=== PATIENT | male | born 1955 | race Caucasian/White ===

== ENCOUNTER 2017-10-04 15:28 | Emergency (ER) | payer MEDICARE, OTHER, SELFPAY ==
[2017-10-04 15:29] VITALS: BP 116/66; PULSE 67; RESP 14; TEMP 36.1; O2SAT 97; BMI 37.3
--- NOTE | 2017-10-04 15:42 | CT_ITS ---
STUDY: CT BRAIN WITHOUT CONTRAST REASON FOR EXAM: Male, 62 years old. Trauma. RADIATION DOSAGE (If Supplied By Facility): CTDIvol = ( 44.99 ) mGy, DLP = ( 880.47 ) mGycm TECHNIQUE: Transaxial CT imaging of the brain was performed without administration of intravenous contrast material. Individualized dose optimization techniques were used for this CT. COMPARISON: None. FINDINGS: There is a 2.8 cm focal scalp hematoma over the left forehead. Normal calvarium. No fractures are seen. Normal size ventricles and extra-axial spaces for the patient's age. Normal white matter tracts of the cerebral hemispheres. Normal basal ganglia and thalami. Normal brainstem. Normal cerebellum. There is no intracranial hemorrhage. There are no findings of an acute ischemic infarction. There is mucoperiosteal inflammatory disease of the paranasal sinuses consistent with mild chronic sinusitis. CT/Brain/Head without Contrast IMPRESSION: Normal unenhanced CT scan of the brain. Electronically Signed: Eran Stanton MD at 16:54 EDT , Service support ,
--- NOTE | 2017-10-04 15:43 | CT_ITS ---
STUDY: CT FACIAL BONES WITHOUT CONTRAST REASON FOR EXAM: Male, 62 years old. Trauma. RADIATION DOSAGE (If Supplied By Facility): CTDIvol = ( 29.38 ) mGy, DLP = ( 679.68 ) mGycm TECHNIQUE: The patient was scanned in a multi detector CT scanner. Sagittal and coronal images were reconstructed. Individualized dose optimization techniques were used for this CT. COMPARISON: None. FINDINGS: Focal 2.8 cm scalp hematoma over the left forehead. No definite fractures are seen. Normal orbital butler and orbital contents. Normal nasal bones and anterior nasal spine. Normal facial bones. There is no demonstrated fracture. Mild diffuse chronic sinusitis. CT/Sinus/Facial Bone IMPRESSION: No definite fractures are seen. Electronically Signed: Eran Stanton MD at 16:52 EDT , Service support ,
--- NOTE | 2017-10-04 15:59 | ED.VISSUMM ---
- ER Visit Summary Date of Service: 10/04/17 Chief Complaint: [Head injury] History of Present Illness: The patient is a 62 M [who presents the emergency department with a head injury. It occurred Gaurav. He was lifting the garage door and that is last thing he remembers. He woke up covered in blood. He does not know how long he lost consciousness. He went inside and put ice on it. He has been having swelling around his eyes and a hematoma just above the left eye. He complains of a headache. In general overall weakness. No focal deficits. Saw his pain management doctor today who suggested he come to the emergency department. He is on Arixtra for history of DVT in 2005. Has a history of hypertension hyperlipidemia and chronic back pain.] Physical Examination: [] WN WD NAD Large fluctuant hematoma just above the left brow, he has raccoon eyes bilaterally, no hsu signs He has bleeding on the left TM not behind that I can visualize PERRL EOMI MMM NECK supple and nontender, no masses RRR no murmur rub or gallop, no peripheral edema, symmetric radial pulses CTAB no respiratory distress ABDOMEN is soft and nontender, normal bowel sounds, no distension, no rebound or guarding SKIN abrasion bilateral knees Alert and Oriented x3, CN II-XII in tact, no motor or sensory deficits, gait normal No lymphadenopathy Test Results: [] Emergency Department Course and Treatment: [CT of the head and neck show no acute fractures or intracranial hemorrhage. Patient will hold Arixtra for 2 days. He was given precautions for which to return. He will do gentle compression and ice to the hematoma on his head and watch out for signs of infection.] Treatment Plan: [] Disposition: [Discharge] Impression: [scalp Hematoma on anticoagulation] This note was generated with [employer] dictation software. It may contain incorrect words, spelling, and punctuation that were not noted in review of the chart prior to signing ED Disposition - Plan for ED Patient: Chief Complaint: Head Injury Referrals: [facility] Doctor,Out of [Primary Care Provider] -
--- NOTE | 2017-10-04 16:02 | ED.DCSUM_ITS ---
- ER Visit Summary Date of Service: 10/04/17 Chief Complaint: [Head injury] History of Present Illness: The patient is a 62 M [who presents the emergency department with a head injury. It occurred Gaurav. He was lifting the garage door and that is last thing he remembers. He woke up covered in blood. He does not know how long he lost consciousness. He went inside and put ice on it. He has been having swelling around his eyes and a hematoma just above the left eye. He complains of a headache. In general overall weakness. No focal deficits. Saw his pain management doctor today who suggested he come to the emergency department. He is on Arixtra for history of DVT in 2005. Has a history of hypertension hyperlipidemia and chronic back pain.] Physical Examination: [] WN WD NAD Large fluctuant hematoma just above the left brow, he has raccoon eyes bilaterally, no hsu signs He has bleeding on the left TM not behind that I can visualize PERRL EOMI MMM NECK supple and nontender, no masses RRR no murmur rub or gallop, no peripheral edema, symmetric radial pulses CTAB no respiratory distress ABDOMEN is soft and nontender, normal bowel sounds, no distension, no rebound or guarding SKIN abrasion bilateral knees Alert and Oriented x3, CN II-XII in tact, no motor or sensory deficits, gait normal No lymphadenopathy Test Results: [] Emergency Department Course and Treatment: [CT of the head and neck show no acute fractures or intracranial hemorrhage. Patient will hold Arixtra for 2 days. He was given precautions for which to return. He will do gentle compression and ice to the hematoma on his head and watch out for signs of infection.] Treatment Plan: [] Disposition: [Discharge] Impression: [scalp Hematoma on anticoagulation] This note was generated with [employer] dictation software. It may contain incorrect words, spelling, and punctuation that were not noted in review of the chart prior to signing ED Disposition - Plan for ED Patient: Chief Complaint: Head Injury Referrals: [facility] Doctor,Out of [Primary Care Provider] -
--- NOTE | 2017-10-04 17:32 | ED.DEP ---
ED Disposition - Plan for ED Patient: Chief Complaint: Head Injury Instructions: ED Head Injury Closed, ED Contusion Scalp [facility]errals: [facility] [Other] - 2 Days Additional Instructions: stop arixtra for 2 days follow up with primary doctor in 2 days to discuss resuming anticoagulation
[2017-10-04 17:40] VITALS: BP 120/67; PULSE 75; RESP 18; O2SAT 96
== END 2017-10-04 17:40 | disposition home or self-care (01) ==
LOC: ED 16:00
PROVIDERS: Emergency Provider Emergency Medicine
DX: S00.03XA Contusion of scalp, initial encounter (principal); X50.0XXA Overexertion from strenuous movement or load, initial encounter; Y93.89 Activity, other specified; Y92.59 Other trade areas as the place of occurrence of the external cause; Y99.9 Unspecified external cause status; I10 Essential (primary) hypertension; E78.5 Hyperlipidemia, unspecified; G89.29 Other chronic pain; M54.9 Dorsalgia, unspecified; Z86.718 Personal history of other venous thrombosis and embolism; Z79.01 Long term (current) use of anticoagulants
CPT/HCPCS: 70450; 70486; 99282

== ENCOUNTER → 2017-10-12 11:03 | Outpatient (CLI) | payer OTHER, SELFPAY ==
[2017-10-12 12:28] LABS: Amphetamine Urine VISTA NEGATIVE (<1000 ng/mL); Barbiturate Urine VISTA NEGATIVE (< 200 ng/mL); Benzodiazepine Urine VISTA NEGATIVE (< 200 ng/mL); Cocaine Urine VISTA NEGATIVE (< 300 ng/mL); Ecstacy Urine VISTA NEGATIVE (< 500 ng/mL); Methadone Urine VISTA NEGATIVE (< 300 ng/mL); PCP Urine VISTA NEGATIVE (< 25 ng/mL); THC Urine VISTA POSITIVE (< 50 ng/mL); Vista UDS pH Range 7
== END ==
LOC: LAB 11:06
PROVIDERS: Visit Provider Anesthesiology Pain Medicine
DX: F11.20 Opioid dependence, uncomplicated (principal)
CPT/HCPCS: 80307

== ENCOUNTER 2018-06-20 15:21 | Emergency (ER) | payer OTHER, MEDICARE, SELFPAY ==
[2018-06-20 15:23] VITALS: BP 130/77; PULSE 91; RESP 18; TEMP 35.6; O2SAT 99; BMI 37.5
--- NOTE | 2018-06-20 15:39 | ED.VISSUMM ---
- ER Visit Summary Date of Service: 06/20/18 Chief Complaint: Back pain flareup History of Present Illness: The patient is a 62 M with a history of chronic back pain from a work injury in 2004. Pain was previously managed by his spine surgeon in [place] but he retired. He was subsequently referred to pain management here in [place] and his medications were adjusted. His pain has been somewhat worse now for the past month or 2, gradually getting worse. He tried injections 2 weeks ago but they did not help. He denies any sudden increase in pain after the injections or any change in the character, severity, location of the pain. No fever or chills. No midline pain, rather bilateral lumbar pain. No lower extremity weakness, numbness, or bowel/bladder dysfunction. No groin paresthesias. He is moderate. It radiates down both buttocks. It is worse with bending forward and better with certain positions. Physical Examination: Within normal limits. Not in distress. No fever. No midline back tenderness, erythema, or fluctuance. No evidence of infection from his injection. He does have bilateral paraspinal lumbar tenderness. There is normal strength and sensation in both lower extremities. Reflexes are normal and symmetric. Babinski's negative. No clonus. Test Results: none Performed Emergency Department Course and Treatment: No evidence of paraspinal or epidural abscess secondary to his injection. He assures me that this is similar in character to his chronic pain. It did not get suddenly worse after his injection which was approximately 2 weeks ago. He has no evidence of cauda equina syndrome. I do not feel he needs emergent imaging. His pain was addressed and he felt much better. He is able to ambulate. Treatment Plan: He is comfortable going home and will follow up with his pain management doctor. I did review his prescription history and he was honest with me about his prescriptions. He was given a prescription for pain medication and he was also given a prescription for Medrol Dosepak, and Zanaflex. Disposition: Home stable Impression: Initial encounter with acute on chronic back pain This note was generated with [employer] dictation software. It may contain incorrect words, spelling, and punctuation that were not noted in review of the chart prior to signing ED Disposition - Plan for ED Patient: Instructions: ED Low Back Pain Injury Prescriptions: Oxycodone HCl/Acetaminophen [Percocet 5/325] 1 tablet PO Q6H PRN PRN 3 Days #12 tablet PRN Reason: Pain MethylPREDNISolone DosePak [Medrol DosePak] 4 mg PO UD #1 box Naproxen [Naprosyn] 500 mg PO BID PRN #20 tablet Tizanidine HCl [Zanaflex] 4 mg PO TID PRN #20 tablet PRN Reason: Pain Referrals: [facility] Doctor,Out of [Primary Care Provider] -
--- NOTE | 2018-06-20 15:44 | ED.DCSUM_ITS ---
- ER Visit Summary Date of Service: 06/20/18 Chief Complaint: Back pain flareup History of Present Illness: The patient is a 62 M with a history of chronic back pain from a work injury in 2004. Pain was previously managed by his spine surgeon in [place] but he retired. He was subsequently referred to pain management here in [place] and his medications were adjusted. His pain has been somewhat worse now for the past month or 2, gradually getting worse. He tried injections 2 weeks ago but they did not help. He denies any sudden increase in pain after the injections or any change in the character, severity, location of the pain. No fever or chills. No midline pain, rather bilateral lumbar pain. No lower extremity weakness, numbness, or bowel/bladder dysfunction. No groin paresthesias. He is moderate. It radiates down both buttocks. It is worse with bending forward and better with certain positions. Physical Examination: Within normal limits. Not in distress. No fever. No midline back tenderness, erythema, or fluctuance. No evidence of infection from his injection. He does have bilateral paraspinal lumbar tenderness. There is normal strength and sensation in both lower extremities. Reflexes are normal and symmetric. Babinski's negative. No clonus. Test Results: none Performed Emergency Department Course and Treatment: No evidence of paraspinal or epidural abscess secondary to his injection. He assures me that this is similar in character to his chronic pain. It did not get suddenly worse after his injection which was approximately 2 weeks ago. He has no evidence of cauda equi na syndrome. I do not feel he needs emergent imaging. His pain was addressed and he felt much better. He is able to ambulate. Treatment Plan: He is comfortable going home and will follow up with his pain management doctor. I did review his prescription history and he was honest with me about his prescriptions. He was given a prescription for pain medication and he was also given a prescription for Medrol Dosepak, and Zanaflex. Disposition: Home stable Impression: Initial encounter with acute on chronic back pain This note was generated with [employer] dictation software. It may contain incorrect words, spelling, and punctuation that were not noted in review of the chart prior to signing ED Disposition - Plan for ED Patient: Instructions: ED Low Back Pain Injury Prescriptions: Oxycodone HCl/Acetaminophen [Percocet 5/325] 1 tablet PO Q6H PRN PRN 3 Days #12 tablet PRN Reason: Pain MethylPREDNISolone DosePak [Medrol DosePak] 4 mg PO UD #1 box Naproxen [Naprosyn] 500 mg PO BID PRN #20 tablet Tizanidine HCl [Zanaflex] 4 mg PO TID PRN #20 tablet PRN Reason: Pain Referrals: [facility] Doctor,Out of [Primary Care Provider] -
[2018-06-20] MEDS: HYDROmorphone 1 MG/ML Syringe 2 MG IM (16:25)
[2018-06-20 17:31] VITALS: BP 128/77; PULSE 81
== END 2018-06-20 16:45 | disposition home or self-care (01) ==
PROVIDERS: Emergency Provider Emergency Medicine
DX: M54.9 Dorsalgia, unspecified (principal); G89.29 Other chronic pain
CPT/HCPCS: 96372; 99282

== ENCOUNTER 2018-07-25 13:44 | Emergency (ER) | payer OTHER, MEDICARE, SELFPAY ==
[2018-07-25 13:45] VITALS: BP 95/65; PULSE 101; RESP 18; TEMP 36.8; O2SAT 98; BMI 34.2
[2018-07-25] MEDS: Orphenadrine 60 MG/2 ML Ampul IM (14:27)
[2018-07-25] MEDS: morphine 8 MG/ML Syringe IM (14:27)
--- NOTE | 2018-07-25 14:58 | ED.VISSUMM ---
- ER Visit Summary Date of Service: 07/25/18 Chief Complaint: Back pain History of Present Illness: The patient is a 62 M presents to the emergency department back pain. Patient has a history of chronic back pain. He states he was injured at work in 2004. He is been dealing with this since then. He has been in pain management. He has had epidural injections. He states that he recently stopped going to pain management and started down here at [place]. He did see Dr. Guallpa and had an epidural injection. He states that it did not seem like it helped. He continues to have back pain. He describes it as a burning sensation from his low back down the posterior legs. He has no problems with bowel or bladder. He denies any fevers or chills. He is still able to ambulate. He cannot find a position of comfort. Physical Examination: Afebrile, vitals unremarkable. Well-appearing male no acute distress. Head is normocephalic, atraumatic. Pupil's equal round reactive, extraocular muscles intact. Neck supple. Heart regular rate and rhythm. Lungs clear, chest nontender. Abdomen soft, nontender, nondistended. No pulsatile mass. Patient has paraspinal tenderness in the lumbar area, but no bony tenderness. Straight leg raise is negative bilaterally. 2+ symmetric lower extremity pulses. 2+ reflexes. No clonus. No weakness of dorsiflexion, plantar flexion, or extensor hallucis longus bilaterally. Test Results: [] Emergency Department Course and Treatment: [The patient's pain does seem entirely chronic. He has no evidence of discitis, epidural abscess, or cauda equina. He has a normal steady gait. The patient is on fondaparinux for history of DVT, but has not had any trauma. I do not suspect this is an epidural hematoma. He was given IM injections with improvement of his pain. I will treat him with antispasmodics and anti-inflammatories. He is not in any pain management and I will give him a short course of analgesics. He is comfortable with this plan of care and will be discharged home.] Treatment Plan: [] Disposition: Discharge Impression: Acute on chronic back pain This note was generated with [employer] dictation software. It may contain incorrect words, spelling, and punctuation that were not noted in review of the chart prior to signing ED Disposition - Plan for ED Patient: Instructions: ED Sciatica Prescriptions: Hydrocodone Bitart/Apap 5-325 [[place] 5MG-325MG] 1 tab PO Q6H PRN PRN 3 Days #10 tab PRN Reason: Pain MethylPREDNISolone DosePak [Medrol DosePak] 4 mg PO UD #1 box Cyclobenzaprine [Flexeril] 10 mg PO TID PRN #20 tab PRN Reason: Muscle Spasm [facility] [Primary Care Provider] -
[2018-07-25 15:18] VITALS: BP 114/73; PULSE 96; RESP 18; O2SAT 97
== END 2018-07-25 15:20 | disposition home or self-care (01) ==
LOC: ED 14:52
PROVIDERS: Emergency Provider Emergency Medicine
DX: M54.16 Radiculopathy, lumbar region (principal); G89.29 Other chronic pain; I10 Essential (primary) hypertension; Z86.718 Personal history of other venous thrombosis and embolism; Z79.01 Long term (current) use of anticoagulants; Z79.899 Other long term (current) drug therapy; Z72.0 Tobacco use
CPT/HCPCS: 96372; 99283

== ENCOUNTER 2019-12-17 12:13 | Emergency (ER) | payer OTHER, MEDICARE, SELFPAY ==
[2019-12-17 12:14] VITALS: BP 162/112; PULSE 90; RESP 20; TEMP 36.6; O2SAT 98; BMI 30.4
--- NOTE | 2019-12-17 12:46 | ED.VIS.GEN ---
History of Present Illness Chief Complaint: Fall Informant: Patient Narrative: 64-year-old male presents with concern for left posterior rib pain. States he was going up the stairs last night and fell backwards striking his ribs on a cast iron pot. States that he did not strike his head. No loss of consciousness. Was drinking alcohol. Denies any neck pain. States that he has sharp pain worse with movement. Worse with deep inspiration. Denies any profound shortness of breath. Does admit to some nausea. Patient is not on anticoagulation. Past Medical History - Allergies and Home Meds Allergies/Adverse Reactions: Allergies No Known Allergies Allergy (Verified 12/17/19 12:16) Primary Care Physician: [facility] [Primary Care Provider] - Prior records reviewed: Yes Past Medical History: - - HTN Lives: With Family Smoking Status: Former smoker Alcohol: Heavy Drugs: None Review of Systems General: Denies: Chills, Fever, Sweats Eyes: Denies: Visual changes - bilaterally, Diplopia ENT: Denies: Rhinorrhea, Sore throat Cardiovascular: Denies: Chest pain, Palpitations Respiratory: Denies: Dyspnea, Cough, Dyspnea on exertion Gastrointestinal: Reports: Nausea. Denies: Abdominal pain, Vomiting, Diarrhea, Melena, Hematochezia Genitourinary: Denies: Dysuria, Hematuria, Frequency Musculoskeletal: Reports: - - left rib pain. Denies: Back pain, Extremity Pain Skin: Denies: Rash, Wounds Neurological: Denies: Headache, Weakness, Numbness Physical Exam Vital Signs/Narrative: Vital Signs Temp Pulse Resp BP Pulse Ox 12/17/19 12:14 97.8 F 90 20 H 162/112 H 98 Inital Vital Signs reviewed: Yes General: Well nourished, Well developed, No Acute Distress Head: Normocephalic, Atraumatic Eyes: Perrl, EOMI ENT: Moist mucous membranes, No rhinorrhea Neck: Supple, Nontender Cardiovascular: Regular rate, Regular rhythm, No murmurs Respiratory: No distress, CTA bilaterally, - - TTP over the left posterior ribs with overlying ecchymosis and hematoma. Abdomen: Soft, Nontender, Nondistended, Normal bowel sounds Back: Nontender, Normal Inspection Extremities: Nontender, No edema Skin: Normal color, No rash Neurological: Alert, Oriented x3, Cranial nerves II-XII grossly intact, Normal Strength, Normal Sensation Psychological: Normal affect, Normal Mood Diagnostic/Tx/Re-eval Clinical Impression(s) from Imaging Studies Ribs w/Chest X-Ray 12/17/19 13:18 IMPRESSION: RIBS: Suspect acute fracture the posterior left 10th rib. CHEST: Normal x-ray examination of the chest. Electronically Signed: Jacques Beltrán MD at 13:51 EDT Tel , Service support , - Medical Decision Making Patient in mild to moderate distress secondary to likely rib fracture. Chest x-ray confirms a posterior 10th rib fracture. No evidence of pneumothorax. Patient was given subcu morphine which did reduce his pain significantly. Patient was given incentive spirometry as well as Percocet for home. Advised to return for any new or worsening symptoms. Patient agreeable and discharged home in stable condition. Impression: 1. Posterior 10th rib fracture 2. Mechanical fall 3. Alcohol abuse ED Disposition - Plan for ED Patient: Disposition: Home or Assisted Living Instructions: Rib Fracture (Broken Rib) Prescriptions: Oxycodone HCl/Acetaminophen [Percocet 5/325] 1 tab PO Q6H PRN PRN 2 Days #6 tab PRN Reason: Pain Score 6-10/10 Prescription Printed [facility] [Primary Care Provider] -
[2019-12-17] MEDS: Morphine 4 MG/ML Syringe SC (12:59)
[2019-12-17] MEDS: Ondansetron ODT 4 MG Tablet PO (13:00)
--- NOTE | 2019-12-17 13:18 | RAD_ITS ---
STUDY: X-RAY - UNILATERAL RIBS ( LEFT ) WITH CHEST REASON FOR EXAM: Male, 64 years old. PATIENT FELL LAST NIGHT AND HIT HIS LEFT LOWER BACK ON A CAST IRON FLOWER POT. PAIN LEFT LOWER RIBS POSTERIORLY. TECHNIQUE - RIBS: 5 view(s) of the ribs. TECHNIQUE - CHEST: Single PA view of the chest. COMPARISON: 05/02/2017 FINDINGS - RIBS: Acute fracture of the posterior left 10th rib. FINDINGS - CHEST: The lungs are clear and expanded. There is no demonstrated pleural abnormality. Normal size heart. Normal mediastinum and radha. Normal visualized pulmonary arteries. Normal visualized aortic arch and descending thoracic aorta. Normal visualized thoracic spine. Normal visualized ribs, clavicles, and shoulders. There is no demonstrated abnormality of the visualized soft tissue structures of the upper abdomen. RAD/Ribs Uni Min 3V w/PA Chest IMPRESSION: RIBS: Suspect acute fracture the posterior left 10th rib. CHEST: Normal x-ray examination of the chest. Electronically Signed: Jacques Beltrán MD at 13:51 EDT Tel , Service support ,
[2019-12-17 14:51] VITALS: BP 148/90; PULSE 72; RESP 18; O2SAT 96
== END 2019-12-17 14:52 | disposition home or self-care (01) ==
PROVIDERS: Emergency Provider Emergency Medicine
DX: S22.32XA Fracture of one rib, left side, initial encounter for closed fracture (principal); W22.8XXA Striking against or struck by other objects, initial encounter; Y92.9 Unspecified place or not applicable; Y99.9 Unspecified external cause status; F10.10 Alcohol abuse, uncomplicated; I10 Essential (primary) hypertension; Z87.891 Personal history of nicotine dependence
CPT/HCPCS: 71101; 96372; 99251; 99282; G0463

== ENCOUNTER 2020-10-24 14:12 | Emergency (ER) | payer OTHER, MEDICARE, SELFPAY ==
[2020-10-24 14:13] VITALS: BP 144/113; PULSE 107; RESP 16; TEMP 36.3; O2SAT 98; BMI 33.3
--- NOTE | 2020-10-24 14:30 | RAD_ITS ---
STUDY: X-RAY - LEFT RADIUS AND ULNA REASON FOR EXAM: Male, 65 years old. Injury TECHNIQUE: 2 view(s) of the forearm. COMPARISON: None. FINDINGS: Focal soft tissue swelling measuring 7.2 cm x 4.5 sinus along the proximal aspect of the ulna laterally. This may represent hematoma. Subchondral cysts are seen in the distal radius. Old avulsion fracture of the ulnar styloid. RAD/Forearm 2 Views IMPRESSION: Focal soft tissue swelling measuring 7.2 cm x 4.5 cm along the lateral aspect of the proximal ulnar shaft as described. This may represent a localized hematoma. Electronically Signed: Lacho Bailey MD at 14:49 EDT , Service support ,
--- NOTE | 2020-10-24 14:30 | EX.ED.UPPERE ---
HPI History of Present Illness Chief Complaint: Upper Extremity Injury Detail of Chief Complaint: Injury to left forearm Informant: patient Onset/Context/Timing Current Severity: Severe Narrative Narrative: Patient presents to the emergency department after a fall this morning where his deck steps broke and he fell about 4 5 feet landing on the steps with his knees and left forearm. Patient states throughout the day has had more swelling in the forearm is become more painful. Injury occurred approximately 5:30 AM. Patient is on a blood thinner called fondaparinux. Patient denies striking his head. He denies head or neck pain. Patient unsure of his last tetanus. Patient no complaint of discoloration to his hand and difficulty opening his hand. Tetanus Immunization: Unknown [facility] Home Medications amlodipine 10 mg PO DAILY 05/02/17 [History Last Taken Unknown] baclofen 20 mg PO TID 05/02/17 [History Last Taken Unknown] cyanocobalamin (vitamin B-12) 1,000 mcg PO DAILY@0800 05/02/17 [History Last Taken Unknown] fondaparinux [Arixtra] 10 mg SQ DAILY 05/02/17 [History Last Taken Unknown] metoprolol tartrate 25 mg PO BID 05/02/17 [History Last Taken Unknown] simvastatin 60 mg PO QHS 05/02/17 [History Last Taken Unknown] tamsulosin 0.4 mg PO DAILY 05/02/17 [History Last Taken Unknown] cyclobenzaprine 10 mg PO TID PRN #20 tab 07/25/18 [Rx Last Taken Unknown] gabapentin 600 mg PO TIDCM 07/25/18 [History Last Taken Unknown] methylprednisolone 4 mg PO UD #1 box 07/25/18 [Rx Last Taken Unknown] Allergy/AdvReac Type Severity Reaction Status Date / Time No Known Allergies Allergy Verified 10/24/20 14:15 Social History Smoking Status: Former smoker ROS ROS ED Constitutional Constitutional ED: Reports systems reviewed and no addt'l complaints, except as documented; Denies body ache(s), change in weight or chills Eyes Eyes: Denies acute decrease in peripheral vision, change in vision, double vision or loss of vision ENT ENT ED: Reports none; Denies ear pain, lip swelling, loss taste/smell, neck pain, otalgia or sore throat Cardiovascular Cardiovascular: Reports none; Denies abdominal pain, chest pain with activity, leg edema, lightheadedness, palpitations, rapid heart rate or syncope Respiratory/Chest Respiratory/Chest: Reports none; Denies change in mental status, dry cough, dyspnea, hemoptysis, shortness of breath at rest or shortness of breath with exertion Gastrointestinal Gastrointestinal: Reports none; Denies abdominal pain, change in stool character, diarrhea, hematemesis, hematochezia, melena, rectal bleeding or vomiting Genitourinary Genitourinary ED: Reports none; Denies abdominal discomfort, anuria, dysuria, genital pain or polyuria Musculoskeletal Musculoskeletal: Reports none and other Details: Left forearm pain ; Denies arthralgias, back pain, difficulty walking, extremity pain, muscle weakness or myalgias Integumentary Reports none; Denies abscess or rash Neurologic Neurologic: Reports none; Denies abnormal gait, confusion, focal weakness, frequent falls, headache(s), loss of vision, numbness, paresthesias, radicular pain, vertigo or weakness Psychiatric Psychiatric: Reports systems reviewed and no addt'l complaints, except as documented and none; Denies behavioral changes, confusion, difficulty concentrating, hallucinations, suicidal ideation, tactile hallucinations or visual hallucinations Endocrine Endocrinology: Denies none, cold intolerance, excessive sweating, fatigue or heat intolerance Hematologic/Lymphatic Hematologic/Lymphatic: Reports none; Denies anemia, easy bleeding or easy bruising Allergic/Immunologic Allergic/Immunologic ED: Denies as per HPI, none, lip swelling, mouth swelling, throat swelling, tongue swelling or hives EXAM Physical Exam Const Vital Signs: 10/24/20 14:13 Temperature 97.4 F L Temperature Source Temporal Pulse Rate 107 H Respiratory Rate 16 Blood Pressure 144/113 H Blood Pressure Mean 123 Pulse Ox 98 Oxygen Delivery Method Room Air Positive well nourished and well developed General Appearance ED: well developed and NAD HEENT Reports TM's clear and moist mucous membranes normocephalic and atraumatic; Negative for trauma or tenderness Tympanic Membrane ED: Yes TM's clear Eyes PERRL and EOMs intact bilaterally General Eye ED: Negative for pale conjunctiva or scleral icterus Neck no lymphadenopathy, supple and no JVD General: Negative for tenderness Chest Wall inspection of chest normal and palpation of chest normal Chest: Negative for tenderness Resp normal respiratory effort and clear to auscultation bilaterally Effort and Inspection: Negative for respiratory distress or pain with movement Auscultation: Negative for rhonchi, wheezes or diminished lung sounds Cardio regular rate, regular rhythm, S1 normal heart sound, S2 normal heart sound and no murmurs Peripheral Pulses: pulses 2+ throughout GI normal to inspection, nondistended, normoactive bowel sounds, soft to palpation, non-tender, non-distended and no masses Back/Spine no CVA tenderness and no thoracic nor lumbar tenderness Extremity normal to inspection Extremity Narrative: Patient has diffuse soft tissue swelling over the dorsum of the proximal forearm with tight compartments. Patient has some darkish discoloration to the dorsum of the hand. He has pain with extension of the hand and fingers. Cap refill approximately 4 seconds. General Extremety ED: Negative for edema General Extremity: Negative for edema Neuro oriented x3, CN's II-XII intact bilaterally, no sensory deficits noted and gait normal Sensorium / Orientation: awake, alert, oriented to person, oriented to place and oriented to time Motor Exam: strength 5/5 throughout and strength abnormal Psych mental status grossly normal Skin no rashes or lesions noted and no wounds MDM MDM MDM Narrative Medical decision making narrative: Clinically I was concerned about compartment syndrome on arrival. I discussed case with orthopedic surgeon on-call Dr. Brar who asked that we transfer patient to tertiary care center. X-rays were negative for fracture but did show soft tissue swelling localized. I discussed case with ED physician at [facility] in [place] who accepted transfer of patient. Patient was given morphine and Zofran for pain. Discharge Plan Triage Chief Complaint: Upper Extremity Injury ED Provider: Corey Regalado Dx/Rx/DC Orders Clinical Impression: Compartment syndrome, Contusion of forearm, left Prescriptions: No Action baclofen 20 MG tablet 20 mg PO TID RF: 0 simvastatin 40 MG tablet 60 mg PO QHS RF: 0 cyanocobalamin (vitamin B-12) 500 MCG tablet 1,000 mcg PO DAILY@0800 RF: 0 tamsulosin 0.4 MG capsule 0.4 mg PO DAILY RF: 0 amlodipine 10 MG tablet 10 mg PO DAILY RF: 0 metoprolol tartrate 25 MG tablet 25 mg PO BID RF: 0 fondaparinux [Arixtra] 10 MG/0.8 ML Ml 10 mg SQ DAILY RF: 0 gabapentin 600 MG tablet 600 mg PO TIDCM RF: 0 methylprednisolone 4 MG tablets,dose pack 4 mg PO UD Qty: 1 RF: 0 cyclobenzaprine 10 MG tablet 10 mg PO TID PRN (Reason: Muscle Spasm) Qty: 20 RF: 0 [facility] [facility] - Disposition Disposition: Transfer to Another Type [facility]
[2020-10-24 14:47] LABS: Absolute Lymphocyte Count 1.21 X10^3/uL (0.83-4.51); Absolute Neutrophil Count 12.8 X10^3/uL (2.0-7.7); Basophil# 0.05 X10^3/uL; Basophil% 0.3 % (0-1); Eosinophil# 0.04 X10^3/uL; Eosinophils% 0.3 % (0-5); Hematocrit 47.5 % (40-54); Hemoglobin 16.2 g/dL (13.0-16.5); Lymphocyte # 1.21 X10^3/ul (0.83-4.51); Lymphocyte % 8.3 % (19-41); Mean Corp Hgb Conc 34.1 g/dL (32-36); Mean Corpuscular Hgb 33.5 pg (27.0-32.0); Mean Corpuscular Volume 98.3 fL (80-94); Mean Platelet Vol. 9.5 fl (6.2-12.0); Monocyte# 0.52 X10^3/uL; Monocyte% 3.6 % (0-10); NRBC Flagged by Analyzer 0 % (0-5); Neutrophil # 12.75 X10^3/uL (2.7-7.7); Neutrophil % 87.2 % (47-70); Platelet Count 266 K/mm3 (150-450); RBC Distribution Width CV 12.9 % (11.6-14.6); RBC Distribution Width SD 46.5 fl (35.1-43.9); Red Blood Count 4.83 M/mm3 (4.6-6.2); White Blood Count 14.6 K/mm3 (4.4-11.0)
[2020-10-24] MEDS: Morphine 4 MG/ML Syringe IV (14:47)
[2020-10-24] MEDS: Ondansetron 4 MG/2 ML Vial IV (14:47)
[2020-10-24] MEDS: Diphth,Pertuss(Acell),Tet Vac 0.5 ML Vial IM (14:49)
[2020-10-24 14:56] LABS: International Normalized Ratio 1.1; Partial Thromboplast Time 27.9 Seconds (24.1-36.2); Prothrombin Time (Protime)PT. 13.2 SECONDS (11.7-14.9)
--- NOTE | 2020-10-24 14:57 | NURSING ---
[facility] FACILITY.
[2020-10-24 15:00] LABS: Anion Gap 6 (5-15); BUN 20 mg/dL (7-18); BUN/Creat Ratio 14.3 RATIO (10-20); Calcium,Total 8.7 mg/dL (8.5-10.1); Chloride 105 mmol/L (98-107); EST Glomerular Filtration Rate 54 mL/min (>60); Est Glom Filt Rate - Afr Amer 65 mL/min (>60); Estimated Creatinine Clearance 57.74 ml/min; Glucose 132 mg/dL (74-106); Sodium Level 137 mmol/L (136-145)
== END 2020-10-24 16:07 | disposition other institution (70) ==
PROVIDERS: Emergency Provider Emergency Medicine
DX: T79.A12A Traumatic compartment syndrome of left upper extremity, initial encounter (principal); S50.12XA Contusion of left forearm, initial encounter; W19.XXXA Unspecified fall, initial encounter; Z87.891 Personal history of nicotine dependence
CPT/HCPCS: 73090; 80048; 85025; 85610; 85730; 87426; 90715; 96374; 96375; 99285; J7030; A4216; J2405

== ENCOUNTER 2022-03-04 16:56 | Emergency (ER) | payer MEDICARE, SELFPAY ==
[2022-03-04] VITALS (7 sets, daily range): BP systolic 130–154; BP diastolic 83–109; PULSE 87–139; RESP 13–37; TEMP 35.9; O2SAT 92–100; BMI 32.1
--- NOTE | 2022-03-04 17:28 | EDS_ITS ---
HPI History of Present Illness Chief Complaint: Chest Pain Informant: patient Narrative Narrative: Patient complains of some chest discomfort. When I talked to the patient he states he has been having chest discomfort for a few days to a week. He initially denies coughing but then states that he started coughing last weekend. He also had some diarrhea last weekend. It takes multiple questions to find out that the diarrhea seems to be less. But he did have 1 episode yesterday. He initially denied nausea but then he admitted he has been nauseated a couple times but he is never vomited. He is able to eat and drink but does not have much appetite. Denies myalgias. His family member states then that he is actually been having symptoms for almost 2 weeks. He then agrees with that. He denies any known sick contacts but then says his brother who is each been around has the same thing. Patient is not confused. He is alert and oriented x3. Is just difficulty getting a consistent story from him. I believe the summation is that he has been ill for between 1 and 2 weeks. At various times he has had cough, dyspnea, nausea, diarrhea. He is also had fevers and states he has had to wring out the sweat from his close a couple times. He is taking his Arixtra. He has a history of atrial fibrillation and PE. [facility] Medical History Afib High cholesterol HTN (hypertension) Pulmonary embolism Home Medications amlodipine 10 mg tablet 10 mg PO DAILY 05/02/17 [History Last Taken Unknown] baclofen 20 mg tablet 20 mg PO TID 05/02/17 [History Last Taken Unknown] cyanocobalamin (vitamin B-12) 500 mcg tablet 1,000 mcg PO DAILY@0800 05/02/17 [History Last Taken Unknown] fondaparinux 10 mg/0.8 mL subcutaneous solution syringe (Arixtra) 10 mg SQ DAILY 05/02/17 [History Last Taken Unknown] metoprolol tartrate 25 mg tablet 25 mg PO BID 05/02/17 [History Last Taken Unknown] simvastatin 40 mg tablet 60 mg PO QHS 05/02/17 [History Last Taken Unknown] tamsulosin 0.4 mg capsule 0.4 mg PO DAILY 05/02/17 [History Last Taken Unknown] cyclobenzaprine 10 mg tablet 10 mg PO TID PRN Muscle Spasm #20 tabs 07/25/18 [Rx Last Taken Unknown] gabapentin 600 mg tablet 600 mg PO TIDCM 07/25/18 [History Last Taken Unknown] methylprednisolone 4 mg tablets in a dose pack 4 mg PO UD ##1 07/25/18 [Rx Last Taken Unknown] Allergy/AdvReac Type Severity Reaction Status Date / Time No Known Allergies Allergy Verified 03/04/22 16:59 Social History Smoking Status: Former smoker ROS ROS ED Constitutional Constitutional ED: Reports chills, fever(s) and sweats Eyes Eyes: Denies change in vision or diplopia ENT ENT ED: Reports rhinorrhea; Denies sore throat Cardiovascular Cardiovascular: Reports chest pain; Denies racing heartbeat Respiratory/Chest Respiratory/Chest: Reports cough and dyspnea; Denies sputum Gastrointestinal Gastrointestinal: Reports nausea; Denies abdominal pain, diarrhea or vomiting Genitourinary Genitourinary ED: Denies dysuria Musculoskeletal Musculoskeletal: Denies arthralgias or myalgias Integumentary Denies rash Neurologic Neurologic: Denies headache(s) Endocrine Endocrinology: Denies polydipsia or polyuria Hematologic/Lymphatic Hematologic/Lymphatic: Reports easy bleeding and easy bruising Allergic/Immunologic Allergic/Immunologic ED: Denies urticaria EXAM Physical Exam Const Vital Signs: 03/04/22 16:57 03/04/22 17:11 03/04/22 17:43 Temperature 96.6 F L Temperature Source Temporal Pulse Rate 139 H 96 99 Respiratory Rate 30 H 13 30 H Blood Pressure 154/109 H Blood Pressure Mean 124 Pulse Ox 94 Oxygen Delivery Method Room Air 03/04/22 17:43 03/04/22 18:12 03/04/22 19:27 Temperature Temperature Source Pulse Rate 87 96 Respiratory Rate 37 H 18 Blood Pressure 130/83 H Blood Pressure Mean 98 Pulse Ox 100 100 99 Oxygen Delivery Method Room Air Room Air Room Air Positive well nourished and well developed General Appearance ED: well developed and NAD HEENT Reports moist mucous membranes Eyes General Eye ED: Negative for scleral icterus Neck no JVD Chest Wall inspection of chest normal Chest Narrative: Mild nonfocal soreness of his chest. Resp normal respiratory effort Resp Narrative: Breathing looks unlabored in bed. His breath sounds are diffusely decreased. I do not hear specifically rhonchi or wheezing but he is very quiet throughout. Cardio regular rate and no murmurs Rhythm: abnormal rhythm GI normal to inspection, nondistended, normoactive bowel sounds and non-tender Back/Spine no CVA tenderness Extremity General Extremety ED: Negative for edema or tenderness General Extremity: Negative for edema Neuro oriented x3 Psych mental status grossly normal Skin no rashes or lesions noted MDM MDM MDM Narrative Medical decision making narrative: X-ray showed what is more likely chronic changes. CBC actually showed elevated hemoglobin. However, his creatinine was also elevated. This might all be due to demargination. His troponin was completely normal. Patient was given IV fluids here. We gave him breathing treatment. We gave him some pain meds because his back is chronically painful. This is not new or different. Patient wanted to go home. His heart rate is down. His blood pressure is good. He is not hypoxic. We got him up and walked and he walked without any difficulty. He feels much better. I also found that he generally uses Scott to manage his back pain. I think the increase use of Scott might have something to do with some of his symptoms also. [facility] He used to be in pain management for the back. We discussed reasons to return. It sounds like both he and his brother had viral type syndrome recently. But his diarrhea is now gone. Its been over 36 hours since his last episode. He has been drinking water here without difficulty. Lab Data Attestation: I reviewed the patient's lab results. Labs: Laboratory Results - last 24 hr 03/04/22 03/04/22 17:35 17:35 WBC 5.2 RBC 5.64 Hgb 18.2 H* Hct 52.8 MCV 93.6 MCH 32.3 H MCHC 34.5 RDW Std Deviation 46.3 H RDW Coeff of Cara 13.4 Plt Count 153 MPV 10.8 Immature Gran % (Auto) 0.200 Neut % (Auto) 40.7 L Lymph % (Auto) 44.5 H Nuckolls % (Auto) 11.2 H Eos % (Auto) 1.9 Baso % (Auto) 1.5 H Absolute Neuts (auto) 2.1 Absolute Lymphs (auto) 2.30 Nucleated RBC % 0 Differential Comment SCANNED Diff Path Review May foll Reactive Lymphocytes 1+ Sodium 135 L Potassium 4.2 Chloride 102 Carbon Dioxide 25.0 Anion Gap 8 BUN 44 H Creatinine 2.06 H Estim Creat Clear Calc 41.01 Est GFR (MDRD) Af Amer 42 L Est GFR (MDRD) Non-Af 35 L BUN/Creatinine Ratio 21.4 H Glucose 100 Calcium 8.8 Troponin I High Sens 6 Radiography Diagnostic Testing: Clinical Impression(s) from Imaging Studies Chest X-Ray 03/04/22 17:40 IMPRESSION: ASHD. No acute infiltration Probable bilateral pleural thickening although cannot definitively exclude tiny effusions. Electronically Signed: Medhat Schaffer MD at 18:10 EST , Chest x-ray showed no acute infiltrative process. There is some mild pleural thickening and may be small effusion more on the left. EKG Initial EKG: Comments: EKG done for chest pain and history of atrial fibrillation read by me shows atrial fibrillation with overall rate control at 86. Rare PVC. No acute ST elevation or depression. QRS duration and QTc normal. Discharge Plan Triage Chief Complaint: Chest Pain ED Provider: Gorge Desai Dx/Rx/DC Orders Clinical Impression: Acute viral syndrome, Dehydration, Acute kidney injury, Chronic back pain Instructions: Dehydration Prescriptions: No Action baclofen 20 MG tablet 20 mg PO TID simvastatin 40 MG tablet 60 mg PO QHS cyanocobalamin (vitamin B-12) 500 MCG tablet 1,000 mcg PO DAILY@0800 tamsulosin 0.4 MG capsule 0.4 mg PO DAILY amlodipine 10 MG tablet 10 mg PO DAILY metoprolol tartrate 25 MG tablet 25 mg PO BID fondaparinux [Arixtra] 10 MG/0.8 ML Ml 10 mg SQ DAILY gabapentin 600 MG tablet 600 mg PO TIDCM methylprednisolone 4 MG tablets,dose pack 4 mg PO UD Qty: 1 0RF cyclobenzaprine 10 MG tablet 10 mg PO TID PRN (Reason: Muscle Spasm) Qty: 20 0RF [facility] Provider[facility] - As soon as possible Disposition Disposition: Home, Self Care
[2022-03-04] MEDS: Ipratropium/Albuterol Sulfate 3 ML AMPUL.NEB INHALATION (17:35)
--- NOTE | 2022-03-04 17:40 | RAD_ITS ---
STUDY: X-RAY CHEST REASON FOR EXAM: Male, 66 years old. cough TECHNIQUE: AP portable COMPARISON: 05/02/2017 FINDINGS: The lungs are clear and expanded . Tiny nodule in the right upper lobe likely granuloma.. Blunted costophrenic angles bilaterally likely representing pleural thickening.. Cannot definitively exclude tiny pleural effusions. Heart is enlarged.. Normal mediastinum and radha. Normal visualized pulmonary arteries. Normal visualized aortic arch and descending thoracic aorta. Dorsal spine demonstrates degenerative change.. Normal visualized ribs, clavicles, and shoulders. There is no demonstrated abnormality of the visualized soft tissue structures of the upper abdomen. RAD/Chest 1 View (Portable) IMPRESSION: ASHD. No acute infiltration Probable bilateral pleural thickening although cannot definitively exclude tiny effusions. Electronically Signed: Medhat Schaffer MD at 18:10 EST ,
[2022-03-04 17:43] LABS: Absolute Neutrophil Count 2.1 X10^3/uL (2.0-7.7); Basophil# 0.08 X10^3/uL; Basophil% 1.5 % (0-1); Eosinophils% 1.9 % (0-5); Hematocrit 52.8 % (40-54); Lymphocyte % 44.5 % (19-41); Mean Corp Hgb Conc 34.5 g/dL (32-36); Mean Corpuscular Hgb 32.3 pg (27.0-32.0); Mean Corpuscular Volume 93.6 fL (80-94); Mean Platelet Vol. 10.8 fl (6.2-12.0); Monocyte# 0.58 X10^3/uL; Monocyte% 11.2 % (0-10); NRBC Flagged by Analyzer 0 % (0-5); Neutrophil % 40.7 % (47-70); POSITIVE MORPHOLOGY YES; Platelet Count 153 K/mm3 (150-450); RBC Distribution Width CV 13.4 % (11.6-14.6); RBC Distribution Width SD 46.3 fl (35.1-43.9); Red Blood Count 5.64 M/mm3 (4.6-6.2); White Blood Count 5.2 K/mm3 (4.4-11.0)
[2022-03-04 17:51] LABS: Differential Indicated SCAN CRITERIA MET; Hemoglobin 18.2 g/dL (13.0-16.5)
[2022-03-04 18:12] LABS: Differential Comment SCANNED; Reactive Lymphocyte 1+
[2022-03-04 18:17] LABS: Anion Gap 8 (5-15); BUN 44 mg/dL (7-18); BUN/Creat Ratio 21.4 RATIO (10-20); Calcium,Total 8.8 mg/dL (8.5-10.1); Chloride 102 mmol/L (98-107); Creatinine, Serum 2.06 mg/dL (0.70-1.30); EST Glomerular Filtration Rate 35 mL/min (>60); Est Glom Filt Rate - Afr Amer 42 mL/min (>60); Estimated Creatinine Clearance 41.01 ml/min; Glucose 100 mg/dL (74-106); Potassium 4.2 mmol/L (3.5-5.1); Sodium Level 135 mmol/L (136-145); Troponin-I HS 6 pg/mL (3.0-78.0)
[2022-03-04] MEDS: oxyCODONE 5 MG Tablet PO (18:37)
[2022-03-04] MEDS: Morphine 4 MG/ML Syringe IV (20:01)
[2022-03-05 14:16] LABS: Pathologist Review Reviewed
== END 2022-03-04 21:59 | disposition home or self-care (01) ==
PROVIDERS: Emergency Provider Emergency Medicine; Visit Provider Emergency Medicine
DX: E86.0 Dehydration (principal); N17.9 Acute kidney failure, unspecified; I48.91 Unspecified atrial fibrillation; B34.9 Viral infection, unspecified; M54.9 Dorsalgia, unspecified; I10 Essential (primary) hypertension; G89.29 Other chronic pain; Z87.891 Personal history of nicotine dependence; E78.00 Pure hypercholesterolemia, unspecified; R19.7 Diarrhea, unspecified; Z86.711 Personal history of pulmonary embolism
CPT/HCPCS: 71045; 80048; 84484; 85025; 87428; 93005; 94640; 96361; 96374; 99285; J7040; A4216

== ENCOUNTER 2024-11-11 12:19 | Inpatient (IN) | payer MEDICARE, SELFPAY ==
[2024-11-11] VITALS (30 sets, daily range): BP systolic 105–173; BP diastolic 60–111; PULSE 87–130; RESP 17–243; TEMP 36–37.2; O2SAT 94–100; BMI 31.1; BMI 33.2
--- NOTE | 2024-11-11 12:31 | ED.VIS.DYS ---
HPI History of Present Illness Chief Complaint: Shortness of Breath [facility] Medical History Afib High cholesterol HTN (hypertension) Pulmonary embolism Home Medications ?Medication ?Instructions ?Recorded ?Last Taken ?Type amlodipine 10 mg tablet 10 mg PO DAILY 05/02/17 11/11/24 History cyanocobalamin (vitamin B-12) 500 1,000 mcg PO DAILY@0800 05/02/17 11/11/24 History mcg tablet fondaparinux 10 mg/0.8 mL 10 mg SQ DAILY 05/02/17 11/11/24 History subcutaneous solution syringe (Arixtra) metoprolol tartrate 25 mg tablet 25 mg PO BID 05/02/17 11/11/24 History gabapentin 600 mg tablet 600 mg PO TIDCM 07/25/18 Unknown History albuterol sulfate 90 mcg/actuation 1 inh inhalation Q6H 11/11/24 Unknown History aerosol inhaler (Ventolin HFA) cholecalciferol (vitamin D3) 25 25 mcg PO DAILY 11/11/24 11/11/24 History mcg (1,000 unit) capsule ezetimibe 10 mg tablet 10 mg PO DAILY 11/11/24 11/11/24 History hydrochlorothiazide 12.5 mg capsule 12.5 mg PO DAILY 11/11/24 11/11/24 History lisinopril 40 mg tablet 40 mg PO DAILY 11/11/24 11/11/24 History tizanidine 4 mg capsule 4 mg PO BID PRN muscle spasticity 11/11/24 Unknown History Allergy/AdvReac Type Severity Reaction Status Date / Time No Known Allergies Allergy Verified 11/11/24 12:22 Social History Smoking Status: Former smoker EXAM Physical Exam Const Vital Signs: 11/11/24 12:20 11/11/24 12:34 11/11/24 13:03 Temperature 98.2 F Temperature Source Oral Pulse Rate 88 Respiratory Rate 36 H Respiratory Effort Short of Breath Blood Pressure 105/60 Blood Pressure Mean 75 Pulse Ox 100 Oxygen Delivery Method Room Air Room Air Room Air 11/11/24 13:12 11/11/24 14:00 11/11/24 14:19 Temperature 98.2 F 98.3 F Temperature Source Oral Oral Pulse Rate 114 H 111 H Respiratory Rate 24 H 31 H Respiratory Effort Blood Pressure 139/97 H 133/81 H 133/81 H Blood Pressure Mean 111 98 98 Pulse Ox 98 99 Oxygen Delivery Method Room Air Room Air 11/11/24 15:00 11/11/24 15:03 11/11/24 15:15 Temperature 98.3 F Temperature Source Oral Pulse Rate 110 H Respiratory Rate 31 H Respiratory Effort Blood Pressure 124/84 H 159/95 H Blood Pressure Mean 97 115 Pulse Ox 100 99 Oxygen Delivery Method Room Air 11/11/24 15:15 11/11/24 15:16 11/11/24 15:32 Temperature Temperature Source Pulse Rate 130 H Respiratory Rate 30 H Respiratory Effort Blood Pressure 159/95 H Blood Pressure Mean 115 Pulse Ox 99 98 Oxygen Delivery Method 11/11/24 15:44 11/11/24 15:45 11/11/24 16:00 Temperature 98.3 F 98.9 F Temperature Source Oral Pulse Rate 110 H 87 Respiratory Rate 31 H 24 H Respiratory Effort Blood Pressure 124/84 H 155/97 H Blood Pressure Mean 97 116 Pulse Ox 100 98 99 Oxygen Delivery Method Room Air 11/11/24 16:00 11/11/24 16:04 11/11/24 16:05 Temperature Temperature Source Pulse Rate Respiratory Rate Respiratory Effort Blood Pressure 138/91 H 125/87 H Blood Pressure Mean 103 100 Pulse Ox 99 98 99 Oxygen Delivery Method 11/11/24 16:06 11/11/24 16:07 11/11/24 17:00 Temperature 98.9 F Temperature Source Oral Pulse Rate 107 H Respiratory Rate 25 H Respiratory Effort Blood Pressure 117/92 H 133/96 H 150/102 H Blood Pressure Mean 98 107 118 Pulse Ox 98 99 98 Oxygen Delivery Method Room Air 11/11/24 17:22 11/11/24 18:00 Temperature 98.7 F 98.7 F Temperature Source Oral Oral Pulse Rate 104 H Respiratory Rate 24 H Respiratory Effort Blood Pressure 150/100 H Blood Pressure Mean 116 Pulse Ox 98 Oxygen Delivery Method Room Air MDM MDM MDM Narrative Medical decision making narrative: HISTORY OF PRESENT ILLNESS: Chief complaint: Shortness of breath 69-year-old male history of hypertension, A-fib, hyperlipidemia. Presents with shortness of breath. Patient is not a current historian. Notes he has been short of breath for a while without him being but it has not. Notes he has dyspnea on exertion. Denies any chest pain. Denies any cough fever chills. Denies any hemoptysis. Notes compliance with fondaparinux. Denies urinary complaints. REVIEW OF SYSTEMS: Pertinent positives: Shortness of breath Pertinent negatives: Syncope, leg swelling PHYSICAL EXAM: Nursing triage notes reviewed, Vital signs reviewed Constitutional: please see [facility] HENT: MMM Eyes: Pupils equal round and reactive to light, Extraocular muscles intact Neck: No stridor, no JVD, full neck ROM Lungs: Clear to auscultation, No wheezing or rales. No increased work of breathing, no conversational dyspnea, no accessory muscle use, no nasal flaring. No respiratory distress noted Heart: Regular rate and rhythm, No murmurs, No rubs and No gallops, 2+ distal pulses (radial, femoral, posterior tibial) in all extremities Abdomen: Soft, there is no tenderness, rigidity, rebound or guarding, no obvious peritoneal signs, no palpable pulsatile abdominal masses, no auscultated abdominal bruit : No CVAT Extremities: No edema Neuro: No new focal neurological deficits, cranial nerves II through XII intact, 5/5 strength in all present extremities. Intact sensation to light touch in all present extremities, 2+ reflexes bilateral patella tendons. Skin: No rash or lesions noted MEDICAL DECISION MAKING: Chief Complaint: please see HPI External records reviewed: Reviewed prior EKG. Reviewed prior cardiovascular testing. Factors affecting care: none Social determinants of health: none History obtained from others: none Consults: Hospitalist (Dr. Bergman) [facility] [place] Narrative: Patient was initially tachypneic, afebrile, nontoxic-appearing. Exam without focal cardiopulmonary abnormalities. No stigmata of VTE, CHF on exam I considered the following differential diagnosis: ACS, arrhythmia, anemia, electrolyte disturbance, pneumothorax, pneumonia, CHF exacerbation I obtained a broad lab and imaging workup to further determine if the patient was suffering from a life-threatening etiology. ALL IMAGES (IF OBTAINED) HAVE BEEN PERSONALLY REVIEWED AND INTERPRETED BY MYSELF. EKG with rate controlled A-fib rate of 99, normal axis, normal intervals, noted ST depressions and T wave inversions anterior laterally in leads V2, V3, V4 CBC with leukocytosis suggestive of system information, no anemia or thrombocytopenia noted High-sensitivity troponin is negative, no evidence of myocardial ischemia BNP elevated consistent with volume overload CT lumbar spine shows evidence of chronic compression fractures. Urine tox urine positive cannabinoids BMP with mild hyponatremia, noted metabolic acidosis, endorgan perfusion consistent with elevated anion gap and low bicarb unclear mechanism will obtain VBG and lactate to further assess. Discussed with Dr. Bergman who recommended obtaining a VBG and lactate to further assess metabolic acidosis. She agreed with admission. VBG with no sign of metabolic acidosis, noted low CO2 consistent with hyperventilation Lactate elevated to 4.2 consistent with endorgan hypoperfusion concerning for occult infection Upon reassessment patient denied abdominal pain. Denies any rashes. Denies any trouble urinating. Noted shortness of breath only with exertion. Denies cough fever or chills. Patient did endorse history of alcohol use There is no clear infectious source however given elevated lactate, white blood cell count and multiple SIRS criteria did draw blood and urine cultures at this time. Also gave broad-spectrum antibiotics given concerning SIRS criteria. Discussed with hospitalist. At this point I do not a CT scan abdomen pelvis, acetone gave thiamine CT scan abdomen pelvis resulted as no acute process. Acetone slightly elevated. Given multiple vital sign abnormalities, lab abnormalities and difficulty with ambulation patient be admitted for further observation and evaluation. The patient and/or family, caregivers express understanding. The patient and/or family, caregivers agrees with the plan. Shared decision making: I will have a discussion with the patient and or visitors regarding risk/benefits of further testing or admission. They will be made aware of of the risk/benefits inherent in this decision they will be given the opportunity to voice understanding. Total critical care time today provided was at least 0 minutes. This excludes separately billable procedures. Critical care time (if documented) is secondary to the patient having high probability of clinically significant/life threatening deterioration in the patient's condition which required my urgent intervention. Impression: 1. Dyspnea 2. History of PE 3. CHF exacerbation 4. Metabolic acidosis 5. Elevated lactate Dispo: Admit to This note was generated with [employer] dictation software. It may contain incorrect words, spelling, and punctuation that were not noted in review of the chart prior to signing. Lab Data Labs: Laboratory Results - last 24 hr 11/11/24 11/11/24 11/11/24 12:50 12:50 13:05 WBC Cancelled 11.2 H Corrected WBC Cancelled RBC Cancelled 4.88 Hgb Cancelled 17.8 H Hct Cancelled 49.9 MCV Cancelled 102.3 H MCH Cancelled 36.5 H MCHC Cancelled 35.7 RDW Std Deviation Cancelled 53.6 H RDW Coeff of Cara Cancelled 14.2 Plt Count Cancelled 335 MPV Cancelled 8.4 Immature Gran % (Auto) Cancelled 0.400 Neut % (Auto) Cancelled 78.7 H Lymph % (Auto) Cancelled 13.0 L [place] % (Auto) Cancelled 7.1 Eos % (Auto) Cancelled 0.2 Baso % (Auto) Cancelled 0.6 Absolute Neuts (auto) Cancelled 8.8 H Absolute Lymphs (auto) Cancelled 1.46 Total Counted Cancelled Neutrophils % (Manual) Cancelled Band Neutrophils % Cancelled Lymphocytes % (Manual) Cancelled Monocytes % (Manual) Cancelled Eosinophils % (Manual) Cancelled Basophils % (Manual) Cancelled Metamyelocytes % Cancelled Myelocytes % Cancelled Promyelocytes % Cancelled Blast Cells % Cancelled Plasma Cell % (Manual) Cancelled Other Cells % Cancelled Nucleated RBC % Cancelled 0 Nucleated RBCs/100 WBC Cancelled Differential Comment Cancelled Diff Path Review Cancelled Hypersegmented Neuts Cancelled Atypical Lymphocytes Cancelled Reactive Lymphocytes Cancelled Smudge Cells Cancelled Toxic Granulation Cancelled Toxic Vacuolation Cancelled Dohle Bodies Cancelled Bradley Rods Cancelled Platelet Estimate Cancelled Plt Morphology Comment Cancelled RBC Morphology Cancelled Cancelled Polychromasia Cancelled Hypochromasia Cancelled Basophilic Stippling Cancelled Anisocytosis Cancelled Microcytosis Cancelled Macrocytosis Cancelled Spherocytes Cancelled Sickle Cells Cancelled Target Cells Cancelled Tear Drop Cells Cancelled Ovalocytes Cancelled Stomatocytes Cancelled [place] Bodies Cancelled Wade Cells Cancelled Bite Cells Cancelled Crenated Cell Cancelled Acanthocytes (Spur) Cancelled Rouleaux Cancelled Schistocytes Cancelled Sodium 131 L Potassium 4.3 Chloride 95 L Carbon Dioxide 16.8 L Anion Gap 19 H BUN 13 Creatinine 1.40 H Estim Creat Clear Calc 65.68 Est GFR (MDRD) Non-Af 54 L BUN/Creatinine Ratio 9.6 L Glucose 128 H Lactic Acid Calcium 10.0 Total Bilirubin Direct Bilirubin AST ALT Alkaline Phosphatase Troponin T High Sens 7 Troponin T Hi Sens 2 Hr Troponin T Hi Sens 4Hr NT pro BNP II 1846 H Total Protein Albumin Globulin b-Hydroxybutyric mmol/L TSH Urine Color Urine Clarity Urine pH Ur Specific [place] Urine Protein Urine Glucose (UA) Urine Ketones Urine Occult Blood Urine Nitrite Urine Bilirubin Urine Urobilinogen Ur Leukocyte Esterase Urine RBC Urine WBC Ur Squamous Epith Cells Ur Transition Epith Cell Ur Renal Epithelial Cell Urine Bacteria Coarse Granular Casts Urine Mucus Urine Opiates Screen U Buprenorphine Qual Ur Oxycodone Screen Urine Methadone Screen Urine Fentanyl Screen Ur Barbiturates Screen Ur Phencyclidine Scrn Ur Amphetamines Screen U Benzodiazepines Scrn Urine Cocaine Screen U Cannabinoids Screen Ethyl Alcohol 11/11/24 11/11/24 11/11/24 13:15 14:35 15:45 WBC Corrected WBC RBC Hgb Hct MCV MCH MCHC RDW Std Deviation RDW Coeff of Cara Plt Count MPV Immature Gran % (Auto) Neut % (Auto) Lymph % (Auto) [place] % (Auto) Eos % (Auto) Baso % (Auto) Absolute Neuts (auto) Absolute Lymphs (auto) Total Counted Neutrophils % (Manual) Band Neutrophils % Lymphocytes % (Manual) Monocytes % (Manual) Eosinophils % (Manual) Basophils % (Manual) Metamyelocytes % Myelocytes % Promyelocytes % Blast Cells % Plasma Cell % (Manual) Other Cells % Nucleated RBC % Nucleated RBCs/100 WBC Differential Comment Diff Path Review Hypersegmented Neuts Atypical Lymphocytes Reactive Lymphocytes Smudge Cells Toxic Granulation Toxic Vacuolation Dohle Bodies Bradley Rods Platelet Estimate Plt Morphology Comment RBC Morphology Polychromasia Hypochromasia Basophilic Stippling Anisocytosis Microcytosis Macrocytosis Spherocytes Sickle Cells Target Cells Tear Drop Cells Ovalocytes Stomatocytes [place] Bodies Yoko Cells Bite Cells Crenated Cell Acanthocytes (Spur) Rouleaux Schistocytes Sodium Potassium Chloride Carbon Dioxide Anion Gap BUN Creatinine Estim Creat Clear Calc Est GFR (MDRD) Non-Af BUN/Creatinine Ratio Glucose Lactic Acid 4.2 H* Calcium Total Bilirubin Direct Bilirubin AST ALT Alkaline Phosphatase Troponin T High Sens Troponin T Hi Sens 2 Hr 8 Troponin T Hi Sens 4Hr NT pro BNP II Total Protein Albumin Globulin b-Hydroxybutyric mmol/L TSH Urine Color Rosi Urine Clarity Cloudy Urine pH 7.0 Ur Specific [place] 1.010 Urine Protein 100 H Urine Glucose (UA) Normal Urine Ketones 5 H Urine Occult Blood 25 H Urine Nitrite Negative Urine Bilirubin 1 H Urine Urobilinogen 1 H Ur Leukocyte Esterase 500 H Urine RBC 0-5 SEEN Urine WBC 50-100 SEEN Ur Squamous Epith Cells 0-5 SEEN Ur Transition Epith Cell 0-5 SEEN Ur Renal Epithelial Cell 0-5 SEEN Urine Bacteria 4+ Coarse Granular Casts 0-5 SEEN Urine Mucus 1+ Urine Opiates Screen NEGATIVE U Buprenorphine Qual NEGATIVE Ur Oxycodone Screen NEGATIVE Urine Methadone Screen NEGATIVE Urine Fentanyl Screen NEGATIVE Ur Barbiturates Screen NEGATIVE Ur Phencyclidine Scrn NEGATIVE Ur Amphetamines Screen NEGATIVE U Benzodiazepines Scrn NEGATIVE Urine Cocaine Screen NEGATIVE U Cannabinoids Screen PRESUMPTIVE POSITIVE Ethyl Alcohol 11/11/24 17:10 WBC Corrected WBC RBC Hgb Hct MCV MCH MCHC RDW Std Deviation RDW Coeff of Cara Plt Count MPV Immature Gran % (Auto) Neut % (Auto) Lymph % (Auto) [place] % (Auto) Eos % (Auto) Baso % (Auto) Absolute Neuts (auto) Absolute Lymphs (auto) Total Counted Neutrophils % (Manual) Band Neutrophils % Lymphocytes % (Manual) Monocytes % (Manual) Eosinophils % (Manual) Basophils % (Manual) Metamyelocytes % Myelocytes % Promyelocytes % Blast Cells % Plasma Cell % (Manual) Other Cells % Nucleated RBC % Nucleated RBCs/100 WBC Differential Comment Diff Path Review Hypersegmented Neuts Atypical Lymphocytes Reactive Lymphocytes Smudge Cells Toxic Granulation Toxic Vacuolation Dohle Bodies Bradley Rods Platelet Estimate Plt Morphology Comment RBC Morphology Polychromasia Hypochromasia Basophilic Stippling Anisocytosis Microcytosis Macrocytosis Spherocytes Sickle Cells Target Cells Tear Drop Cells Ovalocytes Stomatocytes [place] Bodies Wade Cells Bite Cells Crenated Cell Acanthocytes (Spur) Rouleaux Schistocytes Sodium Potassium Chloride Carbon Dioxide Anion Gap BUN Creatinine Estim Creat Clear Calc Est GFR (MDRD) Non-Af BUN/Creatinine Ratio Glucose Lactic Acid Calcium Total Bilirubin 1.71 H Direct Bilirubin 0.71 H AST 26 ALT 8 Alkaline Phosphatase 88 Troponin T High Sens Troponin T Hi Sens 2 Hr Troponin T Hi Sens 4Hr 11 NT pro BNP II Total Protein 8.3 Albumin 3.9 Globulin 4.4 H b-Hydroxybutyric mmol/L 0.7 H TSH 3.020 Urine Color Urine Clarity Urine pH Ur Specific [place] Urine Protein Urine Glucose (UA) Urine Ketones Urine Occult Blood Urine Nitrite Urine Bilirubin Urine Urobilinogen Ur Leukocyte Esterase Urine RBC Urine WBC Ur Squamous Epith Cells Ur Transition Epith Cell Ur Renal Epithelial Cell Urine Bacteria Coarse Granular Casts Urine Mucus Urine Opiates Screen U Buprenorphine Qual Ur Oxycodone Screen Urine Methadone Screen Urine Fentanyl Screen Ur Barbiturates Screen Ur Phencyclidine Scrn Ur Amphetamines Screen U Benzodiazepines Scrn Urine Cocaine Screen U Cannabinoids Screen Ethyl Alcohol < 10.1 ABG Data ABG results: ABG 11/11/24 15:58 Specimen Type LAUREN Sample Site Not entered VBG pH 7.64 H* VBG pO2 33 VBG HCO3 28 H VBG Total CO2 29 VBG O2 Sat (Calc) 78 H VBG Base Excess 7 H POC Mix VBG pCO2 Pt Tmp 26.3 L O2 Delivery Device Not entered Crit Call To/Read Back Yes Blood Gas Notified Whom wilma Blood Gas Notified Time 15:59:32 Radiography Diagnostic Testing: Clinical Impression(s) from Imaging Studies Chest CTA 11/11/24 12:42 IMPRESSION: No acute abnormality Reading Location: [facility] Lumbar Spine CT 11/11/24 12:42 IMPRESSION: Chronic compression deformities. Spinal stenosis has discussed above. At L5-S1, incidentally seen is elaboration of nitrogen degenerative gas from the L5-S1 interspace into the epidural region. This does not necessarily indicate nerve root impingement or even protrusion. Reading Location: [facility] Abdomen/Pelvis CT 11/11/24 17:28 IMPRESSION: No acute abnormality Reading Location: [facility] Discharge Plan Disposition Disposition: Acute Care Hospital [facility] Discharge Date/Time: 11/11/24 19:34
--- NOTE | 2024-11-11 12:42 | CT_ITS ---
PROCEDURE: SPINE LUMBAR WITHOUT CONTRAST 11/11/2024 REASON FOR EXAM: BACK PAIN TECHNIQUE: SPINE LUMBAR WITHOUT CONTRAST Coronal and Sagittal reconstruction series were provided. One or more dose reduction techniques were used (e.g., Automated exposure control, adjustment of the mA and/or kV according to patient size, use of iterative reconstruction technique RADIATION DOSE SUMMARY: CTDlvol: 71 mGy DLP: 2076 mGycm FINDINGS: There are mild chronic compression deformities of the T12 vertebral body. Chronic appearing moderate compression deformity with anterior wedging at L1. Chronic appearing L2 compression deformity with endplate irregularity. Diffuse lumbar degenerative disc space narrowing is present. On axial images, pedicles, lamina and transverse processes are maintained. Normal abdominal aorta is seen. Mild canal narrowing at L1-L2 is present. Similar findings at L2-3 with moderate canal narrowing circumferentially at L3-4 and moderate to severe canal narrowing at L4-5. CT/Spine Lumbar without Contrast IMPRESSION: Chronic compression deformities. Spinal stenosis has discussed above. At L5-S 1, incidentally seen is elaboration of nitrogen degenerative gas from the L5-S1 interspace into the epidural region. This does not necessarily indicate nerve root impingement or even protrusion. Reading Location: [facility]
--- NOTE | 2024-11-11 12:42 | CT_ITS ---
PROCEDURE: CTA CHEST W/WO CONTRAST 11/11/2024 REASON FOR EXAM: SOB TECHNIQUE: CTA CHEST W/WO CONTRAST Multiplanar Sagittal and Coronal images were obtained. Three-dimensional reconstructions CONTRAST: Amount and type of contrast not specified One or more dose reduction techniques were used (e.g., Automated exposure control, adjustment of the mA and/or kV according to patient size, use of iterative reconstruction technique). RADIATION DOSE SUMMARY: CTDlvol: 70 mGy DLP: 2076 mGycm FINDINGS: Upper abdomen unremarkable. The pulmonary arterial contrast bolus is adequate. No intra-arterial filling defects are seen to diagnose pulmonary embolism. There is mild coronary artery calcification. There is no mediastinal mass. Parenchymal lung inspection demonstrates no pulmonary edema. No deidre consolidation. Calcified granuloma noted in the right upper lobe. CT/CTA Chest W/WO Contrast IMPRESSION: No acute abnormality Reading [facility]
--- OUTSIDE RECORDS SUMMARY | 2024-11-11 12:58 | XMS RPT_ITS | CCD ---
Author Organization [facility] Care Team Providers Care Research Subject Name Role Phone [facility] Unavailable KACIESALLY E Unavailable Unavailable KACIESALLY E Unavailable Unavailable KACIESALLY E Unavailable Unavailable YEYO VALLADARES Unavailable Unavailable VALLADARESYEYO Jerez Unavailable Unavailable VALLADARESYEYO Jerez Unavailable [facility]available [facility] Unavailable Unavailable PHYSICIAN, NOT RECORDED Unavailable Unavaila ble BOUSERHAL, ODETTE Unavailable Unavailable CHUY ANDERSON Unavailable Unavailable OMAR WALLER Unavailable [facility]available [facility] Unavailable CHUY ANDERSON Unavailable Unavailable ARILNE LOPEZ Unavailable Unavailable [facility] [place] Primary Care Unavailable Gorge Desai Attending Unavailable Medications Current Medications Medication Drug Class(es) Dates Sig (Normalized) Sig (Original) amLODIPine 10 mg oral tablet (1 source) Dihydropyridine Calcium Channel Colby Start: 05-02-19 18 take 10 mg by mouth once daily Amlodipine Active 10 MG PO DAILY May 02, 2017 12:00am baclofen 20 mg oral tablet (1 source) gamma-Aminobutyric Acid-ergic Agonist Start: 05-02-19 18 take 20 mg by mouth three times daily Baclofen Active 20 MG PO THREE TIMES A DAY May 02, 2017 12:00am cyclobenzaprine hydrochloride 10 mg oral tablet (1 source) Muscle Relaxant Start: 07-26-19 19 take 10 mg by mouth three times daily Cyclobenzaprine Active 10 MG PO THREE TIMES A DAY July 24, 2018 11:00pm 0.8 ml fondaparinux sodium 12.5 mg/ml prefilled syringe (1 source) Factor Xa Inhibitor Start: 05-02-19 18 Fondaparinux (Arixtra) 10 MG/0.8 ML Ml Active 10 MG SQ DAILY May 02, 2017 12:00am gabapentin 600 mg oral tablet (1 source) Anti-epileptic Agent Start: 07-26-19 19 take 600 mg by mouth three times daily at mealtime Gabapentin Active 600 MG PO 3 TIMES DAILY WITH MEALS July 24, 2018 11:00pm methylPREDNISolone 4 mg oral tablet (1 source) Corticosteroid Start: 07-26-19 19 Methylprednisolone Active 4 MG PO DIRECTED July 24, 2018 11:00pm metoprolol tartrate 25 mg oral tablet (1 source) beta-Adrenergic Colby Start: 05-02-19 18 take 25 mg by mouth twice daily Metoprolol Tartrate Active 25 MG PO TWICE A DAY May 02, 2017 12:00am simvastatin 40 mg oral tablet (1 source) HMG-CoA Reductase Inhibitor Start: 05-02-19 18 take 60 mg by mouth at bedtime Simvastatin Active 60 MG PO AT BEDTIME May 02, 2017 12:00am tamsulosin hydrochloride 0.4 mg oral capsule (1 source) alpha-Adrenergic Colby Start: 05-02-19 18 take 0.4 mg by mouth once daily Tamsulosin Active 0.4 MG PO DAILY May 02, 2017 12:00am vitamin b12 0.5 mg oral tablet (1 source) Vitamin B12 Start: 05-02-19 18 take 1000 ug by mouth once daily Cyanocobalamin (Vitamin B-12) Active 1000 MCG PO DAILY@0800 May 02, 2017 12:00am Completed/Discontinued Medications Medication Drug Class(es) Dates Sig (Normalized) Sig (Original) acetaminophen 325 mg / HYDROcodone bitartrate 5 mg oral tablet (1 source) Opioid Agonist Start: 07-25-2018 End: 07-28-2018 take 1 tablet by mouth every six hours as needed Hydrocodone-Acetami nophen Discontinued 1 TABLET PO EVERY 6 HOURS NEEDED 10 3 July 24, 2018 11:00pm July 27, 2018 11:08pm acetaminophen 325 mg / oxyCODONE hydrochloride 5 mg oral tablet (2 sources) Opioid Agonist Start: 12-17-2019 End: 12-19-2019 take 1 tablet by mouth every six hours as needed Oxycodone-Acetamino phen Discontinued 1 TABLET PO EVERY 6 HOURS NEEDED 6 December 17, 2019 December 18, 2019 11:02pm Start: 06-20-2018 End: 06-23-2018 take 1 tablet by mouth every six hours as needed Oxycodone-Acetaminophen Discontinued 1 TABLET PO EVERY 6 HOURS NEEDED 12 June 20, 2018 12:00am June 23, 2018 12:08am Problems Problem Classification Problem Date Documented Da te Episodic/Chronic Acute and unspecified renal failure (1 source) Injury of kidney; Translations: [Acute kidney failure, unspecified] Episodic Fluid and electrolyte disorders (1 source) Dehydration; Translations: [Dehydration] Episodic Nonspecific chest pain (1 source) Other chest pain; Translations: [Other chest pain] Onset: 03-17-2022 Episodic Other injuries and conditions due to external causes (1 source) Compartment syndrome; Translations: [Compartment syndrome, unspecified, initial encounter] Episodic Spondylosis; intervertebral disc disorders; other back problems (1 source) Chronic back pain ; Translations: [Dorsalgia, unspecified] Episodic Superficial injury; contusion (1 source) Contusion of forearm; Translations: [Contusion of left forearm, initial encounter] Episodic Viral infection (1 source) Acute viral disease; Translations: [Viral infection, unspecified] Episodic Results Test Name Value Interpretation Reference Range Facility CBC W/Diff, Automatedon 02-17 PATH REV Reviewed Normal [facility] Comment on above: Result Comment: Poly cythemia Clinical correlation necessary. Timothy Larry M.D. 03/05/22 AMENDED REPORT 03/05/22 1416 PATH REV previously reported as: August Performed By: #### L 100.0100, L500.2500, L501.4020 #### [facility] [address] [place], [place], [id number] Absolute lymphocyte counton 03-04-2022 Lymphocytes Auto (Unsp spec) [#/Vol] 2.30 10*3/uL 0.83-4.51 [facility] Work Phone: Basic Metabolic Profile (BMP )on 03-04-2022 BUN/CRE 21.4 RATIO High 10-20 [facility] Comment on above: Order Comment: 'TROP ' Serial specimen #1, #2 or #3: 1 Performed By: #### L 100.0100, L500.2500, L501.4020 #### [facility] [address] [place], [place], [address] CA,Total 8.8 mg/dL Normal 8.5-10.1 [facility] Comment on above: Order Comment: 'TROP ' Serial specimen #1, #2 or #3: 1 Performed By: #### L 100.0100, L500.2500, L501.4020 #### [facility] [address] [place], [address] Chloride [Moles/Vol] 102 mmol/L Normal 98-107 [facility] Comment on above: Order Comment: 'TROP ' Serial specimen #1, #2 or #3: 1 Performed By: #### L 100.0100, L500.2500, L501.4020 #### [facility] [address] [place], [address] CO2 [Moles/Vol] 25.0 mmol/L Normal 21.0-32.0 [facility] Comment on above: Order Comment: 'TROP ' Serial specimen #1, #2 or #3: 1 Performed By: #### L 100.0100, L500.2500, L501.4020 #### [facility] [address] [place], [address] Creatinine [Mass/Vol] 2.06 mg/dL High 0.70-1.30 [facility] Comment on above: Order Comment: 'TROP ' Serial specimen #1, #2 or #3: 1 Result Comment: The validity of the calculated GFR GFRAA in patients over 70 years has not been determined. Clinical correlation is essential. Performed By: #### L 100.0100, L500.2500, L501.4020 #### [facility] [address] [place], [address] ECRCL 41.01 ml/min Normal [facility] Comment on above: Order Comment: 'TROP ' Serial specimen #1, #2 or #3: 1 Performed By: #### L 100.0100, L500.2500, L501.4020 #### [facility] [address] [place], [address] EST GFR - AA 42 mL/min Low >60 [facility] Comment on above: Order Comment: 'TROP ' Serial specimen #1, #2 or #3: 1 Result Comment: Afri can Spanish GFR Calc Performed By: #### L 100.0100, L500.2500, L501.4020 #### [facility] [address] [place], [address] GAP 8 Normal 5-15 [facility] Comment on above: Order Comment: 'TROP ' Serial specimen #1, #2 or #3: 1 Performed By: #### L 100.0100, L500.2500, L501.4020 #### [facility] [address] [place], [address] GFR/1.73 sq M.predicted among non-blacks MDRD (S/P/Bld) [Vol rate/Area] 35 mL/min/{1.73_m2} Low >60 [facility] Comment on above: Order Comment: 'TROP ' Serial specimen #1, #2 or #3: 1 Result Comment: Non- GFR Calc Performed By: #### L 100.0100, L500.2500, L501.4020 #### [facility] [address] [place], [address] Glucose [Mass/Vol] 100 mg/dL Normal 74-106 [facility] Comment on above: Order Comment: 'TROP ' Serial specimen #1, #2 or #3: 1 Result Comment: Fast ing Glucose result from 100 to 125 mg/dL suggests IMPAIRED HOMEOSTASIS per A.D.A. criteria. Performed By: #### L 100.0100, L500.2500, L501.4020 #### [facility] [address] [place], [address] Potassium [Moles/Vol] 4.2 mmol/L Normal 3.5-5.1 [facility] Comment on above: Order Comment: 'TROP ' Serial specimen #1, #2 or #3: 1 Result Comment: Mode rate Hemolysis, Result may be falsely increased. Performed By: #### L 100.0100, L500.2500, L501.4020 #### [facility] [address] [place], [address] Sodium [Moles/Vol] 135 mmol/L Low 136-145 [facility] Comment on above: Order Comment: 'TROP ' Serial specimen #1, #2 or #3: 1 Performed By: #### L 100.0100, L500.2500, L501.4020 #### [facility] [address] [place], [address] Urea nitrogen [Mass/Vol] 44 mg/dL High 7-18 [facility] Comment on above: Order Comment: 'TROP ' Serial specimen #1, #2 or #3: 1 Performed By: #### L 100.0100, L500.2500, L501.4020 #### [facility] [address] [place], [address] Basophil percentageon 2021 Basophils/100 WBC (Bld) 1.5 % 0-1 [facility] Work Phone: Chloride [Moles/Vol] 102 mmol/L 98-107 [facility] Work Phone: Eosinophils/100 WBC (Bld) 1.9 % 0-5 [facility] Work Phone: Glucose [Mass/Vol] 100 mg/dL 74-106 [facility] Work Phone: Comment on above: Fasting Glucose resu lt from 100 to 125 mg/dL suggests IMPAIRED HOMEOSTASIS per A.D.A. criteria. Neutrophils (Bld) [#/Vol] 2.1 10*3/uL 2.0-7.7 [facility] Work Phone: Neutrophils/100 WBC (Bld) 40.7 % 47-70 [facility] Work Phone: Potassium [Moles/Vol] 4.2 mmol/L 3.5-5.1 [facility] Work Phone: Comment on above: Moderate Hemolysis, Result may be falsely increased. Sodium [Moles/Vol] 135 mmol/L 136-145 [facility] Work Phone: WBC (Bld) [#/Vol] 5.2 10*3/uL 4.4-11.0 [facility] Work Phone: Blood erythrocytes count (nu mber/volume)on 03-04-2022 RBC (Bld) [#/Vol] 5.64 10*6/uL 4.6-6.2 [facility] Work Phone: Blood hemoglobin measurement (mass/volume)on 03-04-2022 Hemoglobin (Bld) [Mass/Vol] 18.2 g/dL 13.0-16.5 [facility] Work Phone: Comment on above: CRITICAL VALUE VERIF IED. CALLED TO ZAIRA ORTEZ03/04/22 1750 Cait Linares.RESULTS READ BACK BY SAME. Blood lymphocytes/100 leukoc yteson 03-04-2022 Lymphocytes/100 WBC (Bld) 44.5 % 19-41 [facility] Work Phone: Blood manual differential co mment interpretation (narrative result)on 03-04-2022 Manual differential comment Arnoldo (Bld) [Interp] SCANNED [facility] Work Phone: Blood monocytes/100 leukocyt eson 03-04-2022 Monocytes/100 WBC (Bld) 11.2 % 0-10 [facility] Work Phone: Blood platelet mean volumeon 03-04-2022 Platelet mean volume (Bld) [Entitic vol] 10.8 fL 6.2-12.0 [facility] Work Phone: [phone] Chest 1 View (Portable)on Chest 1 View (Portable) [facility] Imaging Services [address] [place] [address] Chest 1 View (Portable) MR#: [id number] Acct: [id number] Name: ARLINE KHAN Rep #: [id number] : 1955 M 66 From: Medhat Schaffer MD PCP: [facility] Status: PRE ER Study: Chest 1 View (Portable) Date of Exam: 03/04/22 Exam# [id number] Ordering Dr: Gorge Desai MD STUDY: X-RAY CHEST REASON FOR EXAM: Male, 66 years old. cough TECHNIQUE: AP portable COMPARISON: 05/02/2017 FINDINGS: The lungs are clear and expanded . Tiny nodule in the right upper lobe likely granuloma.. Blunted costophrenic angles bilaterally likely representing pleural thickening.. Cannot definitively exclude tiny pleural effusions. Heart is enlarged.. Normal mediastinum and radha. Normal visualized pulmonary arteries. Normal visualized aortic arch and descending thoracic aorta. Dorsal spine demonstrates degenerative change.. Normal visualized ribs, clavicles, and shoulders. There is no demonstrated abnormality of the visualized soft tissue structures of the upper abdomen. RAD/Chest 1 View (Portable) IMPRESSION: ASHD. No acute infiltration Probable bilateral pleural thickening although cannot definitively exclude tiny effusions. Electronically Signed: Medhat Schaffer MD at 18:10 EST Reading Location ID and State: [facility] / [place] , Service support , CC: Dr. Gorge Desai MD; [facility] International Manager: Signed Normal [facility] Determination of erythrocyte mean corpuscular volume (MCV)on 03-04-2022 MCV (RBC) [Entitic vol] 93.6 fL 80-94 [facility] Work Phone: Emergency Department Summary on 03-04-2022 Emergency Department Summary [facility] Medical Records Department [address] [place] [address] Emergency Department Summary 03/04/22 MR#: [id number] Acct: [id number] Name: ARLINE KHAN J Rep #: [id number] : 1955 66 From: Gorge Desai MD PCP: [place], [place] Status:REG ER Location: ED HPI History of Present Illness Chief Complaint: Chest Pain Informant: patient Narrative Narrative: Patient complains of some chest discomfort. When I talked to the patient he states he has been having chest discomfort for a few days to a week. He initially denies coughing but then states that he started coughing last weekend. He also had some diarrhea last weekend. It takes multiple questions to find out that the diarrhea seems to be less. But he did have 1 episode yesterday. He initially denied nausea but then he admitted he has been nauseated a couple times but he is never vomited. He is able to eat and drink but does not have much appetite. Denies myalgias. His family member states then that he is actually been having symptoms for almost 2 weeks. He then agrees with that. He denies any known sick contacts but then says his brother who is each been around has the same thing. Patient is not confused. He is alert and oriented x3. Is just difficulty getting a consistent story from him. I believe the summation is that he has been ill for between 1 and 2 weeks. At various times he has had cough, dyspnea, nausea, diarrhea. He is also had fevers and states he has had to wring out the sweat from his close a couple times. He is taking his Arixtra. He has a history of atrial fibrillation and PE. [facility] Medical History Afib High cholesterol HTN (hypertension) Pulmonary embolism Home Medications amlodipine 10 mg tablet 10 mg PO DAILY 05/02/17 [History Last Taken Unknown] baclofen 20 mg tablet 20 mg PO TID 05/02/17 [History Last Taken Unknown] cyanocobalamin (vitamin B-12) 500 mcg tablet 1,000 mcg PO DAILY@0800 05/02/17 [History Last Taken Unknown] fondaparinux 10 mg/0.8 mL subcutaneous solution syringe (Arixtra) 10 mg SQ DAILY 05/02/17 [History Last Taken Unknown] metoprolol tartrate 25 mg tablet 25 mg PO BID 05/02/17 [History Last Taken Unknown] simvastatin 40 mg tablet 60 mg PO QHS 05/02/17 [History Last Taken Unknown] tamsulosin 0.4 mg capsule 0.4 mg PO DAILY 05/02/17 [History Last Taken Unknown] cyclobenzaprine 10 mg tablet 10 mg PO TID PRN Muscle Spasm #20 tabs 07/25/18 [Rx Last Taken Unknown] gabapentin 600 mg tablet 600 mg PO TIDCM 07/25/18 [History Last Taken Unknown] methylprednisolone 4 mg tablets in a dose pack 4 mg PO UD ##1 07/25/18 [Rx Last Taken Unknown] Allergy/AdvReac Type Severity Reaction Status Date / Time No Known Allergies Allergy Verified 03/04/22 16:59 Social History Smoking Status: Former smoker ROS ROS ED Constitutional Constitutional ED: Reports chills, fever(s) and sweats Eyes Eyes: Denies change in vision or diplopia ENT ENT ED: Reports rhinorrhea; Denies sore throat Cardiovascular Cardiovascular: Reports chest pain; Denies racing heartbeat Respiratory/Chest Respiratory/Chest: Reports cough and dyspnea; Denies sputum Gastrointestinal Gastrointestinal: Reports nausea; Denies abdominal pain, diarrhea or vomiting Genitourinary Genitourinary ED: Denies dysuria Musculoskeletal Musculoskeletal: Denies arthralgias or myalgias Integumentary Denies rash Neurologic Neurologic: Denies headache(s) Endocrine Endocrinology: Denies polydipsia or polyuria Hematologic/Lymphatic Hematologic/Lymphatic: Reports easy bleeding and easy bruising Allergic/Immunologic Allergic/Immunologic ED: Denies urticaria EXAM Physical Exam Const Vital Signs: 03/04/22 16:57 03/04/22 17:11 03/04/22 17:43 Temperature 96.6 F L Temperature Source Temporal Pulse Rate 139 H 96 99 Respiratory Rate 30 H 13 30 H Blood Pressure 154/109 H Blood Pressure Mean 124 Pulse Ox 94 Oxygen Delivery Method Room Air 03/04/22 17:43 03/04/22 18:12 03/04/22 19:27 Temperature Temperature Source Pulse Rate 87 96 Respiratory Rate 37 H 18 Blood Pressure 130/83 H Blood Pressure Mean 98 Pulse Ox 100 100 99 Oxygen Delivery Method Room Air Room Air Room Air Positive well nourished and well developed General Appearance ED: well developed and NAD HEENT Reports moist mucous membranes Eyes General Eye ED: Negative for scleral icterus Neck no JVD Chest Wall inspection of chest normal Chest Narrative: Mild nonfocal soreness of his chest. Resp normal respiratory effort Resp Narrative: Breathing looks unlabored in bed. His breath sounds are diffusely decreased. I do not hear specifically rhonchi or wheezing bu (more content not included)... Normal [facility] Hematocrit Auto (Bld) [Volum e fraction]on 03-04-2022 Hematocrit (Bld) [Volume fraction] 52.8 % 40-54 [facility] Work Phone: [id number] 03-04-2022 TROPONIN-I HS 6 pg/mL Normal 3.0-78.0 [facility] Comment on above: Order Comment: 'TROP ' Serial specimen #1, #2 or #3: 1 Result Comment: Plea se Note: New Test Units and Gender Specific Reference Ranges. For more information see Policy Stat Procedure [place] High Sensitivity Troponin (TNIH) and attachments. Performed By: #### L 100.0100, L500.2500, L501.4020 #### [facility] [address] [facility] [place], [place], [id number] Laboratory - Chemistry and C hemistry - challengeon 03-04-2022 CO2 [Moles/Vol] 25.0 mmol/L 21.0-32.0 [facility] Work Phone: Urea nitrogen/Creatinine [Mass ratio] 21.4 mg/mg 10-20 [facility] Work Phone: Laboratory - Hematology and Cell countson 03-04-2022 Erythrocyte distribution width (RBC) [Entitic vol] 46.3 fL 35.1-43.9 [facility] Work Phone: Erythrocyte distribution width (RBC) [Ratio] 13.4 % 11.6-14.6 [facility] Work Phone: Immature granulocytes/100 WBC (Bld) 0.200 % 0.0-0.9 [facility] Work Phone: Comment on above: IG% - Immature Granu locytes (promyelocytes, myelocytes and metamyelocytes) > 1% indicates that a LEFT SHIFT is Present. MCH (RBC) [Entitic mass] 32.3 pg 27.0-32.0 [facility] Work Phone: Nucleated RBC/100 WBC (Bld) [Ratio] 0 % 0-5 [facility] Work Phone: [id number] 03-04-2022 M101.0111 *Negative results fr om patients with symptom onset beyond five days should be treated as presumptive and confirmed by a molecular assay if clinically necessary. Negative results should not be used as the sole basis for treatment or for patient management. FLUABV+SARS-CoV2 Ag Pnl Up resp IA.rapid Negative Influenza results should be confirmed with FLU PANEL MOLECULAR if indicated. FLUABV+SARS-CoV2 Ag Pnl Up resp IA.rapid * This test has not been FDA cleared or approved; the test has been authorized by FDA under an Emergency Use Authorization (EAU) for use by laboratories certified under CLIA that meet the requirements to perform moderate, high, or waived complexity tests. FLUABV+SARS-CoV2 Ag Pnl Up resp IA.rapid Normal Reference Range: Negative Ashtyn, DEBBIE method SARS-CoV-2 (COVID 19) Negative Influenza Ag, Direct Presumptive NEGATIVE for Influenza A/B Antigen (See Note) Normal [facility] Comment on above: Performed By: #### M 101.0111 #### [facility] [place], [address] MCHC Auto (RBC) [Mass/Vol]on 03-04-2022 MCHC (RBC) [Mass/Vol] 34.5 g/dL 32-36 [facility] Work Phone: No Panel Informationon 03-04 Estimated Creatinine Clearance Calc 41.01 ml/min [facility] Work Phone: Estimated GFR (MDRD) Amer 42 mL/min >60 [facility] Work Phone: Comment on above: GFR Calc Estimated GFR (MDRD) Non-Af Amer 35 mL/min >60 [facility] Work Phone: Comment on above: Non- GFR Calc Reactive Lymphocytes 1+ [facility] Work Phone: Troponin I High Sensitivity 6 pg/mL 3.0-78.0 [facility] Work Phone: Comment on above: Please Note: New Racheal t Units and Gender Specific Reference Ranges. For more information see Policy Stat Procedure [place] High Sensitivity Troponin (TNIH) and attachments. Platelets bldon 03-04-2022 Platelets (Bld) [#/Vol] 153 10*3/uL 150-450 [facility] Work Phone: Review by pathologiston 02-17 Pathologist review Arnoldo (Unsp spec) [Interp] May foll [facility] Work Phone: Serum or plasma calcium roby urement (mass/volume)on 03-04-2022 Calcium [Mass/Vol] 8.8 mg/dL 8.5-10.1 [facility] Work Phone: Serum or plasma creatinine m easurement (mass/volume)on 03-04-2022 Creatinine [Mass/Vol] 2.06 mg/dL 0.70-1.30 [facility] Work Phone: Comment on above: The validity of the calculated GFR & GFRAA in patients over 70 years has not been determined. Clinical correlation is essential. Serum or plasma urea nitroge n measurement (mass/volume)on 03-04-2022 Urea nitrogen [Mass/Vol] 44 mg/dL 7-18 [facility] Work Phone: Thin prep Papanicolaou smear with manual screeningon 03-04-2022 Thin prep Papanicolaou smear with manual screening 8 5-15 [facility] Work Phone: SURG TISSUEon 01-27-2021 SURG TISSUE GRAM STAIN RARE WBC'S FEW GRAM POSITIVE COCCI ORGANISM 1: ENTEROCOCCUS FAECALIS QUANTITATION MODERATE ENTEROCOCCUS FAECALIS: REACTION AMPICILLIN <2 S ERYTHROMYCIN 1 I GENTAMICIN SYNERGY SCREEN <500 S LINEZOLID <2 S PENICILLIN 2 S RIFAMPIN >2 R STREPTOMYCIN SYNERGY SCREEN <1000 S VANCOMYCIN 1 S DAPTOMYCIN 4 S ORGANISM 2: STAPHYLOCOCCUS AUREUS QUANTITATION FEW STAPHYLOCOCCUS AUREUS: REACTION AMPICILLIN <2 N/R AMP/SULBACTAM (UNASYN) <8/4 S AUGMENTIN (AMOX/K CLAVULANATE) <4/2 S AZITHROMYCIN <2 S CEFAZOLIN <8 S CEFOXITIN SCREEN <4 NEG CLINDAMYCIN <0.5 S ERYTHROMYCIN <0.25 S GENTAMICIN <4 S LINEZOLID <2 S OXACILLIN <0.25 S PIPERACILLIN/TAZOBACTAM <4 S RIFAMPIN <1 S TETRACYCLINE <4 S TRIMETH/SULFA <0.5/9.5 S MEROPENEM <4 S DAPTOMYCIN <1 S CEFTAROLINE <0.5 S ORGANISM 3: STAPHYLOCOCCUS EPIDERMIDIS QUANTITATION FEW STAPHYLOCOCCUS EPIDERMIDIS: REACTION AMPICILLIN 8 ROME AMP/SULBACTAM (UNASYN) <8/4 S AUGMENTIN (AMOX/K CLAVULANATE) <4/2 S AZITHROMYCIN >4 R CEFAZOLIN <8 S CLINDAMYCIN <0.5 S ERYTHROMYCIN >4 R GENTAMICIN <4 S INDUCIBLE CLINDAMYCIN TEST <4/0.5 NEG LINEZOLID <2 S OXACILLIN <0.25 S PENICILLIN >8 ROME PIPERACILLIN/TAZOBACTAM <4 S RIFAMPIN <1 S TETRACYCLINE <4 S TRIMETH/SULFA >2/38 R MEROPENEM <4 S DAPTOMYCIN <[address] [facility] Comment on above: Order Comment: Rio s: M : PT ON HEPARIN DRIP Performed By: #### L 300.04999 #### [facility] [address] [place] [address] ANAER CULTUREon 01-26-2021 ANAER CULTURE RESULT NO GROWTH OF ANAEROBES Normal [facility] Comment on above: Order Comment: Rio s: M : PT ON HEPARIN DRIP Performed By: #### L 300.38957 #### [facility] [address] [place] [address] BLOOD CULTUREon 01-22-2021 Bacteria identified Cx Nom (Bld) NO GROWTH AFTER 5 DAYS Normal [facility] Comment on above: Order Comment: Rio s: M Performed By: #### M 050.75253 #### [facility] [address] [place] [address] Performed By: #### M 050.85252 ####[facility] [id number] [place], [place] [id number]# [phone] BMPon 01-21-2021 Anion gap [Moles/Vol] 8 mmol/L Normal 5-16 [facility] Comment on above: Performed By: #### L 300.95522 #### [facility] [address] [place] [address] Calcium [Mass/Vol] 8.9 mg/dL Normal 8.5-10.5 [facility] Comment on above: Result Comment: NOTE NEW NORMAL RANGE DUE TO REAGENT CHANGE Performed By: #### L 300.70362 #### [facility] [address] [place] [address] Chloride [Moles/Vol] 103 mmol/L Normal 98-107 [facility] Comment on above: Performed By: #### L 300.76569 #### [facility] [address] [place] [address] CO2 [Moles/Vol] 26.0 mmol/L Normal 21-32 [facility] Comment on above: Performed By: #### L 300.98726 #### [facility] [place] [address] Creatinine [Mass/Vol] 1.20 mg/dL Normal 0.5-1.4 [facility] Comment on above: Result Comment: NOTE NEW NORMAL RANGE DUE TO REAGENT CHANGE Patients receiving either N-Acetylcysteine (NAC) or Metamizole prior to venipuncture, may have falsely depressed results. Performed By: #### L 300.41312 #### [facility] [place] [id number] Glucose [Mass/Vol] 77 mg/dL Normal 70-100 [facility] Comment on above: Result Comment: 70-1 00- Normal Fasting; 100-125 Impaired Fasting; greater than 126 on more than one result- Diabetes. ADA guidelines. Results may be falsely elevated after the administration of Sulfapyridine. Results may be falsely depressed after the administration of Sulfasalazine. Performed By: #### L 300.02342 #### [facility] [address] [place] [address] Potassium [Moles/Vol] 4.4 mmol/L Normal 3.5-5.1 [facility] Comment on above: Performed By: #### L 300.94102 #### [facility] [address] [place] [address] Sodium [Moles/Vol] 137 mmol/L Normal 136-145 [facility] Comment on above: Performed By: #### L 300.36546 #### [facility] [place] [address] Urea nitrogen [Mass/Vol] 17 mg/dL Normal 7-26 [facility] Comment on above: Performed By: #### L 300.39207 #### [facility] [address] [place] [address] Urea nitrogen/Creatinine [Mass ratio] 14 mg/mg Low 15-24 [facility] Comment on above: Performed By: #### L 300.79159 #### [facility] [address] [place] [address] EKGon 01-21-2021 Electrocardiogram Procedure Date and T ceci: 01/21/21 1200 Test Reason : RT Blood Pressure : / mmHG Vent. Rate : 063 BPM Atrial Rate : 340 BPM P-R Int : 000 ms QRS Dur : 086 ms QT Int : 394 ms P-R-T Axes : 000 035 037 degrees QTc Int : 403 ms Atrial fibrillation Abnormal ECG When compared with ECG of 30-OCT-2020 14:52, Vent. rate has decreased BY 51 BPM T wave amplitude has increased in Anterior leads Confirmed by ABISAI ENRIQUEZ A. ([id number]) on 01/21/2021 4:39:00 PM Referred By: Bee Isabel Confirmed By:Shey ENRIQUEZ M.D.FACC Nikky DDandT: 01/21/21 1200 TDandT: [facility] PATIENT NAME: ARLINE KHAN [facility] [address] MEDICAL REC #: [id number] [place] [address] ADMIT DATE: DISCHARGE DATE: ATTENDING PHY: Bee Isabel MD ELECTROCARDIOGRAM REPORT CLB cc: [facility] PATIENT NAME: ARLINE KHAN [facility] MEDICAL REC #: [id number] [place] [address] ADMIT DATE: DISCHARGE DATE: ATTENDING PHY: Bee Isabel MD ELECTROCARDIOGRAM REPORT Normal [facility] GFR ESTon 01-21-2021 IF AMER Greater than 60 Normal [facility] Comment on above: Performed By: #### L 300.55837 #### [facility] [address] [place] [address] IF non-AFR AMER Greater than 60 Normal [facility] Comment on above: Performed By: #### L 300.98589 #### [facility] [address] [place] [address] PTon 01-21-2021 INR Coag (PPP) [Relative time] 1.03 {INR} Normal 0.9-1.1 [facility] Comment on above: Result Comment: Taz mmended PT INR therapeutic range for terminal system operator and prophylactic therapy is 2.0 - 3.0. For heart valve and shunt patients the range is 2.5 - 3.5. Performed By: #### M 050.32097 #### [facility] [address] [place] [address] PTS 11.0 SECONDS Normal 9.5-12.0 [facility] Comment on above: Performed By: #### M 050.54635 #### [facility] [address] [place] [address] PTTon 01-21-2021 aPTT Coag (Bld) [Time] 30.8 s Normal 22.0-31.5 [facility] Comment on above: Result Comment: Ther apeutic Heparin Reference Range: High Dose: 46-75 seconds (DVT/PE) Low Dose: 39-60 seconds (Acute Coronary Syndrome) For low molecular weight heparin or danaparoid, monitoring is often NOT necessary, but the heparin assay, Xa inhibition assay (send-out) may be used in certain circumstances, as the PTT is generally insensitive to the effect of these agents. Direct thrombin inhibitors are becoming more widely utilized and these drugs are often monitored using the PTT. Performed By: #### M 050.63273 #### [facility] [place] [id number] Cierra 01-17-2021 EMERGENCY PHYSICIAN REPORT This is a preliminary report only, as the practitioner review and authentication has not occurred. Normal [facility] ER PHYSICIAN ASSESSMENT RECORDS : FlexChartData Event Time: 01/17/2021 13:15 [facility] Status: Signed [facility] Arline Khan [[id number]] Mid-Level Chart (V2b) 65 / M / 1955 Chart created at 01/17/2021 13:04 by Remington Hinton Chart closed at 01/17/2021 13:10 Entry in Emergency Department at 01/17/2021 11:36, departure at 01/17/2021 13:38 Patient Name: Arline Khan Record Number: [id number] Date: 01/17/2021 13:04 Entered Department at: 01/17/2021 11:36 Patient Seen at: 01/17/2021 12:02 [facility] Chief Complaint:C/O LEFT UPPER LEG PAIN AND SWELLING SECONDARY TO A FALL A COUPLE WEEKS AGO. STATES SWELLING HAS BECOME WORSE. History of Present Illness: Patient presents with a wound to his medial right thigh that occurred 2 weeks ago. He states he was in his garage at standing height when he tripped over a piece of equipment bruising his medial thigh. He states he slowly developed a hematoma to this region over the next several days. He states eventually a hematoma bruise was so big that it broke through his skin. He is on a blood thinner. He is on subcutaneous fondaparinux for factor V leiden coagulopathy. His last use was this morning. He denies any other injuries or trauma at this time. Last tetanus is up-to-date. Patient states he fell because he has chronic neuropathy and this is common for him. He has not been seen for this fall previously. He was told [facility] PATIENT NAME: ARLINE KHAN [address] [facility] [address] MEDICAL REC #: [id number] [place] [address] EMERGENCY DEPARTMENT REPORT EMERGENCY DEPARTMENT PHYSICIAN by his doctor 4 days ago that he needed to go to the emergency room for his right thigh wound. Review of Systems. All other systems reviewed and negative.. Past History, Medications, Allergies, Social History and Family History reviewed in nurses note. Medications: Reviewed RN Note. Allergies: Reviewed RN Note Social History: Reviewed RN Note. Family History: Reviewed RN Note Physical Examination: General: Alert and Well Developed; Nontoxic appearing no acute distress. HEENT: Normal ENT inspection. Eyes: Lids Normal; . Oropharynx / Throat: Normal Pharynx. Head is atraumatic. Pupils equal round react light. Extract muscles intact.. Neck: No Lymphadenopathy, No Meningismus and Supple; Supple nontender. Respiratory: No Resp Distress, Chest non-tender and Normal Breath Sounds Cardio-Vascular: No murmur, No rub and RRR Abdomen: No Organomegaly, Non-tender and Soft Back: No CVA tenderness, No Midline Tenderness and Non-tender Extremity: No Calf Tenderness, No edema and Normal Equal pulses; Large hematoma to the medial right thigh with mild surrounding erythema. Compartments are soft. Distal neuro vas status is intact other than chronic paresthesias secondary to neuropathy. Distal pulse 2+ symmetric. He is able to wiggle his toes without any difficulty. Neurological: Alert, Oriented X3 and No Gross Weakness Skin: No rash, No Petechiae, Warm and Dry Psychological: Mood/Affect Normal and Normal Memory/Judgment Medical Decision Making Vitals are noted within acceptable limits. Patient presents with a large right thigh hematoma which has protruded through his skin. This is subacute and occurred from a fall 2 weeks ago. I took pictures and showed them with Dr. Bee Peres who is on-call for [facility] PATIENT NAME: ARLINE KHAN [address] [facility] [address] MEDICAL REC #: [id number] [place] [address] EMERGENCY DEPARTMENT REPORT EMERGENCY DEPARTMENT PHYSICIAN trauma/Ortho. She recommended the patient come directly to her office for incision and drainage and oral antibiotic therapy. She did not feel he warranted admission and IV antibiotics at this time. He has no signs of compartment syndrome at this time. He does not appear systemically ill. He does not demonstrate any significant signs of other injuries at this time. I agree with this plan and patient be discharged with instructions to go directly to her office. Clinical Impression: 1. Subacute right thigh hematoma secondary to recent fall 2. Anticoagulation therapy Disposition: Discharged . Condition: Stable Direct patient care supervision and electronic documentation review by Rafa Ta on 01/17/2021 14:40. : FlexChartData Event Time: 01/17/2021 14:10 Status: Signed [facility] Arline Khan [[id number]] Attending Physician 65 / M / 1955 Chart (V2b) Chart created at 01/17/2021 13:36 by Rafa Ta Chart closed at 01/17/2021 13:37 Entry in Emergency Depa (more content not included)... Normal [facility] ANAER CULTUREon 11-04-2020 ANAER CULTURE NO GROWTH OF ANAEROB ES AFTER [address] [facility] Comment on above: Order Comment: Rio s: Arely Minimal Draw: Y : [facility] Performed By: #### L 300.42526 #### [facility] [address] [place] [address] BLOOD CULTUREon 11-03-2020 Bacteria identified Cx Nom (Bld) NO GROWTH AFTER [address] [facility] Comment on above: Order Comment: Rio borjas: Arely Performed By: #### M 050.70999 #### [facility] [address] [place] [address] Order Comment: Rio s: Arely Minimal Draw: Y : [facility] Performed By: #### L 300.52146 #### [facility] [address] [place] [address] 66237 SURG TISSUEon 11-02-2020 SURG TISSUE GRAM STAIN FEW WBC'S NO ORGANISMS SEEN ORGANISM 1: STAPHYLOCOCCUS AUREUS QUANTITATION 1COLONY STAPHYLOCOCCUS AUREUS: REACTION AMPICILLIN <2 N/R AMP/SULBACTAM (UNASYN) <8/4 S AUGMENTIN (AMOX/K CLAVULANATE) <4/2 S AZITHROMYCIN <2 S CEFAZOLIN <8 S CEFOXITIN SCREEN <4 NEG CLINDAMYCIN <0.5 S ERYTHROMYCIN <0.25 S GENTAMICIN <4 S LINEZOLID 4 S OXACILLIN <0.25 S PIPERACILLIN/TAZOBACTAM <4 S RIFAMPIN <1 S TETRACYCLINE <4 S TRIMETH/SULFA <0.5/9.5 S MEROPENEM <4 S DAPTOMYCIN <1 S CEFTAROLINE <0.[address] [facility] Comment on above: Order Comment: Rio Mcgee : #1 FLUID COLLECTION LEFT FOREARM AEROBIC CULTURE Performed By: #### M 100.57479 #### [facility] [address] [place] [address] BMPon 11-01-2020 Anion gap [Moles/Vol] 4 mmol/L Low 5-16 [facility] Comment on above: Order Comment: Rashawnu s: M : PT ON HEPARIN DRIP Performed By: #### L 300.03125 #### [facility] [address] [place] [address] Calcium [Mass/Vol] 8.7 mg/dL Normal 8.5-10.5 [facility] Comment on above: Order Comment: Rashawnu s: M : PT ON HEPARIN DRIP Result Comment: NOTE NEW NORMAL RANGE DUE TO REAGENT CHANGE Performed By: #### L 300.76360 #### [facility] [address] [place] [address] Chloride [Moles/Vol] 110 mmol/L High 98-107 [facility] Comment on above: Order Comment: Rashawnu s: M : PT ON HEPARIN DRIP Performed By: #### L 300.32090 #### [facility] [address] [place] [address] CO2 [Moles/Vol] 25.0 mmol/L Normal 21-32 [facility] Comment on above: Order Comment: Rio s: M : PT ON HEPARIN DRIP Performed By: #### L 300.45115 #### [facility] [address] [place] [address] Creatinine [Mass/Vol] 1.08 mg/dL Normal 0.5-1.4 [facility] Comment on above: Order Comment: Rashawnu s: M : PT ON HEPARIN DRIP Result Comment: NOTE NEW NORMAL RANGE DUE TO REAGENT CHANGE Patients receiving either N-Acetylcysteine (NAC) or Metamizole prior to venipuncture, may have falsely depressed results. Performed By: #### L 300.35374 #### [facility] [address] [place] [address] Glucose [Mass/Vol] 109 mg/dL High 70-100 [facility] Comment on above: Order Comment: Rio s: M : PT ON HEPARIN DRIP Result Comment: 70-1 00- Normal Fasting; 100-125 Impaired Fasting; greater than 126 on more than one result- Diabetes. ADA guidelines. Results may be falsely elevated after the administration of Sulfapyridine. Results may be falsely depressed after the administration of Sulfasalazine. Performed By: #### L 300.37474 #### [facility] [address] [place] [address] Potassium [Moles/Vol] 4.3 mmol/L Normal 3.5-5.1 [facility] Comment on above: Order Comment: Campu s: M : PT ON HEPARIN DRIP Result Comment: Slig ht Hemolysis, Result may be affected. Performed By: #### L 300.63791 #### [facility] [address] [place] [address] Sodium [Moles/Vol] 139 mmol/L Normal 136-145 [facility] Comment on above: Order Comment: Campu s: M : PT ON HEPARIN DRIP Performed By: #### L 300.47850 #### [facility] [address] [place] [address] Urea nitrogen [Mass/Vol] 17 mg/dL Normal 7-26 [facility] Comment on above: Order Comment: Campu s: M : PT ON HEPARIN DRIP Performed By: #### L 300.22130 #### [facility] [address] [place] [address] Urea nitrogen/Creatinine [Mass ratio] 16 mg/mg Normal 15-24 [facility] Comment on above: Order Comment: Campu s: M : PT ON HEPARIN DRIP Performed By: #### L 300.40562 #### [facility] [address] [place] [address] 26935 CBCon 11-01-2020 Erythrocyte distribution width (RBC) [Ratio] 13.5 % Normal 11-14.5 [facility] Comment on above: Order Comment: Rashawnu s: M : PT ON HEPARIN DRIP Performed By: #### L 300.75286 #### [facility] [address] [place] [address] Hematocrit (Bld) [Volume fraction] 31.9 % Low 41.0-53.0 [facility] Comment on above: Order Comment: Rio s: M : PT ON HEPARIN DRIP Performed By: #### L 300.71845 #### [facility] [address] [place] [address] Hemoglobin (Bld) [Mass/Vol] 10.4 g/dL Low 13.5-17.5 [facility] Comment on above: Order Comment: Rio s: M : PT ON HEPARIN DRIP Performed By: #### L 300.17241 #### [facility] [address] [place] [address] MCHC (RBC) [Mass/Vol] 32.6 g/dL Normal 32.0-36.0 [facility] Comment on above: Order Comment: Rio s: M : PT ON HEPARIN DRIP Performed By: #### L 300.35422 #### [facility] [address] [place] [address] MCV (RBC) [Entitic vol] 104.6 fL High 80.0-99.0 [facility] Comment on above: Order Comment: Rio s: M : PT ON HEPARIN DRIP Performed By: #### L 300.61426 #### [facility] [address] [place] [address] Nucleated RBC/100 WBC (Bld) [Ratio] 0.0 % Normal Less than 1 [facility] Comment on above: Order Comment: Rio s: M : PT ON HEPARIN DRIP Performed By: #### L 300.15109 #### [facility] [address] [place] [address] Platelet mean volume (Bld) [Entitic vol] 9.4 fL Normal 9.4-12.4 [facility] Comment on above: Order Comment: Rio s: M : PT ON HEPARIN DRIP Performed By: #### L 300.63849 #### [facility] [address] [place] [address] PLT 323 K/CU MM Normal 150-450 [facility] Comment on above: Order Comment: Rio s: M : PT ON HEPARIN DRIP Performed By: #### L 300.72358 #### [facility] [address] [place] [address] 28205 RBC 3.05 M/CU MM Low 4.50-6.00 [facility] Comment on above: Order Comment: Rio s: M : PT ON HEPARIN DRIP Performed By: #### L 300.30988 #### [facility] [address] [place] [address] 87988 WBC 12.3 K/CUMM High 4.5-11.0 [facility] Comment on above: Order Comment: Rio s: M : PT ON HEPARIN DRIP Performed By: #### L 300.52179 #### [facility] [address] [place], [place] [id number] DISCH.SUMon 11-01-2020 DISCH.[facility] Patient Name: ARLINE KHAN [address] [place] [address] [place] Date of : [address] [address] Unit Number: [id number] Discharge Summary Patient Status: ADM IN Attending Doctor: Trang Hansen MD Service Date: 11/01/20 1404 Discharge Summary Admit Date Admission Date Time: 10/29/201947 Anticipated Discharge Date 11/01/20 Final Dx/Problem List 1. Traumatic hematoma of forearm 2. Cellulitis 3. Factor V Leiden 4. DVT (deep venous thrombosis) 5. Atrial fibrillation 6. Hyperlipemia 7. 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 He was previously seen in the ER after he fell on October 24, deck steps collapsed and he landed in the left arm, at that time he was discharged home. He was previously treated for cellulitis. Continue to develop pain and came back to the emergency department. Has been admitted started on IV vancomycin and IV Zosyn with consultation orthopedics. He was taken to the operating room for evacuation of a hematoma in the left upper extremity on October [address] Andujar. Hemovac was placed intraoperatively and removed today. He was using Percocet for pain as needed. He was continued on IV vancomycin and Zosyn throughout hospitalization, cultures have remained negative. He was on heparin drip for hospitalization until this morning, he did get a dose of Arixtra. Arixtra is actually one of his home medications which is not previously on his outpatient medication list. This is not need medication. New medications at time of discharge Bactrim and Percocet as needed. Patient is in stable condition for discharge to home today. Instructed to follow-up with orthopedics in 2 weeks. Vital Signs Vital Signs (Last) Result Date Time Pulse Ox 94 10/31 2346 B/P 125/79 10/31 2346 O2 Delivery ROOM AIR 10/31 2346 Temp 97.7 10/31 2346 Pulse 81 10/31 2346 Resp 20 10/31 2346 Pertinent Physical Findings General: Resting in bed in no acute distress HEENT: Atraumatic, normocephalic, extraocular muscles intact, pupils equal round reactive to light, nares clear. Neck: Supple, no JVD Lungs: Clear to auscultation, no wheezing, rales, or rhonchi. Cardiac: Irregular rhythm, regular rate, no murmurs, rubs, gallops were appreciated. Abdomen: soft, nontender, nondistended, bowel sounds are positive. Extremities: Left upper extremity with compression device and Jesse wrap. Skin: No rashes or breakdown, no significant lesions. Neurologic: Cranial nerves from II-XII intact grossly. Alert and oriented 3 Consults Orthopedic (Pratima) Prescriptions Stop taking the following medications: metoprolol TARTRATE* (Lopressor 5MG Vial*) 5 MG/5 ML VIAL 5 MILLIGRAM INTRAVEN 2 TIMES DAILY Continue taking these medications: Pregabalin* (Lyrica Cap*) 150 MG CAPSULE 150 MILLIGRAM ORAL 2 TIMES DAILY DULoxetine HCL* (Cymbalta 60MG Cap*) 60 MG CAPSULE.DR 60 MILLIGRAM ORAL AT BEDTIME amLODIPine BESYLATE* (Norvasc Tab*) 10 MG TABLET 10 MILLIGRAM ORAL EVERY DAY Cyanocobalamin (Vitamin B12)* (Vitamin B12 1000 Mcg Tablet*) 1,000 MCG TAB 1,000 MICROGRAM ORAL EVERY DAY Start taking the following new medications: Fondaparinux Sodium (Arixtra) (Arixtra D.syr) 2.5 MG DISP.SYRIN 10 MILLIGRAM SUBCUTANEOUS* EVERY DAY Qty = 1 No Refills oxyCODONE HCL/ACETAMINOPHEN* (percoCET 5-325 TAB*) 1 EACH TABLET 1 UDTAB ORAL EVERY 4 HOURS NEEDED as needed for SEVERE PAIN Days = 7 Qty = 20 No Refills Sulfamethoxaz/Tmp* (Bactrim SS 400-80 MG Tab*) 1 EACH TABLET 1 UDTAB ORAL EVERY DAY Qty = 10 No Refills Referrals Ordered Referrals Orthopedics In One Week For Providers: Jeronimo Andujar DO [address] [place] [address] Condition: Improved, Stable Disposition Home Phys Discharge Time Incur(Min) 35 Disclaimer This dictation was created using voice recognition software. Phonetic and/or minor grammatical errors may exist. eSign Date and Time Zofia Zarco DO Verified/Reviewed by 11/01/[address] [facility] GFR ESTon 11-01-2020 IF AMER Greater than 60 [facility] Comment on above: Order Comment: Rio s: M : PT ON HEPARIN DRIP Performed By: #### L 300.74483 #### [facility] [address] [place] [address] IF non-AFR AMER Greater than 60 [facility] Comment on above: Order Comment: Rio s: M : PT ON HEPARIN DRIP Performed By: #### L 300.54490 #### [facility] [address] [place] [address]75 PROG.ORTHOon 11-01-2020 PROG.ORTHO [facility] Patient Name: ARLINE KHAN [address] Date of : [address] [address] Unit Number: [id number] Progress Note-Ortho Patient Status: ADM IN Attending Doctor: Trang Hansen MD Service Date: 11/01/20815 Progress Note - Ortho Subjective S: (2 ROS minimum) Patient seen and examined today. He is postop day 2 status post evacuation and irrigation and debridement of hematoma on left forearm. He states he still having some pain but it is improved prior to surgery. He also feels that his swelling has improved. He denies any paresthesias. No other concerns at this time. Objective Nursing Vitals Vital Signs (Last) Result Date Time Pulse Ox 94 10/31 2346 B/P 125/79 10/31 2346 O2 Delivery ROOM AIR 10/31 2346 Temp 97.7 10/31 2346 Pulse 81 10/31 2346 Resp 20 10/31 2346 General Appearance Alert and oriented, resting in bed. No acute distress noted. Physical Exam Examination of the left upper extremity reveals compression JESSE dressing to left forearm. Hemovac drain in place and functioning appropriately. Dressing was removed for examination. Patient has mild swelling of the dorsal aspect of his left forearm, much improved from prior to surgery. There are 2 areas where there was blister formation that have spontaneously ruptured and deroofed. No erythema or drainage noted. Patient has palpable radial and ulnar pulses. Sensation intact in the radial, ulnar, and median nerve distributions. He is able to make a full fist. Diagnostic Data Lab 24hr (CBC/BMP [facility]) 11/01/20 0524: [Embedded Image Not Available] APTT 59.2 H, RBC 3.05 L, MCV 104.6 H, MCHC 32.6, RDW 13.5, MPV 9.4, Nucleated RBCs 0.0 10/31/20 2141: APTT 60.4 H 10/31/20 1559: APTT 71.2 H Assessment/Plan Conclusion 1. Traumatic hematoma of forearm Patient is postop day 2 status post evacuation and irrigation and debridement of hematoma of his left forearm. Hemovac drain was removed today as patient has had reduced output the past 24 hours. The drain was removed without difficulty. New bolster dressing was applied to the left forearm. We will have patient maintain the dressing for the time being. Able to do gentle range of motion as tolerated. Continue pain medication as needed. We will continue to follow cultures taken during surgery, no growth at 48 hours postop. He is stable for discharge from an orthopedic standpoint and will follow up outpatient with Dr. Andujar upon discharge. Collaborating Physician Jeronimo Andujar DO Physician Attestation Statement of Attestation Patient doing well postop day 2 after evacuation of traumatic hematoma of the left forearm. Patient is back on his anticoagulation for an unprovoked DVT/PE. Dressing was changed today skin looks much better than preoperatively. Hemovac drain was pulled today with very little output. Patient was redressed with bolsters and compression dressing to his forearm. Will be likely discharged today from medicine standpoint follow-up with me in the office in 2 weeks for reevaluation and suture removal. All this questions were answered today. Pain medicine was provided for the patient will see him in 2 weeks I confirm that I have evaluated the patient, reviewed the history and physical, medications, diagnostic results, physical exam, assessment and plan of care of the patient. Disclaimer This dictation was created using voice recognition software. Phonetic and/or minor grammatical errors may exist. eSign Date and Time Jeronimo Andujar DO Verified/Reviewed by 11/01/20 0917 Zaira Sharp PAC Verified/Reviewed by 11/01/[address] [facility] Progress Note-Ortho [facility] PTTon 11-01-2020 aPTT Coag (Bld) [Time] 59.2 s High 22.0-31.5 [facility] Comment on above: Order Comment: Rio s: M Result Comment: Ther apeutic Heparin Reference Range: High Dose: 46-75 seconds (DVT/PE) Low Dose: 39-60 seconds (Acute Coronary Syndrome) For low molecular weight heparin or danaparoid, monitoring is often NOT necessary, but the heparin assay, Xa inhibition assay (send-out) may be used in certain circumstances, as the PTT is generally insensitive to the effect of these agents. Direct thrombin inhibitors are becoming more widely utilized and these drugs are often monitored using the PTT. Performed By: #### L 300.54305 ####[facility] [id number] [place], [place] [address]Al# [phone] aPTT Coag (Bld) [Time] 60.4 s High 22.0-31.5 [facility] Comment on above: Order Comment: Rashawnu s: M Minimal Draw: Y : [facility] Result Comment: Ther apeutic Heparin Reference Range: High Dose: 46-75 seconds (DVT/PE) Low Dose: 39-60 seconds (Acute Coronary Syndrome) For low molecular weight heparin or danaparoid, monitoring is often NOT necessary, but the heparin assay, Xa inhibition assay (send-out) may be used in certain circumstances, as the PTT is generally insensitive to the effect of these agents. Direct thrombin inhibitors are becoming more widely utilized and these drugs are often monitored using the PTT. Performed By: #### L 300.88571 #### [facility] [address] [place] [address] CBCon 10-31-2020 Erythrocyte distribution width (RBC) [Ratio] 12.8 % Normal 11-14.5 [facility] Comment on above: Order Comment: Rio s: M : PT ON HEPARIN DRIP Performed By: #### L 300.12111 #### [facility] [place] [address] Hematocrit (Bld) [Volume fraction] 38.2 % Low 41.0-53.0 [facility] Comment on above: Order Comment: Rio s: M : PT ON HEPARIN DRIP Performed By: #### L 300.18524 #### [facility] [place] [address] Hemoglobin (Bld) [Mass/Vol] 12.8 g/dL Low 13.5-17.5 [facility] Comment on above: Order Comment: Rio s: M : PT ON HEPARIN DRIP Performed By: #### L 300.93166 #### [facility] [place] [address] MCHC (RBC) [Mass/Vol] 33.5 g/dL Normal 32.0-36.0 [facility] Comment on above: Order Comment: Rio s: M : PT ON HEPARIN DRIP Performed By: #### L 300.69104 #### [facility] [address] [place], [place] [id number] MCV (RBC) [Entitic vol] 101.3 fL High 80.0-99.0 [facility] Comment on above: Order Comment: Rio s: M : PT ON HEPARIN DRIP Performed By: #### L 300.83733 #### [facility] [address] [place] [address] Nucleated RBC/100 WBC (Bld) [Ratio] 0.0 % Normal Less than 1 [facility] Comment on above: Order Comment: Rio s: M : PT ON HEPARIN DRIP Performed By: #### L 300.40276 #### [facility] [address] [place] [address] Platelet mean volume (Bld) [Entitic vol] 9.6 fL Normal 9.4-12.4 [facility] Comment on above: Order Comment: Rio s: M : PT ON HEPARIN DRIP Performed By: #### L 300.36075 #### [facility] [address] [place] [address] PLT 318 K/CU MM Normal 150-450 [facility] Comment on above: Order Comment: Rio s: M : PT ON HEPARIN DRIP Performed By: #### L 300.26135 #### [facility] [address] [place] [address] RBC 3.77 M/CU MM Low 4.50-6.00 [facility] Comment on above: Order Comment: Rio s: M : PT ON HEPARIN DRIP Performed By: #### L 300.50688 #### [facility] [address] [place], [place] [address] WBC 15.0 K/CUMM High 4.5-11.0 [facility] Comment on above: Order Comment: Rio s: M : PT ON HEPARIN DRIP Performed By: #### L 300.70019 #### [facility] [address] [place] [address] PROG [facility] 10-31-2020 PROG [facility] Patient Name: ARLINE KHAN [address] [facility] [address] Date of : [address] [place], [place] [address] Unit Number: [id number] Progress Note-Hospitalist Patient Status: ADM IN Attending Doctor: Trang Hansen MD Service Date: 10/31/20 1348 Subjective S: (2 ROS minimum) Patient feels well overall. Still some pain in his left arm Objective (ROS) Nursing Vitals Vital Signs (Last) Result Date Time Pulse Ox 100 10/31 0750 B/P 164/87 10/31 0750 O2 Delivery ROOM AIR 10/31 0750 Temp 97.7 10/31 0750 Pulse 82 10/31 0750 Resp 14 10/31 0750 Physical Exam Physical Examination Notes General: Resting in bed in no acute distress HEENT: Atraumatic, normocephalic, extraocular muscles intact, pupils equal round reactive to light, nares clear. Neck: Supple, no JVD Lungs: Clear to auscultation, no wheezing, rales, or rhonchi. Cardiac: Irregular rhythm, regular rate, no murmurs, rubs, gallops were appreciated. Abdomen: soft, nontender, nondistended, bowel sounds are positive. Extremities: Left upper extremity with Hemovac, Jesse wrap. Left hand mild edema Skin: No rashes or breakdown, no significant lesions. Neurologic: Cranial nerves from II-XII intact grossly. Alert and oriented 3 Diagnostic Data: Lab 24hr (CBC/BMP Fishbone) 10/31/20 0645: [Embedded Image Not Available] APTT 82.9 *H, RBC 3.77 L, MCV 101.3 H, MCHC 33.5, RDW 12.8, MPV 9.6, Nucleated RBCs 0.0, Vancomycin Trough 13.4 L 10/30/20 2224: APTT 62.1 H 10/30/20 1453: APTT 25.4 Assessment and Plan Conclusion 1. Traumatic hematoma of forearm 2. Cellulitis 3. Factor V Leiden 4. DVT (deep venous thrombosis) 5. Atrial fibrillation 6. Hyperlipemia 7. 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 He was previously seen in the ER after he fell on October 24, deck steps collapsed and he landed in the left arm, at that time he was discharged home. He was previously treated for cellulitis. Continue to develop pain and came back to the emergency department. Has been admitted started on IV vancomycin and IV Zosyn with consultation orthopedics. He was taken to the operating room for evacuation of a hematoma in the left upper extremity. I am seeing postoperatively at this time. Traumatic hematoma of the left forearm, seen in consultation by Ortho and taken to the operating room as noted above. Drain is in place, Percocet as needed for pain, continue current antibiotics, as plan is likely discharge tomorrow. Follow-up cultures; currently are negative. Cellulitis left forearm, currently the forearm is wrapped and I cannot evaluate for cellulitis at this time. We will continue IV Zosyn and vancomycin for now. Factor V Leiden mutation, chronic DVT left lower extremity. Continue heparin drip until morning; will give dose of arixtra in morning, 2 hours after heparin gtt stopped Atrial fibrillation, chronic, rate controlled. Continue on heparin as noted above; switch to Arixtra in morning. Adding metoprolol Hyperlipidemia Anemia, hemoglobin is stable. Hypertension, continuing Norvasc, resuming outpatient metoprolol as noted above DC Disposition Plan Anticipate discharge home, possibly with home health care Disclaimer This dictation was created using voice recognition software. Phonetic and/or minor grammatical errors may exist. eSign Date and Time Zofia Zarco DO Verified/Reviewed by 10/31/[address] [facility] Progress Note-Hospitalist [facility] PROG.ORTHOon 10-31-2020 PROG.[facility] Patient Name: ARLINE KHAN [address] [facility] Date of : [address] [place] [id number] Unit Number: [id number] Progress Note-Ortho Patient Status: ADM IN Attending Doctor: Trang Hansen MD Service Date: 10/31/20617 Progress Note - Ortho Subjective S: (2 ROS minimum) Patient seen and examined. He still has some pain but states it is much improved from prior to surgery. States his nurse recently emptied his Hemovac. He denies any paresthesias. Denies any chest pain or shortness of breath. No other concerns at this time. Objective Nursing Vitals Vital Signs (Last) Result Date Time Pulse Ox 96 10/31 0300 B/P 138/68 10/31 0300 Temp 97.6 10/31 0300 Pulse 79 10/31 0300 Resp 18 10/31 0300 O2 Delivery ROOM AIR 10/30 2315 General Appearance Alert and oriented, resting in bed. No acute distress noted. Physical Exam Left upper extremity exam reveals JESSE dressing in place to left forearm to his hand. Hemovac wound in place and functioning appropriately. Patient is able to appropriately flex and extend his elbow. Able to flex and extend all fingers and make a full fist. Mild diffuse swelling of patient's hand. Neurovascular status intact distally. Diagnostic Data Lab 24hr (CBC/BMP [facility]) 10/30/20 2224: APTT 62.1 H 10/30/20 1453: APTT 25.4 10/30/20 0809: [Embedded Image Not Available] Anion Gap 5, Est GFR ( Amer) Greater than 60, Est GFR (Non-Af Amer) Greater than 60 , BUN/Creatinine Ratio 19, Glucose 97, Total Calcium 8.4 L, APTT 51.5 H, RBC 3.13 L, MCV 104.5 H, MCHC 32.4, RDW 13.2, MPV 9.5, Immature Gran % (Auto) 0.2, Abs Immat Gran (auto) 0.00, Seg Neutrophils % 72.9, Lymphocytes % 14.0 L, Monocytes % 10.6 H, Eosinophils % 1.8, Basophils % 0.5, Neutrophils # 6.30, Lymphocytes # 1.20, Monocytes # 0.90, Eosinophils # 0.20, Basophils # 0.00, Nucleated RBCs 0.0 Assessment/Plan Conclusion 1. Traumatic hematoma of forearm Patient doing well status post evacuation and irrigation and debridement of hematoma of his left forearm. We will continue to maintain the Hemovac at this time and also maintain the dressing to his left upper extremity. He is able to do gentle range of motion as tolerated. Continue pain medication as needed. We will continue to follow patient while he is in the hospital. Follow-up outpatient with Dr. Haro upon discharge. Collaborating Physician Jeronimo Andujar DO Physician Attestation Statement of Attestation Patient is doing well postoperative day 1 status post evacuation of a hematoma with impending skin compromise left forearm. Dressing still in place, Hemovac drain has been emptied once since the operation. Distal neurovascular examination is benign. Hand swelling is significantly improved from preoperatively. We will continue to monitor this patient closely with follow-up in the office in 2 weeks. I confirm that I have evaluated the patient, reviewed the history and physical, medications, diagnostic results, physical exam, assessment and plan of care of the patient. Disclaimer This dictation was created using voice recognition software. Phonetic and/or minor grammatical errors may exist. eSign Date and Time Jeronimo Andujar DO Verified/Reviewed by 11/01/20 0917 Zaira Sharp PAC Verified/Reviewed by 10/31/[address] [facility] Progress Note-Ortho [facility] PTTon 10-31-2020 aPTT Coag (Bld) [Time] 71.2 s High 22.0-31.5 [facility] Comment on above: Order Comment: Rio borjas: Arely Result Comment: Ther apeutic Heparin Reference Range: High Dose: 46-75 seconds (DVT/PE) Low Dose: 39-60 seconds (Acute Coronary Syndrome) For low molecular weight heparin or danaparoid, monitoring is often NOT necessary, but the heparin assay, Xa inhibition assay (send-out) may be used in certain circumstances, as the PTT is generally insensitive to the effect of these agents. Direct thrombin inhibitors are becoming more widely utilized and these drugs are often monitored using the PTT. Performed By: #### M [id number] #### [facility] [address] [place] [address]# [phone] aPTT Coag (Bld) [Time] 82.9 s Critically high 22.0-31.5 [facility] Comment on above: Order Comment: Rio s: M : PT ON WEIGHT BASED HEPARIN Result Comment: CRIT ICAL VALUE(S) VERIFIED AND CALLED TO AND READ BACK BY ODILIA Holden AT 0749 10/31/20 BY KANE RAMIREZ Therapeutic Heparin Reference Range: High Dose: 46-75 seconds (DVT/PE) Low Dose: 39-60 seconds (Acute Coronary Syndrome) For low molecular weight heparin or danaparoid, monitoring is often NOT necessary, but the heparin assay, Xa inhibition assay (send-out) may be used in certain circumstances, as the PTT is generally insensitive to the effect of these agents. Direct thrombin inhibitors are becoming more widely utilized and these drugs are often monitored using the PTT. Performed By: #### L 300.27327 #### [facility] [address] [place] [address] aPTT Coag (Bld) [Time] 62.1 s High 22.0-31.5 [facility] Comment on above: Order Comment: Rio s: M : PT ON HEPARIN DRIP Result Comment: Ther apeutic Heparin Reference Range: High Dose: 46-75 seconds (DVT/PE) Low Dose: 39-60 seconds (Acute Coronary Syndrome) For low molecular weight heparin or danaparoid, monitoring is often NOT necessary, but the heparin assay, Xa inhibition assay (send-out) may be used in certain circumstances, as the PTT is generally insensitive to the effect of these agents. Direct thrombin inhibitors are becoming more widely utilized and these drugs are often monitored using the PTT. Performed By: #### L 300.83406 #### [facility] [address] [place] [address] VANC TROUGHon 10-31-2020 VANC TROUGH 13.4 MCG/ML Low 15.0-20.0 [facility] Comment on above: Order Comment: Rio s: M : PT ON HEPARIN DRIP Performed By: #### L 300.91586 #### [facility] [address] [place] [address] 229[address] BMPon 10-30-2020 Anion gap [Moles/Vol] 5 mmol/L Normal 5-16 [facility] Comment on above: Order Comment: Campu s: M Performed By: #### M 050.69144 #### [facility] [address] [place] [address] Calcium [Mass/Vol] 8.4 mg/dL Low 8.5-10.5 [facility] Comment on above: Order Comment: Campu s: M Result Comment: NOTE NEW NORMAL RANGE DUE TO REAGENT CHANGE Performed By: #### M 050.79648 #### [facility] [address] [place] [address] Chloride [Moles/Vol] 106 mmol/L Normal 98-107 [facility] Comment on above: Order Comment: Campu s: M Performed By: #### M 050.53965 #### [facility] [address] [place], [place] [address] CO2 [Moles/Vol] 27.0 mmol/L Normal 21-32 [facility] Comment on above: Order Comment: Campu s: M Performed By: #### M 050.46072 #### [facility] [place] [address] Creatinine [Mass/Vol] 0.96 mg/dL Normal 0.5-1.4 [facility] Comment on above: Order Comment: Campu s: M Result Comment: NOTE NEW NORMAL RANGE DUE TO REAGENT CHANGE Patients receiving either N-Acetylcysteine (NAC) or Metamizole prior to venipuncture, may have falsely depressed results. Performed By: #### M 050.36491 #### [facility] [place] [address] Glucose [Mass/Vol] 97 mg/dL Normal 70-100 [facility] Comment on above: Order Comment: Campu s: M Result Comment: 70-1 00- Normal Fasting; 100-125 Impaired Fasting; greater than 126 on more than one result- Diabetes. ADA guidelines. Results may be falsely elevated after the administration of Sulfapyridine. Results may be falsely depressed after the administration of Sulfasalazine. Performed By: #### M 050.20942 #### [facility] [address] [place] [address] Potassium [Moles/Vol] 4.5 mmol/L Normal 3.5-5.1 [facility] Comment on above: Order Comment: Campu s: M Result Comment: Slig ht Hemolysis, Result may be affected. Performed By: #### M 050.06575 #### [facility] [address] [place] [address] Sodium [Moles/Vol] 138 mmol/L Normal 136-145 [facility] Comment on above: Order Comment: Campu s: M Performed By: #### M 050.43267 #### [facility] [address] [place] [address] Urea nitrogen [Mass/Vol] 18 mg/dL Normal 7-26 [facility] Comment on above: Order Comment: Campu s: M Performed By: #### M 050.48449 #### [facility] [address] [place] [address] Urea nitrogen/Creatinine [Mass ratio] 19 mg/mg Normal 15-24 [facility] Comment on above: Order Comment: Campu s: M Performed By: #### M 050.29033 #### [facility] [address] [place], [place] [address] CBC W/DIFFon 10-30-2020 BASO ABS 0.00 K/CU MM Normal 0-0.2 [facility] Comment on above: Order Comment: Campu s: M : PT ON HEPARIN DRIP Performed By: #### L 300.16389 #### [facility] [address] [place] [address] Basophils/100 WBC (Bld) 0.5 % Normal 0-2 [facility] Comment on above: Order Comment: Rio s: M : PT ON HEPARIN DRIP Performed By: #### L 300.98749 #### [facility] [address] [place], [place] [address] EOS ABS 0.20 K/CU MM Normal 0-0.5 [facility] Comment on above: Order Comment: Rio s: M : PT ON HEPARIN DRIP Performed By: #### L 300.24933 #### [facility] [address] [place] [address] Eosinophils/100 WBC (Bld) 1.8 % Normal 0-5 [facility] Comment on above: Order Comment: Rio s: M : PT ON HEPARIN DRIP Performed By: #### L 300.83503 #### [facility] [address] [place] [address] Erythrocyte distribution width (RBC) [Ratio] 13.2 % Normal 11-14.5 [facility] Comment on above: Order Comment: Rio s: M : PT ON HEPARIN DRIP Performed By: #### L 300.29724 #### [facility] [address] [place] [address] Hematocrit (Bld) [Volume fraction] 32.7 % Low 41.0-53.0 [facility] Comment on above: Order Comment: Rio s: M : PT ON HEPARIN DRIP Performed By: #### L 300.72490 #### [facility] [address] [place], [place] [address] Hemoglobin (Bld) [Mass/Vol] 10.6 g/dL Low 13.5-17.5 [facility] Comment on above: Order Comment: Rio s: M : PT ON HEPARIN DRIP Performed By: #### L 300.84359 #### [facility] [address] [place] [address] IMMATR GRAN ABS 0.00 K/CU MM Normal Less than 2 [facility] Comment on above: Order Comment: Rio s: M : PT ON HEPARIN DRIP Performed By: #### L 300.10838 #### [facility] [place] [id number] IMMATURE GRAN % 0.2 % Normal Less than 2 [facility] Comment on above: Order Comment: Rio s: M : PT ON HEPARIN DRIP Performed By: #### L 300.28144 #### [facility] [address] [place] [address] LYMPH ABS 1.20 K/CU MM Normal 0.9-4.4 [facility] Comment on above: Order Comment: Rio s: M : PT ON HEPARIN DRIP Performed By: #### L 300.46620 #### [facility] [address] [place] [address] Lymphocytes/100 WBC (Bld) 14.0 % Low 20-40 [facility] Comment on above: Order Comment: Rio s: M : PT ON HEPARIN DRIP Performed By: #### L 300.01393 #### [facility] [address] [place] [address] MCHC (RBC) [Mass/Vol] 32.4 g/dL Normal 32.0-36.0 [facility] Comment on above: Order Comment: Rio s: M : PT ON HEPARIN DRIP Performed By: #### L 300.18769 #### [facility] [address] [place] [address] MCV (RBC) [Entitic vol] 104.5 fL High 80.0-99.0 [facility] Comment on above: Order Comment: Rio s: M : PT ON HEPARIN DRIP Performed By: #### L 300.46114 #### [facility] [address] [place] [address] MONO ABS 0.90 K/CU MM Normal 0.1-1.1 [facility] Comment on above: Order Comment: Rio s: M : PT ON HEPARIN DRIP Performed By: #### L 300.90113 #### [facility] [place] [address] Monocytes/100 WBC (Bld) 10.6 % High 2-10 [facility] Comment on above: Order Comment: Rio s: M : PT ON HEPARIN DRIP Performed By: #### L 300.57810 #### [facility] [address] [place] [address] NEUTROPHIL ABS 6.30 K/CU MM Normal 2.0-8.3 [facility] Comment on above: Order Comment: Rio s: M : PT ON HEPARIN DRIP Performed By: #### L 300.25419 #### [facility] [address] [place] [address] Neutrophils/100 WBC (Bld) 72.9 % Normal 45-75 [facility] Comment on above: Order Comment: Rio s: M : PT ON HEPARIN DRIP Performed By: #### L 300.32528 #### [facility] [address] [place], [place] [address] Nucleated RBC/100 WBC (Bld) [Ratio] 0.0 % Normal Less than 1 [facility] Comment on above: Order Comment: Rio s: M : PT ON HEPARIN DRIP Performed By: #### L 300.34132 #### [facility] [address] [place], [place] [id number] Platelet mean volume (Bld) [Entitic vol] 9.5 fL Normal 9.4-12.4 [facility] Comment on above: Order Comment: Rio s: M : PT ON HEPARIN DRIP Performed By: #### L 300.50415 #### [facility] [address] [place] [address] PLT 244 K/CU MM Normal 150-450 [facility] Comment on above: Order Comment: Rashawnu s: M : PT ON HEPARIN DRIP Performed By: #### L 300.94199 #### [facility] [address] [place] [address] RBC 3.13 M/CU MM Low 4.50-6.00 [facility] Comment on above: Order Comment: Rashawnu s: M : PT ON HEPARIN DRIP Performed By: #### L 300.04646 #### [facility] [address] [place] [address] WBC 8.7 K/CUMM Normal 4.5-11.0 [facility] Comment on above: Order Comment: Rashawnu s: M : PT ON HEPARIN DRIP Performed By: #### L 300.35910 #### [facility] [address] [place] [address] 82982 CKon 10-30-2020 CK [Catalytic activity/Vol] 69 U/L Normal 26-192 [facility] Comment on above: Order Comment: Campu s: M Result Comment: NOTE NEW NORMAL RANGE DUE TO REAGENT CHANGE Performed By: #### M 050.65100 #### [facility] [address] [place] [address] 15745 CONS.ORTHOon 10-30-2020 CONS.ORTHO [facility] Patient Name: ARLINE KHAN [address] [place] [address] Date of : [address] [address] Unit Number: [id number] CONSULTATION-ORTHO Patient Status: ADM IN Attending Doctor: Trang Hansen MD Service Date: 10/30/20 1000 CONSULTATION-ORTHO Referring Physician Trang Hansen MD Consulted Provider Jeronimo Andujar DO Source of Information Patient Reason for Consult Left forearm hematoma Living Situation Home - Independent History of Present Illness Patient is a 65-year-old male with a past history of unprovoked PE currently on anticoagulation. He suffered a fall down some steps at his home approximately 4 to 5 days ago and struck his left arm. He did have pain at that time but did not seek any medical attention for this. However, over the past several days the swelling in his left arm has increased in size and he has noticed some redness. He is also had an increase in pain in the left arm. Due to the pain he presented to an outside emergency room. They were concerned about the amount of swelling and he was transferred to [facility] for evaluation. Upon my evaluation today he is complaining of left arm pain exclusively. He is denying any recent fevers or chills. He does not know much about his medical history other than he had a prior back injury that led to prolonged immobilization and subsequent development of the PE as mentioned above. Past Medical History Unprovoked PE Past Surgical History Multiple prior orthopedic procedures performed on both the left and right arm in [place] after prior traumatic injury Family History Noncontributory Substances Reports use of: Tobacco. Structured Exercise No Social History Social drinker, does use chewing tobacco but denies any smoking Allergies Coded Allergies: NO KNOWN ALLERGENS (07/15/10) Review of Systems General: Denies fever, chills CV: Denies chest pain or shortness of breath Respiratory: Denies cough or wheeze Musculoskeletal: Admits to left arm pain, denies other joint pain or swelling Physical Exam Vital Signs Vital Signs (Last) Result Date Time Pulse Ox 97 10/29 2300 B/P 143/74 10/29 2300 Temp 97.9 10/29 2300 Pulse 82 10/29 2300 Resp 18 10/29 2300 Physical Exam Summary General: Patient is alert and oriented x4 and is in no acute respiratory distress Lungs: Chest rise equal and symmetric Cardiac: Pulses equal and intact in all extremities Abdomen: Soft, nondistended Focused musculoskeletal exam (left upper extremity): SILT C5-T1, strength intact to all myotomes, compartments soft and compressible. He does have a large amount of swelling over the dorsum of his left forearm with surrounding erythema and induration. There are 2 areas where there was blister formation that have spontaneously ruptured and deroofed. One of the blisters has some central eschar formation. Radial and ulnar pulses 2+ Skin: deroofed blisters as noted above Psychiatry: Normal affect. Conclusion 1. Traumatic hematoma of forearm Pt with trauamtic hematoma of the left forearm. His skin condiion is certainly threatened by the amount of swelling and he already has blisters that have formed. We recommed IandD of this hematoma to allow for resolution of the swelling and improve his skin condition. We will keep him NPO for now and plan for surgery later today with drain placement Statement of Attestaion This 65-year-old male with a trauma to his elbow approximately 5 days ago presents with a very large posterior hematoma over the ulna. Hematoma is large enough that it is compromising the vascularity of the skin secondary to pressure with a central eschar noted. On CT scan it is suprafascial and there is no sign of compartment syndrome. Patient has soft compressible compartments. He is tender to palpation over the hematoma. He has good range of motion of his fingers. He has palpable pulses. There is sensation intact with light touch. He is on Lovenox chronically secondary to an unprovoked pulmonary embolus and DVT. I believe this to be a large hematoma secondary to his fall. He does have elevated inflammatory markers but no sign of infection of his hematoma at this point. Patient was talked to the options for this including nonsurgical and surgical management. Given the size and skin compromise I believe the best option for the patient is evacuation of the hematoma in the operating room with placement of a drain to prevent reaccumulation and a bolster to prevent reaccumulation. We talked about the risks of surgery including continued pain dysfunction, reaccumulation of the hematoma, possible need for future surgeries, skin necrosis and breakdown, potential need for flap coverage if the skin dies, potential need for skin grafting, injury to nerves and vessels, infection, other unforeseen complications such as loss of life and loss (more content not included)... Normal [facility] GFR ESTon 10-30-2020 IF AMER Greater than 60 [facility] Comment on above: Order Comment: Rio s: M Performed By: #### M 050.22406 #### [facility] [address] [place] [address] 97840 IF non-AFR AMER Greater than 60 [facility] Comment on above: Order Comment: Rio s: M Performed By: #### M 050.72477 #### [facility] [address] [place] [address] OR.OPRPTon 10-30-2020 Operative Report Normal [facility] Cecily OR.OPRPT [facility] Patient Name: ARLINE KHAN [address] Date of : [address] [address] Unit Number: [id number] Operative Report Patient Status: ADM IN Attending Doctor: Trang Hansen MD Service Date: 10/30/20 1428 Operative Report Procedure Date: 10/30/20 Attending Physician: Jeronimo Andujar DO Procedure: Preoperative Diagnosis: Left forearm hematoma with impending skin compromise Postoperative Diagnosis: Same Procedure Type: Evacuation of hematoma left forearm with irrigation and debridement placement of a Hemovac drain. Anesthesia: General Estimated Blood Loss: 50 cc IV Fluids: Per networking engineer: Zaira Sharp PA-C, assisted with preoperative positioning, preoperative planning, determining availability of proper implants, prepping and draping of patient, exposure, surgical procedure, hemostasis, and assistance with wound closure. Her skills and knowledge of the steps during the operation and the desired outcome of each surgical step was crucial, allowing for efficient choreography of surgical procedure, and closure of the wound which hopefully led to reduced surgical time, less blood loss, and minimize risk of complications for the patient. Complications: None Findings/Specimens: Cultures to microbiology Indications: This is a 65-year-old male who had a fall approximately 6 days ago the patient is on therapeutic anticoagulation for previous unprovoked DVT and PE and history of factor V Leiden. Patient also has a history of prostate cancer. After the fall he developed a large hematoma on the dorsal lateral aspect of his left forearm. Patient was seen at [facility] and there was concern for compartment syndrome so he was sent to [facility] emergency department. There were no signs of compartment syndrome in the emergency department including soft compartments, palpable pulses, sensation intact light touch, no pain with passive stretch and a very obvious very large hematoma which was extrafascial. Patient does not smoke cigarettes and is not diabetic. We talked to him after examining the patient that we felt irrigation and debridement and evacuation of the hematoma was the most appropriate treatment option given the fact that the hematoma was so large it was pressuring the skin and there was a central area of necrosis and eschar forming secondary to the pressure. This is an absolute indication for decompression of the hematoma given the impending skin compromise. Patient also had elevated inflammatory markers for which we would take cultures of the hematoma. He understood this and wanted to proceed. CT scan showed a 18 cm x 5 cm x 6 cm hematoma in the soft tissues suprafascial. We discussed risk benefits complications alternatives to surgery including risk of nonhealing wound, infection, reaccumulation of the hematoma, injury to nerves and vessels, stiffness of the elbow and wrist, continued pain and dysfunction despite an operation, other unforeseen complications such as loss of life and loss of limb. Patient also understood that it might take multiple debridements depending on what we find to make this better. He understood this and want to proceed with the operation. Procedure in detail: This patient was seen in the preoperative holding area and identified verbally and by his name kwan. Patient's left upper extremity was marked as correct he was taken to the operative suite placed in the supine position on the operating table. General anesthesia was administered. This point is prepped and draped in normal sterile fashion all bony prominences well-padded no tourniquet was used for the operation. Timeout was performed left side was correct and his scheduled antibiotics were being infused before the skin incision. At this point a 4 cm incision was carried out over the subcutaneous border of the ulna on the outer margin of the hematoma taking care not to disrupt the central skin where there was impending skin compromise. We then were able to bluntly break up all the loculations and excise a significant amount of hematoma from this very large cavity. There were no signs of infection but cultures were sent as a precaution to microbiology. Once all the hematoma was evacuated we then irrigated the wound thoroughly with 2 L of saline. A 10 Urdu drain to Hemovac suction was placed in line with the skin incision and then the wound was closed using nylon sutures. We then placed bolsters on the skin and a compressive dressing was applied to prevent reaccumulation. Patient was then taken to the PACU in stable condition having suffered no complications from the operation. Disclaimer This dictation was created using voice recognition software. Phonetic and/or minor grammatical errors may exist. eSign Date and Time Jeronimo Andujar DO Verified/Reviewed by 10/30/20 1435 Normal [facility] [place] PHA.NOTEon 10-30-2020 PHA.NOTE [facility] Patient Name: ARLINE KHAN [address] Date of : [address] [place], [place] [address] Unit Number: [id number] Pharmacy Note Patient Status: ADM IN Attending Doctor: Trang Hansen MD Service Date: 10/30/20 09 Pharmacy Note - VANCO INIT Initial Note Subjective: Pharmacy to dose vancomycin Assessment: * Patient is a 65 year old Male who was admitted for cellulitis/arm hematoma. Patient has been initiated on vancomycin and zosyn. * Height (cm): 177.80 * BMI (kg/m2): 35.60 * Actual weight (kg): 112.58 * Dosing weight (adjusted body weight) (kg): 89 LABS 10/30/20 0809: Creatinine 0.96 10/29/20 1815: Creatinine 1.05 Plan: 1. Will dose vancomycin 1.25gm ( 14 mg/kg based on adjusted body weight) every 12 hours given patient's renal function, age, and weight. 2. Will target goal trough 10-20 for cellulitis. 3. Will order trough before fourth dose of this regimen and adjust as necessary. Disclaimer This dictation was created using voice recognition software. Phonetic and/or minor grammatical errors may exist. eSign Date and Time Elsie SantamariaD Verified/Reviewed by 10/30/[address] [facility] Pharmacy Note [facility] PROG [facility] 10-30-2020 PROG [facility] Patient [facility]: [facility] Date of : [address] [address] Unit Number: [id number] Progress Note-Hospitalist Patient Status: ADM IN Attending Doctor: Trang Hansen MD Service Date: 10/30/20 175 Subjective S: (2 ROS minimum) Patient feeling okay, he states he feels better overall. His arm is some pain from surgery but this is his only complaint at this time. Discussed with RN. Objective (ROS) Nursing Vitals Vital Signs (Last) Result Date Time Pulse Ox 93 10/30 1635 B/P 143/107 10/30 1635 Temp 98.2 10/30 1635 Pulse 103 07/14 1635 Resp 16 10/30 1635 Physical Exam Physical Examination Notes General: Resting in bed in no acute distress HEENT: Atraumatic, normocephalic, extraocular muscles intact, pupils equal round reactive to light, nares clear. Neck: Supple, no JVD Lungs: Clear to auscultation, no wheezing, rales, or rhonchi. Cardiac: Irregular rhythm, regular rate, no murmurs, rubs, gallops were appreciated. Abdomen: soft, nontender, nondistended, bowel sounds are positive. Extremities: Left upper extremity wrapped with drain in place. Skin: No rashes or breakdown, no significant lesions. Neurologic: Cranial nerves from II-XII intact grossly. Alert and oriented 3 Diagnostic Data: Lab 24hr (CBC/BMP [facility]) 10/30/20 1453: APTT 25.4 10/30/20 0809: [Embedded Image Not Available] Anion Gap 5, Est GFR ( Amer) Greater than 60, Est GFR (Non-Af Amer) Greater than 60 , BUN/Creatinine Ratio 19, Glucose 97, Total Calcium 8.4 L, APTT 51.5 H, RBC 3.13 L, MCV 104.5 H, MCHC 32.4, RDW 13.2, MPV 9.5, Immature Gran % (Auto) 0.2, Abs Immat Gran (auto) 0.00, Seg Neutrophils % 72.9, Lymphocytes % 14.0 L, Monocytes % 10.6 H, Eosinophils % 1.8, Basophils % 0.5, Neutrophils # 6.30, Lymphocytes # 1.20, Monocytes # 0.90, Eosinophils # 0.20, Basophils # 0.00, Nucleated RBCs 0.0 10/29/201818: INR 1.01, PT Normal Mean Secs 10.8, APTT 24.5 10/29/201814: Creatine Kinase 69 10/29/201814: [Embedded Image Not Available] Lactate 1.55, Anion Gap 4 L, Est GFR ( Amer) Greater than 60, Est GFR (Non-Af Amer) Greater than 60, BUN/Creatinine Ratio 22, Glucose 91, Total Calcium 9.2, C-Reactive Protein 6.22, RBC 3.45 L, MCV 103.2 H, MCHC 33.1, RDW 13.4, MPV 9.5, Immature Gran % (Auto ) 0.5, Abs Immat Gran (auto) 0.00, Seg Neutrophils % 72.4, Lymphocytes % 16.9 L, Monocytes % 8.0, Eosinophils % 1.7, Basophils % 0.5, Neutrophils # 6.30, Lymphocytes # 1.50, Monocytes # 0.70, Eosinophils # 0.20, Basophils # 0.00, Nucleated RBCs 0.0, ESR [place] 53 H, SARS-CoV-2 (PCR) NEGATIVE Assessment and Plan Conclusion 1. Traumatic hematoma of forearm 2. Cellulitis 3. Factor V Leiden 4. DVT (deep venous thrombosis) 5. Atrial fibrillation 6. Hyperlipemia 7. 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 He was previously seen in the ER after he fell on October 24, deck steps collapsed and he landed in the left arm, at that time he was discharged home. He was previously treated for cellulitis. Continue to develop pain and came back to the emergency department. Has been admitted started on IV vancomycin and IV Zosyn with consultation orthopedics. Today he was taken to the operating room for evacuation of a hematoma in the left upper extremity. I am seeing postoperatively at this time. Traumatic hematoma of the left forearm, seen in consultation by Ortho and taken to the operating room today as noted above. Drain is in place, Percocet as needed for pain, continue current antibiotics. Follow-up cultures. Cellulitis left forearm, currently the forearm is wrapped and I cannot evaluate for cellulitis at this time. We will continue IV Zosyn and vancomycin for now. Factor V Leiden mutation, chronic DVT left lower extremity. He is continued on a heparin drip at this time. Atrial fibrillation, chronic, rate controlled. Continue on heparin as noted above. Seems that he is on IV beta-colby. Currently rate is controlled for control meds. Hyperlipidemia Anemia, hemoglobin is stable. Hypertension, continuing Norvasc with hold parameter. DC Disposition Plan Anticipate discharge to home when medically stable. Disclaimer This dictation was created using voice recognition software. Phonetic and/or minor grammatical errors may exist. eSign Date and Time Haroldo,Zofia M DO Verified/Reviewed by 10/30/[address] [facility] Progress Note-Hospitalist Normal [facility] PTTon 10-30-2020 aPTT Coag (Bld) [Time] 25.4 s Normal 22.0-31.5 [facility] Comment on above: Order Comment: Rio s: M : PT ON HEPARIN DRIP Result Comment: Ther apeutic Heparin Reference Range: High Dose: 46-75 seconds (DVT/PE) Low Dose: 39-60 seconds (Acute Coronary Syndrome) For low molecular weight heparin or danaparoid, monitoring is often NOT necessary, but the heparin assay, Xa inhibition assay (send-out) may be used in certain circumstances, as the PTT is generally insensitive to the effect of these agents. Direct thrombin inhibitors are becoming more widely utilized and these drugs are often monitored using the PTT. Performed By: #### L 300.79003 #### [facility] [address] [place] [address] aPTT Coag (Bld) [Time] 51.5 s High 22.0-31.5 [facility] Comment on above: Order Comment: Rio s: M : PT ON HEPARIN DRIP Result Comment: Ther apeutic Heparin Reference Range: High Dose: 46-75 seconds (DVT/PE) Low Dose: 39-60 seconds (Acute Coronary Syndrome) For low molecular weight heparin or danaparoid, monitoring is often NOT necessary, but the heparin assay, Xa inhibition assay (send-out) may be used in certain circumstances, as the PTT is generally insensitive to the effect of these agents. Direct thrombin inhibitors are becoming more widely utilized and these drugs are often monitored using the PTT. Performed By: #### L 300.50185 #### [facility] [address] [place] [address] BMPon 10-29-2020 Anion gap [Moles/Vol] 4 mmol/L Low 5-16 [facility] Comment on above: Order Comment: Rio borjas: Arely Performed By: #### L 550.06831, L500.25930, L500.96137 ####[facility] [id number] [place], [place] [address]Wj# [phone] Calcium [Mass/Vol] 9.2 mg/dL Normal 8.5-10.5 [facility] Comment on above: Order Comment: Campu s: M Result Comment: NOTE NEW NORMAL RANGE DUE TO REAGENT CHANGE Performed By: #### L 550.97920, L500.14886, L500.22813 ####[facility] [id number] [place], [place] [address]Br# [phone] Chloride [Moles/Vol] 105 mmol/L Normal 98-107 [facility] Comment on above: Order Comment: Campu s: M Performed By: #### L 550.71461, L500.21347, L500.73667 ####[facility] [id number] [place], [place] [address]Sb# [phone] CO2 [Moles/Vol] 30.0 mmol/L Normal 21-32 [facility] Comment on above: Order Comment: Campu s: M Performed By: #### L 550.68153, L500.84147, L500.25753 ####[facility] [id number] [place] [address]Sf# [phone] Creatinine [Mass/Vol] 1.05 mg/dL Normal 0.5-1.4 [facility] Comment on above: Order Comment: Campu s: M Result Comment: NOTE NEW NORMAL RANGE DUE TO REAGENT CHANGE Patients receiving either N-Acetylcysteine (NAC) or Metamizole prior to venipuncture, may have falsely depressed results. Performed By: #### L 550.14597, L500.97150, L500.75124 ####[facility] [id number] [place] [address]Je# [phone] Glucose [Mass/Vol] 91 mg/dL Normal 70-100 [facility] Comment on above: Order Comment: Campu s: M Result Comment: 70-1 00- Normal Fasting; 100-125 Impaired Fasting; greater than 126 on more than one result- Diabetes. ADA guidelines. Results may be falsely elevated after the administration of Sulfapyridine. Results may be falsely depressed after the administration of Sulfasalazine. Performed By: #### L 550.95867, L500.31514, L500.05236 ####[facility] [id number] [place], [place] [address]Wv# [phone] Potassium [Moles/Vol] 4.1 mmol/L Normal 3.5-5.1 [facility] Comment on above: Order Comment: Campu s: M Performed By: #### L 550.54832, L500.02744, L500.73082 ####[facility] [id number] [place], [place] [address]Ln# [phone] Sodium [Moles/Vol] 139 mmol/L Normal 136-145 [facility] Comment on above: Order Comment: Campu s: M Performed By: #### L 550.09602, L500.27441, L500.07184 ####[facility] [id number] [place], [place] [address]Sj# [phone] Urea nitrogen [Mass/Vol] 23 mg/dL Normal 7-26 [facility] Comment on above: Order Comment: Campu s: M Performed By: #### L 550.35653, L500.64768, L500.86175 ####[facility] [id number] [place], [place] [address]Ts# [phone] Urea nitrogen/Creatinine [Mass ratio] 22 mg/mg Normal 15-24 [facility] Comment on above: Order Comment: Campu s: M Performed By: #### L 550.21603, L500.25603, L500.38195 ####[facility] [id number] [place], [place] [address]Ly# [phone] CBC W/DIFFon 10-29-2020 BASO ABS 0.00 K/CU MM Normal 0-0.2 [facility] Comment on above: Order Comment: Campu s: M Performed By: #### M 050.48083 #### [facility] [address] [place] [address] Basophils/100 WBC (Bld) 0.5 % Normal 0-2 [facility] Comment on above: Order Comment: Campu s: M Performed By: #### M 050.58702 #### [facility] [address] [place] [address] EOS ABS 0.20 K/CU MM Normal 0-0.5 [facility] Comment on above: Order Comment: Campu s: M Performed By: #### M 050.54202 #### [facility] [address] [place] [address] Eosinophils/100 WBC (Bld) 1.7 % Normal 0-5 [facility] Comment on above: Order Comment: Campu s: M Performed By: #### M 050.77748 #### [facility] [address] [place] [address] Erythrocyte distribution width (RBC) [Ratio] 13.4 % Normal 11-14.5 [facility] Comment on above: Order Comment: Campu s: M Performed By: #### M 050.92463 #### [facility] [address] [place] [address] Hematocrit (Bld) [Volume fraction] 35.6 % Low 41.0-53.0 [facility] Comment on above: Order Comment: Campu s: M Performed By: #### M 050.04246 #### [facility] [address] [place] [address] Hemoglobin (Bld) [Mass/Vol] 11.8 g/dL Low 13.5-17.5 [facility] Comment on above: Order Comment: Campu s: M Performed By: #### M 050.38865 #### [facility] [address] [place] [address] IMMATR GRAN ABS 0.00 K/CU MM Normal Less than 2 [facility] Comment on above: Order Comment: Campu s: M Performed By: #### M 050.99290 #### [facility] [address] [place] [address] IMMATURE GRAN % 0.5 % Normal Less than 2 [facility] Comment on above: Order Comment: Campu s: M Performed By: #### M 050.71025 #### [facility] [address] [place] [address] LYMPH ABS 1.50 K/CU MM Normal 0.9-4.4 [facility] Comment on above: Order Comment: Campu s: M Performed By: #### M 050.09058 #### [facility] [address] [place] [address] Lymphocytes/100 WBC (Bld) 16.9 % Low 20-40 [facility] Comment on above: Order Comment: Campu s: M Performed By: #### M 050.74628 #### [facility] [address] [place] [address] MCHC (RBC) [Mass/Vol] 33.1 g/dL Normal 32.0-36.0 [facility] [facility] Comment on above: Order Comment: Campu s: M Performed By: #### M [id number] #### [facility] [address] [place] [address] MCV (RBC) [Entitic vol] 103.2 fL High 80.0-99.0 [facility] Comment on above: Order Comment: Campu s: M Performed By: #### M [id number] #### [facility] [address] [place] [address] MONO ABS 0.70 K/CU MM Normal 0.1-1.1 [facility] Comment on above: Order Comment: Campu s: M Performed By: #### M 050.66613 #### [facility] [address] [place] [address] Monocytes/100 WBC (Bld) 8.0 % Normal 2-10 [facility] Comment on above: Order Comment: Campu s: M Performed By: #### M 050.17763 #### [facility] [address] [place] [address] NEUTROPHIL ABS 6.30 K/CU MM Normal 2.0-8.3 [facility] Comment on above: Order Comment: Campu s: M Performed By: #### M 050.76247 #### [facility] [address] [place] [address] Neutrophils/100 WBC (Bld) 72.4 % Normal 45-75 [facility] Comment on above: Order Comment: Campu s: M Performed By: #### M 050.97412 #### [facility] [address] [place] [address] Nucleated RBC/100 WBC (Bld) [Ratio] 0.0 % Normal Less than 1 [facility] Comment on above: Order Comment: Campu s: M Performed By: #### M 050.50734 #### [facility] [address] [place], [place] [id number] Platelet mean volume (Bld) [Entitic vol] 9.5 fL Normal 9.4-12.4 [facility] Comment on above: Order Comment: Campu s: M Performed By: #### M 050.62630 #### [facility] [address] [place], [place] [id number] PLT 275 K/CU MM Normal 150-450 [facility] Comment on above: Order Comment: Campu s: M Performed By: #### M 050.55139 #### [facility] [address] [place], [place] [id number] RBC 3.45 M/CU MM Low 4.50-6.00 [facility] Comment on above: Order Comment: Campu s: M Performed By: #### M 050.46177 #### [facility] [address] [place] [address] WBC 8.6 K/CUMM Normal 4.5-11.0 [facility] Comment on above: Order Comment: Campu s: M Performed By: #### M 050.76256 #### [facility] [address] [place] [address] CRPon 10-29-2020 CRP 6.22 MG/DL Normal LESS THAN 1 [facility] Comment on above: Order Comment: Campu s: M Performed By: #### L 550.51721, L500.27287, L500.16979 ####[facility] [id number] [place], [place] [address]Ks# [phone] CT UPPER EXTREMITY W/CON LTo n 10-29-2020 CT UPPER EXTREMITY W/CON LT EXAMINATION: CT SCAN OF THE LEFT UPPER EXTREMITY WITH IV CONTRAST CLINICAL HISTORY: Left forearm swelling after fall 4 days ago TECHNIQUE: Post contrast imaging of the left upper extremity was performed using standard technique, Contrast: IV: 50 mL of Isovue-370 CT Dose-Length Product: 490.70 mGy*cm CT Dose Reduction Employed: Automated exposure control and iterative reconstruction COMPARISON: Forearm radiographs 10/29/2020 FINDINGS: Bones and joints: Bones are intact in anatomic alignment. No acute fracture or malalignment. No suspicious osseous lesion. Osteoarthrosis about the included hand, wrist and elbow. Soft tissues: Heterogeneous superficial soft tissue collection overlying the posterior compartment of the forearm measuring 18 cm in craniocaudal along axis by 5.5 cm AP and 7.9 cm transverse. Surrounding subcutaneous fat stranding. The intramuscular and deep intermuscular fat planes Junior Linux Administrator (topogram) images: No additional findings. IMPRESSION: 1. Superficial soft tissue hematoma overlying and compressing the posterior compartment of the forearm measuring approximately 18 x 5.5 x 7.9 cm. No discernible intramuscular or intracompartmental hematoma. 2. No underlying acute fracture or malalignment. This report was electronically signed by Ancelmo Michael MD 10/29/2020 11:04 PM Reported By: ANCELMO MICHAEL MD Signed By: ANCELMO MICHAEL MD Normal [facility] Cecily EKChivo 10-29-2020 Electrocardiogram Procedure Date and T ceci: 10/30/20 1452 Test Reason : RT Blood Pressure : / mmHG Vent. Rate : 114 BPM Atrial Rate : 125 BPM P-R Int : 000 ms QRS Dur : 084 ms QT Int : 330 ms P-R-T Axes : 000 017 044 degrees QTc Int : 455 ms Atrial fibrillation Abnormal ECG When compared with ECG of 13-JUL-2010 09:27, No significant change was found Confirmed by ABISAI ENRIQUEZ A. ([id number]) on 11/06/2020 8:22:05 AM Referred By: Joss Bello Confirmed By:Shey ENRIQUEZ M.D.FACC Nikky DDandT: 10/30/20 1452 TDandT: [facility] [address] MEDICAL REC #: [id number] [place] [address] ADMIT DATE: 10/29/20 DISCHARGE DATE: 11/01/20 ATTENDING PHY: Zofia Zarco DO ELECTROCARDIOGRAM REPORT CLB cc: [facility] PATIENT NAME: ARLINE KHAN [facility] [address] MEDICAL REC #: [id number] [place] [address] ADMIT DATE: 10/29/20 DISCHARGE DATE: 11/01/20 ATTENDING PHY: Zofia Zarco DO ELECTROCARDIOGRAM REPORT [facility] EMERGENCY PHYSICIAN REPORT This is a preliminary report only, as the practitioner review and authentication has not occurred. Normal [facility] ER PHYSICIAN ASSESSMENT RECORDS : FlexChartData Event Time: 10/29/2020 19:40 Status: Signed [facility] Arline Khan [[id number]] Mid-Level Chart (V2b) 65 / M / 1955 Chart created at 10/29/2020 19:25 by Oumou Espitia Chart closed at 10/29/2020 19:44 Entry in Emergency Department at 10/29/2020 16:28, departure at 10/29/2020 21:55 Patient Name: Arline Khan Record Number: [id number] Date: 10/29/2020 19:25 Entered Department at: 10/29/2020 16:28 Patient Seen at: 10/29/2020 17:42 Historian: Patient PCP: douglas Chief Complaint:arm pain: c/o left arm pain. pt reports he fell on landing on it. Nursing triage/initial assessment reviewed and confirmed and Initial Vital Signs reviewed. Temperature: 98.6 F (37 C). Pulse: 89. Respiratory Rate: 18. Blood-pressure: 132/91. Oxygen Saturation: 98%. History of Present Illness: 65-Year-old male presents to emergency department for worsening left arm pain. Patient had a fall 5 days ago, he fell onto his left forearm. He is on Lovenox. He states he was initially seen in the emergency department, had an x-ray at that time which was negative. He was sent here for concerns of compartment syndrome on 10/24. Orthopedics was consulted at that time and [facility] PATIENT NAME: ARLINE KHAN [address] [facility] [address] MEDICAL REC #: [id number] [place] [address] EMERGENCY DEPARTMENT REPORT EMERGENCY DEPARTMENT PHYSICIAN felt he could be discharged home. Patients been having worsening left arm pain and feels as if it swollen somewhat more. He was again seen at [place] and sent here given for further evaluation. Patient states he has noticed some increased swelling to left forearm as well as pain. Does have chronic numbness and tingling to bilateral hands, denies any changes in this . No other pertinent HPI Review of Systems. All other systems reviewed and negative.. Past History, Medications, Allergies, Social History and Family History reviewed in nurses note. Medications: Reviewed RN Note. Allergies: Reviewed RN Note Social History: Reviewed RN Note. Family History: Reviewed RN Note Physical Examination: General: Alert and Well Developed Neck: No Meningismus and Supple Respiratory: No Resp Distress and Normal Breath Sounds Cardio-Vascular: No murmur, No rub and RRR Abdomen: Non-tender and Soft Extremity: Edema from just above left elbow and distally. There is diffuse ecchymosis throughout left arm. There are several open wounds to posterior aspect of left proximal forearm. No blood-like appearance. Compartments are soft. Radial pulse strong and equal bilaterally. Capillary refill 3 seconds. No increased pain with passive range of motion of fingers of left hand or left wrist. No significant increased pain with palpation of compartments. No abscess Neurological: Alert, Oriented X3 and No Gross Weakness Skin: Warm and Dry Psychological: Mood/Affect Normal and Normal Memory/Judgment CBC W/DIFF, information as of 10/29/2020, 5:58 pm 103.2* / 11.8* / 8.6 andgt;------andlt; 275 / 35.6* / N:72.4 BASO ABS: 0.00 K/Cu Mm; BASOPHIL %: 0.5 %; EOS ABS: 0.20 [facility] PATIENT NAME: ARLINE KHAN [address] [facility] [address] MEDICAL REC #: [id number] [place] [address] EMERGENCY DEPARTMENT REPORT EMERGENCY DEPARTMENT PHYSICIAN K/Cu Mm; EOSINOPHIL %: 1.7 %; IMMATR GRAN ABS: 0.00 K/Cu Mm; IMMATURE GRAN %: 0.5 %; LYMPH %: 16.9 %; LYMPH ABS: 1.50 K/Cu Mm; MCHC: 33.1 Gm/Dl; MONO ABS: 0.70 K/Cu Mm; MONOCYTE %: 8.0 %; MPV: 9.5; NEUTROPHIL ABS: 6.30 K/Cu Mm; NRBC: 0.0 %; RBC: 3.45 M/Cu Mm; RDW: 13.4 BMP, information as of 10/29/2020, 6:15 pm 139 --------+--------+--------an katie; 91 Anion Gap = 4 4.1 alert_gap=3 BUN/CREA: 22; CALCIUM TOTAL: 9.2 Mg/Dl LACTATE BLOOD, information as of 10/29/2020, 6:15 pm LACTATE BLOOD: 1.55 Mmol/L WSR/MOD, information as of 10/29/2020, 5:58 pm WSR/MOD: 53 Mm/Hr CRP, information as of 10/29/2020, 6:15 pm CRP: 6.22 Mg/Dl PT, information as of 10/29/2020, 6:19 pm INR: 1.01 PTS: 10.8 Seconds PTT, information as of 10/29/2020, 6:19 pm PTT: 24.5 Imaging Study Obtained: FOREARM (LT) Imaging Study Obtained: FOREARM 2 VWS LT, Status:Signed Report Available EXAMINATION: FOREARM 2 VWS LT CLINICAL HISTORY: left arm pain COMPARISON: None. RESULT: No acute fracture. Remote fracture deformity of the distal [facility] PATIENT NAME: ARLINE KHAN [address] [facility] [address] MEDICAL REC #: [id number] [place] [address] EMERGENCY DEPARTMENT REPORT EMERGENCY DEPARTMENT PHYSICIAN radius (more content not included)... Normal [facility] FOREARM 2 VWS LTon FOREARM 2 VWS LT EXAMINATION: FOREARM 2 VWS LT CLINICAL HISTORY: left arm pain COMPARISON: None. RESULT: No acute fracture. Remote fracture deformity of the distal radius and ulna. Degenerative changes within the wrist. No elbow joint effusion. IMPRESSION: No acute traumatic findings. This report was electronically signed by Rashmi Ford MD 10/29/2020 6:42 PM Reported By: RASHMI FORD MD Signed By: RASHMI FORD MD [facility] GFR ESTon 10-29-2020 IF AMER Greater than 60 [facility] Comment on above: Order Comment: Campu s: M Performed By: #### L 550.89499, L500.19349, L500.70922 ####[facility] [id number] [place], [place] [address]Bf# [phone] IF non-AFR AMER Greater than 60 [facility] Comment on above: Order Comment: Campu s: M Performed By: #### L 550.48043, L500.12839, L500.27771 ####[facility] [id number] [place], [place] [address]Hn# [phone] HP.IMS.ADM 10-29-2020 Admission-H&P [facility] HP.IMS.[facility] Patient Name: ARLINE KHAN [address] [facility] Date of : [address] [address] Unit Number: [id number] Admission-HandP Patient Status: REG ER Attending Doctor: Kash Garcia,Emergency Physicians Service Date: 10/29/202127 See Addendum History of Present Illness Source of Information Patient, medical chart Chief Complaint/Present Illness: left arm pain Living Situation Home - Independent History of Present Illness The patient is a 65-year-old male, follows with primary care services from [facility], with a past medical history significant for chronic back pain, neuropathy, hyperlipidemia, prostate cancer, factor V Leiden deficiency, and chronic DVT to the left leg on Lovenox therapy that presents to the ED tonight with a chief complaint of left arm pain. Patient report he fell on October 24, 2020 after his deck stairs collapsed causing him to land his left arm. He did have immediate pain to his left arm and did present to [place] ED on that day for further evaluation. Patient was transferred to the [facility] ED on that day and orthopedics was consulted due to concerns for compartment syndrome. Orthopedics stated patient had hematoma to left arm secondary to fall on anticoagulation therapy and no evidence of a compartment syndrome was noted on that day per orthopedics note. Patient reports he has had increased swelling and pain therefore he came back to the ER. He does report some tingling to his fingers however this is bilaterally. He denies any fever, chills, shortness of breath, chest pain, abdominal pain, or dysuria. In the ER, lab work unremarkable except for hemoglobin 11.8. Covid 19 was negative. X-ray of the left forearm demonstrated no acute traumatic findings. The ER physician did speak with orthopedics on-call that felt patient's symptoms more likely secondary to cellulitis. He was medicated with Dilaudid, Zofran, and started on IV vancomycin and Zosyn. The patient will be admitted to the medical surgical unit for further evaluation and treatment. A consult will be placed to orthopedics. Patient will be kept n.p.o. with IV fluid hydration. We will continue IV vancomycin with pharmacist consulted for dosing and IV Zosyn. Will get CT of the left upper extremity and creatinine kinase to further evaluate for questionable compartment syndrome. Morphine for pain control. Repeat CBC and BMP tomorrow a.m. Past Medical/Surgical Hx Past Medical History chronic back pain, neuropathy, hyperlipidemia, prostate cancer, factor V Leiden deficiency , and chronic DVT to the left leg on Lovenox therapy Past Surgical History Seed implant for prostate cancer Family/Social History Family History FATHER, , Age 54; Cause: Emphysema lung. MOTHER, , Age 82; Cause: of unknown cause. FH: COPD (chronic obstructive pulmonary disease) Substances Reports use of: Alcohol. Denies use of: Tobacco, Recreational Drugs. Social Hx Patient lives with his family at home. He does report occasional whiskey use. Denies any tobacco or illicit drug use Advance Directives Advance Directives Full Code Allergies/Home Medications Allergies Coded Allergies: NO KNOWN ALLERGENS (07/15/10) Review of Systems Constitutional Denies: Fever, Chills. EENT Denies: Sore Throat. Cardiovascular Denies: Palpitations. Pulmonary Denies: Dyspnea, Cough. Gastrointestinal Denies: Abdominal Pain, Nausea. Genitourinary Denies: Dysuria, Hematuria. Musculoskeletal Reports: Back Pain, Upper Extremity Pain. Skin Reports: Extremity Pain. Denies: Rash. Lymphatic Denies: Leg Swelling, Rash. Neuro Denies: Headache, Dizziness. Psychiatric Denies: Depression, Anxiety. Physical Exam Vital Signs Vital signs: B/P 132/91, Pulse 89, Resp 18, Sat 98% on room air, temp 98.6 orally. Laboratory Tests Test Result Date Time Blood Gas Lactate (0.40 - 2.00 MMOL/L) 1.55 10/29 1814 Chemistry Sodium (136 - 145 MMOL/L) 139 10/29 1814 Potassium (3.5 - 5.1 MMOL/L) 4.1 10/29 1814 Chloride (98 - 107 MMOL/L) 105 10/29 1814 Carbon Dioxide (21 - 32 MMOL/L) 30.0 10/29 1814 Anion Gap (5 - 16 MMOL/L) 4 L 10/29 1814 BUN (7 - 26 MG/DL) 23 10/29 181 Creatinine (0.5 - 1.4 MG/DL) 1.05 10/29 1814 Est GFR ( Amer) Greater than 60 10/29 1814 Est GFR (Non-Af Amer) Greater than 60 10/29 1814 BUN/Creatinine Ratio (15 - 24) 22 10/29 181 Glucose (70 - 100 MG/DL) 91 10/29 1814 Total Calcium (8.5 - 10.5 MG/DL) 9.2 10/29 1814 C-Reactive Protein (LESS THAN 1 MG/DL) 6.22 10/29 1814 Coagulation INR (0.9 - 1.1) 1.01 10/29 1818 PT Normal Mean Secs (9.5 - 12.0 SECONDS) 10.8 10/29 1818 APTT (22.0 - 31.5 SECONDS) 24.5 10/29 1818 Hematology WBC (4.5 - 11.0 K/CUMM) 8.6 10/29 1814 RBC (4.50 - 6.00 M/CU MM) 3.45 L 10/29 1814 Hgb (13.5 - 17.5 G (more content not included)... Normal [facility] LACTATE BLOODon 10-29-2020 LACTATE BLOOD 1.55 MMOL/L Normal 0.40-2.00 [facility] Comment on above: Order Comment: Rio borjas: M Performed By: #### L 550.13113 #### [facility] [address] [place] [address] PTon 10-29-2020 INR Coag (PPP) [Relative time] 1.01 {INR} Normal 0.9-1.1 [facility] Comment on above: Order Comment: Rio s: M Result Comment: Taz mmended PT INR therapeutic range for [facility] and prophylactic therapy is 2.0 - 3.0. For heart valve and shunt patients the range is 2.5 - 3.5. Performed By: #### M 050.62563 #### [facility] [address] [place] [address] 15262 PTS 10.8 SECONDS Normal 9.5-12.0 [facility] Comment on above: Order Comment: Rio s: M Performed By: #### M 050.59103 #### [facility] [address] [place] [address] PTTon 10-29-2020 aPTT Coag (Bld) [Time] 24.5 s Normal 22.0-31.5 [facility] Comment on above: Order Comment: Rio borjas: Arely Result Comment: Ther apeutic Heparin Reference Range: High Dose: 46-75 seconds (DVT/PE) Low Dose: 39-60 seconds (Acute Coronary Syndrome) For low molecular weight heparin or danaparoid, monitoring is often NOT necessary, but the heparin assay, Xa inhibition assay (send-out) may be used in certain circumstances, as the PTT is generally insensitive to the effect of these agents. Direct thrombin inhibitors are becoming more widely utilized and these drugs are often monitored using the PTT. Performed By: #### M 050.52154 #### [facility] [place] [address] [id number] 10-29-2020 SARS-CoV-2 (COVID-19) RNA ALFONSO+probe Ql (Unsp spec) Negative Invalid Interpretation Code Negative [facility] Comment on above: Order Comment: Rio s: M Result Comment: RESU LTS CALLED TO AND READ BACK BY AMINAH CHEN AT 202010/29/20 BY RAMOS RECINOS Negative results do not preclude SARS-CoV-2 infection and should not be used as the sole basis for treatment or other patient management decisions. Negative results must be combined with clinical observation, patient history, and epidemiological information. This test was performed by PCR. Performed By: #### L 770.50294 ####[facility] [id number] [place], [place] [address]Qu# [phone] WSR/MODon 10-29-2020 WSR/MOD 53 MM/HR High 0-20 [facility] Comment on above: Order Comment: Rio s: M Performed By: #### M 050.16821 #### [facility] [address] [place] [address] [facility] 10-24-[address] [facility] Cierra 10-24-2020 EMERGENCY PHYSICIAN REPORT This is a preliminary report only, as the practitioner review and authentication has not occurred. Normal [facility] ER PHYSICIAN ASSESSMENT RECORDS : FlexChartData Event Time: 10/24/2020 18:10 [facility] Status: Signed [facility] Arline Khan [[id number]] Mid-Level Chart (V2b) 65 / M / 1955 Chart created at 10/24/2020 18:02 by Remington Hinton Chart closed at 10/24/2020 18:25 Entry in Emergency Department at 10/24/2020 17:02, departure at 10/24/2020 18:58 Patient Name: Arline Khan Record Number: [id number] Date: 10/24/2020 18:02 Entered Department at: 10/24/2020 17:02 Patient Seen at: 10/24/2020 17:51 PCP: douglas Chief Complaint:PATIENT REPORTS FALL TODAY AT 0530 AND REPORTS TAKING BLOOD THINNERS GENERIC VERSION OF HEPARIN. PATIENT REPORTS INCREASED SWELLING AND MOTTLED SKIN. DENIES LOC, OR HEAD INJURIES. History of Present Illness: Patient sent from [place] emergency room for evaluation of a left forearm injury that occurred at 530 this morning. Patient suffered a mechanical fall from standing height onto his left forearm. Plain films at [place] demonstrated no fractures. Patient is on an injectable blood thinner for blood clots. He was sent to our facility because of concern for compartment syndrome. It was reported that he had discoloration to his hand. It was reported he had ulnar and radial pulse. He had decreased capillary refill. Orthopedics was consulted at [place] and preferred that the emergency room send the patient out. Patient states his tetanus was updated. Patient denies [facility] PATIENT NAME: RALINE KHAN [address] [facility] [address] MEDICAL REC #: [id number] [place] [address] EMERGENCY DEPARTMENT REPORT EMERGENCY DEPARTMENT PHYSICIAN any other injury other than the left forearm. Review of Systems. All other systems reviewed and negative.. Past History, Medications, Allergies, Social History and Family History reviewed in nurses note. Medications: Reviewed RN Note. Allergies: Reviewed RN Note Social History: Reviewed RN Note. Family History: Reviewed RN Note Physical Examination: General: Alert and Well Developed; Nontoxic appearing no acute distress. HEENT: Normal ENT inspection. Eyes: Lids Normal; . Oropharynx / Throat: Normal Pharynx. Neck: No Lymphadenopathy, No Meningismus and Supple Respiratory: No Resp Distress and Normal Breath Sounds Cardio-Vascular: No murmur, No rub and RRR Abdomen: Non-tender and Soft Back: No CVA tenderness, No Midline Tenderness and Non-tender Extremity: Inspection of the left upper extremity demonstrates soft tissue swelling/hematoma to the posterior lateral portion of the mid to proximal left forearm. There is a scabbed wound noted to the area. His tenderness to this region. Radial pulse is strong and palpable and equal. I was able to obtain an ulnar arterial pulse with Doppler. Capillary refill is 2.5 seconds. There is some mottling to the volar aspect of the hand. Patients sensation is intact diffusely to sharp touch. He has minimal pain with passive extension of his fingers. Neurological: No Gross Weakness Skin: No rash, No Petechiae, Warm and Dry Psychological: Mood/Affect Normal and Normal Memory/Judgment Medical Decision Making Patient was sent to us by [place] ER for concern of compartment syndrome. I discussed the case and my examination findings with Dr. Anaya who evaluated the patient at bedside who did not recommend any emergent work-up. He did not feel this was compartment [facility] PATIENT NAME: ARLINE KHAN [address] [facility] MEDICAL REC #: [id number] [place] [address] EMERGENCY DEPARTMENT REPORT EMERGENCY DEPARTMENT PHYSICIAN syndrome. He recommended ice elevation. Patient will be given a prescription for Percocet. He is instructed if he develops any increasing pain, numbness, swelling, or discoloration to return emergency department immediately. He will follow up with orthopedics. Patient rates this plan will be discharged home. Clinical Impression: 1. Acute left forearm contusion/hematoma status post mechanical fall Disposition: Discharged . Condition: Good Patient transported to ED by EMS with medical direction by SCEP physician (not applicable for EMT squads) .. Direct patient care supervision and electronic documentation review by Dayana Desai on 12/11/2020 18:03. : FlexChartData Event Time: 10/24/2020 19:20 Status: Signed [facility] Arline Khan [[id number]] Attending Physician 65 / M / 1955 Addendum (V2b) Chart created at 10/24/2020 18:40 by Dayana Desai Chart closed at 10/24/2020 18:45 Entry in Emergency Department at 10/24/2020 17:02, departur (more content not included)... [facility] EMERGENCY DEPARTMENTon 08-30 [place] [address] HEALTH INFORMATION MANAGEMENT EMERGENCY DEPARTMENT : Signed Patient: ARLINE KHAN Acct:[id number] MRUN: M [id number] : 1955 Sex: M Loc: ED ADM Date: Room/Bed: DISC Date: 08/26/18 Back Pain/Injury HPI - General Chief Complaint: Pain Stated Complaint: LOWER BACK PAIN Symptom onset: 2004 HPI: LOWER BACK PAIN GOING DOWN INTO BOTH LEGS. PT STATED THIS HAPPENED AT WORK IN 2004. HE STATED HE IS IN CONSTANT PAIN. Time Seen by Provider: 08/26/18 15:59 Nurses Notes Reviewed and Agreed With?: Yes Source: Patient Mode of Transport: Wheelchair - History of Present Illness Initial Comments: 62-year-old male presents today with bilateral low back pain. States ongoing since 2001. He states he had an injury on Worker's Comp. He states pain is radiating to his buttocks. States that his previous physician retired and now he is awaiting a new pain management. States his doctor didn't place a referral he is awaiting his appointment. He denies any new symptoms. States of saddle anesthesia. Denies abdominal pain. He states no urinary concerns. Denies any loss of bowel bladder function. States no numbness or tingling of the toes. He denies recent injury. No other concerns at this time. MD Complaint: back pain, back injury -: year(s) Back Pain Location: lumbar spine, paraspinous muscles Back Pain Radiation: buttocks Severity: moderate Quality: aching Consistency: constant Improves With: none Worsens With: none Context: fall Associated Symptoms: denies other symptoms Treatments Prior to Arrival: None - Related Data Home Medications Medication Instructions Recorded Confirmed Cyclobenzaprine HCl [Flexeril 10 10 mg PO Q8H PRN #20 tablet 08/26/18 mg Tablet] Hydrocodone Bit/Acetaminophen 1 tab PO Q6H PRN 3 Days #12 tablet 08/26/18 [[place] 5/325 mg Tablet] MDD 4 Naproxen [Naprosyn] 500 mg PO BID PRN #20 tablet 08/26/18 Prednisone 1 - 3 tab PO DAILY #18 tablet 08/26/18 Allergies Allergy/AdvReac Type Severity Reaction Status Date / Time No Known Allergies Allergy Unverified 08/26/18 16:43 Home medications and allergies reviewed: Yes Review of System - Constitutional Constitutional: Present: Well developed, Well nourished, Non-toxic - Nose,Throat,Mouth Nose (ROS): Absent: pain Throat: Absent: pain, swelling, discharge Mouth: Absent: pain, swelling - Respiratory Respiratory: Absent: cough, short of breath, wheezing - CV Cardiology: Absent: chest pain, edema - GI Gastrointestinal/Abdominal: Absent: abdominal pain, diarrhea, nausea, vomiting - Genitourinary Symptoms: Absent: dysuria - Neuro Neurological: Absent: headache, weakness - Muskuloskeletal Musculoskeletal: Present: back pain. Absent: joint pain, joint swelling - Integumentary Skin: Absent: lesions, rash - Allergic/Immunologic Immunological/Allergic: Present: no symptoms reported - Hematologic Hematologic/Lymphatic: Absent: easy bleeding, easy bruising, swollen glands - Endocrine Endocrine: Present: no symptoms reported - Psychiatric Psychiatric: Present: Normal Affect, Normal Mood. Absent: Depressed - All Others/Exceptions All Other Systems: Reviewed and Negative Except Where Noted in Documentation ED PMH/Social HX/Family HX - Respiratory Hx Respiratory Disorders: No - Cardiovascular Hx Cardiac Disorders: Yes PMH--Cardiovascular: HTN - Neurological Hx Neurological Disorder: No - Endocrine Hx Endocrine Disorders: No - Gastrointestinal Hx Gastrointestinal Disorders: No - Genitourinary Hx Genitourinary Disorders: No - Musculoskeletal PMH--Musculoskeletal: Chronic Back Pain - HEENT Hx Ear, Nose Throat Disorders: No - Cancer Hx Cancer: Yes PMH--Cancer: Prostate - Social History Marital Status: Lives with: Alone Able to Read: Yes Able to Write: Yes Smoking Status: Former Smoker Smoked in Last year: No Hx Chewing Tobacco Use: Yes Alcohol Use: Never Any recreational drug use reported?: No Feels Threatened In Home Environment: No Feels Threatened In a Relationship: No Hx Physical Abuse: No - [place]/Gender ID What is your current Gender Identity? Choose all that Apply: Male Define your Sexual Orientation?: Straight/Heterosexual - Suicide/Homicide Screen Past 2 weeks, Have you felt down, depressed or hopeless?: No Past 2 Wks, Have you had thoughts killing yourself or others: No In your lifetime, have you attempt kill yourself or others?: No In your lifetime, When did this Happen?: Not Applicable General Exam - General Limitations: Complains of: no limitations Constitutional: Present: Well developed, Well nourished, well hydrated, Non-toxic - Head Head exam: Present: atraumatic, normocephalic, normal inspection - Eye Eye exam: Present: normal apperance, normal accomodation, EOMI Pupils: Present: PERRL - ENT ENT exam: Present: normal orophraynx, mucous membranes moist, TMs clear w/ good light reflex, normal external ear exam, No Nasal Discharge, Posterior Pharynx Non-erethemetous - Expanded ENT Exam Ear exam: Present: normal external inspection Mouth exam: Present: normal external inspection Teeth exam: Present: normal inspection Throat exam: normal inspection - Neck Neck exam: Present: full ROM, Supple. Absent: tenderness, meningismus, thyromegaly, Posterior Lymphadenopathy, Anterior Lymphadenopathy, midline deformity, anterior neck swelling, carotid bruit, tracheal deviation - Respiratory Respiratory exam: Present: lungs clear and equal bilaterally. Absent: respiratory distress, wheezes, rales, rhonchi, accessory muscle use - Cardiovascular Cardiovascular Exam: Present: regular rate, normal rhythm, normal heart sounds. Absent: murmur, rubs, gallop, clicks - GI/Abdominal GI/Abdominal exam: Present: soft, non tender, normal bowel sounds, equal femoral pulses. Absent: distended, guarding, rebound, rigid, diminished bowel sounds, hyperactive bowel sounds, hypoactive bowel sounds, organomegaly, mass, bruit, pulsatile mass, hernia, tenderness, gravid state - Rectal Rectal exam: Present: deferred - Extremities Exam Extremities exam: Present: normal inspection, neurovascularly intact, full ROM, normal muscle strength, normal reflexes, normal/equal pulses. Absent: calf tenderness, joint swelling, pedal edema, tenderness - Back Exam Back exam: Present: normal inspection, full ROM, tenderness (Tender palpation bilateral low back radiating to left buttocks, no palpable deformity, no palpable spasm), muscle spasm, paraspinal tenderness. Absent: CVA tenderness (R), CVA tenderness (L), vertebral tenderness, rash noted, cervical tenderness, thoracic tenderness, lumbar tenderness - Expanded Back Exam Back exam: Absent: saddle anesthesia, loss of bowel or bladder Back exam: Positive Straight Leg Raise: Left, Right - Neurological Exam Neurological exam: Present: alert, oriented X3, CN II-XII intact, normal gait, reflexes normal - Expanded Neurological Exam Patient oriented to: Present: person, place, time Speech: Present: fluid speech Cranial nerves: EOM's Intact: Normal, Gag Reflex: Normal, Tongue Deviation: Normal, Nystagmus: Normal, Facial Sensation: Normal, Facial Palsy with Forehead Movement: Normal, Facial Palsy without Forehead Movement: Normal Cerebellar function: Heel to Perez: Normal Upper motor neuron: Pronator Drift: Normal Sensory exam: Upper Extremity Light Touch: Normal, Upper Extremity Pin Prick: Normal, Upper Extremity Temperature: Normal, UE 2 Point Discrimination: Normal, Lower Extremity Light Touch: Normal, Lower Extremity Pin Prick: Normal, Lower Extremity Temperature: Normal, LE 2 Point Discrimination: Normal Neuro motor exam: RUE: 4, LUE: 4, RLE: 4, LLE: 4 DTR: bicep (R): 2+, bicep (L): 2+, knee (R): 2+, knee (L): 2+ Best Eye Response ([place]): (4) open spontaneously Best Motor Response (Jessica): (6) obeys commands Best Verbal Response (Jessica): (5) oriented - Psychiatric Psychiatric exam: Present: normal affect, normal mood - Skin Skin Color: Present: Normal, [place] Skin exam: Present: warm, dry - Expanded Skin Exam Type of lesion: Absent: rash - Vital Signs Vital Signs 08/26/18 08/26/18 16:08 17:01 Temperature 97.8 F Pulse Rate [ 102 H Pulse Ox] Respiratory 16 Rate Blood Pressure 124/8 L 124/87 [Right Arm] O2 Sat by Pulse 95 Oximetry(%) Back Pain MDM - Lab Data Orders: Cyclobenzaprine HCl [Flexeril 10 mg Tablet] 10 mg PO Q8H PRN #20 tablet 08/26/18 [Rx] Hydrocodone Bit/Acetaminophen [[place] 5/325 mg Tablet] 1 tab PO Q6H PRN 3 Days #12 tablet MDD 4 08/26/18 [Rx] Naproxen [Naprosyn] 500 mg PO BID PRN #20 tablet 08/26/18 [Rx] Prednisone 1 - 3 tab PO DAILY #18 tablet 08/26/18 [Rx] Medications Discontinued Medications Hydromorphone HCl (Dilaudid 1 Mg/Ml Injection) 1 mg IM STAT STA Stop: 08/26/18 16:20 Last Admin: 08/26/18 16:31 Dose: 1 mg Documented by: [email or web address] Labs 08/26/18 16:19 CT LUMBAR WO [CT] Stat Hydromorphone HCl/Pf [Dilaudid 1 mg/ml Injection] 1 mg IM STAT STA - Radiology Data Radiology results: report reviewed, image reviewed Radiology Report: Radiology report reviewed,see report for findings, Xrays interpreted by me,see notes on report (Previous compression fracture) Radiology Impressions Lumbar Spine CT 08/26/18 16:19 IMPRESSION: Multilevel degenerative disc findings as discussed above. Compressive morphology at T12 and L1 vertebral bodies. Please see above. MR imaging if continued symptomatology or clinical suspicion. - Differential Diagnosis Low Back Pain MDM: Considered: Ankylosing Spondylitis, Pancreatic Disease, Pelvic disease, Rheumatoid arthritis, Urinary Tract Infection, Pyelonephritis, Musculoligamentous, Fracture, Epidural abscess/hematoma, Aortic dissection, Aortic aneurysm, Benign/Malignant Tumors, Discitis, Endometriosis, Fibromyalgia, Kidney disease, Osteomyelitis, Osteoporosis - Medical Decision Making Patient without neurological symptoms. Does have radiation to left buttocks. CT shows previous compression fractures was degenerative disease. Instructed patient with follow-up with pain management. He states understanding and agrees to treatment plan. ED Discharge Summary - Discharge Data Clinical Impression: Low back pain, chronic compression fracture T12, chroic compression fracture L1, Lumbar degenerative disc disease Condition: Good Disposition: 01 HOME, SELF-CARE Admit is Medically Necessary, Anticipated Stay >2 Midnights:: No Referrals: ZUHAIRMATHEW Garcia APRN CNP [Primary Care Provider] - ARLINE HOLM MD [MEDICAL DOCTOR] - Additional Instructions: FOLLOW UP WITH YOUR PCP OR THE BACK UP PHYSICIAN LISTED ON HOME GOING INSTRUCTIONS IF NOT FEELING BETTER IN 3 DAYS RETURN TO THE ED IF SYMPTOMS WORSEN OR ANY OTHER CONCERNS At least one of your blood pressure readings in the Emergency Department visit today were above 120/80. You need to follow up with your Primary Care Physician/Family Doctor within the next week about your blood pressure. OARRS Report Reviewed: No Home Medications: Ambulatory Orders Medication Instructions Recorded Cyclobenzaprine HCl [Flexeril 10 10 mg PO Q8H PRN #20 tablet 08/26/18 mg Tablet] Hydrocodone Bit/Acetaminophen 1 tab PO Q6H PRN 3 Days #12 tablet 08/26/18 [[place] 5/325 mg Tablet] MDD 4 Naproxen [Naprosyn] 500 mg PO BID PRN #20 tablet 08/26/18 Prednisone 1 - 3 tab PO DAILY #18 tablet 08/26/18 Home medications and allergies reviewed: Yes Time Seen by Provider: 08/26/18 15:59 Patient seen by Midlevel: Independently - Consultation I saw and examined the patient: Yes Nurses Notes Reviewed and Agreed With?: Yes - Dictation Amendments/Documentation: Cinemagram Document Only Electronically Generated By: TAMMY MANRIQUEZ PA-C Generated Date/Time: 08/26/18 1739 Electronically Signed By: TAMMY MANRIQUEZ PA-C Signed Date/Time 08/26/18 1753 Co Signed Electronically By: Co Signed Date/Time: 08/30/18 1549 08/30/18 1549 CC: MATHEW MOFFETT APRN, CNP Normal [facility] CT LUMBAR WOon 08-26-2018 CT LUMBAR WO EXAMINATION: CT OF THE LUMBAR SPINE WITHOUT CONTRAST 08/26/2018 TECHNIQUE: CT of the lumbar spine was performed without the administration of intravenous contrast. Multiplanar reformatted images are provided for review. Dose modulation, iterative reconstruction, and/or weight based adjustment of the mA/kV was utilized to reduce the radiation dose to as low as reasonably achievable. COMPARISON: None HISTORY: ORDERING SYSTEM PROVIDED HISTORY: low back pain FINDINGS: Unenhanced axial, coronal and sagittal planes reviewed with bone soft tissue windows. Coronal and sagittal alignment are satisfactory. There is moderate anterior wedge configuration of the superior endplate of L1 and concavity of the anterior half of the superior endplate of T12 with some axial compression. The chronicity of these is indeterminate. There are no prior films for comparison. These may likely be chronic however this is not absolute. MR imaging may be helpful to evaluate for occult marrow edema. There is degenerative disc vacuum phenomenon at T11-12 and L1-2 and also from L2-3 through L5-S1. Moderate to severe degenerative disc narrowing at L3-4 and moderate narrowing at L4-5. Degenerative Schmorl's node formation superior endplates of L2 and L4. Anterolateral osteophytes at all lumbar levels and at T11-12. Hypertrophic facet arthropathy leftward at L4-5 encroaches slightly along the thecal sac leftward. Mild hypertrophic facet arthropathy L3-4 and rightward at L1-2. Complete bony rings at each level. SI joints are symmetrical. No obvious acute discogenic process however the study is not optimized for this evaluation. No kidney or ureteral stones as seen. Scattered atherosclerotic calcifications in the abdominal aorta. These extend into the common iliac arteries. No acute paravertebral soft tissue findings. IMPRESSION: Multilevel degenerative disc findings as discussed above. Compressive morphology at T12 and L1 vertebral bodies. Please see above. MR imaging if continued symptomatology or clinical suspicion. [facility] EMERGENCY DEPARTMENT SUMMARY on 04-28-2017 EMERGENCY DEPARTMENT SUMMARY [facility] EMERGENCY DEPARTMENT SUMMARY NAME NUMBER SEX AGE ADMIT DISC TYPE MED.RECORD# BETINA Chirinos [id number] M 61 04/21/17 04/21/17 [place] [id number] ROOM:ER-A DATE OF :1955 PHYSICIAN NO.:[id number] PHYSICIAN NAME:FREDI Valladares M.D. PHYSICIAN: CHIEF COMPLAINT: Back pain. HISTORY OF PRESENT ILLNESS: The patient states that he has a history of chronic back pain. He has been seeing a pain management physician for this for quite some time. He is getting prescriptions for Percocet, Lyrica, and Baclofen regularly for this. He states that his last appointment in apparently March he forgot the paper and so they refused to give him more pain medication. He has been out of his pain medication for about 2 weeks now. He does have appointment to be seen on April 30, and basically states that he cannot take it anymore because of his ongoing pain. He has no new injuries. No other complaints. The patient mainly states that he just needs more oxycodone/Percocet. He did say that it was his fault that he forgot to take the paper to pain management, but he is here for more pain medicine. He is not having any bowel or bladder symptoms other than the fact that when he urinates it goes everywhere because a catheter was placed here several months ago. PAST MEDICAL HISTORY: Significant for hypertension, DVT, atrial fibrillation, chronic back pain. MEDICATIONS: Per med rec list. PAST SURGICAL HISTORY: He has had previous orthopedic surgeries. SOCIAL HISTORY: He lives by himself. He is not employed. PHYSICAL EXAMINATION: This is a 61-year-old male alert, appropriate, does not appear toxic. His skin is pink, warm, and dry. Vital signs: Blood pressure 132/97, pulse 89, respirations 16, temperature is 97.3. He complains of some pain on palpation along his back, diffusely to his low back. Abdomen is soft and nontender. He is able to ambulate. He is moves both extremities. Deep tendon reflexes are equal and symmetric to ankles and knees. EMERGENCY DEPARTMENT COURSE AND TREATMENT/PLAN/DISPOSITION: I did pull an OARRS report on him which shows multiple pain medications given by his pain management physician, last dispensed on March 09. Basically, this would be consistent with him being out of pain medicines for the last couple of weeks. I explained that I was not able or willing to give him any additional pain medication because of this being a chronic pain problem, and with that he got up and left and eloped. DIAGNOSIS: Chronic back pain and elopement. D: Yeyo Valladares MD TD: 12:56 JOB #: [id number] Electronically signed by: FREDI Valladares M.D. 04/28/17 07:00 Transcribed by: am 04/22/2017 10:48 DD: DT: JOB #: ELECTRONICALLY SIGNED BY: FREDI Valladares M.D. 04/28/17 07:00 Transcribed by: AM 04/22/17 10:48 Normal [facility] Critical Care Progress Notes on 03-15-2017 Critical Care Progress Notes Normal [facility] ([place]) CBLon 02-21-2017 CBL . MICRO - MicrobiologyPROCEDURE: Blood Culture (bacterial) [*1]SOURCE: Blood BODY SITE:COLLECTED DATE/TIME: 02/16/2017 00:54 EDT RECEIVED DATE/TIME: 02/16/2017 04:01 EDTSTART DATE/TIME: 02/16/2017 04:01 EDT FREE TEXT SOURCE:FINAL REPORTSFinal Report []Verified Date/Time/Personnel: 02/21/2017 03:59 ESTBlood Culture: No Growth at 5 days.PRELIMINARY REPORTSPreliminary Report []Verified Date/Time/Personnel: 02/16/2017 04:59 EDTCulture has been received in lab and is no growth to date. Routine cultures are held for 5 days.Performing Locations*1: This test was performed at: [address], [address] [place] [address] ([place]) Comment on above: Performed By: #### C BC, ADIFF, ANEU, GFR, CMP, TROPI ####[place] [id number] CBL . MICRO - MicrobiologyPROCEDURE: Blood Culture (bacterial) [*1]SOURCE: Blood BODY SITE:COLLECTED DATE/TIME: 02/16/2017 00:43 EDT RECEIVED DATE/TIME: 02/16/2017 04:01 EDTSTART DATE/TIME: 02/16/2017 04:01 EDT FREE TEXT SOURCE:FINAL REPORTSFinal Report []Verified Date/Time/Personnel: 02/21/2017 03:59 ESTBlood Culture: No Growth at 5 days.PRELIMINARY REPORTSPreliminary Report []Verified Date/Time/Personnel: 02/16/2017 04:59 EDTCulture has been received in lab and is no growth to date. Routine cultures are held for 5 days.Performing Locations*1: This test was performed at: [address], [address] [place] [address] ([place] Comment on above: Performed By: #### C BC, ADIFF, ANEU, GFR, CMP, TROPI ####[place] [address] Discharge Summaryon 02-22-[address] [facility] ([place]) Discharge Summary Normal [facility] ([place]) GLUCOSE BEDSIDEon 02-19-2017 GLU BEDSIDE 100 mg/dl Normal 60 - 100 [facility] Comment on above: Performed By: #### [id number] ####[facility],[address] [place] [id number] Glucose mass conc Normal [facility] Comment on above: Result Comment: POIN T OF CARE GLUCOSE TEST Performed By: #### [id number] ####[facility],[address] [place] [id number] .Auto Diffon 02-18-2017 Basophils Auto #/vol (Bld) 0.00 10 3/mcL Normal 0.00-0.27 [facility] ([place]) Comment on above: Performed By: #### C BC, ADIFF, ANEU, GFR, CMP, TROPI ####[address] [address] Basophils/100 WBC Auto (Bld) 0.4 % Normal 0.0-2.5 [facility] ([place]) Comment on above: Performed By: #### C BC, ADIFF, ANEU, GFR, CMP, TROPI ####[address] [address] Eosinophils 0.20 10 3/mcL Normal 0.00-0.65 [facility] ([place]) Comment on above: Performed By: #### C BC, ADIFF, ANEU, GFR, CMP, TROPI ####[address] [address] Eosinophils/100 leukocytes 1.7 % Normal 0.0-6.0 [facility] ([place]) Comment on above: Performed By: #### C BC, ADIFF, ANEU, GFR, CMP, TROPI ####[address] [address] Lymphocytes 1.20 10 3/mcL Normal 0.90-4.32 [facility] ([place]) Comment on above: Performed By: #### C BC, ADIFF, ANEU, GFR, CMP, TROPI ####[place] [id number] [place] [address] Lymphocytes/100 leukocytes 13.4 % Low 20.0-40.0 [facility] ([place]) Comment on above: Performed By: #### C BC, ADIFF, ANEU, GFR, CMP, TROPI ####[address] [address] Monocytes 0.80 10 3/mcL Normal 0.09-1.40 [facility] ([place]) Comment on above: Performed By: #### C BC, ADIFF, ANEU, GFR, CMP, TROPI ####[address] [address] Monocytes/100 leukocytes 8.4 % Normal 2.0-13.0 [facility] ([place]) Comment on above: Performed By: #### C BC, ADIFF, ANEU, GFR, CMP, TROPI ####[address] [address] Neutrophils/100 WBC Auto (Bld) 76.1 % High 50.0-75.0 [facility] ([place]) Comment on above: Performed By: #### C BC, ADIFF, ANEU, GFR, CMP, TROPI ####[address] [address] .GFRon 02-18-2017 eGFR (non-black) 24 ml/min/1.73sqm Normal A [facility] ([place]) Comment on above: Result Comment: GFR Population mean for , Non- Americans Ages 20-29 = 116 mL/min/1.73 sq.m. Ages 30-39 = 107 mL/min/1.73 sq.m. Ages 40-49 = 99 mL/min/1.73 sq.m. Ages 50-59 = 93 mL/min/1.73 sq.m. Ages 60-69 = 85 mL/min/1.73 sq.m. Ages 70+ = 75 mL/min/1.73 sq.m.Chronic Kidney Disease: Less than 60 mL/min/1.73 square metersEnd Stage Renal Disease: Less than 15 mL/min/1.73 square meters Performed By: #### C BC, ADIFF, ANEU, GFR, CMP, TROPI ####[place] [address] eGFR (non-black) 30 ml/min/1.73sqm Normal A [facility] ([place]) Comment on above: Result Comment: GFR Population mean for , Non- Americans Ages 20-29 = 116 mL/min/1.73 sq.m. Ages 30-39 = 107 mL/min/1.73 sq.m. Ages 40-49 = 99 mL/min/1.73 sq.m. Ages 50-59 = 93 mL/min/1.73 sq.m. Ages 60-69 = 85 mL/min/1.73 sq.m. Ages 70+ = 75 mL/min/1.73 sq.m.Chronic Kidney Disease: Less than 60 mL/min/1.73 square metersEnd Stage Renal Disease: Less than 15 mL/min/1.73 square meters Performed By: #### C BC, ADIFF, ANEU, GFR, CMP, TROPI ####[place] [address] .NEUABSon 02-18-2017 Neutrophils 7.00 10 3/mcL Normal 2.25-8.10 [facility] ([place]) Comment on above: Performed By: #### C BC, ADIFF, ANEU, GFR, CMP, TROPI ####[place] [address] APTTon 02-18-2017 aP[address] IV Normal [facility] ([place]) Comment on above: Performed By: #### C BC, ADIFF, ANEU, GFR, CMP, TROPI ####[place] [address] aPTT 69.0 s High 25.0-35.0 [facility] ([place]) Comment on above: Result Comment: For Heparin anticoagulation therapy, the recommendedtherapeutic range is: 54-77 seconds (APTT Correlationwith Anti-Xa therapeutic range of 0.3-0.7 units/ml).PLEASE REFERENCE THE PHARMACY PROTOCOL FOR DOSING. Performed By: #### C BC, ADIFF, ANEU, GFR, CMP, TROPI ####[place] [address] BMPon 02-18-2017 BUN/Creatinine Ratio 25.5 ratio High 10.0-22.0 [facility] ([place]) Comment on above: Performed By: #### C BC, ADIFF, ANEU, GFR, CMP, TROPI ####[place] [address] Calcium 8.4 mg/dL Normal 8.4-10.1 [facility] ([place]) Comment on above: Performed By: #### C BC, ADIFF, ANEU, GFR, CMP, TROPI ####[place] [address] Chloride 109 mmol/L Normal 98-110 [facility] ([place]) Comment on above: Performed By: #### C BC, ADIFF, ANEU, GFR, CMP, TROPI ####[place] [address] CO2 26 mmol/L Normal 22-32 [facility] ([place]) Comment on above: Performed By: #### C BC, ADIFF, ANEU, GFR, CMP, TROPI ####[place] [address] Creatinine 2.67 mg/dL High 0.60-1.40 [facility] ([place]) Comment on above: Performed By: #### C BC, ADIFF, ANEU, GFR, CMP, TROPI ####[place] [address] Electrolyte Balance 8.0 mEq/L Normal 4.0-15.0 [facility] ([place]) Comment on above: Performed By: #### C BC, ADIFF, ANEU, GFR, CMP, TROPI ####[place] [address] Glucose mass conc 102 mg/dL Normal 82-115 [facility] ([place]) Comment on above: Performed By: #### C BC, ADIFF, ANEU, GFR, CMP, TROPI ####[place] [address] Potassium molar conc 4.0 mmol/L Normal 3.5-5.0 [facility] ([place]) Comment on above: Performed By: #### C BC, ADIFF, ANEU, GFR, CMP, TROPI ####[place] [address] Sodium 143 mmol/L Normal 136-145 [facility] ([place]) Comment on above: Performed By: #### C BC, ADIFF, ANEU, GFR, CMP, TROPI ####[place] [address] Urea nitrogen 68.0 mg/dL High 8.0-22.0 [facility] ([place]) Comment on above: Performed By: #### C BC, ADIFF, ANEU, GFR, CMP, TROPI ####[place] [address] CAIONo 02-18-2017 Calcium Ionized 1.20 mmol/L Normal 1.12-1.32 [facility] ([place]) Comment on above: Performed By: #### C BC, ADIFF, ANEU, GFR, CMP, TROPI ####[place] [address] CBCon 02-18-2017 Erythrocyte distribution width Auto Ratio (RBC) 14.9 % Normal 11.5-15.5 [facility] ([place]) Comment on above: Performed By: #### C BC, ADIFF, ANEU, GFR, CMP, TROPI ####[place] [address] Erythrocytes (RBC) 4.37 10 6/mcL Low 4.50-6.00 Replaced by [facility] ([place]) Comment on above: Performed By: #### C BC, ADIFF, ANEU, GFR, CMP, TROPI ####[place] [address] Hematocrit (HCT) 42.2 % Normal 40.0-52.0 [facility] ([place]) Comment on above: Performed By: #### C BC, ADIFF, ANEU, GFR, CMP, TROPI ####[place] [address] Hemoglobin mass conc (Bld) 14.0 G/dL Normal 13.0-17.5 [facility] ([place]) Comment on above: Performed By: #### C BC, ADIFF, ANEU, GFR, CMP, TROPI ####[place] [address] MCH 32.0 pg Normal 27.0-33.0 [facility] ([place] Comment on above: Performed By: #### C BC, ADIFF, ANEU, GFR, CMP, TROPI ####[place] [address] MCHC mass conc (RBC) 33.2 G/dL Normal 32.0-36.0 [facility] ([place]) Comment on above: Performed By: #### C BC, ADIFF, ANEU, GFR, CMP, TROPI ####[place] [address] MCV 96.5 fL Normal 81.0-100.0 [facility] ([place]) Comment on above: Performed By: #### C BC, ADIFF, ANEU, GFR, CMP, TROPI ####[place] [address] Platelet mean volume (PMV) 8.7 fL Normal 6.4-10.5 [facility] ([place]) Comment on above: Performed By: #### C BC, ADIFF, ANEU, GFR, CMP, TROPI ####[place] [address] Platelets 243 10 3/mcL Normal 150-450 [facility] ([place]) Comment on above: Performed By: #### C BC, ADIFF, ANEU, GFR, CMP, TROPI ####[place] [address] WBC (Leukocytes) 9.20 10 3/mcL Normal 4.50-10.80 [facility] ([place]) Comment on above: Performed By: #### C BC, ADIFF, ANEU, GFR, CMP, TROPI ####[place] [address] CURon 02-18-2017 CUR . MICRO - MicrobiologyPROCEDURE: Urine Culture [*1] Urine, Huerta Catheter BODY SITE:COLLECTED DATE/TIME: 02/16/2017 03:45 EDT RECEIVED DATE/TIME: 02/16/2017 07:08 EDTSTART DATE/TIME: 02/16/2017 07:08 EDT FREE TEXT SOURCE:FINAL REPORTSFinal Report []Verified Date/Time/Personnel: 02/18/2017 08:10 EDT>100,000 organisms per mL Escherichia coliPRELIMINARY REPORTSPreliminary Report []Verified Date/Time/Personnel: 02/17/2017 09:56 EDT>100,000 organisms per mL Gram Negative RodsFinal identification and DANIELLE to follow.SUSCEPTIBILITY RESULTS Escherichia coliAntibiotic DANIELLE Dilutn DANIELLE InterpAmpicillin <=8 SusceptibleCefazolin <=8 SusceptibleCiprofloxacin <=1 SusceptibleGentamicin <=4 SusceptibleLevofloxacin <=2 SusceptibleNitrofurantoin <=32 SusceptibleTrimethoprim/ <=2/38 SusceptibleSulfaPerforming Locations*1: This test was performed at: [address], [address] [place] [address] Normal [facility]) Comment on above: Performed By: #### C BC, ADIFF, ANEU, GFR, CMP, TROPI ####[place] [address] Depart Summaryon 02-18-2017 Depart Summary Normal [facility]) Inpatient Patient Summaryon 02-18-2017 Inpatient Patient Summary Normal [facility]) MGon 02-18-2017 Magnesium 2.8 mg/dL High 1.6-2.4 [facility]) Comment on above: Performed By: #### C BC, ADIFF, ANEU, GFR, CMP, TROPI ####[place] [address] Nephrology Progress Noteon 1 04-20-2016 Nephrology Progress Note Normal [facility]) PHOSon 02-18-2017 Phosphate 4.4 mg/dL Normal 2.5-4.5 [facility]) Comment on above: Performed By: #### C BC, ADIFF, ANEU, GFR, CMP, TROPI ####[place] [address] Progress Noteon 02-18-[address] [facility] ([place]) .Auto Diffon 02-17-2017 Basophils Auto #/vol (Bld) 0.00 10 3/mcL Normal 0.00-0.27 [facility] ([place]) Comment on above: Performed By: #### C BC, ADIFF, ANEU, GFR, CMP, TROPI ####[address] [address] Basophils/100 WBC Auto (Bld) 0.2 % Normal 0.0-2.5 [facility] ([place]) Comment on above: Performed By: #### C BC, ADIFF, ANEU, GFR, CMP, TROPI ####[address] [address] Eosinophils 0.00 10 3/mcL Normal 0.00-0.65 [facility] ([place]) Comment on above: Performed By: #### C BC, ADIFF, ANEU, GFR, CMP, TROPI ####[address] [address] Eosinophils/100 leukocytes 0.3 % Normal 0.0-6.0 [facility] ([place]) Comment on above: Performed By: #### C BC, ADIFF, ANEU, GFR, CMP, TROPI ####[address] [address] Lymphocytes 0.30 10 3/mcL Low 0.90-4.32 [facility] ([place]) Comment on above: Performed By: #### C BC, ADIFF, ANEU, GFR, CMP, TROPI ####[address] [address] Lymphocytes/100 leukocytes 2.9 % Low 20.0-40.0 [facility] ([place]) Comment on above: Performed By: #### C BC, ADIFF, ANEU, GFR, CMP, TROPI ####[address] [address] Monocytes 0.60 10 3/mcL Normal 0.09-1.40 [facility] ([place]) Comment on above: Performed By: #### C BC, ADIFF, ANEU, GFR, CMP, TROPI ####[address] [address] Monocytes/100 leukocytes 4.9 % Normal 2.0-13.0 [facility] ([place]) Comment on above: Performed By: #### C BC, ADIFF, ANEU, GFR, CMP, TROPI ####[address] [address] Neutrophils/100 WBC Auto (Bld) 91.7 % High 50.0-75.0 [facility] ([place]) Comment on above: Performed By: #### C BC, ADIFF, ANEU, GFR, CMP, TROPI ####[address] [address] .GFRon 02-17-2017 eGFR (non-black) 16 ml/min/1.73sqm Normal A [facility] ([place]) Comment on above: Result Comment: GFR Population mean for , Non- Americans Ages 20-29 = 116 mL/min/1.73 sq.m. Ages 30-39 = 107 mL/min/1.73 sq.m. Ages 40-49 = 99 mL/min/1.73 sq.m. Ages 50-59 = 93 mL/min/1.73 sq.m. Ages 60-69 = 85 mL/min/1.73 sq.m. Ages 70+ = 75 mL/min/1.73 sq.m.Chronic Kidney Disease: Less than 60 mL/min/1.73 square metersEnd Stage Renal Disease: Less than 15 mL/min/1.73 square meters Performed By: #### C BC, ADIFF, ANEU, GFR, CMP, TROPI ####[address] [address] eGFR (non-black) 19 ml/min/1.73sqm Normal A [facility] ([place]) Comment on above: Result Comment: GFR Population mean for , Non- Americans Ages 20-29 = 116 mL/min/1.73 sq.m. Ages 30-39 = 107 mL/min/1.73 sq.m. Ages 40-49 = 99 mL/min/1.73 sq.m. Ages 50-59 = 93 mL/min/1.73 sq.m. Ages 60-69 = 85 mL/min/1.73 sq.m. Ages 70+ = 75 mL/min/1.73 sq.m.Chronic Kidney Disease: Less than 60 mL/min/1.73 square metersEnd Stage Renal Disease: Less than 15 mL/min/1.73 square meters Performed By: #### C BC, ADIFF, ANEU, GFR, CMP, TROPI ####[place] [address] .NEUABSon 02-17-2017 Neutrophils 10.40 10 3/mcL High 2.25-8.10 [facility] ([place]) Comment on above: Performed By: #### C BC, ADIFF, ANEU, GFR, CMP, TROPI ####[place] [address] APTTon 02-17-2017 aPTT 63.1 s High 25.0-35.0 [facility] ([place]) Comment on above: Result Comment: For Heparin anticoagulation therapy, the recommendedtherapeutic range is: 54-77 seconds (APTT Correlationwith Anti-Xa therapeutic range of 0.3-0.7 units/ml).PLEASE REFERENCE THE PHARMACY PROTOCOL FOR DOSING. Performed By: #### C BC, ADIFF, ANEU, GFR, CMP, TROPI ####[place] [address] aPTT Heparin IV Normal [facility] ([place]) Comment on above: Performed By: #### C BC, ADIFF, ANEU, GFR, CMP, TROPI ####[place] [address] aPTT Heparin IV Normal [facility] ([place]) Comment on above: Performed By: #### C BC, ADIFF, ANEU, GFR, CMP, TROPI ####[place] [address] aPTT 61.7 s High 25.0-35.0 [facility] ([place]) Comment on above: Result Comment: For Heparin anticoagulation therapy, the recommendedtherapeutic range is: 54-77 seconds (APTT Correlationwith Anti-Xa therapeutic range of 0.3-0.7 units/ml).PLEASE REFERENCE THE PHARMACY PROTOCOL FOR DOSING. Performed By: #### C BC, ADIFF, ANEU, GFR, CMP, TROPI ####[place] [address] aPTT Heparin IV Normal [facility] ([place]) Comment on above: Performed By: #### C BC, ADIFF, ANEU, GFR, CMP, TROPI ####[place] [address] aPTT 64.2 s High 25.0-35.0 [facility] ([place]) Comment on above: Result Comment: For Heparin anticoagulation therapy, the recommendedtherapeutic range is: 54-77 seconds (APTT Correlationwith Anti-Xa therapeutic range of 0.3-0.7 units/ml).PLEASE REFERENCE THE PHARMACY PROTOCOL FOR DOSING. Performed By: #### C BC, ADIFF, ANEU, GFR, CMP, TROPI ####[place] [address] BMPon 02-17-2017 CO2 22 mmol/L Normal 22-32 [facility] ([place]) Comment on above: Performed By: #### C BC, ADIFF, ANEU, GFR, CMP, TROPI ####[place] [address] Electrolyte Balance 13.0 mEq/L Normal 4.0-15.0 [facility] ([place]) Comment on above: Performed By: #### C BC, ADIFF, ANEU, GFR, CMP, TROPI ####[place] [address] BUN/Creatinine Ratio 25.6 ratio High 10.0-22.0 [facility] ([place]) Comment on above: Performed By: #### C BC, ADIFF, ANEU, GFR, CMP, TROPI ####[place] [address] Creatinine 3.91 mg/dL High 0.60-1.40 [facility] ([place]) Comment on above: Performed By: #### C BC, ADIFF, ANEU, GFR, CMP, TROPI ####[place] [address] Calcium 7.7 mg/dL Low 8.4-10.1 [facility] ([place]) Comment on above: Performed By: #### C BC, ADIFF, ANEU, GFR, CMP, TROPI ####[place] [address] Chloride 103 mmol/L Normal 98-110 [facility] ([place]) Comment on above: Performed By: #### C BC, ADIFF, ANEU, GFR, CMP, TROPI ####[place] [address] Glucose mass conc 156 mg/dL High 82-115 [facility] ([place]) Comment on above: Performed By: #### C BC, ADIFF, ANEU, GFR, CMP, TROPI ####[place] [address] Potassium molar conc 3.7 mmol/L Normal 3.5-5.0 [facility] ([place]) Comment on above: Performed By: #### C BC, ADIFF, ANEU, GFR, CMP, TROPI ####[place] [address] Sodium 138 mmol/L Normal 136-145 [facility] ([place]) Comment on above: Performed By: #### C BC, ADIFF, ANEU, GFR, CMP, TROPI ####[place] [address] Urea nitrogen 100.0 mg/dL High 8.0-22.0 [facility] ([place]) Comment on above: Performed By: #### C BC, ADIFF, ANEU, GFR, CMP, TROPI ####[place] [address] CBCon 02-17-2017 Erythrocyte distribution width Auto Ratio (RBC) 14.9 % Normal 11.5-15.5 [facility] ([place]) Comment on above: Performed By: #### C BC, ADIFF, ANEU, GFR, CMP, TROPI ####[place] [address] Erythrocytes (RBC) 4.37 10 6/mcL Low 4.50-6.00 Replaced by [facility] ([place]) Comment on above: Performed By: #### C BC, ADIFF, ANEU, GFR, CMP, TROPI ####[place] [address] Hematocrit (HCT) 42.3 % Normal 40.0-52.0 [facility] ([place] Comment on above: Performed By: #### C BC, ADIFF, ANEU, GFR, CMP, TROPI ####[place] [address] Hemoglobin mass conc (Bld) 13.8 G/dL Normal 13.0-17.5 [facility] ([place]) Comment on above: Performed By: #### C BC, ADIFF, ANEU, GFR, CMP, TROPI ####[place] [address] MCH 31.7 pg Normal 27.0-33.0 [facility] ([place]) Comment on above: Performed By: #### C BC, ADIFF, ANEU, GFR, CMP, TROPI ####[place] [address] MCHC mass conc (RBC) 32.7 G/dL Normal 32.0-36.0 [facility] ([place]) Comment on above: Performed By: #### C BC, ADIFF, ANEU, GFR, CMP, TROPI ####[place] [address] MCV 96.8 fL Normal 81.0-100.0 [facility] ([place]) Comment on above: Performed By: #### C BC, ADIFF, ANEU, GFR, CMP, TROPI ####[place] [address] Platelet mean volume (PMV) 8.7 fL Normal 6.4-10.5 [facility] ([place]) Comment on above: Performed By: #### C BC, ADIFF, ANEU, GFR, CMP, TROPI ####[place] [address] Platelets 212 10 3/mcL Normal 150-450 [facility] ([place]) Comment on above: Performed By: #### C BC, ADIFF, ANEU, GFR, CMP, TROPI ####[id number] [place], [place] [address] WBC (Leukocytes) 11.30 10 3/mcL High 4.50-10.80 [facility] ([place]) Comment on above: Performed By: #### C BC, ADIFF, ANEU, GFR, CMP, TROPI ####[address] [address] Nephrology Progress Noteon 1 04-19-2016 Nephrology Progress Note Normal [facility] ([place]) Progress Noteon 02-17-2017 Progress Note Normal [facility]) .Auto Diffon 02-16-2017 Basophils Auto #/vol (Bld) 0.00 10 3/mcL Normal 0.00-0.27 [facility] ([place]) Comment on above: Performed By: #### C BC, ADIFF, ANEU, AMM, BMP, TSH, CK, GFR, DRUGS, B12 ####[address] [address] Basophils/100 WBC Auto (Bld) 0.3 % Normal 0.0-2.5 [facility] ([place]) Comment on above: Performed By: #### C BC, ADIFF, ANEU, AMM, BMP, TSH, CK, GFR, DRUGS, B12 ####[address] [address] Eosinophils 0.00 10 3/mcL Normal 0.00-0.65 [facility] ([place]) Comment on above: Performed By: #### C BC, ADIFF, ANEU, AMM, BMP, TSH, CK, GFR, DRUGS, B12 ####[address] [address] Eosinophils/100 leukocytes 0.1 % Normal 0.0-6.0 [facility] ([place]) Comment on above: Performed By: #### C BC, ADIFF, ANEU, AMM, BMP, TSH, CK, GFR, DRUGS, B12 ####[address] [address] Lymphocytes 0.70 10 3/mcL Low 0.90-4.32 [facility] ([place]) Comment on above: Performed By: #### C BC, ADIFF, ANEU, AMM, BMP, TSH, CK, GFR, DRUGS, B12 ####[address] [address] Lymphocytes/100 leukocytes 4.6 % Low 20.0-40.0 [facility] ([place]) Comment on above: Performed By: #### C BC, ADIFF, ANEU, AMM, BMP, TSH, CK, GFR, DRUGS, B12 ####[address] [address] Monocytes 0.60 10 3/mcL Normal 0.09-1.40 [facility] ([place]) Comment on above: Performed By: #### C BC, ADIFF, ANEU, AMM, BMP, TSH, CK, GFR, DRUGS, B12 ####[address] [address] Monocytes/100 leukocytes 4.1 % Normal 2.0-13.0 [facility] ([place]) Comment on above: Performed By: #### C BC, ADIFF, ANEU, AMM, BMP, TSH, CK, GFR, DRUGS, B12 ####[address] [address] Neutrophils/100 WBC Auto (Bld) 90.9 % High 50.0-75.0 [facility] ([place]) Comment on above: Performed By: #### C BC, ADIFF, ANEU, AMM, BMP, TSH, CK, GFR, DRUGS, B12 ####[address] [address] Basophils Auto #/vol (Bld) 0.00 10 3/mcL Normal 0.00-0.27 [facility] ([place]) Comment on above: Performed By: #### C BC, ADIFF, ANEU, GFR, CMP, TROPI ####[address] [address] Basophils/100 WBC Auto (Bld) 0.2 % Normal 0.0-2.5 [facility] ([place]) Comment on above: Performed By: #### C BC, ADIFF, ANEU, GFR, CMP, TROPI ####[address] [address] Eosinophils 0.00 10 3/mcL Normal 0.00-0.65 [facility] ([place]) Comment on above: Performed By: #### C BC, ADIFF, ANEU, GFR, CMP, TROPI ####[address] [address] Eosinophils/100 leukocytes 0.0 % Normal 0.0-6.0 [facility] ([place]) Comment on above: Performed By: #### C BC, ADIFF, ANEU, GFR, CMP, TROPI ####[address] [address] Lymphocytes 0.50 10 3/mcL Low 0.90-4.32 [facility] ([place]) Comment on above: Performed By: #### C BC, ADIFF, ANEU, GFR, CMP, TROPI ####[address] [address] Lymphocytes/100 leukocytes 3.2 % Low 20.0-40.0 [facility] ([place]) Comment on above: Performed By: #### C BC, ADIFF, ANEU, GFR, CMP, TROPI ####[address] [address] Monocytes 0.50 10 3/mcL Normal 0.09-1.40 [facility] ([place]) Comment on above: Performed By: #### C BC, ADIFF, ANEU, GFR, CMP, TROPI ####[address] [address] Monocytes/100 leukocytes 2.9 % Normal 2.0-13.0 [facility] ([place]) Comment on above: Performed By: #### C BC, ADIFF, ANEU, GFR, CMP, TROPI ####[address] [address] Neutrophils/100 WBC Auto (Bld) 93.7 % High 50.0-75.0 [facility] ([place]) Comment on above: Performed By: #### C BC, ADIFF, ANEU, GFR, CMP, TROPI ####[address] [address] .GFRon 02-16-2017 eGFR (non-black) 13 ml/min/1.73sqm Normal A [facility] ([place]) Comment on above: Result Comment: GFR Population mean for , Non- Americans Ages 20-29 = 116 mL/min/1.73 sq.m. Ages 30-39 = 107 mL/min/1.73 sq.m. Ages 40-49 = 99 mL/min/1.73 sq.m. Ages 50-59 = 93 mL/min/1.73 sq.m. Ages 60-69 = 85 mL/min/1.73 sq.m. Ages 70+ = 75 mL/min/1.73 sq.m.Chronic Kidney Disease: Less than 60 mL/min/1.73 square metersEnd Stage Renal Disease: Less than 15 mL/min/1.73 square meters Performed By: #### C BC, ADIFF, ANEU, GFR, CMP, TROPI ####[address] [address] eGFR (non-black) 15 ml/min/1.73sqm Normal A [facility] ([place]) Comment on above: Result Comment: GFR Population mean for , Non- Americans Ages 20-29 = 116 mL/min/1.73 sq.m. Ages 30-39 = 107 mL/min/1.73 sq.m. Ages 40-49 = 99 mL/min/1.73 sq.m. Ages 50-59 = 93 mL/min/1.73 sq.m. Ages 60-69 = 85 mL/min/1.73 sq.m. Ages 70+ = 75 mL/min/1.73 sq.m.Chronic Kidney Disease: Less than 60 mL/min/1.73 square metersEnd Stage Renal Disease: Less than 15 mL/min/1.73 square meters Performed By: #### C BC, ADIFF, ANEU, GFR, CMP, TROPI ####[address] [address] eGFR (non-black) 9 ml/min/1.73sqm Normal [facility] ([place]) Comment on above: Result Comment: GFR Population mean for , Non- Americans Ages 20-29 = 116 mL/min/1.73 sq.m. Ages 30-39 = 107 mL/min/1.73 sq.m. Ages 40-49 = 99 mL/min/1.73 sq.m. Ages 50-59 = 93 mL/min/1.73 sq.m. Ages 60-69 = 85 mL/min/1.73 sq.m. Ages 70+ = 75 mL/min/1.73 sq.m.Chronic Kidney Disease: Less than 60 mL/min/1.73 square metersEnd Stage Renal Disease: Less than 15 mL/min/1.73 square meters Performed By: #### C BC, ADIFF, ANEU, GFR, CMP, TROPI ####[address] [address] eGFR (non-black) 11 ml/min/1.73sqm Normal [facility] ([place]) Comment on above: Result Comment: GFR Population mean for , Non- Americans Ages 20-29 = 116 mL/min/1.73 sq.m. Ages 30-39 = 107 mL/min/1.73 sq.m. Ages 40-49 = 99 mL/min/1.73 sq.m. Ages 50-59 = 93 mL/min/1.73 sq.m. Ages 60-69 = 85 mL/min/1.73 sq.m. Ages 70+ = 75 mL/min/1.73 sq.m.Chronic Kidney Disease: Less than 60 mL/min/1.73 square metersEnd Stage Renal Disease: Less than 15 mL/min/1.73 square meters Performed By: #### C BC, ADIFF, ANEU, GFR, CMP, TROPI ####[address] [address] eGFR (non-black) 9 ml/min/1.73sqm Normal [facility] ([place]) Comment on above: Result Comment: GFR Population mean for , Non- Americans Ages 20-29 = 116 mL/min/1.73 sq.m. Ages 30-39 = 107 mL/min/1.73 sq.m. Ages 40-49 = 99 mL/min/1.73 sq.m. Ages 50-59 = 93 mL/min/1.73 sq.m. Ages 60-69 = 85 mL/min/1.73 sq.m. Ages 70+ = 75 mL/min/1.73 sq.m.Chronic Kidney Disease: Less than 60 mL/min/1.73 square metersEnd Stage Renal Disease: Less than 15 mL/min/1.73 square meters Performed By: #### C BC, ADIFF, ANEU, GFR, CMP, TROPI ####[place] [address] eGFR (non-black) 11 ml/min/1.73sqm Normal A [facility] ([place]) Comment on above: Result Comment: GFR Population mean for , Non- Americans Ages 20-29 = 116 mL/min/1.73 sq.m. Ages 30-39 = 107 mL/min/1.73 sq.m. Ages 40-49 = 99 mL/min/1.73 sq.m. Ages 50-59 = 93 mL/min/1.73 sq.m. Ages 60-69 = 85 mL/min/1.73 sq.m. Ages 70+ = 75 mL/min/1.73 sq.m.Chronic Kidney Disease: Less than 60 mL/min/1.73 square metersEnd Stage Renal Disease: Less than 15 mL/min/1.73 square meters Performed By: #### C BC, ADIFF, ANEU, GFR, CMP, TROPI ####[place] [address] .NEUABSon 02-16-2017 Neutrophils 13.60 10 3/mcL High 2.25-8.10 [facility] ([place]) Comment on above: Performed By: #### C BC, ADIFF, ANEU, AMM, BMP, TSH, CK, GFR, DRUGS, B12 ####[place] [address] Neutrophils 15.60 10 3/mcL High 2.25-8.10 [facility] ([place]) Comment on above: Performed By: #### C BC, ADIFF, ANEU, GFR, CMP, TROPI ####[place] [address] ALCOHOL-BLOOD MEDICALon 01-19 Ethanol mg/dL Normal 0 - 50 [facility] Comment on above: Performed By: #### 2 [id number] ####[facility],[address] [place] [id number] Ericka 02-16-2017 Ammonia ug/dL Low 25-35 [facility] ([place]) Comment on above: Performed By: #### C BC, ADIFF, ANEU, AMM, BMP, TSH, CK, GFR, DRUGS, B12 ####[place] [address] APTTon 02-16-2017 aPTT Hep[address] IV Normal [facility] ([place]) Comment on above: Performed By: #### C BC, ADIFF, ANEU, GFR, CMP, TROPI ####[place] [address] aPTT 97.5 s High 25.0-35.0 [facility] ([place]) Comment on above: Result Comment: For Heparin anticoagulation therapy, the recommendedtherapeutic range is: 54-77 seconds (APTT Correlationwith Anti-Xa therapeutic range of 0.3-0.7 units/ml).PLEASE REFERENCE THE PHARMACY PROTOCOL FOR DOSING. Performed By: #### C BC, ADIFF, ANEU, GFR, CMP, TROPI ####[place] [address] aPTT Heparin IV Normal [facility] ([place]) Comment on above: Performed By: #### C BC, ADIFF, ANEU, GFR, CMP, TROPI ####[place] [address] aPTT 42.9 s High 25.0-35.0 [facility] ([place] Comment on above: Result Comment: For Heparin anticoagulation therapy, the recommendedtherapeutic range is: 54-77 seconds (APTT Correlationwith Anti-Xa therapeutic range of 0.3-0.7 units/ml).PLEASE REFERENCE THE PHARMACY PROTOCOL FOR DOSING. Performed By: #### C BC, ADIFF, ANEU, GFR, CMP, TROPI ####[place] [address] aPTT 28.8 s Normal 25.0-35.0 [facility] ([place] Comment on above: Result Comment: For Heparin anticoagulation therapy, the recommendedtherapeutic range is: 54-77 seconds (APTT Correlationwith Anti-Xa therapeutic range of 0.3-0.7 units/ml).PLEASE REFERENCE THE PHARMACY PROTOCOL FOR DOSING. Performed By: #### A PTT ####[place] [address] [facility] ([place] Comment on above: Performed By: #### A PTT ####[place] [address] Admission Note-Physicianon 1 Admission Note-Physician Normal [facility] ([place]) B12on 02-16-2017 Cobalamins (Vitamin B12) 730 pg/mL Normal 211-911 [facility] ([place]) Comment on above: Performed By: #### C BC, ADIFF, ANEU, GFR, CMP, TROPI ####[place] [address] BGon 02-16-2017 Barometric Pressure 729 mmHg Normal [facility] ([place]) Comment on above: Performed By: #### B G ####[place] [address] Base excess -9.0 mmol/L Normal [facility] ([place]) Comment on above: Performed By: #### B G ####[place] [address] Bicarbonate (HCO3) 16.6 mmol/L Low 21.0-29.0 [facility] ([place] Comment on above: Performed By: #### B G ####[place] [address] CO2 17.7 mmol/L Low 22.0-30.0 [facility] ([place] Comment on above: Performed By: #### B G ####[place] [address] CO2 35.3 mmHg Normal 32.0-46.0 [facility] ([place] Comment on above: Performed By: #### B G ####[place] [address] O2 saturation 97.2 % High 92.0-96.0 [facility] ([place] Comment on above: Performed By: #### B G ####[id number] [place], [place] [address] Oxygen in arterial blood 105.6 mm[Hg] Normal 74.0-108.0 [facility] ([place] Comment on above: Performed By: #### B G ####[place] [address] pH of blood 7.290 [pH] Low 7.380-7.460 [facility] ([place]) Comment on above: Performed By: #### B G ####[place] [address] BMPon 02-16-2017 BUN/Creatinine Ratio 22.3 ratio High 10.0-22.0 [facility] ([place] Comment on above: Performed By: #### C BC, ADIFF, ANEU, GFR, CMP, TROPI ####[place] [address] Urea nitrogen 105.0 mg/dL Critically abnormal 8.0-22.0 [facility] ([place] Comment on above: Performed By: #### C BC, ADIFF, ANEU, GFR, CMP, TROPI ####[place] [address] Calcium 7.3 mg/dL Low 8.4-10.1 [facility] ([place] Comment on above: Performed By: #### C BC, ADIFF, ANEU, GFR, CMP, TROPI ####[place] [address] CO2 14 mmol/L Low 22-32 [facility] ([place] Comment on above: Performed By: #### C BC, ADIFF, ANEU, GFR, CMP, TROPI ####[place] [address] Creatinine 4.70 mg/dL High 0.60-1.40 [facility] ([place]) Comment on above: Performed By: #### C BC, ADIFF, ANEU, GFR, CMP, TROPI ####[place] [address] Electrolyte Balance 14.0 mEq/L Normal 4.0-15.0 [facility] ([place]) Comment on above: Performed By: #### C BC, ADIFF, ANEU, GFR, CMP, TROPI ####[place] [id number] Glucose mass conc 83 mg/dL Normal 82-115 [facility] ([place]) Comment on above: Performed By: #### C BC, ADIFF, ANEU, GFR, CMP, TROPI ####[place] [id number] Potassium molar conc 4.4 mmol/L Normal 3.5-5.0 [facility] ([place]) Comment on above: Result Comment: Spec imen slightly hemolyzed. Result may be falsely elevated. Performed By: #### C BC, ADIFF, ANEU, GFR, CMP, TROPI ####[place] [id number] Chloride 103 mmol/L Normal 98-110 [facility] ([place]) Comment on above: Performed By: #### C BC, ADIFF, ANEU, GFR, CMP, TROPI ####[place] [address] Sodium 131 mmol/L Low 136-145 [facility] ([place]) Comment on above: Performed By: #### C BC, ADIFF, ANEU, GFR, CMP, TROPI ####[place] [address] BUN/Creatinine Ratio 17.4 ratio Normal 10.0-22.0 [facility] ([place]) Comment on above: Performed By: #### C BC, ADIFF, ANEU, GFR, CMP, TROPI ####[place] [address] Creatinine 6.20 mg/dL High 0.60-1.40 [facility] ([place]) Comment on above: Performed By: #### C BC, ADIFF, ANEU, GFR, CMP, TROPI ####[place] [address] Urea nitrogen 108.0 mg/dL Critically abnormal 8.0-22.0 [facility] ([place]) Comment on above: Performed By: #### C BC, ADIFF, ANEU, GFR, CMP, TROPI ####[place] [address] Calcium 7.4 mg/dL Low 8.4-10.1 [facility] ([place]) Comment on above: Performed By: #### C BC, ADIFF, ANEU, GFR, CMP, TROPI ####[place] [address] Chloride 99 mmol/L Normal 98-110 [facility] ([place]) Comment on above: Performed By: #### C BC, ADIFF, ANEU, GFR, CMP, TROPI ####[place] [address] CO2 20 mmol/L Low 22-32 [facility] ([place]) Comment on above: Performed By: #### C BC, ADIFF, ANEU, GFR, CMP, TROPI ####[place] [address] Electrolyte Balance 16.0 mEq/L High 4.0-15.0 [facility] ([place]) Comment on above: Performed By: #### C BC, ADIFF, ANEU, GFR, CMP, TROPI ####[place] [id number] Glucose mass conc 88 mg/dL Normal 82-115 [facility] ([place]) Comment on above: Performed By: #### C BC, ADIFF, ANEU, GFR, CMP, TROPI ####[place] [address] Potassium molar conc 4.0 mmol/L Normal 3.5-5.0 [facility] ([place]) Comment on above: Performed By: #### C BC, ADIFF, ANEU, GFR, CMP, TROPI ####[place] [address] Sodium 135 mmol/L Low 136-145 [facility] ([place]) Comment on above: Performed By: #### C BC, ADIFF, ANEU, GFR, CMP, TROPI ####[place] [address] CBCon 02-16-2017 Erythrocyte distribution width Auto Ratio (RBC) 14.4 % Normal 11.5-15.5 [facility] ([place]) Comment on above: Performed By: #### C BC, ADIFF, ANEU, AMM, BMP, TSH, CK, GFR, DRUGS, B12 ####[place] [address] Erythrocytes (RBC) 4.47 10 6/mcL Low 4.50-6.00 Replaced by [facility] ([place]) Comment on above: Performed By: #### C BC, ADIFF, ANEU, AMM, BMP, TSH, CK, GFR, DRUGS, B12 ####[place] [address] Hematocrit (HCT) 42.9 % Normal 40.0-52.0 [facility] ([place]) Comment on above: Performed By: #### C BC, ADIFF, ANEU, AMM, BMP, TSH, CK, GFR, DRUGS, B12 ####[place] [address] Hemoglobin mass conc (Bld) 14.2 G/dL Normal 13.0-17.5 [facility] ([place] Comment on above: Performed By: #### C BC, ADIFF, ANEU, AMM, BMP, TSH, CK, GFR, DRUGS, B12 ####[place] [address] MCH 31.8 pg Normal 27.0-33.0 [facility] ([place] Comment on above: Performed By: #### C BC, ADIFF, ANEU, AMM, BMP, TSH, CK, GFR, DRUGS, B12 ####[place] [address] MCHC mass conc (RBC) 33.1 G/dL Normal 32.0-36.0 [facility] ([place] Comment on above: Performed By: #### C BC, ADIFF, ANEU, AMM, BMP, TSH, CK, GFR, DRUGS, B12 ####[place] [address] MCV 96.1 fL Normal 81.0-100.0 [facility] ([place] Comment on above: Performed By: #### C BC, ADIFF, ANEU, AMM, BMP, TSH, CK, GFR, DRUGS, B12 ####[place] [address] Platelet mean volume (PMV) 8.7 fL Normal 6.4-10.5 [facility] ([place] Comment on above: Performed By: #### C BC, ADIFF, ANEU, AMM, BMP, TSH, CK, GFR, DRUGS, B12 ####[place] [address] Platelets 191 10 3/mcL Normal 150-450 [facility] ([place] Comment on above: Performed By: #### C BC, ADIFF, ANEU, AMM, BMP, TSH, CK, GFR, DRUGS, B12 ####[place] [address] WBC (Leukocytes) 15.00 10 3/mcL High 4.50-10.80 [facility] ([place]) Comment on above: Performed By: #### C BC, ADIFF, ANEU, AMM, BMP, TSH, CK, GFR, DRUGS, B12 ####[place] [address] Erythrocyte distribution width Auto Ratio (RBC) 14.1 % Normal 11.5-15.5 [facility] ([place] Comment on above: Performed By: #### C BC, ADIFF, ANEU, GFR, CMP, TROPI ####[place] [address] Erythrocytes (RBC) 4.50 10 6/mcL Normal 4.50-6.00 Replaced by [facility] [place] Comment on above: Performed By: #### C BC, ADIFF, ANEU, GFR, CMP, TROPI ####[place] [address] Hematocrit (HCT) 43.2 % Normal 40.0-52.0 [facility] ([place] Comment on above: Performed By: #### C BC, ADIFF, ANEU, GFR, CMP, TROPI ####[place] [address] Hemoglobin mass conc (Bld) 14.5 G/dL Normal 13.0-17.5 [facility] ([place] Comment on above: Performed By: #### C BC, ADIFF, ANEU, GFR, CMP, TROPI ####[place] [address] MCH 32.1 pg Normal 27.0-33.0 [facility] ([place] Comment on above: Performed By: #### C BC, ADIFF, ANEU, GFR, CMP, TROPI ####[place] [address] MCHC mass conc (RBC) 33.5 G/dL Normal 32.0-36.0 [facility] ([place] Comment on above: Performed By: #### C BC, ADIFF, ANEU, GFR, CMP, TROPI ####[place] [address] MCV 95.9 fL Normal 81.0-100.0 [facility] ([place] Comment on above: Performed By: #### C BC, ADIFF, ANEU, GFR, CMP, TROPI ####[place] [address] Platelet mean volume (PMV) 8.7 fL Normal 6.4-10.5 [facility] ([place] Comment on above: Performed By: #### C BC, ADIFF, ANEU, GFR, CMP, TROPI ####[place] [address] Platelets 200 10 3/mcL Normal 150-450 [facility] ([place] Comment on above: Performed By: #### C BC, ADIFF, ANEU, GFR, CMP, TROPI ####[place] [address] WBC (Leukocytes) 16.60 10 3/mcL High 4.50-10.80 [facility] ([place]) Comment on above: Performed By: #### C BC, ADIFF, ANEU, GFR, CMP, TROPI ####[place] [address] CKon 02-16-2017 Creatine kinase (CK) 392 U/L High 7-185 [facility] ([place] Comment on above: Performed By: #### C BC, ADIFF, ANEU, GFR, CMP, TROPI ####[place] [address] CMPon 02-16-2017 BUN/Creatinine Ratio 16.8 ratio Normal 10.0-22.0 [facility] ([place] Comment on above: Performed By: #### C BC, ADIFF, ANEU, GFR, CMP, TROPI ####[address] [address] Urea nitrogen 105.0 mg/dL Critically abnormal 8.0-22.0 [facility] ([place] Comment on above: Performed By: #### C BC, ADIFF, ANEU, GFR, CMP, TROPI ####[address] [address] Albumin/Globulin Ratio 0.6 {ratio} Low 0.9-1.6 [facility] ([place] Comment on above: Performed By: #### C BC, ADIFF, ANEU, GFR, CMP, TROPI ####[address] [address] Alk Phos 64 U/L Normal 38-126 [facility] ([place] Comment on above: Performed By: #### C BC, ADIFF, ANEU, GFR, CMP, TROPI ####[address] [address] Bili Total 0.6 mg/dL Normal 0.2-1.2 [facility] ([place] Comment on above: Performed By: #### C BC, ADIFF, ANEU, GFR, CMP, TROPI ####[address] [address] Globulin 4.3 G/dL High 1.5-3.8 [facility] ([place] Comment on above: Performed By: #### C BC, ADIFF, ANEU, GFR, CMP, TROPI ####[address] [address] Protein 6.7 G/dL Normal 6.0-8.5 [facility] ([place] Comment on above: Performed By: #### C BC, ADIFF, ANEU, GFR, CMP, TROPI ####[address] [address] Alanine aminotransferase (ALT) 24 U/L Normal 12-55 [facility] ([place] Comment on above: Performed By: #### C BC, ADIFF, ANEU, GFR, CMP, TROPI ####[place] [address] Albumin 2.4 G/dL Low 3.2-4.8 [facility] ([place] Comment on above: Performed By: #### C BC, ADIFF, ANEU, GFR, CMP, TROPI ####[place] [address] Aspartate aminotransferase (AST) 38 U/L High 8-34 [facility] ([place] Comment on above: Performed By: #### C BC, ADIFF, ANEU, GFR, CMP, TROPI ####[place] [address] Calcium 7.8 mg/dL Low 8.4-10.1 [facility] ([place] Comment on above: Performed By: #### C BC, ADIFF, ANEU, GFR, CMP, TROPI ####[place] [address] Chloride 99 mmol/L Normal 98-110 [facility] ([place] Comment on above: Performed By: #### C BC, ADIFF, ANEU, GFR, CMP, TROPI ####[place] [address] CO2 19 mmol/L Low 22-32 [facility] ([place] Comment on above: Performed By: #### C BC, ADIFF, ANEU, GFR, CMP, TROPI ####[place] [address] Creatinine 6.26 mg/dL High 0.60-1.40 [facility] ([place] Comment on above: Performed By: #### C BC, ADIFF, ANEU, GFR, CMP, TROPI ####[place] [address] Electrolyte Balance 16.0 mEq/L High 4.0-15.0 [facility] ([place]) Comment on above: Performed By: #### C BC, ADIFF, ANEU, GFR, CMP, TROPI ####[place] [address] Glucose mass conc 96 mg/dL Normal 82-115 [facility] ([place] Comment on above: Performed By: #### C BC, ADIFF, ANEU, GFR, CMP, TROPI ####[place] [address] Potassium molar conc 4.0 mmol/L Normal 3.5-5.0 [facility] ([place] Comment on above: Performed By: #### C BC, ADIFF, ANEU, GFR, CMP, TROPI ####[place] [address] Sodium 134 mmol/L Low 136-145 [facility] ([place] Comment on above: Performed By: #### C BC, ADIFF, ANEU, GFR, CMP, TROPI ####[place] [address] CRURon 02-16-2017 Creatinine 88.0 mg/dL Normal [facility] ([place] Comment on above: Performed By: #### N AURUBALDO ####[place] [address] Consultation Noteon 02-17-[address] [facility] ([place]) DRUGSon 02-16-2017 Drug Screen (s) Positive Abnormal Negative [facility] ([place] Comment on above: Performed By: #### C BC, ADIFF, ANEU, GFR, CMP, TROPI ####[place] [address] Drug Screen Interp The serum shows evid ence of: _ Invalid Interpretation Code [facility] ([place] Comment on above: Performed By: #### C BC, ADIFF, ANEU, GFR, CMP, TROPI ####[place] [address] Ethanol Level <10.[address] [facility] ([place] Comment on above: Performed By: #### C BC, ADIFF, ANEU, GFR, CMP, TROPI ####[place] [address] TCA (s) Negative Normal [facility] ([place] Comment on above: Performed By: #### C BC, ADIFF, ANEU, GFR, CMP, TROPI ####[place] [address] Acetaminophen mass conc 3.2 mcg/mL Low 10.0-30.0 [facility] ([place] Comment on above: Performed By: #### C BC, ADIFF, ANEU, GFR, CMP, TROPI ####[place] [address] Salicylate Lvl (ds) 2.5 mg/dL Low 10.0-25.0 [facility] ([place] Comment on above: Performed By: #### C BC, ADIFF, ANEU, GFR, CMP, TROPI ####[place] [address] Serum Drugs screened: See Below Normal [facility] ([place] Comment on above: Result Comment: This drug screen is a presumptive screening only. No confirmation will be performed unless requested.Drugs included in the ER serum drug screen are: ThresholdEthanol 10.0 mg/dLSalicylate 2.0 mg/dlAcetaminophen 2.0 mcg/mLTricyclic Antidepressants 300 ng/mLTesting has been performed FOR MEDICAL PURPOSES ONLY. Performed By: #### C BC, ADIFF, ANEU, GFR, CMP, TROPI ####[place] [address] DRUGUon 02-16-2017 Drug Screen Urine Positive Abnormal [facility] ([place] Comment on above: Performed By: #### C BC, ADIFF, ANEU, GFR, CMP, TROPI ####[place] [address] Drug Screen Urine Interp Positive Invalid Interpretation Code [facility] ([place] Comment on above: Performed By: #### C BC, ADIFF, ANEU, GFR, CMP, TROPI ####[address] [address] U Comment See Below Normal [facility] ([place] Comment on above: Performed By: #### C BC, ADIFF, ANEU, GFR, CMP, TROPI ####[place] [id number] U pH Drug Scrn 5.5 Normal 5.0-8.0 [facility] ([place] Comment on above: Performed By: #### C BC, ADIFF, ANEU, GFR, CMP, TROPI ####[place] [id number] [address] [place] [address] U Specific [place] Dr[place] Scrn 1.010 Normal 1.005-1.030 [facility] ([place] Comment on above: Performed By: #### C BC, ADIFF, ANEU, GFR, CMP, TROPI ####[place] [id number] [address] [place] [address] Urine Drugs screened: See Below Normal [facility] ([place] Comment on above: Result Comment: This drug screen is a presumptive screening only.No confirmation will be performed unless requested.Drugs screened include: ThresholdAmphetamines/Methamphetamines 1,000 ng/mLBarbiturates 200 ng/mLBenzodiazepine metabolites 200 ng/mLCannabinoids (THC metabolites) 50 ng/mLBenzoylecognine (Cocaine metab) 300 ng/mLOpiates 300 ng/mLPhencyclidine (PCP) 25 ng/mLMethadone 300 ng/mLPropoxyphene 300 ng/mLTesting has been performed FOR MEDICAL PURPOSES ONLY. Performed By: #### C BC, ADIFF, ANEU, GFR, CMP, TROPI ####[place] [id number] [address] [place] [address] EMERGENCY REPORTon 7 EMERGENCY REPORT [facility] EM ERGENCY ROOM REPORT NAME NUMBER SEX AGE ADMIT DISC TYPE MED.RECORD# ARLINE KHAN [id number] M [id number] 02/15/2017 02/15/2017 [place] [id number] ROOM:ER DATE OF :1955 PHYSICIAN NO.:[id number] PHYSICIAN NAME: PHYSICIAN:SALLY HESTER CHIEF COMPLAINT: The patient came in. He had altered mental status. HISTORY OF PRESENT ILLNESS: He was found at home. He has not really been seen since Wednesday. His son saw him around 4:00, and he was sleepy, and then his came over, and he was not acting normal. He was hard to arouse. 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 He takes pain management for his back. He was sweaty. He was incontinent of urine. He did have episodes where he would move his arms randomly and was drowsy. PAST MEDICAL HISTORY: He has a history of atrial fibrillation, back pain. MEDICATIONS: He is on pain management. He takes Percocet. SOCIAL HISTORY: He does not smoke. He occasionally drinks alcohol. REVIEW OF SYSTEMS: His review of systems was not able to be obtained secondary to his mental status. PHYSICAL EXAMINATION: Heis afebrile. Pulse 110, respirations 18, blood pressure 140/129, pulse oximetry initially was 83%. His head is normocephalic, atraumatic. Pupils equal, round, and reactive to light. Nares are patent. He has dry oral moisture. Heart was regular without murmur. S1 equals S2. No S3 or S4 appreciated. Lungs had diminished breath sounds. No accessory muscle use. No nasal flaring. Abdomen: Soft, nontender, nondistended. Skin is warm and dry. DIAGNOSTIC DATA: The patient had a chest x-ray which showed poor inspiration. A CT showed no acute bleed. His EKG showed atrial fibrillation with a rate of 105, normal axis, no obvious ST elevation or depression. His sodium was 128. He had a BUN of 103, creatinine of 6.5. Bicarbonate was 19. His troponin was 0.04. His lipase was 15.9, white count of 18.6 thousand, H&H of 14 and 43, platelet count of 207. Bedside glucose 97. EMERGENCY DEPARTMENT COURSE AND TREATMENT: The patient was given fluids. He was given multiple doses of Narcan. The Narcan did not seem to make him more arousable. I did discuss this with Dr. Donahue. I was going to give the patient Rocephin and vancomycin. He just wanted me to give the Rocephin because of his kidney function. He was given multiple doses of fluids and Narcan. DIAGNOSES: 1. Altered mental status. 2. Questionable drug overdose. 3. Renal failure. 4. Questionable sepsis. PLAN/DISPOSITION: He will be transferred to [facility]. Critical care time: 45 minutes excluding billable procedures. D: SALLY HESTER TD: 02/16/2017 07:49:25 JOB #: [id number] FREDI Hester D.O. Emergency Department 02/16/17 20:03 EMERGENCY ROOM REPORT ARLINE KHAN [address] [place] [address] EMERGENCY ROOM REPORT NAME NUMBER SEX AGE ADMIT DISC TYPE MED.RECORD# ARLINE KHAN [id number] M [id number] 02/15/2017 02/15/2017 E.R. [id number] ROOM:ER DATE OF :1955 PHYSICIAN NO.:[id number] PHYSICIAN NAME: PHYSICIAN:SALLY HESTER Transcribed by: EMMIE 02/16/2017 07:49:25 Copy for: KACIE Mejias III Copy for: JACQUELYN Bowen Copy for: [facility] EMERGENCY ROOM REPORT ARLINE KHAN 2 Normal [facility] EOSon 02-16-[address] [facility] ([place]) Comment on above: Result Comment: The units for an eosinophil smear depend upon specimen type:Stool, sputum, nasal specimens: number of cells/hp fieldUrine, bronchial lavage: number of cells/100 cells (%) Performed By: #### C BC, ADIFF, ANEU, GFR, CMP, TROPI ####[place] [id number] [place] [address] [address] [address] [facility] ([place]) Comment on above: Performed By: #### C BC, ADIFF, ANEU, GFR, CMP, TROPI ####[facility] [place] [address] History and Physicalon 02-[address] [facility] ([place] MRPCRon 02-16-2017 MRPCR . MICRO - MicrobiologyPROCEDURE: MRSA PCR [*1] Nares BODY SITE:COLLECTED DATE/TIME: 02/16/2017 03:45 EDT RECEIVED DATE/TIME: 02/16/2017 07:09 EDTSTART DATE/TIME: 02/16/2017 07:09 EDT FREE TEXT SOURCE:FINAL REPORTSFinal Report []Verified Date/Time/Personnel: 02/16/2017 11:15 EDTMRSA NEGATIVE.MRSA DNA not detected by Real-Time Polymerase ChainReaction (PCR). A negative result may be due tointermittent colonization. Colonization may varydepending on patient treatment, patient status orexposure to high risk environments.As with all PCR based in vitro tests, extremely lowlevels of target below the limit of detection of theassay may be detected, but results may not bereproducible.Performing Locations*1: This test was performed at: [facility], [address] [place] [address], [address] , [facility] Normal [facility] ([place]) Comment on above: Performed By: #### C BC, ADIFF, ANEU, GFR, CMP, TROPI ####[address] [address] NAURon 02-16-2017 Sodium 57.0 mmol/L Normal [facility] ([place]) Comment on above: Performed By: #### N AUR, CRUR ####[address] [address] Progress Noteon 02-16-[address] [facility] ([place]) TROPIon 02-16-2017 Troponin I.cardiac mass conc ng/mL Normal 0.000-0.040 [facility] ([place]) Comment on above: Result Comment: Trop onin I reference ranges (12/25/13): 0.00- 0.040 ng/mL Negative and non-diagnostic. >0.040 ng/mL Consistent with cardiac damage, increased clinical risk and possibility of myocardial infarction. Serial measurements, a rise & fall in test results, clinical history, appropriate symptoms and/or ECG changes may help assess possibility of [place]. *Other non-acute coronary syndrome conditions such as CHF, myocarditis, pulmonary emboli, sepsis and cardiac surgery could result in myocardial damage and increased troponin levels. Performed By: #### C BC, ADIFF, ANEU, GFR, CMP, TROPI ####[place] [address] TSHon 02-16-2017 Thyroid stimulating hormone (TSH) 0.670 mcIU/mL Normal 0.360-3.740 [facility] ([place] Comment on above: Result Comment: Plea se note ? as of 10/31/16 new pediatric reference intervals were added for this test. Performed By: #### C BC, ADIFF, ANEU, GFR, CMP, TROPI ####[address] [address] UAon 02-16-2017 UA Appear Turbid Abnormal Clear [facility] ([place] Comment on above: Performed By: #### U A, UAMIC ####[place] [address] UA Blood Moderate Abnormal Neg-Trace [facility] ([place] Comment on above: Performed By: #### U A, UAMIC ####[place] [address] UA Leuk Est Large Abnormal Negative [facility] ([place] Comment on above: Performed By: #### U A, UAMIC ####[place] [address] UA Nitrite Negative Normal Negative [facility] ([place] Comment on above: Performed By: #### U A, UAMIC ####[place] [address] UA pH 5.0 Normal 5.0 - 8.0 [facility] ([place] Comment on above: Performed By: #### U A, UAMIC ####[place] [address] UA Protein 30 mg/dL Normal Negative [facility] ([place] Comment on above: Performed By: #### U A, UAMIC ####[place] [address] UA Spec Grav 1.010 Normal 1.006-1.029 [facility] ([place] Comment on above: Performed By: #### U A, UAMIC ####[place] [address] UA Specimen Type Clean Catch Normal [facility] ([place] Comment on above: Performed By: #### U A, UAMIC ####[place] [address] UA Urobilinogen 0.2 E.U./dL Normal 0.2-1.0 [facility] ([place] Comment on above: Performed By: #### U A, UAMIC ####[place] [address] Urine, color Yellow Normal [facility] ([place] Comment on above: Performed By: #### U A, UAMIC ####[place] [address] Urine, glucose Negative Normal Negative [facility] ([place] Comment on above: Performed By: #### U A, UAMIC ####[place] [address] Urine, ketones presence Negative Normal Neg-Trace [facility] ([place] Comment on above: Performed By: #### U A, UAMIC ####[place] [address] Urine, urobilinogen Negative Normal Neg-Trace [facility] ([place]) Comment on above: Performed By: #### U A, UAMIC ####[place] [address] UAMICon 02-16-2017 UA Bacteria 3+ /hpf Abnormal Negative [facility] ([place] Comment on above: Performed By: #### U A, UAMIC ####[place] [address] UA Squam Epithelial Rare Normal 0-20 [facility] ([place] Comment on above: Performed By: #### U A, UAMIC ####[place] [address] UA WBC LOADED Abnormal 0-5 [facility] ([place] Comment on above: Performed By: #### U A, UAMIC ####[place] [address] Urine, erythrocytes 0-2 Normal 0-2 [facility] ([place] Comment on above: Performed By: #### U A, UAMIC ####[place] [address] URICon 02-16-2017 Uric Acid Lvl 14.2 mg/dL High 4.4-7.6 [facility] ([place] Comment on above: Performed By: #### C BC, ADIFF, ANEU, GFR, CMP, TROPI ####[place] [address] US RENALon 02-16-2017 US RENAL ORIGINALUS RENAL CLI NICAL STATEMENT: acute kidney injury COMPARISON: None FINDINGS: The examination is compromised by body habitus, bowel gas and the patient's inability to cooperate with positioning. The right and left kidney are normal in size and echogenicity, measuring 12.6 and 11.3 respectively. There are no renal stones, solid masses or pelvicalyceal dilation. The urinary bladder is grossly within normal limits. IMPRESSION: No hydronephrosis. Interpreted By: George Denisereliminary Report By: George Denise MDElectronically Signed By: George Denise MD Dictated Date: 02/16/2017 3:50:47 AM Prelim Date: 02/16/2017 3:50:47 AM Sign Date: 02/16/2017 3:52:[address] [facility] ([place] XR CHEST 1 VIEWon 02-16-2017 XR CHEST 1 VIEW ORIGINALXR CHEST 1 V IEW Clinical Statement: Chest Pain COMPARISON: CT of the chest 02/14/2007 FINDINGS: There is mild pulmonary vascular congestion. The heart size is large. There is no pneumothorax or pleural fluid visible. No fracture or aggressive osseous lesion is identified. IMPRESSION: Mild CHF. Interpreted By: George Denisereliminary Report By: George Denise MDElectronically Signed By: George Denise MD Dictated Date: 02/16/2017 12:20:46 AM Prelim Date: 02/16/2017 12:20:46 AM Sign Date: 02/16/2017 12:21:[address] [facility] [place] CBCon 02-15-2017 Basophils Auto #/vol (Bld) 0.10 x10EE3/UL Normal 0.00 - 0.10 [facility] Comment on above: Performed By: #### 2 10722 ####[facility],[address] [place] [address] Basophils/100 WBC Auto (Bld) 0.3 % Normal 0.0 - 2.0 [facility] Comment on above: Performed By: #### 2 47808 ####[facility],[address] [place] [address] Blood morphology N/A Normal [facility] Comment on above: Result Comment: {CD] Performed By: #### 2 80493 ####[facility],[address] [place] [address] CBC Normal [facility] Comment on above: Result Comment: CBC- COMPLETE BLOOD COUNT Performed By: #### 2 76801 ####[facility],[address] [place] [address] Eosinophils 0.00 x10EE3/UL Normal 0.00 - 0.50 [facility] Comment on above: Performed By: #### 2 16433 ####[facility],[address] [place] [address] Eosinophils/100 leukocytes 0.1 % Normal 0.0 - 7.0 [facility] Comment on above: Performed By: #### 2 88279 ####[facility],[address] [place] [address] Erythrocyte distribution width Auto Ratio (RBC) 14.1 % Normal 12.0 - 15.6 [facility] Comment on above: Performed By: #### 2 07179 ####[facility],[address] [place] [address] Erythrocytes (RBC) 4.61 x 10EE6/UL Normal 4.50 - 6.00 [facility] Comment on above: Performed By: #### 2 52610 ####[facility],[address] [place] [address] Hematocrit (HCT) 43.0 % Normal 40.0 - 52.0 [facility] Comment on above: Performed By: #### 2 17378 ####[facility],[address] [place] [address] Hemoglobin mass conc (Bld) 14.9 g/dL Normal 13.0 - 17.5 [facility] Comment on above: Performed By: #### 2 81146 ####[facility],[address] [place] [address] Lymphocytes 0.40 x10EE3/UL Low 0.80 - 2.80 [facility] Comment on above: Performed By: #### 2 80575 ####[facility],[address] [place] [address] Lymphocytes/100 leukocytes 2.3 % Low 20.0 - 45.0 [facility] Comment on above: Performed By: #### 2 42518 ####[facility],[address] [place] [address] MANUAL DIFF N/A Normal [facility] Comment on above: Performed By: #### 2 02377 ####[facility],[address] [place], [place] [id number] MCH 32 pg Normal 27 - 33 [facility] Comment on above: Performed By: #### 2 47573 ####[facility],[address] [place] [address] MCHC mass conc (RBC) 35 X10 3 Normal 32 - 36 [facility] Comment on above: Performed By: #### 2 14043 ####[facility],[address] [place] [address] MCV 93 fL Normal 81 - 98 [facility] Comment on above: Performed By: #### 2 42529 ####[facility],[address] [place] [address] Monocytes 0.50 x10EE3/UL Normal 0.20 - 1.00 [facility] Comment on above: Performed By: #### 2 88248 ####[facility],[address] [place] [address] MONOS % 2.8 % Normal 0.0 - 10.0 [facility] Comment on above: Performed By: #### 2 57649 ####[facility],[address] [place] [address] Neutrophils 17.60 x10EE3/UL High 1.50 - 7.10 [facility] Comment on above: Performed By: #### 2 [id number] ####[facility],[address] [place] [address] 05409 Neutrophils/100 WBC Auto (Bld) 94.5 % High 46.0 - 76.0 [facility] Comment on above: Performed By: #### 2 31741 ####[facility],[address] [place] [address] 69155 Platelet mean volume (PMV) 8.7 fL Normal 6.4 - 10.5 [facility] Comment on above: Result Comment: AUTO MATED DIFFERENTIAL Performed By: #### 2 93087 ####[facility],[address] [place] [address] 98217 Platelets 207 x10EE3/UL Normal 150 - 450 [facility] Comment on above: Performed By: #### 2 63791 ####[facility],[address] [place] [address] 71399 WBC (Leukocytes) 18.6 x 10EE3/UL High 4.5 - 10.8 [facility] Comment on above: Performed By: #### 2 91330 ####[facility],[address] [place] [address] 19027 CHEST APon 02-15-2017 CHEST AP [place] [address] Patient: ARLINE KHAN Phone#: : 1955 Age: 61 Gender: M Pt. Type: ER Account: [id number] Location: [facility] Ordering: SALLY HESTER Exam Date: 02/15/2017/18:45 [facility] Phys[facility] Charge Code: [id number] Physician: Donley Order #: [id number] DLP Dose#: PROCEDURE: X-RAY CHEST AP 1 VIEW COMPARISON: None. INDICATIONS: Altered mental status FINDINGS: LUNGS: Normal. No significant pulmonary parenchymal abnormalities. VASCULATURE: Normal. Unremarkable pulmonary vasculature. CARDIAC: Normal. No cardiac silhouette abnormality or cardiomegaly. MEDIASTINUM: Normal. No visible mass or adenopathy. PLEURA: Normal. No effusion or pleural thickening. BONES: Degenerative changes are present at the left acromioclavicular joint. OTHER: Negative. CONCLUSION: No acute disease. Exam is taken with poor inspiratory effort. Dictated by: Sonja Gregory MD on 02/16/2017 at 8:10 Approved by: Sonja Gregory MD on 02/16/2017 at 8:10 Normal [facility] CMP with eGFRon 02-15-2017 Age 61 years Normal [facility] Comment on above: Performed By: #### 2 82561 ####[facility],[address] [place] [address] 15679 Albumin 3.2 g/dL Low 3.4 - 4.8 [facility] Comment on above: Performed By: #### 2 21749 ####[facility],[address] [place] [address] 51840 Albumin/Globulin Ratio 0.9 {ratio} Normal 0.9 - 1.6 [facility] Comment on above: Performed By: #### 2 55923 ####[facility],[address] [place] [address] 52270 ALK PHOS 50 U/L Normal 38 - 126 [facility] Comment on above: Performed By: #### 2 04848 ####[facility],[address] [place] [address] 35682 ALT/SGPT 15 U/L Normal 10 - 40 [facility] Comment on above: Performed By: #### 2 55110 ####[facility],[address] [place] [address] 43870 Anion gap 20 mmol/L Normal 10 - 20 [facility] Comment on above: Performed By: #### 2 05468 ####[facility],[address] [place] [address] 86499 AST/SGOT 24 U/L Normal 13 - 39 [facility] Comment on above: Performed By: #### 2 96208 ####[facility],[address] [place] [address] 97011 B/C RATIO 16 ratio Normal 0 - 30 [facility] Comment on above: Performed By: #### 2 40230 ####[facility],[address] [place] [address] Bilirubin (total) 1.0 mg/dL Normal 0.0 - 1.5 [facility] Comment on above: Performed By: #### 2 73073 ####[facility],[address] [place], [place] [id number] Calcium 8.4 mg/dL Low 8.6 - 10.2 [facility] Comment on above: Performed By: #### 2 87882 ####[facility],[address] [place] [address] Chloride 92 mmol/L Low 98 - 107 [facility] Comment on above: Performed By: #### 2 88559 ####[facility],[address] [place] [address] CO2 19.4 mmol/L Low 21.0 - 31.0 [facility] Comment on above: Performed By: #### 2 87790 ####[facility],[address] [place], [place] [id number] Creatinine 6.5 mg/dL High 0.7 - 1.3 [facility] Comment on above: Performed By: #### 2 95978 ####[facility],[address] [place], [place] [address] eGFR (non-black) Normal [facility] Comment on above: Result Comment: COMP REHENSIVE METABOLIC PANEL Performed By: #### 2 15426 ####[facility],[address] [place], [place] [address] eGFR (non-black) 9 ML/MINUTE Low 60 - 999 [facility] Comment on above: Performed By: #### 2 42177 ####[facility],[address] [place] [address] 66438 eGFR (non-black) 11 ML/MINUTE Low 60 - 999 [facility] Comment on above: Result Comment: ACCO RDING TO THE NATIONAL KIDNEY DISEASE EDUCATION PROGRAM(NKDE), A NORMAL eGFRIS A VALUE GREATER THAN OR EQUAL TO 60 ML/MIN/1.73 SQ METERS.CHRONIC KIDNEY DISEASE: <60mL/MIN/1.73 SQ METERSKIDNEY FAILURE: <15mL/MIN/1.73 SQ METERSTHIS TEST SHOULD ONLY BE USED FOR PATIENTS 18 YEARS OF AGE AND OLDER. Performed By: #### 2 18159 ####[facility],[address] [place] [address] 83244 Globulin 3.7 g/dL Normal 1.5 - 3.8 [facility] Comment on above: Performed By: #### 2 15642 ####[facility],[address] [place] [address] 18042 Glucose mass conc 102 mg/dL Normal 74 - 106 [facility] Comment on above: Performed By: #### 2 19873 ####[facility],[address] [place] [address] 85161 Potassium molar conc 3.7 mmol/L Normal 3.5 - 5.1 [facility] Comment on above: Performed By: #### 2 03970 ####[facility],[address] [place] [address] 45648 Protein 6.9 g/dL Normal 6.4 - 8.3 [facility] Comment on above: Performed By: #### 2 38018 ####[facility],[address] [place] [address] 67479 Sodium 128 mmol/L Low 136 - 145 [facility] Comment on above: Performed By: #### 2 13829 ####[facility],[address] [place] [address] 96789 Urea nitrogen 103 mg/dL High 6 - 20 [facility] Comment on above: Performed By: #### 2 18187 ####[facility],[address] [place] [address] 58875 CPKon 02-15-2017 CPK 247 U/L High 37 - 174 [facility] Comment on above: Performed By: #### 2 65135 ####[facility],[address] [place] [address] CT BRAIN W/O CONTRASTon 01-19 CT BRAIN W/O CONTRAST [place] [address] Patient: ARLINE KHAN Phone#: : 1955 Age: 61 Gender: M Pt. Type: ER Account: [id number] Location: 052 Ordering: [facility] Exam Date: 02/15/2017/18:40 [facility] Phys[facility] Charge Code: [id number] Physician: Donley Order #: [id number] DLP Dose#: PROCEDURE: CT BRAIN WITHOUT CONTRAST COMPARISON: None. INDICATIONS: Altered mental status TECHNIQUE: CT images were obtained without contrast material. All CT scans at this facility use dose modulation, iterative reconstruction, and/or weight based dosing when appropriate to reduce radiation dose to as low as reasonably achievable. IV CONTRAST: No IV contrast used,0ml TOTAL DOSE: 159.90 CTDIvol(mGy) FINDINGS: CEREBRUM: Age-appropriate atrophy is present, without visible acute hemorrhage or lesion. CEREBELLUM: No edema, hemorrhage, mass, acute infarction, or inappropriate atrophy. BRAINSTEM: No edema, hemorrhage, mass, acute infarction, or inappropriate atrophy. CSF SPACES: Ventricles, cisterns, and sulci are appropriate for age. No hydrocephalus, subarachnoid hemorrhage, or mass. SKULL: No mass or other significant visible lesion. SINUSES: There is bubbly mucosal thickening in the base of the left maxillary sinus. ORBITS: Limited views are unremarkable. OTHER: Negative. CONCLUSION: No acute disease. Continued Report - Page 2 of 2 Patient: ARLINE KHAN Phone#: : 1955 Age: 61 Gender: M Pt. Type: ER Account: [id number] Location: 052 Ordering: [facility] Exam Date: 02/15/2017/18:40 Family Phys: [facility] Charge Code: [id number] Physician: Donley Order #: [id number] DLP Dose#: Dictated by: Sonja Gregory MD on 02/16/2017 at 8:20 Approved by: Sonja Gregory MD on 02/16/2017 at 8:20 Normal [facility] CULTURE BLOODon 02-15-2017 CULTURE BLOOD CULTURE BLOOD _BLOOD CULTURE_ORDER #[id number]:2 of 2 24 HOUR REPORT _NO_GROWTH 02/16/17.1934.LMM. 48 HOUR REPORT _NO_GROWTH 02/18/17.0034.LMM. 72 HOUR REPORT _NO_GROWTH 02/18/17.2113.LMM. GRAM STAIN: M I C R O B I O L O G Y R E P O R T FINAL ------- Antimicrobial Susceptibility and Organism Identification Report ------ Specimen Number : [id number] Requested : 02/15/17 Specimen Source : BLOOD Collected : 02/15/17 19:50 [place] [facility] : Emergency Room Received : 02/15/17 19:50 Requesting Physician : KIMMY ANN Patient/Specimen Tests and Comments Specimen Comments ------ ------ FINAL REPORT: No Growth at 5 Days Tech : Source : BLOOD ID # : [id number] FINAL Report Date : / / : Collected : 02/15/17 19:50 02/21/17.JLN. 02/21/17.JLN.COMPLETE Normal [facility] Comment on above: Performed By: #### 2 76149 ####[facility],[address] [place] [address] CULTURE BLOOD CULTURE BLOOD _BLOOD CULTURE_ORDER #[id number]:1 of 2 24 HOUR REPORT _POSITIVE 02/16/17.MDS. 48 HOUR REPORT 72 HOUR REPORT GRAM STAIN: _Gram_pos_cocci_in_chains___ 02/16/17.MDS.Called to KIMMY/sabiha/[id number]/1000a/MDS M I C R O B I O L O G Y R E P O R T FINAL ------- Antimicrobial Susceptibility and Organism Identification Report ------ Specimen Number : [id number] Requested : 02/15/17 Specimen Source : BLOOD Collected : 02/15/17 19:02 [place] [facility] : Emergency Room Received : 02/15/17 19:02 Requesting Physician : KIMMY ANN Patient/Specimen Tests and Comments Specimen Comments ------ ------ FINAL REPORT: STRE[facility] [facility] Ashlyn h : Source : BLOOD ID # : [id number] FINAL CALLED TO/AIDEN/SESAR [id number] Date : / / : Collected : 02/15/17 19:02 02/18/17.0710.DESTINYN. 02/18/17.SESAR.COMPLETE Normal [facility] Comment on above: Performed By: #### 2 19879 ####[facility],[address] [place] [address] 67362 GLUCOSE BEDSIDEon 02-15-2017 GLU BEDSIDE 97 mg/dl Normal 60 - 100 [facility] Comment on above: Performed By: #### 2 79099 ####[facility],[address] [place] [address] 46520 Glucose mass conc Normal [facility] Comment on above: Result Comment: POIN T OF CARE GLUCOSE TEST Performed By: #### 2 06991 ####[facility],[address] [place] [address] 08111 LACTATEon 02-15-2017 Lactate 15.9 mg/dL Normal 4.5 - 18.0 [facility] Comment on above: Performed By: #### 2 63306 ####[facility],[address] [place] [address] 64755 TROPONINon 02-15-2017 Troponin I.cardiac mass conc 0.04 ng/mL Normal 0.00 - 0.05 [facility] Comment on above: Result Comment: Elev ated troponin (above the 99th percentile) usually indicates myocardialischemia. Results must be interpreted within the clinical setting.1.Non-ischemic pathology can also cause elevated troponin levels (e.g., acute pulmonary embolism, myocarditis, pericarditis, heart failure, intracranial injury, rhabdomyolisis, sepsis, shock and renal insufficiency).2.Approximately 1% of healthy adults have elevated troponin levels.3.Analytical false positive results rarely occur(due to multiple interferences such as heterophile antibodies). Performed By: #### 2 01860 ####[facility],[address] [place] [address] 62992 No Panel Information SARS-CoV-2 & FLU Antigen (Rapid) [facility] Work Phone: Vital Signs Date Time Vital Sign Value Performing Clinician Destiny frost 03-04-2022 21:42-0500 Heart rate 104 /min [facility] Work Phone: 03-04-2022 21:42-0500 Respiratory rate 18 /min [facility] Work Phone: 03-04-2022 21:42-0500 SaO2% (BldA) [Mass fraction] 98 % [facility] Work Phone: 03-04-2022 19:27-0500 Diastolic blood pressure 83 mm[Hg] [facility] Work Phone: 03-04-2022 19:27-0500 Systolic blood pressure 130 mm[Hg] [facility] Work Phone: 03-04-2022 16:57-0500 Body height 187.96 cm [facility] Work Phone: 03-04-2022 16:57-0500 Body mass index (BMI) [Ratio] 32.1 kg/m2 [facility] Work Phone: 03-04-2022 16:57-0500 Body temperature 96.6 [degF] [facility] Work Phone: 03-04-2022 16:57-0500 Body weight 113.39 kg [facility] Work Phone: Encounters Encounter Date Encounter Type Care Provider Facility Start: 03-04-2022 End: 03-04-2022 Emergency department patient visit [facility] Facility:[facility] Start: 03-04-2022 End: 03-04-2022 Emergency department patient visit [facility] Start: 04-21-2017 End: 04-21-2017 Emergency department patient visit YEYO VALLADARES [facility] Start: 02-16-2017 End: 02-18-2017 Evaluation and management of inpatient NOT RECORDED PHYSICIAN Facility:A Start: 02-15-2017 End: 02-16-2017 Emergency department patient visit HOSP [facility] Procedures Date Procedure Procedure Detail Performing Clinician Start: 03-04-2022 Plain chest X-ray Start: 01-21-2021 Ecg routine ecg w/le ast 12 lds i&r only Start: 10-29-2020 Ecg routine ecg w/le ast 12 lds i&r only SARS-CoV-2 & FLU Ant igen (Rapid) Plan of Treatment Date Care Activity Detail Author Patient Education Dehydration [facility] Work Phone: Patient referral [facility] Work Phone: Immunizations Immunization Date Immunization Notes Care Provider Kaylen frost 10-24-2020 tetanus toxoid, redu jvai diphtheria toxoid, and acellular pertussis vaccine, adsorbed [facility] Work Phone: Payers Date Payer Category Payer Medicare [id number] 2022 Self-pay [id number] 2017 Medicare [id number] Unknown [id number] Unknown COMMERCIAL OTHER [id number] Unknown [id number] Social History Date Type Detail Facility Start: 03-04-2022 Tobacco smoking stat [facility] Unknown if ever smoked [facility] Work Phone: Start: 12-17-2019 Heavy [facility] Work Phone: Start: 12-17-2019 None [facility] Work Phone: Start: 12-17-2019 With Family [facility] Work Phone: Start: 1955 Sex Assigned At Male [facility] Work Phone: Mental Status Date Assessment Result Facility 03-04-2022 Cognitive function Level Of Cons ciousness Awake;Alert;Appropriate;Follow s Commands [facility] Work Phone: Discharge summary note 11-01-2020 Note Date & Type Note Facility 11-01-2020 Note [facility] Ce bijan Ruvalcaba Clinical Note 10-24-2020 Note Date & Type Note Facility 10-24-2020 Note DATE OF CONSULTATION : 10/24/2020 REASON FOR CONSULTATION: Left arm swelling. HISTORY: Mr. 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 He was subsequently transferred to [facility] for evaluation without having seen any orthopedic surgeon. This injury occurred approximately 13 hours prior to being seen here at [facility], and the patient states that he is reasonably comfortable. Mechanism of injury was a slip off of his deck down maybe 4 steps, landing directly on his left nondominant arm. He was able to get up and walk and had mild pain, but over the course of the next several hours noticed increasing swelling for which he sought care at [facility]. After being evaluated, he was subsequently transferred as a concern was raised for compartment syndrome, and the orthopedic surgeon permastone applicator did not feel that that was within his area of expertise to manage. Once in the emergency room here, the patient was evaluated and was again [facility] PATIENT NAME: ARLINE KHAN [address] [facility] [address] MEDICAL REC #: [id number] [place] [address] ADMIT DATE: DISCHARGE DATE: 10/24/20 CONSULTATION REPORT ATTENDING PHY: Dayana Desai MD noted to be reasonably comfortable. PAST MEDICAL HISTORY: Reviewed and noted in the chart. SOCIAL HISTORY, FAMILY HISTORY, MEDICATIONS, ALLERGIES: Are all reviewed and noted in the chart as well. Exam today demonstrates the patient to be afebrile with stable vital signs as noted in the chart. PHYSICAL EXAMINATION: General: The patient is awake and alert, oriented, cooperative with the examination and able to answers questions appropriately. Chest: Without stridor. Heart: Regular. Abdomen: Benign with multiple areas of previous injection sites secondary to his anticoagulation. Pelvis: Stable to rock and compression. Extremities: Bilateral lower extremities are relatively normal to exam. Right upper extremity is normal. Left upper extremity demonstrates no tenderness about the shoulder or elbow. There is some tenderness in the proximal forearm. The compartments are soft, although he does have edema and now this [facility] PATIENT NAME: ARLINE KHAN [address] [facility] [address] MEDICAL REC #: [id number] [place] [address] ADMIT DATE: DISCHARGE DATE: 10/24/20 CONSULTATION REPORT ATTENDING PHY: Dayana Desai MD ecchymosis and hematoma formation, particularly in the dorsal aspect of the forearm. The wrist is nontender as is the hand. He has no pain with passive motion of any of the digits and radial, ulnar, and median nerves are intact with regard to his motor and sensation. Pulses are palpable and capillary refill is intact. IMAGING: X-rays were reported from the outside facility, which demonstrate no fracture. I did not have these for direct review. ASSESSMENT: Hematoma secondary to anticoagulation and fall. No evidence of compartment syndrome on exam today. PLAN: As discussed with the patient, I would recommend ice and elevation and would not start compression for maybe another day or two to allow for any hematoma to solidify. Once the hematoma is solidified, I think that heat would be a reasonable option in order to help disperse that area. I also discussed with him and recommended that he speak with his [facility] physician to perhaps put him on an oral anticoagulant rather than the injections. This may not be formulary but certainly is reversible. All questions were answered to the patient's satisfaction, and I did [facility] PATIENT NAME: ARLINE KHAN [address] [facility] [address] MEDICAL REC #: [id number] [place] [address] ADMIT DATE: DISCHARGE DATE: 10/24/20 CONSULTATION REPORT ATTENDING PHY: Dayana Desai MD discuss with him that any change in his status would warrant repeat evaluation. I can see him in office in the next week or two or he can follow up in the [place] hospital system. Wes Anaya MD [id number] SSI File#: [id number] END OF DOCUMENT / CHANGE LOG FOLLOWS Last Edited By Elec. Signed By Wes Anaya MD #Wes Oh MD #JUSTIN on 10/25/2020 18:44 ET on 10/25/2020 18:44 ET Revision Number - 2 Verified/Reviewed by (more content not included)... [facility] Evaluation note Note Date & Type Note Facility Evaluation note No assessment information availa [facility] Work Phone: Summary Purpose Family History No Family History Records FoundNo Family History Records FoundNo Family History Records FoundNo Family History Records FoundNo Family History Records Found Advance Directives No Advanced Directives Records Found Advance Directive Response Recorded Date/ Time Living Will Yes March 04, 5:11pm Power of Configuration Management Architect Yes March 04, 2022 5:11pm Name of Medical Power of Configuration Management Architect Marta Khan March 04, 2022 5:11pm Chief Complaint and Reason for Visit Chief Complaint CHEST PAIN Additional Source Comments (unrecognized sect ion and content) No Status Records FoundNo Status Records FoundNo Status Records FoundNo Status Records FoundNo Status Records Found INFORMATION SOURCE (unrecogn ized section and content) DATE CREATED AUTHOR 10/12/2017 [facility] DATE CREATED AUTHOR AUTHOR'S ORGANIZ ATION 10/12/2017 [facility] DATE CREATED AUTHOR AUTHOR'S ORGANIZ ATION 11/11/2018 [facility] DATE CREATED AUTHOR AUTHOR'S ORGANIZ ATION 06/08/2021 [facility] DATE CREATED AUTHOR AUTHOR'S ORGANIZ ATION 03/17/2022 [facility] Goals (unrecognized section and content) Goals may be documented in a n alternate section FOR RECORDS PERTAINING TO PATIENTS WHO ARE OR HAVE BEEN ENROLLED IN A CHEMICAL DEPENDENCY/SUBSTANCEABUSE PROGRAM, SOME INFORMATION MAY BE OMITTED. This clinical summary was aggregated from multiple sources. Caution should be exercised in using it in the provision of clinical care. This summary normalizes information from multiple sources, and as a consequence, information in this document may materially change the coding, format and clinical context of patient data. In addition, data may be omitted in some cases. CLINICAL DECISIONS SHOULD BE BASED ON THE PRIMARY CLINICAL RECORDS. [facility]. provides no warranty or guarantee of the accuracy or completeness of information in this document.
[2024-11-11] MEDS: Lidocaine 5% Patch 1 PATCH TOPICAL (13:01)
--- NOTE | 2024-11-11 13:10 | EKG12_ITS ---
Test Reason : SOB Blood Pressure : */* mmHG Vent. Rate : 99 BPM Atrial Rate : * BPM P-R Int : * ms QRS Dur : 72 ms QT Int : 366 ms P-R-T Axes : * 24 134 degrees QTcB Int : 469 ms Atrial fibrillation with premature ventricular or aberrantly conducted complexes Septal infarct , age undetermined ST & T wave abnormality, consider anterolateral ischemia Abnormal ECG Confirmed by CHIKI KILLIAN, ALLISON ([id number]), editorial cartoonist MUSTAPHA KILPATRICK ([id number]) on 11/13/2024 7:31:35 AM Referred By: Confirmed By: ALLISON MONET MD
[2024-11-11 13:12] LABS: Hematocrit 49.9 % (40-54); Hemoglobin 17.8 g/dL (13.0-16.5); Immature Granulocytes Count 0.040 X10^3/uL (0.0-0.0); Mean Corp Hgb Conc 35.7 g/dL (32-36); Mean Corpuscular Volume 102.3 fL (80-94); Mean Platelet Vol. 8.4 fl (6.2-12.0); NRBC Flagged by Analyzer 0 % (0-5); Platelet Count 335 K/mm3 (150-450); RBC Distribution Width CV 14.2 % (11.6-14.6); RBC Distribution Width SD 53.6 fl (35.1-43.9); Red Blood Count 4.88 M/mm3 (4.6-6.2); White Blood Count 11.2 K/mm3 (4.4-11.0)
[2024-11-11 13:41] LABS: Pro- Brain NATRIURETIC PEPTIDE 1846 pg/mL (<=900); Troponin T High Sensitivity 7 ng/L (<=22)
[2024-11-11 14:10] LABS: Barbiturate Urine NEGATIVE (< 200 ng/mL); Benzodiazepine Urine NEGATIVE (< 200 ng/mL); PCP Urine NEGATIVE (< 25 ng/mL); THC Urine PRESUMPTIVE POSITIVE (< 50 ng/mL)
[2024-11-11 14:10] LABS: Anion Gap 19 (5-15); BUN 13 mg/dL (4-19); BUN/Creat Ratio 9.6 RATIO (10-20); Calcium,Total 10.0 mg/dL (7.6-11.0); Carbon Dioxide 16.8 mmol/L (21.0-32.0); Chloride 95 mmol/L (98-108); Estimated Creatinine Clearance 65.68 ml/min (50-250); Glucose 128 mg/dL (70-99); Potassium 4.3 mmol/L (3.3-5.1)
[2024-11-11 15:01] LABS: Troponin T High Sens 2 HR 8 ng/L (<=22)
--- NOTE | 2024-11-11 15:05 | CM.ED ---
Social Work Date of referral: 11/11/24 Reason for referral: Advanced Care Directives (ACD's) not on file. Referred by: Social Work Identification Patient provided consent for Social Work Visit. Design Technician requested a copy of patient's ACD's which patient agreed to bring in. Elsie Matos, ALIGNMENT MECHANIC, CARD RUNNER
--- NOTE | 2024-11-11 15:34 | ED.RN ---
Pt unsteady while ambulating, nearly fell. Pt also hyperventilating during and after walking, complains of dyspnea with ambulation.
[2024-11-11 16:01] LABS: SITE Not entered; Time Given 15:59:32; VBG BASE EXCESS 7 mmol/L (-1.0-3.5); VBG PO2 33 mmHg (25-40); VBG SO2 78 % (50-70); VBG TCO2 29 mmol/L (23-33)
[2024-11-11 17:27] LABS: Color, Urine Amber (Yellow); Glucose, Dipstick Normal (Normal); Ketone-Dipstick 5 mg/dl (Negative); Leukocyte Esterase-Dipstick 500 /ul (Negative); Nitrite-Dipstick Negative (Negative); Occult Blood-Urine 25 /ul (Negative); Protein-Dipstick 100 mg/dl (Negative); Specific Gravity, Urine 1.010 (1.002-1.030); Urine Bilirubin Dipstick 1 mg/dL (Negative)
[2024-11-11 17:28] LABS: Mucous, Urine 1+ /hpf (<or=2+); Red Blood Cells-Urine 0-5 SEEN /hpf (0-5); Squamous Epithelial Cells - UA 0-5 SEEN /hpf (0-5); Transitional Epithelial - Ur 0-5 SEEN /hpf (0-5)
--- NOTE | 2024-11-11 17:28 | CT_ITS ---
PROCEDURE: ABDOMEN/PELVIS WITHOUT CONT 11/11/2024 REASON FOR EXAM: SEPTIC SHOCK TECHNIQUE: ABDOMEN/PELVIS WITHOUT CONT Noncontrast technique limits evaluation of the abdominal and pelvic viscera. Coronal and Sagittal reconstruction series were provided. One or more dose reduction techniques were used (e.g., Automated exposure control, adjustment of the mA and/or kV according to patient size, use of iterative reconstruction technique). RADIATION DOSE SUMMARY: CTDlvol: 16.4 mGy DLP: 871 mGycm FINDINGS: Noncontrast images of the liver and spleen are unremarkable. Normal appearance of the pancreas. No bowel obstruction. No free-fluid. Radiotherapy seeds are present in the prostate. Negative for bowel dilatation. No diverticulitis or appendicitis. No hydronephrosis or renal mass. Negative for adenopathy. Multilevel degenerative spinal stenosis is present in the lumbar spine. CT/Abdomen/Pelvis without Cont IMPRESSION: No acute abnormality Reading Location: [facility]
[2024-11-11 17:40] LABS: Alcohol, Blood (Medical)-Serum < 10.1 mg/dL (<=10.0); Troponin T High Sens 4 HR 11 ng/L (<=22)
[2024-11-11] MEDS: 0.9% Normal Saline (1000mL) 1,000 ML 999 ML IV ×3 (17:56→21:58)
[2024-11-11 18:03] LABS: AST(SGOT) 26 U/L (<=37); Alanine Aminotransfer ALT/SGPT 8 U/L (<=46); Albumin, Serum 3.9 g/dL (3.4-4.8); Alkaline Phosphatase 88 U/L (40-129); Bilirubin, Direct 0.71 mg/dL (0.00-0.30); Globulin 4.4 g/dL (2.2-4.2)
[2024-11-11] MEDS: Piperacil/Tazobactam 4.5 GM in 0.9% Normal Saline (100mL MB+) 100 ML IV (18:09)
[2024-11-11 18:19] LABS: BETA-HYDROXYBUTYRATE 0.7 mmol/L (0.0-0.3)
--- NOTE | 2024-11-11 18:37 | PCM.HP.STD ---
HPI - General General Date of Admission: 11/11/24 Date of Service: 11/11/24 Chief Complaint: Shortness of breath HPI Narrative ARLINE MOFFETT, is a 69-year-old male history of pulmonary embolism, A-fib, hypertension, BPH presented to [facility] ED 11/11/2024 due to shortness of breath. Reportedly patient began to feel short of breath yesterday and given continued complaints of shortness of breath he presented to the ED today. In the ED temp 98.2, heart rate 88 and blood pressure 105/60, respiratory rate 36 and patient 100% on room air. CBC with white blood cell count of 11.2, hemoglobin 17.8. Sodium of 131 with no values for 3 years, bicarb 16.8 with an elevated anion gap of 19, BUN of 13 and a creatinine of 1.40 which is actually lower than 3 years ago. Troponin 7 with a repeat of 8 and proBNP 1800. Urine drug screen negative aside from cannabinoids. Patient had CTA of the chest which showed no acute process. Lumbar spine CT with chronic depression deformities and spinal stenosis and incidentally seen elaboration nitrogen degenerative gas from L5-S1 interspace and epidural region but does not still indicate nerve root impingement or even protrusion. Patient was ambulated in the ED but was complaining of dyspnea and was hyperventilating during and after walking. Patient did not desaturate but was tachypneic so further workup obtained. Given patient had a low bicarb and a high anion gap he had a VBG and a lactic acid. Unclear how accurate VBG was given showed alkalosis at 7.64 and a bicarb of 28 with a PCO2 low at 26.3 but patient did have a lactic acid which came back at 4.2. Due to this CT of the abdomen was obtained, blood and urine cultures and patient given antibiotics and IV fluids due to concern for occult infection and sepsis. CT of abdomen no acute process. UA did show leuk esterase, white blood cells, and bacteria that did have some mucus. Hospitalist contacted for admission. Patient evaluated at bedside in the ED, he reports he has been feeling short of breath since yesterday and generally weak. Denies any new cough, no fevers or headache denies any bladder changes, does have some problems with constipation and has not been eating very well but reports that is because he is trying to lose weight with concerns for being overweight. Endorses some lightheadedness on standing labs been occurring recently. Does report lower back pain that is chronic in nature, asked multiple times and he confirmed that this is currently at his baseline. Previously was on Percocet for a long time but was subsequently taken off once stricter guidelines for opioid prescribing. Now is on a muscle relaxer and was also on Lyrica however he has been out of Lyrica for couple of weeks. Notes back problems going back to 2005. Denies any necessarily chest pain, reports sometimes some achy feeling on deep inspiration but cannot describe that further, any abdominal pain. Of note patient endorses drinking Scott and ron ashok and a yeti every night, did not drink last night because he was concerned it would worsen the way he was feeling. [facility] Medical History Afib High cholesterol HTN (hypertension) Pulmonary embolism Home Medications ?Medication ?Instructions ?Recorded ?Last Taken ?Type amlodipine 10 mg tablet 10 mg PO DAILY 05/02/17 11/11/24 History cyanocobalamin (vitamin B-12) 500 1,000 mcg PO DAILY@0800 05/02/17 11/11/24 History mcg tablet fondaparinux 10 mg/0.8 mL 10 mg SQ DAILY 05/02/17 11/11/24 History subcutaneous solution syringe (Arixtra) metoprolol tartrate 25 mg tablet 25 mg PO BID 05/02/17 11/11/24 History gabapentin 600 mg tablet 600 mg PO TIDCM 07/25/18 Unknown History albuterol sulfate 90 mcg/actuation 1 inh inhalation Q6H 11/11/24 Unknown History aerosol inhaler (Ventolin HFA) cholecalciferol (vitamin D3) 25 25 mcg PO DAILY 11/11/24 11/11/24 History mcg (1,000 unit) capsule ezetimibe 10 mg tablet 10 mg PO DAILY 11/11/24 11/11/24 History hydrochlorothiazide 12.5 mg capsule 12.5 mg PO DAILY 11/11/24 11/11/24 History lisinopril 40 mg tablet 40 mg PO DAILY 11/11/24 11/11/24 History tizanidine 4 mg capsule 4 mg PO BID PRN muscle spasticity 11/11/24 Unknown History Allergy/AdvReac Type Severity Reaction Status Date / Time No Known Allergies Allergy Verified 11/11/24 12:22 Social History Smoking Status: Former smoker ROS ROS Narrative General: Denies fever/chills HENT: Denies headache, denies stuffy nose, denies sore throat EYES: Denies changes in vision Resp: Some chronic cough, has felt short of breath since yesterday Cardiac: Possibly some discomfort deep inspiration but only endorses 1 prompted denied any other kind of deep chest pain or anything that sounded cardiac in nature GI: + Constipation, denies changes in bowel, denies nausea/vomiting : Denies changes in urination Extremity: Denies new swelling MSK: Generalized weakness Neuro: Reports problems with chronic neuropathy Heme: Denies any bleeding or bruising Skin: Has some scratches on shins Psychiatric: No complaints voiced Vital Signs Vital Signs Vital Signs: 11/11/24 12:20 11/11/24 12:34 11/11/24 13:03 Temperature 98.2 F Temperature Source Oral Pulse Rate 88 Respiratory Rate 36 H Respiratory Effort Short of Breath Blood Pressure 105/60 Blood Pressure Mean 75 Pulse Ox 100 Oxygen Delivery Method Room Air Room Air Room Air 11/11/24 13:12 11/11/24 14:00 11/11/24 14:19 Temperature 98.2 F 98.3 F Temperature Source Oral Oral Pulse Rate 114 H 111 H Respiratory Rate 24 H 31 H Respiratory Effort Blood Pressure 139/97 H 133/81 H 133/81 H Blood Pressure Mean 111 98 98 Pulse Ox 98 99 Oxygen Delivery Method Room Air Room Air 11/11/24 15:00 11/11/24 15:03 11/11/24 15:15 Temperature 98.3 F Temperature Source Oral Pulse Rate 110 H Respiratory Rate 31 H Respiratory Effort Blood Pressure 124/84 H 159/95 H Blood Pressure Mean 97 115 Pulse Ox 100 99 Oxygen Delivery Method Room Air 11/11/24 15:15 11/11/24 15:16 11/11/24 15:32 Temperature Temperature Source Pulse Rate 130 H Respiratory Rate 30 H Respiratory Effort Blood Pressure 159/95 H Blood Pressure Mean 115 Pulse Ox 99 98 Oxygen Delivery Method 11/11/24 15:44 11/11/24 15:45 11/11/24 16:00 Temperature 98.3 F 98.9 F Temperature Source Oral Pulse Rate 110 H 87 Respiratory Rate 31 H 24 H Respiratory Effort Blood Pressure 124/84 H 155/97 H Blood Pressure Mean 97 116 Pulse Ox 100 98 99 Oxygen Delivery Method Room Air 11/11/24 16:00 11/11/24 16:04 11/11/24 16:05 Temperature Temperature Source Pulse Rate Respiratory Rate Respiratory Effort Blood Pressure 138/91 H 125/87 H Blood Pressure Mean 103 100 Pulse Ox 99 98 99 Oxygen Delivery Method 11/11/24 16:06 11/11/24 16:07 11/11/24 17:00 Temperature 98.9 F Temperature Source Oral Pulse Rate 107 H Respiratory Rate 25 H Respiratory Effort Blood Pressure 117/92 H 133/96 H 150/102 H Blood Pressure Mean 98 107 118 Pulse Ox 98 99 98 Oxygen Delivery Method Room Air 11/11/24 17:22 11/11/24 18:00 Temperature 98.7 F 98.7 F Temperature Source Oral Oral Pulse Rate 104 H Respiratory Rate 24 H Respiratory Effort Blood Pressure 150/100 H Blood Pressure Mean 116 Pulse Ox 98 Oxygen Delivery Method Room Air Weight Weight: 109.8 kg Body Mass Index (BMI) 31.1 Physical Exam Narrative General: Alert, oriented, poor historian HEENT: Atraumatic, normocephalic Eyes: extraocular movements grossly intact Neck: Supple Respiratory: Clear to auscultation bilaterally, increased respiratory effort and is tachypneic Cardiovascular: Irregularly irregular GI: Soft, nontender, nondistended Extremities: No edema Musculoskeletal: Moving all extremities Neuro: No overt focal neurological deficits Skin: No rashes appreciated Psych: Cooperative Results Lab / Micro Data 11/11/24 13:05 11/11/24 12:50 Labs: Laboratory Results - last 24 hr 11/11/24 12:50: WBC Cancelled, Corrected WBC Cancelled, RBC Cancelled, Hgb Cancelled, Hct Cancelled, MCV Cancelled, MCH Cancelled, MCHC Cancelled, RDW Std Deviation Cancelled, RDW Coeff of Cara Cancelled, Plt Count Cancelled, MPV Cancelled, Immature Gran % (Auto) Cancelled, Neut % (Auto) Cancelled, Lymph % (Auto) Cancelled, [place] % (Auto) Cancelled, Eos % (Auto) Cancelled, Baso % (Auto) Cancelled, Absolute Neuts (auto) Cancelled, Absolute Lymphs (auto) Cancelled, Total Counted Cancelled, Neutrophils % (Manual) Cancelled, Band Neutrophils % Cancelled, Lymphocytes % (Manual) Cancelled, Monocytes % (Manual) Cancelled, Eosinophils % (Manual) Cancelled, Basophils % (Manual) Cancelled, Metamyelocytes % Cancelled, Myelocytes % Cancelled, Promyelocytes % Cancelled, Blast Cells % Cancelled, Plasma Cell % (Manual) Cancelled, Other Cells % Cancelled, Nucleated RBC % Cancelled, Nucleated RBCs/100 WBC Cancelled, Differential Comment Cancelled, Diff Path Review Cancelled, Hypersegmented Neuts Cancelled, Atypical Lymphocytes Cancelled, Reactive Lymphocytes Cancelled, Smudge Cells Cancelled, Toxic Granulation Cancelled, Toxic Vacuolation Cancelled, Dohle Bodies Cancelled, Bradley Rods Cancelled, Platelet Estimate Cancelled, Plt Morphology Comment Cancelled, RBC Morphology Cancelled 11/11/24 12:50: RBC Morphology Cancelled, Polychromasia Cancelled, Hypochromasia Cancelled, Basophilic Stippling Cancelled, Anisocytosis Cancelled, Microcytosis Cancelled, Macrocytosis Cancelled, Spherocytes Cancelled, Sickle Cells Cancelled, Target Cells Cancelled, Tear Drop Cells Cancelled, Ovalocytes Cancelled, Stomatocytes Cancelled, [place] Bodies Cancelled, [place] Cells Cancelled, Bite Cells Cancelled, Crenated Cell Cancelled, Acanthocytes (Spur) Cancelled, Rouleaux Cancelled, Schistocytes Cancelled, Sodium 131 L, Potassium 4.3, Chloride 95 L, Carbon Dioxide 16.8 L, Anion Gap 19 H, BUN 13, Creatinine 1.40 H, Estim Creat Clear Calc 65.68, Est GFR (MDRD) Non-Af 54 L, BUN/Creatinine Ratio 9.6 L, Glucose 128 H, Calcium 10.0, Troponin T High Sens 7, NT pro BNP II 1846 H 11/11/24 13:05: WBC 11.2 H, RBC 4.88, Hgb 17.8 H, Hct 49.9, MCV 102.3 H, MCH 36.5 H, MCHC 35.7, RDW Std Deviation 53.6 H, RDW Coeff of Cara 14.2, Plt Count 335, MPV 8.4, Immature Gran % (Auto) 0.400, Neut % (Auto) 78.7 H, Lymph % (Auto) 13.0 L, [place] % (Auto) 7.1, Eos % (Auto) 0.2, Baso % (Auto) 0.6, Absolute Neuts (auto) 8.8 H, Absolute Lymphs (auto) 1.46, Nucleated RBC % 0 11/11/24 13:15: Urine Color Rosi, Urine Clarity Cloudy, Urine pH 7.0, Ur Specific [place] 1.010, Urine Protein 100 H, Urine Glucose (UA) Normal, Urine Ketones 5 H, Urine Occult Blood 25 H, Urine Nitrite Negative, Urine Bilirubin 1 H, Urine Urobilinogen 1 H, Ur Leukocyte Esterase 500 H, Urine RBC 0-5 SEEN, Urine WBC 50-100 SEEN, Ur Squamous Epith Cells 0-5 SEEN, Ur Transition Epith Cell 0-5 SEEN, Ur Renal Epithelial Cell 0-5 SEEN, Urine Bacteria 4+, Coarse Granular Casts 0-5 SEEN, Urine Mucus 1+, Urine Opiates Screen NEGATIVE, U Buprenorphine Qual NEGATIVE, Ur Oxycodone Screen NEGATIVE, Urine Methadone Screen NEGATIVE, Urine Fentanyl Screen NEGATIVE, Ur Barbiturates Screen NEGATIVE, Ur Phencyclidine Scrn NEGATIVE, Ur Amphetamines Screen NEGATIVE, U Benzodiazepines Scrn NEGATIVE, Urine Cocaine Screen NEGATIVE, U Cannabinoids Screen PRESUMPTIVE POSITIVE 11/11/24 14:35: Troponin T Hi Sens 2 Hr 8 11/11/24 15:45: Lactic Acid 4.2 H* 11/11/24 17:10: Total Bilirubin 1.71 H, Direct Bilirubin 0.71 H, AST 26, ALT 8, Alkaline Phosphatase 88, Troponin T Hi Sens 4Hr 11, Total Protein 8.3, Albumin 3.9, Globulin 4.4 H, b-Hydroxybutyric mmol/L 0.7 H, Ethyl Alcohol < 10.1 ABG Data ABG results: ABG 11/11/24 15:58 Specimen Type LAUREN Sample Site Not entered VBG pH 7.64 H* VBG pO2 33 VBG HCO3 28 H VBG Total CO2 29 VBG O2 Sat (Calc) 78 H VBG Base Excess 7 H POC Mix VBG pCO2 Pt Tmp 26.3 L O2 Delivery Device Not entered Crit Call To/Read Back Yes Blood Gas Notified Whom wilma Blood Gas Notified Time 15:59:32 Imaging Radiology Impression Chest CTA 11/11/24 12:42 IMPRESSION: No acute abnormality Reading Location: [facility] Lumbar Spine CT 11/11/24 12:42 IMPRESSION: Chronic compression deformities. Spinal stenosis has discussed above. At L5-S1, incidentally seen is elaboration of nitrogen degenerative gas from the L5-S1 interspace into the epidural region. This does not necessarily indicate nerve root impingement or even protrusion. Reading Location: [facility] Abdomen/Pelvis CT 11/11/24 17:28 IMPRESSION: No acute abnormality Reading Location: [facility] Assessment & Plan Assessment/Plan (1) Sepsis: PLAN: Plan # Suspected sepsis secondary to ?urinary source - Patient with leukocytosis, tachypneic, tachycardic, bicarb of 16 with an elevated anion gap of 19, lactic acid 4.2 - CT of chest and abdomen unrevealing - UA with leuk esterase, white blood cells, bacteria though does have some mucus - Blood and urine cultures sent - IV fluids - Broad-spectrum antibiotics while undergoing workup #SOB -CTA of the chest with no acute process -Patient reports feeling short of breath and is certainly tachypneic but is 100% on room air -Suspect patient is feeling shortness of breath due to his tachypnea from his underlying elevated lactic acid leading to increased respiratory rate - Could have component of pain given his chronic back pain, additionally reports he drinks Scott and ron ashok in a yeti every night and did not drink last night for fear of making himself feel worse so unclear if this is contributing -BNP elevated at 1800 though does not appear peripherally overloaded at this time -Will check echo -Will monitor on telemetry, sometimes it will appear on pulse ox the patient has a rate in the 30s however when palpating radial pulse at the same time rate is 80s to 90s, unclear reason for discrepancy but patient was not bradycardic at all during my evaluation in the ED -Will check COVID and respiratory panels -Treat back pain -Will check tsh - Ordering CIWA checks with Ativan coverage in the event there is component of withdrawal # Elevated anion gap and low bicarb on BMP -VBG revealed pH of 7.64 and VBG bicarb 28 with a low pCO2 of 26.3 which is not consistent with the above - Lactic acid subsequently resulted at 4.2, suspect this is the reason for his low bicarb and elevated gap tachypnea # Alcohol use -Patient reports drinking Scott and ron ashok in a yeti every night and did not drink last night as he was worried it would make him feel worse -Also has very poor p.o. intake -Could have underlying vitamin nutrient deficiencies -Will start folate, thiamine, B12 -Will also start CIWA, concerned that patient may be under reporting his drinking # Back pain -Patient reports chronic lumbar back pain and when asked multiple times by me and ED physician patient reports this is the same as his chronic pain without any acute change -Lumbar spine CT with chronic depression deformities and spinal stenosis and incidentally seen elaboration nitrogen degenerative gas from L5-S1 interspace and epidural region but does not still indicate nerve root impingement or even protrusion - Pain control -PT/OT -Can consider pain management moving forward pending progress # History of A-fib and pulmonary embolism - Patient on fondaparinux -Continue home medications #Chronic BPH with obstruction -Continue home medications #Hypertension - Will continue amlodipine and metoprolol given patient is vitally stable despite being worked up for possible occult infection, can hold if blood pressure were to drop or further concerns arise - Can resume hydrochlorothiazide/lisinopril as tolerated #DVT ppx: SCDs in addition to patient's home medication Charline Bergman MD Time spent in the patient's overall evaluation, decision-making process, review of diagnostic data, adjustment of management, discussion with other providers, nursing and ancillary staff involved in patient's care documentation, 82 minutes Sepsis Attestation Sepsis Alert: Yes Sepsis Attestation: Agree w/Sepsis Date exam was performed: 11/11/24 Time exam was performed: 16:30 Possible Source of Sepsis: Genitourinary and Unknown Sepsis Organ Dysfunction Criteria Present: Lactic Acid > 2 mmol/L and Serum CO2 < 20 mmol/L (on BMP) Supportive Findings: Tachypneic, tachycardic, bicarb 16.8 on BMP, lactic acid 4.2, elevated white blood cell count Fluid Resuscitation Fluid resuscitation indicated?: Yes Fluid Resuscitation ordered: Lesser volume fluid bolus ordered Amount of fluid ordered: 3,000 Reason for lesser fluid bolus:: Other (Elevated BNP and BP is elevated, not low) Sepsis Note Date exam was performed: 11/11/24 Time exam was performed: 17:30 Sepsis Attestation: Sepsis re-evaluation was performed Response to fluids: Fluid responsive hypotension (Patient was not hypotensive, still not hypotensive) Charges/Coding Visit Charges Inpatient E&M: 73637 Init Hosp L3
--- OUTSIDE RECORDS SUMMARY | 2024-11-11 18:40 | XMS RPT_ITS | CCD ---
Author Organization [facility] Care Team Providers Care Plane Tableman Name Role Phone [facility] Unavailable Unavailable [...] CLINIC Unavailable Unavailable CHUY ANDERSON Unavailable Unavailable ARLINE LOPEZ Unavailable Unavailable [facility], [place] Primary Care Unavailable Gorge Desai Attending Unavailable [...] W/Diff, Automatedon 02-17 PATH REV Reviewed Normal [facility] Comment on above: Result Comment: Poly cythemia Clinical correlation necessary. Timothy Larry M.D. 03/05/22 AMENDED REPORT 03/05/22 1416 PATH REV previously reported as: August Performed By: #### L 100.0100, L500.2500, L501.4020 #### [facility] [address] [place], [place], [id number] Absolute lymphocyte counton 03-04-2022 Lymphocytes Auto (Unsp spec) [#/Vol] 2.30 10*3/uL 0.83-4.51 [facility] Work Phone: Basic Metabolic Profile (BMP )on 03-04-2022 BUN/CRE 21.4 RATIO High 10-20 [facility] Comment on above: Order Comment: 'TROP ' Serial specimen #1, #2 or #3: 1 Performed By: #### L 100.0100, L500.2500, L501.4020 #### [facility] [address] [place], [place], [address] CA,Total 8.8 mg/dL Normal 8.5-10.1 [facility] Comment on above: Order Comment: 'TROP ' Serial specimen #1, #2 or #3: 1 Performed By: #### L 100.0100, L500.2500, L501.4020 #### [facility] [address] [place], [address] Chloride [Moles/Vol] 102 mmol/L Normal 98-107 [facility] Comment on above: Order Comment: 'TROP ' Serial specimen #1, #2 or #3: 1 Performed By: #### L 100.0100, L500.2500, L501.4020 #### [facility] [address] [place], [address] CO2 [Moles/Vol] 25.0 mmol/L Normal 21.0-32.0 [facility] Comment on above: Order Comment: 'TROP ' Serial specimen #1, #2 or #3: 1 Performed By: #### L 100.0100, L500.2500, L501.4020 #### [facility] [address] [place], [address] Creatinine [Mass/Vol] 2.06 mg/dL High 0.70-1.30 [facility] Comment on above: Order Comment: 'TROP ' Serial specimen #1, #2 or #3: 1 Result Comment: The validity of the calculated GFR GFRAA in patients over 70 years has not been determined. Clinical correlation is essential. Performed By: #### L 100.0100, L500.2500, L501.4020 #### [facility] [address] [place], [address] ECRCL 41.01 ml/min Normal [facility] Comment on above: Order Comment: 'TROP ' Serial specimen #1, #2 or #3: 1 Performed By: #### L 100.0100, L500.2500, L501.4020 #### [facility] [address] [place], [address] EST GFR - AA 42 mL/min Low >60 [facility] Comment on above: Order Comment: 'TROP ' Serial specimen #1, #2 or #3: 1 Result Comment: Afri can Irish GFR Calc Performed By: #### L 100.0100, L500.2500, L501.4020 #### [facility] [address] [place], [address] GAP 8 Normal 5-15 [facility] Comment on above: Order Comment: 'TROP ' Serial specimen #1, #2 or #3: 1 Performed By: #### L 100.0100, L500.2500, L501.4020 #### [facility] [address] [place], [address] GFR/1.73 sq M.predicted among non-blacks MDRD (S/P/Bld) [Vol rate/Area] 35 mL/min/{1.73_m2} Low >60 [facility] Comment on above: Order Comment: 'TROP ' Serial specimen #1, #2 or #3: 1 Result Comment: Non- GFR Calc Performed By: #### L 100.0100, L500.2500, L501.4020 #### [facility] [address] [place], [address] Glucose [Mass/Vol] 100 mg/dL Normal 74-106 [facility] Comment on above: Order Comment: 'TROP ' Serial specimen #1, #2 or #3: 1 Result Comment: Fast ing Glucose result from 100 to 125 mg/dL suggests IMPAIRED HOMEOSTASIS per A.D.A. criteria. Performed By: #### L 100.0100, L500.2500, L501.4020 #### [facility] [address] [place], [address] Potassium [Moles/Vol] 4.2 mmol/L Normal 3.5-5.1 [facility] Comment on above: Order Comment: 'TROP ' Serial specimen #1, #2 or #3: 1 Result Comment: Mode rate Hemolysis, Result may be falsely increased. Performed By: #### L 100.0100, L500.2500, L501.4020 #### [facility] [address] [place], [address] Sodium [Moles/Vol] 135 mmol/L Low 136-145 [facility] Comment on above: Order Comment: 'TROP ' Serial specimen #1, #2 or #3: 1 Performed By: #### L 100.0100, L500.2500, L501.4020 #### [facility] [address] [place], [address] Urea nitrogen [Mass/Vol] 44 mg/dL High 7-18 [facility] Comment on above: Order Comment: 'TROP ' Serial specimen #1, #2 or #3: 1 Performed By: #### L 100.0100, L500.2500, L501.4020 #### [facility] [address] [place], [address] Basophil percentageon 2021 Basophils/100 WBC (Bld) 1.5 % 0-1 [facility] Work Phone: Chloride [Moles/Vol] 102 mmol/L 98-107 [facility] Work Phone: Eosinophils/100 WBC (Bld) 1.9 % 0-5 [facility] Work Phone: Glucose [Mass/Vol] 100 mg/dL 74-106 [facility] Work Phone: Comment on above: Fasting Glucose resu lt from 100 to 125 mg/dL suggests IMPAIRED HOMEOSTASIS per A.D.A. criteria. Neutrophils (Bld) [#/Vol] 2.1 10*3/uL 2.0-7.7 [facility] Work Phone: Neutrophils/100 WBC (Bld) 40.7 % 47-70 [facility] Work Phone: Potassium [Moles/Vol] 4.2 mmol/L 3.5-5.1 [facility] Work Phone: Comment on above: Moderate Hemolysis, Result may be falsely increased. Sodium [Moles/Vol] 135 mmol/L 136-145 [facility] Work Phone: WBC (Bld) [#/Vol] 5.2 10*3/uL 4.4-11.0 [facility] Work Phone: Blood erythrocytes count (nu mber/volume)on 03-04-2022 RBC (Bld) [#/Vol] 5.64 10*6/uL 4.6-6.2 [facility] Work Phone: Blood hemoglobin measurement (mass/volume)on 03-04-2022 Hemoglobin (Bld) [Mass/Vol] 18.2 g/dL 13.0-16.5 [facility] Work Phone: Comment on above: CRITICAL VALUE VERIF IED. CALLED TO ZAIRA ORTEZ03/04/22 1750 Cait Linares.RESULTS READ BACK BY SAME. Blood lymphocytes/100 leukoc yteson 03-04-2022 Lymphocytes/100 WBC (Bld) 44.5 % 19-41 [facility] Work Phone: Blood manual differential co mment interpretation (narrative result)on 03-04-2022 Manual differential comment Arnoldo (Bld) [Interp] SCANNED [facility] Work Phone: Blood monocytes/100 leukocyt eson 03-04-2022 Monocytes/100 WBC (Bld) 11.2 % 0-10 [facility] Work Phone: Blood platelet mean volumeon 03-04-2022 Platelet mean volume (Bld) [Entitic vol] 10.8 fL 6.2-12.0 [facility] Work Phone: Chest 1 View (Portable)on Chest 1 View (Portable) [facility] Imaging Services [address] [place] [address] Chest 1 View (Portable) MR#: [id number] Acct: [id number] Name: ARLIEN KHAN Rep #: [id number] : 1955 M 66 From: Medhat Schaffer MD PCP: [facility] Status: PRE ER Study: Chest 1 View (Portable) Date of Exam: 03/04/22 Exam# [id number] Ordering Dr: Gorge Desai MD STUDY: X-RAY [...] 18:10 EST Reading Location ID and State: [facility] / [place] , Service support , CC: Dr. Gorge Desai MD; [facility] [employer] Heater Mechanic: Signed Normal [facility] Determination of erythrocyte mean corpuscular volume (MCV)on 03-04-2022 MCV (RBC) [Entitic vol] 93.6 fL 80-94 [facility] Work Phone: Emergency Department Summary on 03-04-2022 Emergency Department Summary [facility] Medical Records Department [address] [place] [address] Emergency Department Summary 03/04/22 MR#: [id number] Acct: [id number] Name: ARLINE KHAN J Rep #: [id number] : 1955 66 From: Gorge Desai MD PCP: [place] Status:REG ER Location: ED HPI History [...] a history of atrial fibrillation and PE. [facility] Medical History Afib High cholesterol HTN (hypertension) [...] wheezing bu (more content not included)... Normal [facility] Hematocrit Auto (Bld) [Volum e fraction]on 03-04-2022 Hematocrit (Bld) [Volume fraction] 52.8 % 40-54 [facility] Work Phone: [id number] 03-04-2022 TROPONIN-I HS 6 pg/mL Normal 3.0-78.0 [facility] Comment on above: Order Comment: 'TROP ' Serial specimen #1, #2 or #3: 1 Result Comment: Plea se Note: New Test Units and Gender Specific Reference Ranges. For more information see Policy Stat Procedure [place] High Sensitivity Troponin (TNIH) and attachments. Performed By: #### L 100.0100, L500.2500, L501.4020 #### [facility] [address] [facility] [place], [place], [id number] Laboratory - Chemistry and C hemistry - challengeon 03-04-2022 CO2 [Moles/Vol] 25.0 mmol/L 21.0-32.0 [facility] Work Phone: Urea nitrogen/Creatinine [Mass ratio] 21.4 mg/mg 10-20 [facility] Work Phone: Laboratory - Hematology and Cell countson 03-04-2022 Erythrocyte distribution width (RBC) [Entitic vol] 46.3 fL 35.1-43.9 [facility] Work Phone: Erythrocyte distribution width (RBC) [Ratio] 13.4 % 11.6-14.6 [facility] Work Phone: Immature granulocytes/100 WBC (Bld) 0.200 % 0.0-0.9 [facility] Work Phone: Comment on above: IG% - Immature Granu locytes (promyelocytes, myelocytes and metamyelocytes) > 1% indicates that a LEFT SHIFT is Present. MCH (RBC) [Entitic mass] 32.3 pg 27.0-32.0 [facility] Work Phone: Nucleated RBC/100 WBC (Bld) [Ratio] 0 % 0-5 [facility] Work Phone: [id number] 03-04-2022 M101.0111 *Negative results [...] for Influenza A/B Antigen (See Note) Normal [facility] Comment on above: Performed By: #### M 101.0111 #### [facility] [place], [address] MCHC Auto (RBC) [Mass/Vol]on 03-04-2022 MCHC (RBC) [Mass/Vol] 34.5 g/dL 32-36 [facility] Work Phone: No Panel Informationon 03-04 Estimated Creatinine Clearance Calc 41.01 ml/min [facility] Work Phone: Estimated GFR (MDRD) Amer 42 mL/min >60 [facility] Work Phone: Comment on above: GFR Calc Estimated GFR (MDRD) Non-Af Amer 35 mL/min >60 [facility] Work Phone: Comment on above: Non- GFR Calc Reactive Lymphocytes 1+ [facility] Work Phone: Troponin I High Sensitivity 6 pg/mL 3.0-78.0 [facility] Work Phone: Comment on above: Please Note: New Racheal t Units and Gender Specific Reference Ranges. For more information see Policy Stat Procedure [place] High Sensitivity Troponin (TNIH) and attachments. Platelets bldon 03-04-2022 Platelets (Bld) [#/Vol] 153 10*3/uL 150-450 [facility] Work Phone: Review by pathologiston 02-17 Pathologist review Arnoldo (Unsp spec) [Interp] May foll [facility] Work Phone: Serum or plasma calcium roby urement (mass/volume)on 03-04-2022 Calcium [Mass/Vol] 8.8 mg/dL 8.5-10.1 [facility] Work Phone: Serum or plasma creatinine m easurement (mass/volume)on 03-04-2022 Creatinine [Mass/Vol] 2.06 mg/dL 0.70-1.30 [facility] Work Phone: Comment on above: The validity of the calculated GFR & GFRAA in patients over 70 years has not been determined. Clinical correlation is essential. Serum or plasma urea nitroge n measurement (mass/volume)on 03-04-2022 Urea nitrogen [Mass/Vol] 44 mg/dL 7-18 [facility] Work Phone: Thin prep Papanicolaou smear with manual screeningon 03-04-2022 Thin prep Papanicolaou smear with manual screening 8 5-15 [facility] Work Phone: SURG TISSUEon 01-27-2021 SURG TISSUE [...] MEROPENEM <4 S DAPTOMYCIN <1 S Normal [facility] Comment on above: Order Comment: Rio s: M : PT ON HEPARIN DRIP Performed By: #### L 300.28258 #### [facility] [address] [place] [address] ANAER CULTUREon 01-26-2021 ANAER CULTURE RESULT NO GROWTH OF ANAEROBES Normal [facility] Comment on above: Order Comment: Rio s: M : PT ON HEPARIN DRIP Performed By: #### L 300.60863 #### [facility] [address] [place] [address] BLOOD CULTUREon 01-22-2021 Bacteria identified Cx Nom (Bld) NO GROWTH AFTER 5 DAYS Normal [facility] Comment on above: Order Comment: Rio s: M Performed By: #### M 050.99252 #### [facility] [address] [place] [address] Performed By: #### M 050.66205 ####[facility] [id number] [place], [place] [id number]# [phone] BMPon 01-21-2021 Anion gap [Moles/Vol] 8 mmol/L Normal 5-16 [facility] Comment on above: Performed By: #### L 300.72645 #### [facility] [address] [place] [address] Calcium [Mass/Vol] 8.9 mg/dL Normal 8.5-10.5 [facility] Comment on above: Result Comment: NOTE NEW NORMAL RANGE DUE TO REAGENT CHANGE Performed By: #### L 300.85666 #### [facility] [address] [place] [address] Chloride [Moles/Vol] 103 mmol/L Normal 98-107 [facility] Comment on above: Performed By: #### L 300.73330 #### [facility] [address] [place] [address] CO2 [Moles/Vol] 26.0 mmol/L Normal 21-32 [facility] Comment on above: Performed By: #### L 300.75811 #### [facility] [place] [address] Creatinine [Mass/Vol] 1.20 mg/dL Normal 0.5-1.4 [facility] Comment on above: Result Comment: NOTE NEW NORMAL RANGE DUE TO REAGENT CHANGE Patients receiving either N-Acetylcysteine (NAC) or Metamizole prior to venipuncture, may have falsely depressed results. Performed By: #### L 300.39050 #### [facility] [place] [id number] Glucose [Mass/Vol] 77 mg/dL Normal 70-100 [facility] Comment on above: Result Comment: 70-1 00- Normal Fasting; 100-125 Impaired Fasting; greater than 126 on more than one result- Diabetes. ADA guidelines. Results may be falsely elevated after the administration of Sulfapyridine. Results may be falsely depressed after the administration of Sulfasalazine. Performed By: #### L 300.22908 #### [facility] [address] [place] [address] Potassium [Moles/Vol] 4.4 mmol/L Normal 3.5-5.1 [facility] Comment on above: Performed By: #### L 300.42105 #### [facility] [address] [place] [address] Sodium [Moles/Vol] 137 mmol/L Normal 136-145 [facility] Comment on above: Performed By: #### L 300.80211 #### [facility] [place] [address] Urea nitrogen [Mass/Vol] 17 mg/dL Normal 7-26 [facility] Comment on above: Performed By: #### L 300.79330 #### [facility] [address] [place] [address] Urea nitrogen/Creatinine [Mass ratio] 14 mg/mg Low 15-24 [facility] Comment on above: Performed By: #### L 300.39216 #### [facility] [address] [place] [address] EKGon 01-21-2021 Electrocardiogram Procedure Date and T [...] ENRIQUEZ M.D.FACC Nikky DDandT: 01/21/21 1200 TDandT: [facility] PATIENT NAME: ARLINE KHAN [facility] MEDICAL REC #: [id number] [place] [address] ADMIT DATE: DISCHARGE DATE: ATTENDING PHY: Bee Isabel MD ELECTROCARDIOGRAM REPORT CLB cc: [facility] PATIENT NAME: ARLINE KHAN [facility] MEDICAL REC #: [id number] [place] [address] ADMIT DATE: DISCHARGE DATE: ATTENDING PHY: Bee Isabel MD ELECTROCARDIOGRAM REPORT Normal [facility] GFR ESTon 01-21-2021 IF AMER Greater than 60 Normal [facility] Comment on above: Performed By: #### L 300.28759 #### [facility] [address] [place] [address] IF non-AFR AMER Greater than 60 Normal [facility] Comment on above: Performed By: #### L 300.91480 #### [facility] [address] [place] [address] PTon 01-21-2021 INR Coag (PPP) [Relative time] 1.03 {INR} Normal 0.9-1.1 [facility] Comment on above: Result Comment: Taz mmended PT INR therapeutic range for medical terminologist and prophylactic therapy is 2.0 - 3.0. For heart valve and shunt patients the range is 2.5 - 3.5. Performed By: #### M 050.05095 #### [facility] [address] [place] [address] PTS 11.0 SECONDS Normal 9.5-12.0 [facility] Comment on above: Performed By: #### M 050.15651 #### [facility] [address] [place] [address] PTTon 01-21-2021 aPTT Coag (Bld) [Time] 30.8 s Normal 22.0-31.5 [facility] Comment on above: Result Comment: Ther apeutic [...] using the PTT. Performed By: #### M 050.44715 #### [facility] [place] [id number] Cierra 01-17-2021 EMERGENCY PHYSICIAN REPORT This is a preliminary report only, as the practitioner review and authentication has not occurred. Normal [facility] ER PHYSICIAN ASSESSMENT RECORDS : FlexChartData Event Time: 01/17/2021 13:15 [facility] Status: Signed [facility] Arline Khan [[id number]] Mid-Level Chart (V2b) 65 / M / 1955 Chart created at 01/17/2021 13:04 by Remington Hinton Chart closed at 01/17/2021 13:10 Entry in Emergency Department at 01/17/2021 11:36, departure at 01/17/2021 13:38 Patient Name: Arline Khan Record Number: [id number] Date: 01/17/2021 13:04 Entered Department at: 01/17/2021 [...] for this fall previously. He was told [facility] PATIENT NAME: ARLINE KHAN [address] [facility] [address] MEDICAL REC #: [id number] [place] [address] EMERGENCY DEPARTMENT REPORT EMERGENCY DEPARTMENT PHYSICIAN by [...] Dr. Bee Peres who is on-call for [facility] PATIENT NAME: ARLINE KHAN [address] [facility] [address] MEDICAL REC #: [id number] [place] [address] EMERGENCY DEPARTMENT REPORT EMERGENCY DEPARTMENT PHYSICIAN trauma/Ortho. [...] Status: Signed [facility] Arline Khan [[id number]] Attending Physician 65 / M / 1955 Chart (V2b) Chart created at 01/17/2021 13:36 by Rafa Ta Chart closed at 01/17/2021 13:37 Entry in Emergency Depa (more content not included)... Normal [facility] ANAER CULTUREon 11-04-2020 ANAER CULTURE NO GROWTH OF ANAEROB ES AFTER 5 DAYS Normal [facility] Comment on above: Order Comment: Rio s: Arely Minimal Draw: Y : [facility] Performed By: #### L 300.82443 #### [facility] [address] [place] [address] BLOOD CULTUREon 11-03-2020 Bacteria identified Cx Nom (Bld) NO GROWTH AFTER 5 DAYS Normal [facility] Comment on above: Order Comment: Rio borjas: Arely Performed By: #### M 050.08068 #### [facility] [address] [place] [address] Order Comment: Rio s: Arely Minimal Draw: Y : [facility] Performed By: #### L 300.11434 #### [facility] [address] [place] [address] SURG TISSUEon 11-02-2020 SURG TISSUE GRAM STAIN [...] DAPTOMYCIN <1 S CEFTAROLINE <0.5 S Normal [facility] Comment on above: Order Comment: Rio Mcgee : #1 FLUID COLLECTION LEFT FOREARM AEROBIC CULTURE Performed By: #### M 100.97049 #### [facility] [address] [place] [address] BMPon 11-01-2020 Anion gap [Moles/Vol] 4 mmol/L Low 5-16 [facility] Comment on above: Order Comment: Rashawnu s: M : PT ON HEPARIN DRIP Performed By: #### L 300.74915 #### [facility] [address] [place] [address] Calcium [Mass/Vol] 8.7 mg/dL Normal 8.5-10.5 [facility] Comment on above: Order Comment: Rashawnu s: M : PT ON HEPARIN DRIP Result Comment: NOTE NEW NORMAL RANGE DUE TO REAGENT CHANGE Performed By: #### L 300.00705 #### [facility] [address] [place] [address] Chloride [Moles/Vol] 110 mmol/L High 98-107 [facility] Comment on above: Order Comment: Rashawnu s: M : PT ON HEPARIN DRIP Performed By: #### L 300.61863 #### [facility] [address] [place] [address] CO2 [Moles/Vol] 25.0 mmol/L Normal 21-32 [facility] Comment on above: Order Comment: Rio s: M : PT ON HEPARIN DRIP Performed By: #### L 300.79376 #### [facility] [address] [place] [address] Creatinine [Mass/Vol] 1.08 mg/dL Normal 0.5-1.4 [facility] Comment on above: Order Comment: Rashawnu s: M : PT ON HEPARIN DRIP Result Comment: NOTE NEW NORMAL RANGE DUE TO REAGENT CHANGE Patients receiving either N-Acetylcysteine (NAC) or Metamizole prior to venipuncture, may have falsely depressed results. Performed By: #### L 300.23045 #### [facility] [address] [place] [address] Glucose [Mass/Vol] 109 mg/dL High 70-100 [facility] Comment on above: Order Comment: Rio s: M : PT ON HEPARIN DRIP Result Comment: 70-1 00- Normal Fasting; 100-125 Impaired Fasting; greater than 126 on more than one result- Diabetes. ADA guidelines. Results may be falsely elevated after the administration of Sulfapyridine. Results may be falsely depressed after the administration of Sulfasalazine. Performed By: #### L 300.60528 #### [facility] [address] [place] [address] Potassium [Moles/Vol] 4.3 mmol/L Normal 3.5-5.1 [facility] Comment on above: Order Comment: Campu s: M : PT ON HEPARIN DRIP Result Comment: Slig ht Hemolysis, Result may be affected. Performed By: #### L 300.76150 #### [facility] [address] [place] [address] Sodium [Moles/Vol] 139 mmol/L Normal 136-145 [facility] Comment on above: Order Comment: Campu s: M : PT ON HEPARIN DRIP Performed By: #### L 300.38560 #### [facility] [address] [place] [address] Urea nitrogen [Mass/Vol] 17 mg/dL Normal 7-26 [facility] Comment on above: Order Comment: Campu s: M : PT ON HEPARIN DRIP Performed By: #### L 300.28138 #### [facility] [address] [place] [address] Urea nitrogen/Creatinine [Mass ratio] 16 mg/mg Normal 15-24 [facility] Comment on above: Order Comment: Campu s: M : PT ON HEPARIN DRIP Performed By: #### L 300.26601 #### [facility] [address] [place] [address] CBCon 11-01-2020 Erythrocyte distribution width (RBC) [Ratio] 13.5 % Normal 11-14.5 [facility] Comment on above: Order Comment: Rashawnu s: M : PT ON HEPARIN DRIP Performed By: #### L 300.86863 #### [facility] [address] [place] [address] Hematocrit (Bld) [Volume fraction] 31.9 % Low 41.0-53.0 [facility] Comment on above: Order Comment: Rio s: M : PT ON HEPARIN DRIP Performed By: #### L 300.58500 #### [facility] [address] [place] [address] Hemoglobin (Bld) [Mass/Vol] 10.4 g/dL Low 13.5-17.5 [facility] Comment on above: Order Comment: Rio s: M : PT ON HEPARIN DRIP Performed By: #### L 300.00964 #### [facility] [address] [place] [address] MCHC (RBC) [Mass/Vol] 32.6 g/dL Normal 32.0-36.0 [facility] Comment on above: Order Comment: Rio s: M : PT ON HEPARIN DRIP Performed By: #### L 300.73861 #### [facility] [address] [place] [address] MCV (RBC) [Entitic vol] 104.6 fL High 80.0-99.0 [facility] Comment on above: Order Comment: Rio s: M : PT ON HEPARIN DRIP Performed By: #### L 300.08120 #### [facility] [address] [place] [address] Nucleated RBC/100 WBC (Bld) [Ratio] 0.0 % Normal Less than 1 [facility] Comment on above: Order Comment: Rio s: M : PT ON HEPARIN DRIP Performed By: #### L 300.37332 #### [facility] [address] [place] [address] Platelet mean volume (Bld) [Entitic vol] 9.4 fL Normal 9.4-12.4 [facility] Comment on above: Order Comment: Rio s: M : PT ON HEPARIN DRIP Performed By: #### L 300.63109 #### [facility] [address] [place] [address] 60258 PLT 323 K/CU MM Normal 150-450 [facility] Comment on above: Order Comment: Rio s: M : PT ON HEPARIN DRIP Performed By: #### L 300.41165 #### [facility] [address] [place] [address] 12978 RBC 3.05 M/CU MM Low 4.50-6.00 [facility] Comment on above: Order Comment: Rio s: M : PT ON HEPARIN DRIP Performed By: #### L 300.20259 #### [facility] [address] [place] [address] 59908 WBC 12.3 K/CUMM High 4.5-11.0 [facility] Comment on above: Order Comment: Rio s: M : PT ON HEPARIN DRIP Performed By: #### L 300.41385 #### [facility] [address] [place], [place] [id number] DISCH.SUMon 11-01-2020 DISCH.[facility] Patient Name: ARLINE KHAN [address] [place] [address] NW Date of : [address] [place] [address] Unit Number: [id number] Discharge Summary Patient Status: ADM IN Attending [...] 65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 Phonetic and/or minor grammatical errors may exist. eSign Date and Time Zofia Zarco DO Verified/Reviewed by 11/01/20 1538 [facility] GFR ESTon 11-01-2020 IF AMER Greater than 60 [facility] Comment on above: Order Comment: Rio s: M : PT ON HEPARIN DRIP Performed By: #### L 300.37729 #### [facility] [address] [place] [address] 61517 IF non-AFR AMER Greater than 60 [facility] Comment on above: Order Comment: Rio s: M : PT ON HEPARIN DRIP Performed By: #### L 300.69123 #### [facility] [address] [place] [address] PROG.ORTHOon 11-01-2020 PROG.ORTHO [facility] Patient Name: ARLINE KHAN [address] Date of : [address] [place] [address] Unit Number: [id number] Progress Note-Ortho Patient Status: ADM IN Attending [...] full fist. Diagnostic Data Lab 24hr (CBC/BMP [facility]) 11/01/20 0524: [Embedded Image Not [...] Zaira Sharp PAC Verified/Reviewed by 11/01/20 0910 [facility] Progress Note-Ortho [facility] PTTon 11-01-2020 aPTT Coag (Bld) [Time] 59.2 s High 22.0-31.5 [facility] Comment on above: Order Comment: Rio s: [...] using the PTT. Performed By: #### L 300.82619 ####[facility] [id number] [place], [place] [address]Dt# [phone] aPTT Coag (Bld) [Time] 60.4 s High 22.0-31.5 [facility] Comment on above: Order Comment: Rashawnu s: [...] using the PTT. Performed By: #### L 300.16844 #### [facility] [address] [place] [address] CBCon 10-31-2020 Erythrocyte distribution width (RBC) [Ratio] 12.8 % Normal 11-14.5 [facility] Comment on above: Order Comment: Rio s: M : PT ON HEPARIN DRIP Performed By: #### L 300.59205 #### [facility] [place] [address] Hematocrit (Bld) [Volume fraction] 38.2 % Low 41.0-53.0 [facility] Comment on above: Order Comment: Rio s: M : PT ON HEPARIN DRIP Performed By: #### L 300.65730 #### [facility] [place] [address] Hemoglobin (Bld) [Mass/Vol] 12.8 g/dL Low 13.5-17.5 [facility] Comment on above: Order Comment: Rio s: M : PT ON HEPARIN DRIP Performed By: #### L 300.34965 #### [facility] [place] [address] MCHC (RBC) [Mass/Vol] 33.5 g/dL Normal 32.0-36.0 [facility] Comment on above: Order Comment: Rio s: M : PT ON HEPARIN DRIP Performed By: #### L 300.38790 #### [facility] [address] [place], [place] [address] MCV (RBC)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 Order Comment: Rio s: [...] performed by PCR. Performed By: #### L 770.51576 ####[facility] [id number] [place], [place] [address]Sr# [phone] WSR/MODon 10-29-2020 WSR/MOD 53 MM/HR High 0-20 [facility] Comment on above: Order Comment: Rio s: M Performed By: #### M 050.67723 #### [facility] [address] [place] [address] [facility] 10-24-2020 CONSULTATION REPORT Normal [facility] Cierra 10-24-2020 EMERGENCY PHYSICIAN REPORT This is a preliminary report only, as the practitioner review and authentication has not occurred. Normal [facility] ER PHYSICIAN ASSESSMENT RECORDS : FlexChartData Event Time: 10/24/2020 18:10 [facility] Status: Signed [facility] Arline Khan [[id number]] Mid-Level Chart (V2b) 65 / M / 1955 Chart created at 10/24/2020 18:02 by Remington Hinton Chart closed at 10/24/2020 18:25 Entry in Emergency Department at 10/24/2020 17:02, departure at 10/24/2020 18:58 Patient Name: Arline Khan Record Number: [id number] Date: 10/24/2020 18:02 Entered Department at: 10/24/2020 17:02 Patient Seen at: 10/24/2020 17:51 PCP: douglas Chief Complaint:PATIENT REPORTS FALL TODAY AT 0530 AND REPORTS TAKING BLOOD THINNERS GENERIC VERSION OF HEPARIN. PATIENT REPORTS INCREASED SWELLING AND MOTTLED SKIN. DENIES LOC, OR HEAD INJURIES. History of Present Illness: Patient sent from [place] emergency room for evaluation of a left forearm injury that occurred at 530 this morning. Patient suffered a mechanical fall from standing height onto his left forearm. Plain films at [place] demonstrated no fractures. Patient is on an injectable blood thinner for blood clots. He was sent to our facility because of concern for compartment syndrome. It was reported that he had discoloration to his hand. It was reported he had ulnar and radial pulse. He had decreased capillary refill. Orthopedics was consulted at [place] and preferred that the emergency room send the patient out. Patient states his tetanus was updated. Patient denies [facility] PATIENT NAME: ARLINE KHAN [address] [facility] [address] MEDICAL REC #: [id number] [place] [address] EMERGENCY DEPARTMENT REPORT EMERGENCY DEPARTMENT PHYSICIAN any [...] Making Patient was sent to us by [facility] ER for concern of compartment syndrome. I discussed the case and my examination findings with Dr. Anaya who evaluated the patient at bedside who did not recommend any emergent work-up. He did not feel this was compartment [facility] PATIENT NAME: ARLINE KHAN [address] [address] MEDICAL REC #: [id number] [place] [address] EMERGENCY DEPARTMENT REPORT EMERGENCY DEPARTMENT PHYSICIAN syndrome. [...] Status: Signed [facility] Arline Khan [[id number]] Attending Physician 65 / M / 1955 Addendum (V2b) Chart created at 10/24/2020 18:40 by Dayana Desai Chart closed at 10/24/2020 18:45 Entry in Emergency Department at 10/24/2020 17:02, departur (more content not included)... [facility] EMERGENCY DEPARTMENTon 08-30 [place] [address] HEALTH INFORMATION MANAGEMENT EMERGENCY DEPARTMENT : Signed Patient: ARLINE KHAN Acct:[id number] MRUN: M [id number] : 1955 Sex: M Loc: ED ADM [...] Q6H PRN 3 Days #12 tablet 08/26/18 [[place] 5/325 mg Tablet] MDD 4 Naproxen [Naprosyn] [...] Relationship: No Hx Physical Abuse: No - [place]/Gender ID What is your current Gender Identity? [...] 2+, knee (L): 2+ Best Eye Response ([place]): (4) open spontaneously Best Motor Response (Jessica): (6) obeys commands Best Verbal Response (Jessica): (5) oriented - Psychiatric Psychiatric exam: Present: normal affect, normal mood - Skin Skin Color: Present: Normal, [place] Skin exam: Present: warm, dry - Expanded [...] PRN #20 tablet 08/26/18 [Rx] Hydrocodone Bit/Acetaminophen [[place] 5/325 mg Tablet] 1 tab PO Q6H [...] Q6H PRN 3 Days #12 tablet 08/26/18 [[place] 5/325 mg Tablet] MDD 4 Naproxen [Naprosyn] 500 mg PO BID PRN #20 tablet 08/26/18 Prednisone 1 - 3 tab PO DAILY #18 tablet 08/26/18 Home medications and allergies reviewed: Yes Time Seen by Provider: 08/26/18 15:59 Patient seen by Midlevel: Independently - Consultation I saw and examined the patient: Yes Nurses Notes Reviewed and Agreed With?: Yes - Dictation Amendments/Documentation: Caterna Document Only Electronically Generated By: TAMMY MANRIQUEZ PA-C Generated Date/Time: 08/26/18 1739 Electronically Signed By: TAMMY MANRIQUEZ PA-C Signed Date/Time 08/26/18 1753 Co Signed Electronically By: Co Signed Date/Time: 08/30/18 1549 08/30/18 1549 CC: MATHEW MOFFETT APRN, CNP Normal [facility] CT LUMBAR WOon 08-26-2018 CT LUMBAR WO [...] if continued symptomatology or clinical suspicion. Normal [facility] EMERGENCY DEPARTMENT SUMMARY on 04-28-2017 EMERGENCY DEPARTMENT SUMMARY [facility] EMERGENCY DEPARTMENT SUMMARY NAME NUMBER SEX AGE ADMIT DISC TYPE MED.RECORD# BETINA Chirinos [id number] M 61 04/21/17 04/21/17 [place] [id number] ROOM:ER-A DATE OF :1955 PHYSICIAN NO.:[id number] PHYSICIAN NAME:FREDI Valladares M.D. PHYSICIAN: CHIEF COMPLAINT: [...] Yeyo Valladares MD TD: 12:56 JOB #: [id number] Electronically signed by: FREDI Valladares M.D. 04/28/17 07:00 Transcribed by: am 04/22/2017 10:48 DD: DT: JOB #: ELECTRONICALLY SIGNED BY: FREDI Valladares M.D. 04/28/17 07:00 Transcribed by: AM 04/22/17 10:48 Normal [facility] Critical Care Progress Notes on 03-15-2017 Critical Care Progress Notes Normal [facility] ([place]) CBLon 02-21-2017 CBL . MICRO - MicrobiologyPROCEDURE: [...] days.Performing Locations*1: This test was performed at: [address], [address] [place] [address] ([place]) Comment on above: Performed By: #### C BC, ADIFF, ANEU, GFR, CMP, TROPI ####[place] [address] CBL . MICRO - MicrobiologyPROCEDURE: Blood Culture [...] days.Performing Locations*1: This test was performed at: [address], [address] [place] [address] ([place]) Comment on above: Performed By: #### C BC, ADIFF, ANEU, GFR, CMP, TROPI ####[place] [address] Discharge Summaryon 02-22-20 17 Discharge Summary Normal [facility] ([place]) Discharge Summary Normal [facility] ([place]) GLUCOSE BEDSIDEon 02-19-2017 GLU BEDSIDE 100 mg/dl Normal 60 - 100 [facility] Comment on above: Performed By: #### 2 [address] ####[facility],[address] [place] [address] Glucose mass conc Normal [facility] Comment on above: Result Comment: POIN T OF CARE GLUCOSE TEST Performed By: #### 2 56545 ####[facility],[address] [place] [address] .Auto Diffon 02-18-2017 Basophils Auto #/vol (Bld) 0.00 10 3/mcL Normal 0.00-0.27 [facility] ([place]) Comment on above: Performed By: #### C BC, ADIFF, ANEU, GFR, CMP, TROPI ####[address] [address] Basophils/100 WBC Auto (Bld) 0.4 % Normal 0.0-2.5 [facility] ([place]) Comment on above: Performed By: #### C BC, ADIFF, ANEU, GFR, CMP, TROPI ####[address] [address] Eosinophils 0.20 10 3/mcL Normal 0.00-0.65 [facility] ([place]) Comment on above: Performed By: #### C BC, ADIFF, ANEU, GFR, CMP, TROPI ####[address] [address] Eosinophils/100 leukocytes 1.7 % Normal 0.0-6.0 [facility] ([place]) Comment on above: Performed By: #### C BC, ADIFF, ANEU, GFR, CMP, TROPI ####[address] [address] Lymphocytes 1.20 10 3/mcL Normal 0.90-4.32 [facility] ([place]) Comment on above: Performed By: #### C BC, ADIFF, ANEU, GFR, CMP, TROPI ####[place] [id number] [address] [place] [address] Lymphocytes/100 leukocytes 13.4 % Low 20.0-40.0 [facility] ([place]) Comment on above: Performed By: #### C BC, ADIFF, ANEU, GFR, CMP, TROPI ####[address] [address] Monocytes 0.80 10 3/mcL Normal 0.09-1.40 [facility] ([place]) Comment on above: Performed By: #### C BC, ADIFF, ANEU, GFR, CMP, TROPI ####[address] [address] Monocytes/100 leukocytes 8.4 % Normal 2.0-13.0 [facility] ([place]) Comment on above: Performed By: #### C BC, ADIFF, ANEU, GFR, CMP, TROPI ####[address] [address] Neutrophils/100 WBC Auto (Bld) 76.1 % High 50.0-75.0 [facility] ([place]) Comment on above: Performed By: #### C BC, ADIFF, ANEU, GFR, CMP, TROPI ####[address] [address] .GFRon 02-18-2017 eGFR (non-black) 24 ml/min/1.73sqm Normal [facility] ([place]) Comment on above: Result Comment: GFR [...] C BC, ADIFF, ANEU, GFR, CMP, TROPI ####[place] [address] eGFR (non-black) 30 ml/min/1.73sqm Normal [facility] ([place]) Comment on above: Result Comment: GFR Population [...] C BC, ADIFF, ANEU, GFR, CMP, TROPI ####[place] [address] .NEUABSon 02-18-2017 Neutrophils 7.00 10 3/mcL Normal 2.25-8.10 [facility] ([place]) Comment on above: Performed By: #### C BC, ADIFF, ANEU, GFR, CMP, TROPI ####[place] [address] APTTon 02-18-2017 aPTT Heparin IV Normal [facility] ([place]) Comment on above: Performed By: #### C BC, ADIFF, ANEU, GFR, CMP, TROPI ####[place] [address] aPTT 69.0 s High 25.0-35.0 [facility] ([place]) Comment on above: Result Comment: For Heparin anticoagulation therapy, the recommendedtherapeutic range is: 54-77 seconds (APTT Correlationwith Anti-Xa therapeutic range of 0.3-0.7 units/ml).PLEASE REFERENCE THE PHARMACY PROTOCOL FOR DOSING. Performed By: #### C BC, ADIFF, ANEU, GFR, CMP, TROPI ####[place] [address] BMPon 02-18-2017 BUN/Creatinine Ratio 25.5 ratio High 10.0-22.0 [facility] ([place]) Comment on above: Performed By: #### C BC, ADIFF, ANEU, GFR, CMP, TROPI ####[place] [address] Calcium 8.4 mg/dL Normal 8.4-10.1 [facility] ([place]) Comment on above: Performed By: #### C BC, ADIFF, ANEU, GFR, CMP, TROPI ####[place] [address] Chloride 109 mmol/L Normal 98-110 [facility] ([place]) Comment on above: Performed By: #### C BC, ADIFF, ANEU, GFR, CMP, TROPI ####[place] [address] CO2 26 mmol/L Normal 22-32 [facility] ([place]) Comment on above: Performed By: #### C BC, ADIFF, ANEU, GFR, CMP, TROPI ####[place] [address] Creatinine 2.67 mg/dL High 0.60-1.40 [facility] ([place]) Comment on above: Performed By: #### C BC, ADIFF, ANEU, GFR, CMP, TROPI ####[place] [address] Electrolyte Balance 8.0 mEq/L Normal 4.0-15.0 [facility] ([place]) Comment on above: Performed By: #### C BC, ADIFF, ANEU, GFR, CMP, TROPI ####[place] [address] Glucose mass conc 102 mg/dL Normal 82-115 [facility] ([place]) Comment on above: Performed By: #### C BC, ADIFF, ANEU, GFR, CMP, TROPI ####[place] [address] Potassium molar conc 4.0 mmol/L Normal 3.5-5.0 [facility] ([place]) Comment on above: Performed By: #### C BC, ADIFF, ANEU, GFR, CMP, TROPI ####[place] [address] Sodium 143 mmol/L Normal 136-145 [facility] ([place]) Comment on above: Performed By: #### C BC, ADIFF, ANEU, GFR, CMP, TROPI ####[place] [address] Urea nitrogen 68.0 mg/dL High 8.0-22.0 [facility] ([place]) Comment on above: Performed By: #### C BC, ADIFF, ANEU, GFR, CMP, TROPI ####[place] [address] CAIONo 02-18-2017 Calcium Ionized 1.20 mmol/L Normal 1.12-1.32 [facility] ([place]) Comment on above: Performed By: #### C BC, ADIFF, ANEU, GFR, CMP, TROPI ####[place] [address] CBCon 02-18-2017 Erythrocyte distribution width Auto Ratio (RBC) 14.9 % Normal 11.5-15.5 [facility] ([place]) Comment on above: Performed By: #### C BC, ADIFF, ANEU, GFR, CMP, TROPI ####[place] [address] Erythrocytes (RBC) 4.37 10 6/mcL Low 4.50-6.00 [facility] ([place]) Comment on above: Performed By: #### C BC, ADIFF, ANEU, GFR, CMP, TROPI ####[place] [address] Hematocrit (HCT) 42.2 % Normal 40.0-52.0 [facility] ([place]) Comment on above: Performed By: #### C BC, ADIFF, ANEU, GFR, CMP, TROPI ####[place] [address] Hemoglobin mass conc (Bld) 14.0 G/dL Normal 13.0-17.5 [facility] ([place]) Comment on above: Performed By: #### C BC, ADIFF, ANEU, GFR, CMP, TROPI ####[place] [address] MCH 32.0 pg Normal 27.0-33.0 [facility] ([place]) Comment on above: Performed By: #### C BC, ADIFF, ANEU, GFR, CMP, TROPI ####[place] [address] MCHC mass conc (RBC) 33.2 G/dL Normal 32.0-36.0 [facility] ([place]) Comment on above: Performed By: #### C BC, ADIFF, ANEU, GFR, CMP, TROPI ####[place] [address] MCV 96.5 fL Normal 81.0-100.0 [facility] ([place]) Comment on above: Performed By: #### C BC, ADIFF, ANEU, GFR, CMP, TROPI ####[place] [address] Platelet mean volume (PMV) 8.7 fL Normal 6.4-10.5 [facility] ([place]) Comment on above: Performed By: #### C BC, ADIFF, ANEU, GFR, CMP, TROPI ####[place] [address] Platelets 243 10 3/mcL Normal 150-450 [facility] ([place]) Comment on above: Performed By: #### C BC, ADIFF, ANEU, GFR, CMP, TROPI ####[place] [address] WBC (Leukocytes) 9.20 10 3/mcL Normal 4.50-10.80 [facility] ([place]) Comment on above: Performed By: #### C BC, ADIFF, ANEU, GFR, CMP, TROPI ####[place] [address] CURon 02-18-2017 CUR . MICRO - MicrobiologyPROCEDURE: [...] SusceptibleSulfaPerforming Locations*1: This test was performed at: [address], [address] [place] [address] Normal [facility]) Comment on above: Performed By: #### C BC, ADIFF, ANEU, GFR, CMP, TROPI ####[place] [address] Depart Summaryon 02-18-2017 Depart Summary Normal [facility]) Inpatient Patient Summaryon 02-18-2017 Inpatient Patient Summary Normal [facility]) MGon 02-18-2017 Magnesium 2.8 mg/dL High 1.6-2.4 [facility]) Comment on above: Performed By: #### C BC, ADIFF, ANEU, GFR, CMP, TROPI ####[place] [address] Nephrology Progress Noteon 1 04-20-2016 Nephrology Progress Note Normal [facility]) PHOSon 02-18-2017 Phosphate 4.4 mg/dL Normal 2.5-4.5 [facility]) Comment on above: Performed By: #### C BC, ADIFF, ANEU, GFR, CMP, TROPI ####[place] [address] Progress Noteon 02-18-2017 Progress Note Normal [facility] ([place]) .Auto Diffon 02-17-2017 Basophils Auto #/vol (Bld) 0.00 10 3/mcL Normal 0.00-0.27 [facility] ([place]) Comment on above: Performed By: #### C BC, ADIFF, ANEU, GFR, CMP, TROPI ####[address] [address] Basophils/100 WBC Auto (Bld) 0.2 % Normal 0.0-2.5 [facility] ([place]) Comment on above: Performed By: #### C BC, ADIFF, ANEU, GFR, CMP, TROPI ####[address] [address] Eosinophils 0.00 10 3/mcL Normal 0.00-0.65 [facility] ([place]) Comment on above: Performed By: #### C BC, ADIFF, ANEU, GFR, CMP, TROPI ####[address] [address] Eosinophils/100 leukocytes 0.3 % Normal 0.0-6.0 [facility] ([place]) Comment on above: Performed By: #### C BC, ADIFF, ANEU, GFR, CMP, TROPI ####[address] [address] Lymphocytes 0.30 10 3/mcL Low 0.90-4.32 [facility] ([place]) Comment on above: Performed By: #### C BC, ADIFF, ANEU, GFR, CMP, TROPI ####[address] [address] Lymphocytes/100 leukocytes 2.9 % Low 20.0-40.0 [facility] ([place]) Comment on above: Performed By: #### C BC, ADIFF, ANEU, GFR, CMP, TROPI ####[address] [address] Monocytes 0.60 10 3/mcL Normal 0.09-1.40 [facility] ([place]) Comment on above: Performed By: #### C BC, ADIFF, ANEU, GFR, CMP, TROPI ####[address] [address] Monocytes/100 leukocytes 4.9 % Normal 2.0-13.0 [facility] ([place]) Comment on above: Performed By: #### C BC, ADIFF, ANEU, GFR, CMP, TROPI ####[address] [address] Neutrophils/100 WBC Auto (Bld) 91.7 % High 50.0-75.0 [facility] ([place]) Comment on above: Performed By: #### C BC, ADIFF, ANEU, GFR, CMP, TROPI ####[address] [address] .GFRon 02-17-2017 eGFR (non-black) 16 ml/min/1.73sqm Normal [facility] ([place]) Comment on above: Result Comment: GFR [...] C BC, ADIFF, ANEU, GFR, CMP, TROPI ####[address] [address] eGFR (non-black) 19 ml/min/1.73sqm Normal [facility] ([place]) Comment on above: Result Comment: GFR [...] C BC, ADIFF, ANEU, GFR, CMP, TROPI ####[place] [address] .NEUABSon 02-17-2017 Neutrophils 10.40 10 3/mcL High 2.25-8.10 [facility] ([place]) Comment on above: Performed By: #### C BC, ADIFF, ANEU, GFR, CMP, TROPI ####[place] [address] APTTon 02-17-2017 aPTT 63.1 s High 25.0-35.0 [facility] ([place]) Comment on above: Result Comment: For Heparin anticoagulation therapy, the recommendedtherapeutic range is: 54-77 seconds (APTT Correlationwith Anti-Xa therapeutic range of 0.3-0.7 units/ml).PLEASE REFERENCE THE PHARMACY PROTOCOL FOR DOSING. Performed By: #### C BC, ADIFF, ANEU, GFR, CMP, TROPI ####[place] [address] aPTT Heparin IV Normal [facility] ([place]) Comment on above: Performed By: #### C BC, ADIFF, ANEU, GFR, CMP, TROPI ####[place] [address] aPTT Heparin IV Normal [facility] ([place]) Comment on above: Performed By: #### C BC, ADIFF, ANEU, GFR, CMP, TROPI ####[place] [address] aPTT 61.7 s High 25.0-35.0 [facility] ([place]) Comment on above: Result Comment: For Heparin anticoagulation therapy, the recommendedtherapeutic range is: 54-77 seconds (APTT Correlationwith Anti-Xa therapeutic range of 0.3-0.7 units/ml).PLEASE REFERENCE THE PHARMACY PROTOCOL FOR DOSING. Performed By: #### C BC, ADIFF, ANEU, GFR, CMP, TROPI ####[place] [address] aPTT Heparin IV Normal [facility] ([place]) Comment on above: Performed By: #### C BC, ADIFF, ANEU, GFR, CMP, TROPI ####[place] [address] aPTT 64.2 s High 25.0-35.0 [facility] ([place]) Comment on above: Result Comment: For Heparin anticoagulation therapy, the recommendedtherapeutic range is: 54-77 seconds (APTT Correlationwith Anti-Xa therapeutic range of 0.3-0.7 units/ml).PLEASE REFERENCE THE PHARMACY PROTOCOL FOR DOSING. Performed By: #### C BC, ADIFF, ANEU, GFR, CMP, TROPI ####[place] [address] BMPon 02-17-2017 CO2 22 mmol/L Normal 22-32 [facility] ([place]) Comment on above: Performed By: #### C BC, ADIFF, ANEU, GFR, CMP, TROPI ####[place] [address] Electrolyte Balance 13.0 mEq/L Normal 4.0-15.0 [facility] ([place]) Comment on above: Performed By: #### C BC, ADIFF, ANEU, GFR, CMP, TROPI ####[place] [address] BUN/Creatinine Ratio 25.6 ratio High 10.0-22.0 [facility] ([place]) Comment on above: Performed By: #### C BC, ADIFF, ANEU, GFR, CMP, TROPI ####[place] [address] Creatinine 3.91 mg/dL High 0.60-1.40 [facility] ([place]) Comment on above: Performed By: #### C BC, ADIFF, ANEU, GFR, CMP, TROPI ####[place] [address] Calcium 7.7 mg/dL Low 8.4-10.1 [facility] ([place]) Comment on above: Performed By: #### C BC, ADIFF, ANEU, GFR, CMP, TROPI ####[place] [address] Chloride 103 mmol/L Normal 98-110 [facility] ([place]) Comment on above: Performed By: #### C BC, ADIFF, ANEU, GFR, CMP, TROPI ####[place] [address] Glucose mass conc 156 mg/dL High 82-115 [facility] ([place]) Comment on above: Performed By: #### C BC, ADIFF, ANEU, GFR, CMP, TROPI ####[place] [address] Potassium molar conc 3.7 mmol/L Normal 3.5-5.0 [facility] ([place]) Comment on above: Performed By: #### C BC, ADIFF, ANEU, GFR, CMP, TROPI ####[place] [address] Sodium 138 mmol/L Normal 136-145 [facility] ([place]) Comment on above: Performed By: #### C BC, ADIFF, ANEU, GFR, CMP, TROPI ####[place] [address] Urea nitrogen 100.0 mg/dL High 8.0-22.0 [facility] ([place]) Comment on above: Performed By: #### C BC, ADIFF, ANEU, GFR, CMP, TROPI ####[place] [address] CBCon 02-17-2017 Erythrocyte distribution width Auto Ratio (RBC) 14.9 % Normal 11.5-15.5 [facility] ([place]) Comment on above: Performed By: #### C BC, ADIFF, ANEU, GFR, CMP, TROPI ####[place] [address] Erythrocytes (RBC) 4.37 10 6/mcL Low 4.50-6.00 [facility] ([place]) Comment on above: Performed By: #### C BC, ADIFF, ANEU, GFR, CMP, TROPI ####[place] [address] Hematocrit (HCT) 42.3 % Normal 40.0-52.0 [facility] ([place]) Comment on above: Performed By: #### C BC, ADIFF, ANEU, GFR, CMP, TROPI ####[place] [address] Hemoglobin mass conc (Bld) 13.8 G/dL Normal 13.0-17.5 [facility] ([place]) Comment on above: Performed By: #### C BC, ADIFF, ANEU, GFR, CMP, TROPI ####[place] [address] MCH 31.7 pg Normal 27.0-33.0 [facility] ([place]) Comment on above: Performed By: #### C BC, ADIFF, ANEU, GFR, CMP, TROPI ####[place] [address] MCHC mass conc (RBC) 32.7 G/dL Normal 32.0-36.0 [facility] ([place]) Comment on above: Performed By: #### C BC, ADIFF, ANEU, GFR, CMP, TROPI ####[place] [address] MCV 96.8 fL Normal 81.0-100.0 [facility] ([place]) Comment on above: Performed By: #### C BC, ADIFF, ANEU, GFR, CMP, TROPI ####[place] [address] Platelet mean volume (PMV) 8.7 fL Normal 6.4-10.5 [facility] ([place]) Comment on above: Performed By: #### C BC, ADIFF, ANEU, GFR, CMP, TROPI ####[place] [address] Platelets 212 10 3/mcL Normal 150-450 [facility] ([place]) Comment on above: Performed By: #### C BC, ADIFF, ANEU, GFR, CMP, TROPI ####[id number] [place], [place] [address] WBC (Leukocytes) 11.30 10 3/mcL High 4.50-10.80 [facility] ([place]) Comment on above: Performed By: #### C BC, ADIFF, ANEU, GFR, CMP, TROPI ####[address] [address] Nephrology Progress Noteon 1 04-19-2016 Nephrology Progress Note Normal [facility] ([place]) Progress Noteon 02-17-2017 Progress Note Normal [facility]) .Auto Diffon 02-16-2017 Basophils Auto #/vol (Bld) 0.00 10 3/mcL Normal 0.00-0.27 [facility] ([place]) Comment on above: Performed By: #### C BC, ADIFF, ANEU, AMM, BMP, TSH, CK, GFR, DRUGS, B12 ####[address] [address] Basophils/100 WBC Auto (Bld) 0.3 % Normal 0.0-2.5 [facility] ([place]) Comment on above: Performed By: #### C BC, ADIFF, ANEU, AMM, BMP, TSH, CK, GFR, DRUGS, B12 ####[address] [address] Eosinophils 0.00 10 3/mcL Normal 0.00-0.65 [facility] ([place]) Comment on above: Performed By: #### C BC, ADIFF, ANEU, AMM, BMP, TSH, CK, GFR, DRUGS, B12 ####[address] [address] Eosinophils/100 leukocytes 0.1 % Normal 0.0-6.0 [facility] ([place]) Comment on above: Performed By: #### C BC, ADIFF, ANEU, AMM, BMP, TSH, CK, GFR, DRUGS, B12 ####[address] [address] Lymphocytes 0.70 10 3/mcL Low 0.90-4.32 [facility] ([place]) Comment on above: Performed By: #### C BC, ADIFF, ANEU, AMM, BMP, TSH, CK, GFR, DRUGS, B12 ####[address] [address] Lymphocytes/100 leukocytes 4.6 % Low 20.0-40.0 [facility] ([place]) Comment on above: Performed By: #### C BC, ADIFF, ANEU, AMM, BMP, TSH, CK, GFR, DRUGS, B12 ####[address] [address] Monocytes 0.60 10 3/mcL Normal 0.09-1.40 [facility] ([place]) Comment on above: Performed By: #### C BC, ADIFF, ANEU, AMM, BMP, TSH, CK, GFR, DRUGS, B12 ####[address] [address] Monocytes/100 leukocytes 4.1 % Normal 2.0-13.0 [facility] ([place]) Comment on above: Performed By: #### C BC, ADIFF, ANEU, AMM, BMP, TSH, CK, GFR, DRUGS, B12 ####[address] [address] Neutrophils/100 WBC Auto (Bld) 90.9 % High 50.0-75.0 [facility] ([place]) Comment on above: Performed By: #### C BC, ADIFF, ANEU, AMM, BMP, TSH, CK, GFR, DRUGS, B12 ####[address] [address] Basophils Auto #/vol (Bld) 0.00 10 3/mcL Normal 0.00-0.27 [facility] ([place]) Comment on above: Performed By: #### C BC, ADIFF, ANEU, GFR, CMP, TROPI ####[address] [address] Basophils/100 WBC Auto (Bld) 0.2 % Normal 0.0-2.5 [facility] ([place]) Comment on above: Performed By: #### C BC, ADIFF, ANEU, GFR, CMP, TROPI ####[address] [address] Eosinophils 0.00 10 3/mcL Normal 0.00-0.65 [facility] ([place]) Comment on above: Performed By: #### C BC, ADIFF, ANEU, GFR, CMP, TROPI ####[address] [address] Eosinophils/100 leukocytes 0.0 % Normal 0.0-6.0 [facility] ([place]) Comment on above: Performed By: #### C BC, ADIFF, ANEU, GFR, CMP, TROPI ####[address] [address] Lymphocytes 0.50 10 3/mcL Low 0.90-4.32 [facility] ([place]) Comment on above: Performed By: #### C BC, ADIFF, ANEU, GFR, CMP, TROPI ####[address] [address] Lymphocytes/100 leukocytes 3.2 % Low 20.0-40.0 [facility] ([place]) Comment on above: Performed By: #### C BC, ADIFF, ANEU, GFR, CMP, TROPI ####[address] [address] Monocytes 0.50 10 3/mcL Normal 0.09-1.40 [facility] ([place]) Comment on above: Performed By: #### C BC, ADIFF, ANEU, GFR, CMP, TROPI ####[address] [address] Monocytes/100 leukocytes 2.9 % Normal 2.0-13.0 [facility] ([place]) Comment on above: Performed By: #### C BC, ADIFF, ANEU, GFR, CMP, TROPI ####[address] [address] Neutrophils/100 WBC Auto (Bld) 93.7 % High 50.0-75.0 [facility] ([place]) Comment on above: Performed By: #### C BC, ADIFF, ANEU, GFR, CMP, TROPI ####[address] [address] .GFRon 02-16-2017 eGFR (non-black) 13 ml/min/1.73sqm Normal [facility] ([place]) Comment on above: Result Comment: GFR [...] C BC, ADIFF, ANEU, GFR, CMP, TROPI ####[address] [address] eGFR (non-black) 15 ml/min/1.73sqm Normal [facility] ([place]) Comment on above: Result Comment: GFR Population [...] C BC, ADIFF, ANEU, GFR, CMP, TROPI ####[address] [address] eGFR (non-black) 9 ml/min/1.73sqm Normal [facility] ([place]) Comment on above: Result Comment: GFR Population [...] C BC, ADIFF, ANEU, GFR, CMP, TROPI ####[address] [address] eGFR (non-black) 11 ml/min/1.73sqm Normal [facility] ([place]) Comment on above: Result Comment: GFR Population [...] C BC, ADIFF, ANEU, GFR, CMP, TROPI ####[address] [address] eGFR (non-black) 9 ml/min/1.73sqm Normal [facility] ([place]) Comment on above: Result Comment: GFR Population [...] C BC, ADIFF, ANEU, GFR, CMP, TROPI ####[place] [address] eGFR (non-black) 11 ml/min/1.73sqm Normal [facility] ([place]) Comment on above: Result Comment: GFR Population [...] C BC, ADIFF, ANEU, GFR, CMP, TROPI ####[place] [address] .NEUABSon 02-16-2017 Neutrophils 13.60 10 3/mcL High 2.25-8.10 [facility] ([place]) Comment on above: Performed By: #### C BC, ADIFF, ANEU, AMM, BMP, TSH, CK, GFR, DRUGS, B12 ####[place] [address] Neutrophils 15.60 10 3/mcL High 2.25-8.10 [facility] ([place]) Comment on above: Performed By: #### C BC, ADIFF, ANEU, GFR, CMP, TROPI ####[place] [address] ALCOHOL-BLOOD MEDICALon 01-19 Ethanol mg/dL Normal 0 - 50 [facility] Comment on above: Performed By: #### 2 [id number] ####[facility],[address] [place] [id number] Ericka 02-16-2017 Ammonia ug/dL Low 25-35 [facility] ([place]) Comment on above: Performed By: #### C BC, ADIFF, ANEU, AMM, BMP, TSH, CK, GFR, DRUGS, B12 ####[place] [address] APTTon 02-16-2017 aPTT Heparin IV Normal [facility] ([place]) Comment on above: Performed By: #### C BC, ADIFF, ANEU, GFR, CMP, TROPI ####[place] [address] aPTT 97.5 s High 25.0-35.0 [facility] ([place]) Comment on above: Result Comment: For Heparin anticoagulation therapy, the recommendedtherapeutic range is: 54-77 seconds (APTT Correlationwith Anti-Xa therapeutic range of 0.3-0.7 units/ml).PLEASE REFERENCE THE PHARMACY PROTOCOL FOR DOSING. Performed By: #### C BC, ADIFF, ANEU, GFR, CMP, TROPI ####[place] [address] aPTT Heparin IV Normal [facility] ([place]) Comment on above: Performed By: #### C BC, ADIFF, ANEU, GFR, CMP, TROPI ####[place] [address] aPTT 42.9 s High 25.0-35.0 [facility] ([place]) Comment on above: Result Comment: For Heparin anticoagulation therapy, the recommendedtherapeutic range is: 54-77 seconds (APTT Correlationwith Anti-Xa therapeutic range of 0.3-0.7 units/ml).PLEASE REFERENCE THE PHARMACY PROTOCOL FOR DOSING. Performed By: #### C BC, ADIFF, ANEU, GFR, CMP, TROPI ####[place] [address] aPTT 28.8 s Normal 25.0-35.0 [facility] ([place]) Comment on above: Result Comment: For Heparin anticoagulation therapy, the recommendedtherapeutic range is: 54-77 seconds (APTT Correlationwith Anti-Xa therapeutic range of 0.3-0.7 units/ml).PLEASE REFERENCE THE PHARMACY PROTOCOL FOR DOSING. Performed By: #### A PTT ####[place] [address] aPTT None Normal [facility] ([place]) Comment on above: Performed By: #### A PTT ####[place] [address] Admission Note-Physicianon 1 Admission Note-Physician Normal [facility] ([place]) B12on 02-16-2017 Cobalamins (Vitamin B12) 730 pg/mL Normal 211-911 [facility] ([place]) Comment on above: Performed By: #### C BC, ADIFF, ANEU, GFR, CMP, TROPI ####[place] [address] BGon 02-16-2017 Barometric Pressure 729 mmHg Normal [facility] ([place]) Comment on above: Performed By: #### B G ####[place] [address] Base excess -9.0 mmol/L Normal [facility] ([place]) Comment on above: Performed By: #### B G ####[place] [address] Bicarbonate (HCO3) 16.6 mmol/L Low 21.0-29.0 [facility] ([place]) Comment on above: Performed By: #### B G ####[place] [address] CO2 17.7 mmol/L Low 22.0-30.0 [facility] ([place]) Comment on above: Performed By: #### B G ####[place] [address] CO2 35.3 mmHg Normal 32.0-46.0 [facility] ([place]) Comment on above: Performed By: #### B G ####[place] [address] O2 saturation 97.2 % High 92.0-96.0 [facility] ([place]) Comment on above: Performed By: #### B G ####[id number] [place], [place] [address] Oxygen in arterial blood 105.6 mm[Hg] Normal 74.0-108.0 [facility] ([place]) Comment on above: Performed By: #### B G ####[place] [address] pH of blood 7.290 [pH] Low 7.380-7.460 [facility] ([place]) Comment on above: Performed By: #### B G ####[place] [address] BMPon 02-16-2017 BUN/Creatinine Ratio 22.3 ratio High 10.0-22.0 [facility] ([place]) Comment on above: Performed By: #### C BC, ADIFF, ANEU, GFR, CMP, TROPI ####[place] [address] Urea nitrogen 105.0 mg/dL Critically abnormal 8.0-22.0 [facility] ([place]) Comment on above: Performed By: #### C BC, ADIFF, ANEU, GFR, CMP, TROPI ####[place] [address] Calcium 7.3 mg/dL Low 8.4-10.1 [facility] ([place]) Comment on above: Performed By: #### C BC, ADIFF, ANEU, GFR, CMP, TROPI ####[place] [address] CO2 14 mmol/L Low 22-32 [facility] ([place]) Comment on above: Performed By: #### C BC, ADIFF, ANEU, GFR, CMP, TROPI ####[place] [address] Creatinine 4.70 mg/dL High 0.60-1.40 [facility] ([place]) Comment on above: Performed By: #### C BC, ADIFF, ANEU, GFR, CMP, TROPI ####[place] [address] Electrolyte Balance 14.0 mEq/L Normal 4.0-15.0 [facility] ([place]) Comment on above: Performed By: #### C BC, ADIFF, ANEU, GFR, CMP, TROPI ####[place] [address] Glucose mass conc 83 mg/dL Normal 82-115 [facility] ([place]) Comment on above: Performed By: #### C BC, ADIFF, ANEU, GFR, CMP, TROPI ####[place] [address] Potassium molar conc 4.4 mmol/L Normal 3.5-5.0 [facility] ([place]) Comment on above: Result Comment: Spec imen slightly hemolyzed. Result may be falsely elevated. Performed By: #### C BC, ADIFF, ANEU, GFR, CMP, TROPI ####[place] [address] Chloride 103 mmol/L Normal 98-110 [facility] ([place]) Comment on above: Performed By: #### C BC, ADIFF, ANEU, GFR, CMP, TROPI ####[place] [address] Sodium 131 mmol/L Low 136-145 [facility] ([place]) Comment on above: Performed By: #### C BC, ADIFF, ANEU, GFR, CMP, TROPI ####[place] [address] BUN/Creatinine Ratio 17.4 ratio Normal 10.0-22.0 [facility] ([place]) Comment on above: Performed By: #### C BC, ADIFF, ANEU, GFR, CMP, TROPI ####[place] [address] Creatinine 6.20 mg/dL High 0.60-1.40 [facility] ([place]) Comment on above: Performed By: #### C BC, ADIFF, ANEU, GFR, CMP, TROPI ####[place] [address] Urea nitrogen 108.0 mg/dL Critically abnormal 8.0-22.0 [facility] ([place]) Comment on above: Performed By: #### C BC, ADIFF, ANEU, GFR, CMP, TROPI ####[place] [address] Calcium 7.4 mg/dL Low 8.4-10.1 [facility] ([place]) Comment on above: Performed By: #### C BC, ADIFF, ANEU, GFR, CMP, TROPI ####[place] [address] Chloride 99 mmol/L Normal 98-110 [facility] ([place]) Comment on above: Performed By: #### C BC, ADIFF, ANEU, GFR, CMP, TROPI ####[place] [address] CO2 20 mmol/L Low 22-32 [facility] ([place]) Comment on above: Performed By: #### C BC, ADIFF, ANEU, GFR, CMP, TROPI ####[place] [address] Electrolyte Balance 16.0 mEq/L High 4.0-15.0 [facility] ([place]) Comment on above: Performed By: #### C BC, ADIFF, ANEU, GFR, CMP, TROPI ####[place] [address] Glucose mass conc 88 mg/dL Normal 82-115 [facility] ([place]) Comment on above: Performed By: #### C BC, ADIFF, ANEU, GFR, CMP, TROPI ####[place] [address] Potassium molar conc 4.0 mmol/L Normal 3.5-5.0 [facility] ([place]) Comment on above: Performed By: #### C BC, ADIFF, ANEU, GFR, CMP, TROPI ####[place] [address] Sodium 135 mmol/L Low 136-145 [facility] ([place]) Comment on above: Performed By: #### C BC, ADIFF, ANEU, GFR, CMP, TROPI ####[place] [address] CBCon 02-16-2017 Erythrocyte distribution width Auto Ratio (RBC) 14.4 % Normal 11.5-15.5 [facility] ([place]) Comment on above: Performed By: #### C BC, ADIFF, ANEU, AMM, BMP, TSH, CK, GFR, DRUGS, B12 ####[place] [address] Erythrocytes (RBC) 4.47 10 6/mcL Low 4.50-6.00 [facility] ([place]) Comment on above: Performed By: #### C BC, ADIFF, ANEU, AMM, BMP, TSH, CK, GFR, DRUGS, B12 ####[place] [address] Hematocrit (HCT) 42.9 % Normal 40.0-52.0 [facility] ([place]) Comment on above: Performed By: #### C BC, ADIFF, ANEU, AMM, BMP, TSH, CK, GFR, DRUGS, B12 ####[place] [address] Hemoglobin mass conc (Bld) 14.2 G/dL Normal 13.0-17.5 [facility] ([place]) Comment on above: Performed By: #### C BC, ADIFF, ANEU, AMM, BMP, TSH, CK, GFR, DRUGS, B12 ####[place] [address] MCH 31.8 pg Normal 27.0-33.0 [facility] ([place]) Comment on above: Performed By: #### C BC, ADIFF, ANEU, AMM, BMP, TSH, CK, GFR, DRUGS, B12 ####[place] [address] MCHC mass conc (RBC) 33.1 G/dL Normal 32.0-36.0 [facility] ([place]) Comment on above: Performed By: #### C BC, ADIFF, ANEU, AMM, BMP, TSH, CK, GFR, DRUGS, B12 ####[place] [address] MCV 96.1 fL Normal 81.0-100.0 [facility] ([place]) Comment on above: Performed By: #### C BC, ADIFF, ANEU, AMM, BMP, TSH, CK, GFR, DRUGS, B12 ####[place] [address] Platelet mean volume (PMV) 8.7 fL Normal 6.4-10.5 [facility] ([place]) Comment on above: Performed By: #### C BC, ADIFF, ANEU, AMM, BMP, TSH, CK, GFR, DRUGS, B12 ####[place] [address] Platelets 191 10 3/mcL Normal 150-450 [facility] ([place]) Comment on above: Performed By: #### C BC, ADIFF, ANEU, AMM, BMP, TSH, CK, GFR, DRUGS, B12 ####[place] [address] WBC (Leukocytes) 15.00 10 3/mcL High 4.50-10.80 [facility] ([place]) Comment on above: Performed By: #### C BC, ADIFF, ANEU, AMM, BMP, TSH, CK, GFR, DRUGS, B12 ####[place] [address] Erythrocyte distribution width Auto Ratio (RBC) 14.1 % Normal 11.5-15.5 [facility] ([place]) Comment on above: Performed By: #### C BC, ADIFF, ANEU, GFR, CMP, TROPI ####[place] [address] Erythrocytes (RBC) 4.50 10 6/mcL Normal 4.50-6.00 [facility] ([place]) Comment on above: Performed By: #### C BC, ADIFF, ANEU, GFR, CMP, TROPI ####[place] [address] Hematocrit (HCT) 43.2 % Normal 40.0-52.0 [facility] ([place]) Comment on above: Performed By: #### C BC, ADIFF, ANEU, GFR, CMP, TROPI ####[place] [address] Hemoglobin mass conc (Bld) 14.5 G/dL Normal 13.0-17.5 [facility] ([place]) Comment on above: Performed By: #### C BC, ADIFF, ANEU, GFR, CMP, TROPI ####[place] [address] MCH 32.1 pg Normal 27.0-33.0 [facility] ([place]) Comment on above: Performed By: #### C BC, ADIFF, ANEU, GFR, CMP, TROPI ####[place] [address] MCHC mass conc (RBC) 33.5 G/dL Normal 32.0-36.0 [facility] ([place]) Comment on above: Performed By: #### C BC, ADIFF, ANEU, GFR, CMP, TROPI ####[place] [address] MCV 95.9 fL Normal 81.0-100.0 [facility] ([place]) Comment on above: Performed By: #### C BC, ADIFF, ANEU, GFR, CMP, TROPI ####[place] [address] Platelet mean volume (PMV) 8.7 fL Normal 6.4-10.5 [facility] ([place]) Comment on above: Performed By: #### C BC, ADIFF, ANEU, GFR, CMP, TROPI ####[place] [address] Platelets 200 10 3/mcL Normal 150-450 [facility] ([place]) Comment on above: Performed By: #### C BC, ADIFF, ANEU, GFR, CMP, TROPI ####[place] [address] WBC (Leukocytes) 16.60 10 3/mcL High 4.50-10.80 [facility] ([place]) Comment on above: Performed By: #### C BC, ADIFF, ANEU, GFR, CMP, TROPI ####[place] [address] CKon 02-16-2017 Creatine kinase (CK) 392 U/L High 7-185 [facility] ([place]) Comment on above: Performed By: #### C BC, ADIFF, ANEU, GFR, CMP, TROPI ####[place] [address] CMPon 02-16-2017 BUN/Creatinine Ratio 16.8 ratio Normal 10.0-22.0 [facility] ([place]) Comment on above: Performed By: #### C BC, ADIFF, ANEU, GFR, CMP, TROPI ####[address] [address] Urea nitrogen 105.0 mg/dL Critically abnormal 8.0-22.0 [facility] ([place]) Comment on above: Performed By: #### C BC, ADIFF, ANEU, GFR, CMP, TROPI ####[address] [address] Albumin/Globulin Ratio 0.6 {ratio} Low 0.9-1.6 [facility] ([place]) Comment on above: Performed By: #### C BC, ADIFF, ANEU, GFR, CMP, TROPI ####[address] [address] Alk Phos 64 U/L Normal 38-126 [facility] ([place]) Comment on above: Performed By: #### C BC, ADIFF, ANEU, GFR, CMP, TROPI ####[address] [address] Bili Total 0.6 mg/dL Normal 0.2-1.2 [facility] ([place]) Comment on above: Performed By: #### C BC, ADIFF, ANEU, GFR, CMP, TROPI ####[address] [address] Globulin 4.3 G/dL High 1.5-3.8 [facility] ([place]) Comment on above: Performed By: #### C BC, ADIFF, ANEU, GFR, CMP, TROPI ####[address] [address] Protein 6.7 G/dL Normal 6.0-8.5 [facility] ([place]) Comment on above: Performed By: #### C BC, ADIFF, ANEU, GFR, CMP, TROPI ####[address] [address] Alanine aminotransferase (ALT) 24 U/L Normal 12-55 [facility] ([place]) Comment on above: Performed By: #### C BC, ADIFF, ANEU, GFR, CMP, TROPI ####[place] [address] Albumin 2.4 G/dL Low 3.2-4.8 [facility] ([place]) Comment on above: Performed By: #### C BC, ADIFF, ANEU, GFR, CMP, TROPI ####[place] [address] Aspartate aminotransferase (AST) 38 U/L High 8-34 [facility] ([place]) Comment on above: Performed By: #### C BC, ADIFF, ANEU, GFR, CMP, TROPI ####[place] [address] Calcium 7.8 mg/dL Low 8.4-10.1 [facility] ([place]) Comment on above: Performed By: #### C BC, ADIFF, ANEU, GFR, CMP, TROPI ####[place] [address] Chloride 99 mmol/L Normal 98-110 [facility] ([place]) Comment on above: Performed By: #### C BC, ADIFF, ANEU, GFR, CMP, TROPI ####[place] [address] CO2 19 mmol/L Low 22-32 [facility] ([place]) Comment on above: Performed By: #### C BC, ADIFF, ANEU, GFR, CMP, TROPI ####[place] [address] Creatinine 6.26 mg/dL High 0.60-1.40 [facility] ([place]) Comment on above: Performed By: #### C BC, ADIFF, ANEU, GFR, CMP, TROPI ####[place] [address] Electrolyte Balance 16.0 mEq/L High 4.0-15.0 [facility] ([place]) Comment on above: Performed By: #### C BC, ADIFF, ANEU, GFR, CMP, TROPI ####[place] [address] Glucose mass conc 96 mg/dL Normal 82-115 [facility] ([place]) Comment on above: Performed By: #### C BC, ADIFF, ANEU, GFR, CMP, TROPI ####[place] [address] Potassium molar conc 4.0 mmol/L Normal 3.5-5.0 [facility] ([place]) Comment on above: Performed By: #### C BC, ADIFF, ANEU, GFR, CMP, TROPI ####[place] [address] Sodium 134 mmol/L Low 136-145 [facility] ([place] Comment on above: Performed By: #### C BC, ADIFF, ANEU, GFR, CMP, TROPI ####[place] [address] CRURon 02-16-2017 Creatinine 88.0 mg/dL Normal [facility] ([place]) Comment on above: Performed By: #### N AURUBALDO ####[place] [address] Consultation Noteon 02-17-20 17 Consultation Note Normal [facility] ([place]) DRUGSon 02-16-2017 Drug Screen (s) Positive Abnormal Negative [facility] ([place]) Comment on above: Performed By: #### C BC, ADIFF, ANEU, GFR, CMP, TROPI ####[place] [address] Drug Screen Interp The serum shows evid ence of: _ Invalid Interpretation Code [facility] ([place]) Comment on above: Performed By: #### C BC, ADIFF, ANEU, GFR, CMP, TROPI ####[place] [address] Ethanol Level <10.0 Normal [facility] ([place]) Comment on above: Performed By: #### C BC, ADIFF, ANEU, GFR, CMP, TROPI ####[place] [address] TCA (s) Negative Normal [facility] ([place]) Comment on above: Performed By: #### C BC, ADIFF, ANEU, GFR, CMP, TROPI ####[place] [address] Acetaminophen mass conc 3.2 mcg/mL Low 10.0-30.0 [facility] ([place]) Comment on above: Performed By: #### C BC, ADIFF, ANEU, GFR, CMP, TROPI ####[place] [address] Salicylate Lvl (ds) 2.5 mg/dL Low 10.0-25.0 [facility] ([place]) Comment on above: Performed By: #### C BC, ADIFF, ANEU, GFR, CMP, TROPI ####[place] [address] Serum Drugs screened: See Below Normal [facility] ([place] Comment on above: Result Comment: This drug screen is a presumptive screening only. No confirmation will be performed unless requested.Drugs included in the ER serum drug screen are: ThresholdEthanol 10.0 mg/dLSalicylate 2.0 mg/dlAcetaminophen 2.0 mcg/mLTricyclic Antidepressants 300 ng/mLTesting has been performed FOR MEDICAL PURPOSES ONLY. Performed By: #### C BC, ADIFF, ANEU, GFR, CMP, TROPI ####[place] [address] DRUGUon 02-16-2017 Drug Screen Urine Positive Abnormal [facility] ([place]) Comment on above: Performed By: #### C BC, ADIFF, ANEU, GFR, CMP, TROPI ####[place] [address] Drug Screen Urine Interp Positive Invalid Interpretation Code [facility] ([place] Comment on above: Performed By: #### C BC, ADIFF, ANEU, GFR, CMP, TROPI ####[address] [address] U Comment See Below Normal [facility] ([place]) Comment on above: Performed By: #### C BC, ADIFF, ANEU, GFR, CMP, TROPI ####[place] [id number] U pH Drug Scrn 5.5 Normal 5.0-8.0 [facility] ([place]) Comment on above: Performed By: #### C BC, ADIFF, ANEU, GFR, CMP, TROPI ####[place] [id number] [place] [address] U Specific [place] Drg Scrn 1.010 Normal 1.005-1.030 [facility] ([place]) Comment on above: Performed By: #### C BC, ADIFF, ANEU, GFR, CMP, TROPI ####[place] [id number] [place] [address] Urine Drugs screened: See Below Normal [facility] ([place] Comment on above: Result Comment: This drug screen is a presumptive screening only.No confirmation will be performed unless requested.Drugs screened include: ThresholdAmphetamines/Methamphetamines 1,000 ng/mLBarbiturates 200 ng/mLBenzodiazepine metabolites 200 ng/mLCannabinoids (THC metabolites) 50 ng/mLBenzoylecognine (Cocaine metab) 300 ng/mLOpiates 300 ng/mLPhencyclidine (PCP) 25 ng/mLMethadone 300 ng/mLPropoxyphene 300 ng/mLTesting has been performed FOR MEDICAL PURPOSES ONLY. Performed By: #### C BC, ADIFF, ANEU, GFR, CMP, TROPI ####[place] [id number] [place] [address] EMERGENCY REPORTon 7 EMERGENCY REPORT [facility] EM ERGENCY ROOM REPORT NAME NUMBER SEX AGE ADMIT DISC TYPE MED.RECORD# ARLINE KHAN [id number] M [id number] 02/15/2017 02/15/2017 [place] [id number] ROOM:ER DATE OF :1955 PHYSICIAN NO.:[id number] PHYSICIAN NAME: PHYSICIAN:SALLY HESTER CHIEF COMPLAINT: The [...] sepsis. PLAN/DISPOSITION: He will be transferred to [place]. Critical care time: 45 minutes excluding billable procedures. D: SALLY HESTER TD: 02/16/2017 07:49:25 JOB #: [id number] FREDI Hester D.O. Emergency Department 02/16/17 20:03 EMERGENCY ROOM REPORT ARLINE KHAN [address] [place] [address] EMERGENCY ROOM REPORT NAME NUMBER SEX AGE ADMIT DISC TYPE MED.RECORD# ARLINE KHAN [id number] M [id number] 02/15/2017 02/15/2017 E.R. [id number] ROOM:ER DATE OF :1955 PHYSICIAN NO.:[id number] PHYSICIAN NAME: PHYSICIAN:SALLY HESTER Transcribed by: EMMIE 02/16/2017 07:49:25 Copy for: KACIE Mejias III Copy for: JACQUELYN Bowen Copy for: [facility] EMERGENCY ROOM REPORT ARLINE KHAN 2 Normal [facility] EOSon 02-16-2017 Eos Smear 0 Normal [facility] ([place]) Comment on above: Result Comment: The units for an eosinophil smear depend upon specimen type:Stool, sputum, nasal specimens: number of cells/hp fieldUrine, bronchial lavage: number of cells/100 cells (%) Performed By: #### C BC, ADIFF, ANEU, GFR, CMP, TROPI ####[place] [id number] [place] [address] Eosinophils Urine Normal [facility] ([place]) Comment on above: Performed By: #### C BC, ADIFF, ANEU, GFR, CMP, TROPI ####[facility] [place] [address] History and Physicalon 02-16 History and Physical Normal [facility] ([place]) MRPCRon 02-16-2017 MRPCR . MICRO - MicrobiologyPROCEDURE: [...] bereproducible.Performing Locations*1: This test was performed at: [facility], [address] [place] [address], [address]- , [facility] Normal [facility] ([place]) Comment on above: Performed By: #### C BC, ADIFF, ANEU, GFR, CMP, TROPI ####[address] [address] NAURon 02-16-2017 Sodium 57.0 mmol/L Normal [facility] ([place]) Comment on above: Performed By: #### N AUR, CRUR ####[address] [address] Progress Noteon 02-16-2017 Progress Note Normal [facility] ([place]) TROPIon 02-16-2017 Troponin I.cardiac mass conc ng/mL Normal 0.000-0.040 [facility] ([place]) Comment on above: Result Comment: Trop onin I reference ranges (12/25/13): 0.00- 0.040 ng/mL Negative and non-diagnostic. >0.040 ng/mL Consistent with cardiac damage, increased clinical risk and possibility of myocardial infarction. Serial measurements, a rise & fall in test results, clinical history, appropriate symptoms and/or ECG changes may help assess possibility of [place]. *Other non-acute coronary syndrome conditions such as CHF, myocarditis, pulmonary emboli, sepsis and cardiac surgery could result in myocardial damage and increased troponin levels. Performed By: #### C BC, ADIFF, ANEU, GFR, CMP, TROPI ####[place] [address] TSHon 02-16-2017 Thyroid stimulating hormone (TSH) 0.670 mcIU/mL Normal 0.360-3.740 [facility] ([place]) Comment on above: Result Comment: Plea se note ? as of 10/31/16 new pediatric reference intervals were added for this test. Performed By: #### C BC, ADIFF, ANEU, GFR, CMP, TROPI ####[address] [address] UAon 02-16-2017 UA Appear Turbid Abnormal Clear [facility] ([place]) Comment on above: Performed By: #### U A, UAMIC ####[place] [address] UA Blood Moderate Abnormal Neg-Trace [facility] ([place]) Comment on above: Performed By: #### U A, UAMIC ####[place] [address] UA Leuk Est Large Abnormal Negative [facility] ([place]) Comment on above: Performed By: #### U A, UAMIC ####[place] [address] UA Nitrite Negative Normal Negative [facility] ([place]) Comment on above: Performed By: #### U A, UAMIC ####[place] [address] UA pH 5.0 Normal 5.0 - 8.0 [facility] ([place]) Comment on above: Performed By: #### U A, UAMIC ####[place] [address] UA Protein 30 mg/dL Normal Negative [facility] ([place]) Comment on above: Performed By: #### U A, UAMIC ####[place] [address] UA Spec Grav 1.010 Normal 1.006-1.029 [facility] ([place]) Comment on above: Performed By: #### U A, UAMIC ####[place] [address] UA Specimen Type Clean Catch Normal [facility] ([place]) Comment on above: Performed By: #### U A, UAMIC ####[place] [address] UA Urobilinogen 0.2 E.U./dL Normal 0.2-1.0 [facility] ([place]) Comment on above: Performed By: #### U A, UAMIC ####[place] [address] Urine, color Yellow Normal [facility] ([place]) Comment on above: Performed By: #### U A, UAMIC ####[place] [address] Urine, glucose Negative Normal Negative [facility] ([place] Comment on above: Performed By: #### U A, UAMIC ####[place] [address] Urine, ketones presence Negative Normal Neg-Trace [facility] ([place]) Comment on above: Performed By: #### U A, UAMIC ####[place] [address] Urine, urobilinogen Negative Normal Neg-Trace [facility] ([place]) Comment on above: Performed By: #### U A, UAMIC ####[place] [address] UAMICon 02-16-2017 UA Bacteria 3+ /hpf Abnormal Negative [facility] ([place]) Comment on above: Performed By: #### U A, UAMIC ####[place] [address] UA Squam Epithelial Rare Normal 0-20 [facility] ([place]) Comment on above: Performed By: #### U A, UAMIC ####[place] [address] UA WBC LOADED Abnormal 0-5 [facility] ([place] Comment on above: Performed By: #### U A, UAMIC ####[place] [address] Urine, erythrocytes 0-2 Normal 0-2 [facility] ([place]) Comment on above: Performed By: #### U A, UAMIC ####[place] [address] URICon 02-16-2017 Uric Acid Lvl 14.2 mg/dL High 4.4-7.6 [facility] ([place]) Comment on above: Performed By: #### C BC, ADIFF, ANEU, GFR, CMP, TROPI ####[place] [address] US RENALon 02-16-2017 US RENAL ORIGINALUS RENAL [...] AM Sign Date: 02/16/2017 3:52:16 AM Normal [facility] ([place]) XR CHEST 1 VIEWon 02-16-2017 XR CHEST [...] AM Sign Date: 02/16/2017 12:21:25 AM Normal [facility] ([place]) CBCon 02-15-2017 Basophils Auto #/vol (Bld) 0.10 x10EE3/UL Normal 0.00 - 0.10 [facility] Comment on above: Performed By: #### 2 57440 ####[facility],[address] [place] [address] Basophils/100 WBC Auto (Bld) 0.3 % Normal 0.0 - 2.0 [facility] Comment on above: Performed By: #### 2 76676 ####[facility],[address] [place] [address] 41749 Blood morphology N/A Normal [facility] Comment on above: Result Comment: {CD] Performed By: #### 2 65827 ####[facility],[address] [place] [address]684 CBC Normal [facility] Comment on above: Result Comment: CBC- COMPLETE BLOOD COUNT Performed By: #### 2 67071 ####[facility],[address] [place] [address]181 Eosinophils 0.00 x10EE3/UL Normal 0.00 - 0.50 [facility] Comment on above: Performed By: #### 2 83958 ####[facility],[address] [place] [address] 13845 Eosinophils/100 leukocytes 0.1 % Normal 0.0 - 7.0 [facility] Comment on above: Performed By: #### 2 52903 ####[facility],[address] [place] [address]31 Erythrocyte distribution width Auto Ratio (RBC) 14.1 % Normal 12.0 - 15.6 [facility] Comment on above: Performed By: #### 2 06889 ####[facility],[address] [place] [address]134 Erythrocytes (RBC) 4.61 x 10EE6/UL Normal 4.50 - 6.00 [facility] Comment on above: Performed By: #### 2 36647 ####[facility],[address] [place] [address] 37988 Hematocrit (HCT) 43.0 % Normal 40.0 - 52.0 [facility] Comment on above: Performed By: #### 2 49682 ####[facility],[address] [place] [address] 54874 Hemoglobin mass conc (Bld) 14.9 g/dL Normal 13.0 - 17.5 [facility] Comment on above: Performed By: #### 2 98162 ####[facility],[address] [place] [address] 83024 Lymphocytes 0.40 x10EE3/UL Low 0.80 - 2.80 [facility] Comment on above: Performed By: #### 2 44884 ####[facility],[address] [place] [address] 72426 Lymphocytes/100 leukocytes 2.3 % Low 20.0 - 45.0 [facility] Comment on above: Performed By: #### 2 64401 ####[facility],[address] [place] [address] 07872 MANUAL DIFF N/A Normal [facility] Comment on above: Performed By: #### 2 78808 ####[facility],[address] [place], [place] [address] MCH 32 pg Normal 27 - 33 [facility] Comment on above: Performed By: #### 2 01162 ####[facility],[address] [place] [address] MCHC mass conc (RBC) 35 X10 3 Normal 32 - 36 [facility] Comment on above: Performed By: #### 2 37346 ####[facility],[address] [place] [address] 78546 MCV 93 fL Normal 81 - 98 [facility] Comment on above: Performed By: #### 2 44840 ####[facility],[address] [place] [address] 37268 Monocytes 0.50 x10EE3/UL Normal 0.20 - 1.00 [facility] Comment on above: Performed By: #### 2 83690 ####[facility],[address] [place] [address]60[address] MONOS % 2.8 % Normal 0.0 - 10.0 [facility] Comment on above: Performed By: #### 2 90150 ####[facility],[address] [place] [address] 52960 Neutrophils 17.60 x10EE3/UL High 1.50 - 7.10 [facility] Comment on above: Performed By: #### 2 90161 ####[facility],[address] [place] [address] 61093 Neutrophils/100 WBC Auto (Bld) 94.5 % High 46.0 - 76.0 [facility] Comment on above: Performed By: #### 2 86502 ####[facility],[address] [place] [address] 08807 Platelet mean volume (PMV) 8.7 fL Normal 6.4 - 10.5 [facility] Comment on above: Result Comment: AUTO MATED DIFFERENTIAL Performed By: #### 2 23090 ####[facility],[address] [place] [address] 80426 Platelets 207 x10EE3/UL Normal 150 - 450 [facility] Comment on above: Performed By: #### 2 72507 ####[facility],[address] [place] [address] 52644 WBC (Leukocytes) 18.6 x 10EE3/UL High 4.5 - 10.8 [facility] Comment on above: Performed By: #### 2 49910 ####[facility],[address] [place] [address] 607[address] CHEST APon 02-15-2017 CHEST AP [place] [address] Patient: ARLINE KHAN Phone#: : 1955 Age: 61 Gender: M Pt. Type: ER Account: [id number] Location: [facility] Ordering: SALLY HESTER Exam Date: 02/15/2017/18:45 [facility] Phys[facility] Charge Code: 250519 Physician: Butts Order #: [id number] DLP Dose#: PROCEDURE: X-RAY CHEST AP 1 [...] Gregory MD on 02/16/2017 at 8:10 Normal [facility] CMP with eGFRon 02-15-2017 Age 61 years Normal [facility] Comment on above: Performed By: #### 2 85842 ####[facility],[address] [place] [address] 02548 Albumin 3.2 g/dL Low 3.4 - 4.8 [facility] Comment on above: Performed By: #### 2 69336 ####[facility],[address] [place] [address] 50091 Albumin/Globulin Ratio 0.9 {ratio} Normal 0.9 - 1.6 [facility] Comment on above: Performed By: #### 2 86533 ####[facility],[address] [place] [address] 58181 ALK PHOS 50 U/L Normal 38 - 126 [facility] Comment on above: Performed By: #### 2 15508 ####[facility],[address] [place] [address] 93461 ALT/SGPT 15 U/L Normal 10 - 40 [facility] Comment on above: Performed By: #### 2 21963 ####[facility],[address] [place] [address] 98853 Anion gap 20 mmol/L Normal 10 - 20 [facility] Comment on above: Performed By: #### 2 01973 ####[facility],[address] [place] [address] 62140 AST/SGOT 24 U/L Normal 13 - 39 [facility] Comment on above: Performed By: #### 2 42243 ####[facility],[address] [place] [address] 28621 B/C RATIO 16 ratio Normal 0 - 30 [facility] Comment on above: Performed By: #### 2 94282 ####[facility],[address] [place] [address] Bilirubin (total) 1.0 mg/dL Normal 0.0 - 1.5 [facility] Comment on above: Performed By: #### 2 59449 ####[facility],[address] [place], [place] [address] Calcium 8.4 mg/dL Low 8.6 - 10.2 [facility] Comment on above: Performed By: #### 2 99660 ####[facility],[address] [place] [address] Chloride 92 mmol/L Low 98 - 107 [facility] Comment on above: Performed By: #### 2 95944 ####[facility],[address] [place] [address] CO2 19.4 mmol/L Low 21.0 - 31.0 [facility] Comment on above: Performed By: #### 2 02777 ####[facility],[address] [place], [place] [address] Creatinine 6.5 mg/dL High 0.7 - 1.3 [facility] Comment on above: Performed By: #### 2 55998 ####[facility],[address] [place], [place] [address] eGFR (non-black) Normal [facility] Comment on above: Result Comment: COMP REHENSIVE METABOLIC PANEL Performed By: #### 2 30625 ####[facility],[address] [place], [place] [address] eGFR (non-black) 9 ML/MINUTE Low 60 - 999 [facility] Comment on above: Performed By: #### 2 54641 ####[facility],[address] [place] [address] 61283 eGFR (non-black) 11 ML/MINUTE Low 60 - 999 [facility] Comment on above: Result Comment: ACCO RDING TO THE NATIONAL KIDNEY DISEASE EDUCATION PROGRAM(NKDE), A NORMAL eGFRIS A VALUE GREATER THAN OR EQUAL TO 60 ML/MIN/1.73 SQ METERS.CHRONIC KIDNEY DISEASE: <60mL/MIN/1.73 SQ METERSKIDNEY FAILURE: <15mL/MIN/1.73 SQ METERSTHIS TEST SHOULD ONLY BE USED FOR PATIENTS 18 YEARS OF AGE AND OLDER. Performed By: #### 2 64032 ####[facility],[address] [place] [address] 80715 Globulin 3.7 g/dL Normal 1.5 - 3.8 [facility] Comment on above: Performed By: #### 2 24858 ####[facility],[address] [place] [address] 51233 Glucose mass conc 102 mg/dL Normal 74 - 106 [facility] Comment on above: Performed By: #### 2 16551 ####[facility],[address] [place] [address] 06987 Potassium molar conc 3.7 mmol/L Normal 3.5 - 5.1 [facility] Comment on above: Performed By: #### 2 55172 ####[facility],[address] [place] [address] 88786 Protein 6.9 g/dL Normal 6.4 - 8.3 [facility] Comment on above: Performed By: #### 2 80576 ####[facility],[address] [place] [address] 80151 Sodium 128 mmol/L Low 136 - 145 [facility] Comment on above: Performed By: #### 2 58362 ####[facility],[address] [place] [address] 43075 Urea nitrogen 103 mg/dL High 6 - 20 [facility] Comment on above: Performed By: #### 2 29266 ####[facility],[address] [place] [address] 82238 CPKon 02-15-2017 CPK 247 U/L High 37 - 174 [facility] Comment on above: Performed By: #### 2 16418 ####[facility],[address] [place] [address] CT BRAIN W/O CONTRASTon 01-19 CT BRAIN W/O CONTRAST [place] [address] Patient: ARLINE KHAN Phone#: : 1955 Age: 61 Gender: M Pt. Type: ER Account: [id number] Location: 052 Ordering: [facility] Exam Date: 02/15/2017/18:40 [facility] Phys: [facility] Charge Code: [id number] Physician: Butts Order #: [id number] DLP Dose#: PROCEDURE: CT BRAIN WITHOUT CONTRAST [...] 61 Gender: M Pt. Type: ER Account: [id number] Location: 052 [facility]ing: [facility] Exam Date: 02/15/2017/18:40 Family Phys: [facility] Charge Code: [id number] Physician: Butts Order #: [id number] DLP Dose#: Dictated by: Sonja Gregory MD on 02/16/2017 at 8:20 Approved by: Sonja Gregory MD on 02/16/2017 at 8:20 Normal [facility] CULTURE BLOODon 02-15-2017 CULTURE BLOOD CULTURE BLOOD _BLOOD CULTURE_ORDER #[id number] of 2 24 HOUR REPORT _NO_GROWTH 02/16/17.1934.LMM. 48 HOUR REPORT _NO_GROWTH 02/18/17.0034.LMM. 72 HOUR REPORT _NO_GROWTH 02/18/17.2113.LMM. GRAM STAIN: M I C R O B I O L O G Y R E P O R T FINAL ------- Antimicrobial Susceptibility and Organism Identification Report ------ Specimen Number : [id number] Requested : 02/15/17 Specimen Source : BLOOD Collected : 02/15/17 19:50 [place] [facility] : Emergency Room Received : 02/15/17 19:50 Requesting Physician : KIMMY ANN Patient/Specimen Tests and Comments Specimen Comments ------ ------ FINAL REPORT: No Growth at 5 Days Tech : Source : BLOOD ID # : [id number] FINAL Report Date : / / : Collected : 02/15/17 19:50 02/21/17.JLN. 02/21/17.JLN.COMPLETE Normal [facility] Comment on above: Performed By: #### 2 29486 ####[facility],[address] [place] [address] CULTURE BLOOD CULTURE BLOOD _BLOOD CULTURE_ORDER #[id number] of 2 24 HOUR REPORT _POSITIVE 02/16/17.MDS. 48 HOUR REPORT 72 HOUR REPORT GRAM STAIN: _Gram_pos_cocci_in_chains___ 02/16/17.MDS.Called to KIMMY/sabiha/[id number]/1000a/MDS M I C R O B I O L O G Y R E P O R T FINAL ------- Antimicrobial Susceptibility and Organism Identification Report ------ Specimen Number : [id number] Requested : 02/15/17 Specimen Source : BLOOD Collected : 02/15/17 19:02 [place] [facility] : Emergency Room Received : 02/15/17 19:02 Requesting Physician : KIMMY ANN Patient/Specimen Tests and Comments Specimen Comments ------ ------ FINAL REPORT: STREPTOCOCCUS VIRIDANS GROUP Ashlyn h : Source : BLOOD ID # : [id number] FINAL CALLED TO/AIDEN/SESAR [id number] Date : / / : Collected : 02/15/17 19:02 02/18/17.0710.DESTINYN. 02/18/17.SESAR.COMPLETE Normal [facility] Comment on above: Performed By: #### 2 16054 ####[facility],[address] [place] [address] 38567 GLUCOSE BEDSIDEon 02-15-2017 GLU BEDSIDE 97 mg/dl Normal 60 - 100 [facility] Comment on above: Performed By: #### 2 77231 ####[facility],[address] [place] [address] 12812 Glucose mass conc Normal [facility] Comment on above: Result Comment: POIN T OF CARE GLUCOSE TEST Performed By: #### 2 82574 ####[facility],[address] [place] [address] 23262 LACTATEon 02-15-2017 Lactate 15.9 mg/dL Normal 4.5 - 18.0 [facility] Comment on above: Performed By: #### 2 70333 ####[facility],[address] [place] [address] 27619 TROPONINon 02-15-2017 Troponin I.cardiac mass conc 0.04 ng/mL Normal 0.00 - 0.05 [facility] Comment on above: Result Comment: Elev ated [...] as heterophile antibodies). Performed By: #### 2 33595 ####[facility],[address] [place] [address] 55885 No Panel Information SARS-CoV-2 & FLU Antigen (Rapid) [facility] Work Phone: Vital Signs Date Time Vital Sign Value Performing Clinician Destiny frost 03-04-2022 21:42-0500 Heart rate 104 /min [facility] Work Phone: 03-04-2022 21:42-0500 Respiratory rate 18 /min [facility] Work Phone: 03-04-2022 21:42-0500 SaO2% (BldA) [Mass fraction] 98 % [facility] Work Phone: 03-04-2022 19:27-0500 Diastolic blood pressure 83 mm[Hg] [facility] Work Phone: 03-04-2022 19:27-0500 Systolic blood pressure 130 mm[Hg] [facility] Work Phone: 03-04-2022 16:57-0500 Body height 187.96 cm [facility] Work Phone: 03-04-2022 16:57-0500 Body mass index (BMI) [Ratio] 32.1 kg/m2 [facility] Work Phone: 03-04-2022 16:57-0500 Body temperature 96.6 [degF] [facility] Work Phone: 03-04-2022 16:57-0500 Body weight 113.39 kg [facility] Work Phone: Encounters Encounter Date Encounter Type Care Provider Facility Start: 03-04-2022 End: 03-04-2022 Emergency department patient visit [facility] Facility:[facility] Start: 03-04-2022 End: 03-04-2022 Emergency department patient visit [facility]Emergency Department Start: 04-21-2017 End: 04-21-2017 Emergency department patient visit YEYO VALLADARES [facility] Start: 02-16-2017 End: 02-18-2017 Evaluation and management of inpatient NOT RECORDED PHYSICIAN Facility:A Start: 02-15-2017 End: 02-16-2017 Emergency department patient visit HOSP [facility] Procedures Date Procedure Procedure Detail Performing Clinician Start: 03-04-2022 Plain chest X-ray Start: 01-21-2021 Ecg routine ecg w/le ast 12 lds i&r only Start: 10-29-2020 Ecg routine ecg w/le ast 12 lds i&r only SARS-CoV-2 & FLU Ant igen (Rapid) Plan of Treatment Date Care Activity Detail Author Patient Education Dehydration [facility] Work Phone: Patient referral [facility] Work Phone: Immunizations Immunization Date Immunization Notes Care Provider Kaylen frost 10-24-2020 tetanus toxoid, redu javi diphtheria toxoid, and acellular pertussis vaccine, adsorbed [facility] Work Phone: Payers Date Payer Category Payer Medicare [id number] 2022 Self-pay [id number] 2017 Medicare [id number] Unknown [id number] Unknown COMMERCIAL OTHER [id number] Unknown [id number] Social History Date Type Detail Facility Start: 03-04-2022 Tobacco smoking stat [facility] Unknown if ever smoked [facility] Work Phone: Start: 12-17-2019 Heavy [facility] [place] Work Phone: Start: 12-17-2019 None [facility] Work Phone: Start: 12-17-2019 With Family [facility] Work Phone: Start: 1955 Sex Assigned At Male [facility] Work Phone: Mental Status Date Assessment Result Facility 03-04-2022 Cognitive function Level Of Cons ciousness Awake;Alert;Appropriate;Follow s Commands [facility] Work Phone: Discharge summary note 11-01-2020 Note Date & Type Note Facility 11-01-2020 Note [facility] Ce bijan Ruvalcaba Clinical Note 10-24-2020 [...] hours prior to being seen here at [facility], and the patient states that he is reasonably comfortable. Mechanism of injury was a slip off of his deck down maybe 4 steps, landing directly on his left nondominant arm. He was able to get up and walk and had mild pain, but over the course of the next several hours noticed increasing swelling for which he sought care at [facility]. After being evaluated, he was subsequently transferred as a concern was raised for compartment syndrome, and the orthopedic surgeon network operations technician did not feel that that was within his area of expertise to manage. Once in the emergency room here, the patient was evaluated and was again [facility] PATIENT NAME: ARLINE KHAN [address] [facility] [address] MEDICAL REC #: [id number] [place] [address] ADMIT DATE: DISCHARGE DATE: 10/24/20 CONSULTATION REPORT [...] he does have edema and now this [facility] PATIENT NAME: ARLINE KHAN [address] [facility] [address] MEDICAL REC #: [id number] [place] [address] ADMIT DATE: DISCHARGE DATE: 10/24/20 CONSULTATION REPORT [...] to the patient's satisfaction, and I did [facility] PATIENT NAME: ARLINE KHAN [address] [facility] [address] MEDICAL REC #: [id number] [place] [address] ADMIT DATE: DISCHARGE DATE: 10/24/20 CONSULTATION REPORT ATTENDING PHY: Dayana Desai MD discuss with him that any change in his status would warrant repeat evaluation. I can see him in office in the next week or two or he can follow up in the [place] [facility]. Wes Anaya MD [id number] [facility] File#: [id number] END OF DOCUMENT / CHANGE LOG FOLLOWS Last Edited By [employer]. Signed By Wes Anaya MD #Wes Oh MD #JUSTIN on 10/25/2020 18:44 ET on 10/25/2020 18:44 ET Revision Number - 2 Verified/Reviewed by (more content not included)... [facility] Evaluation note Note Date & Type Note Facility Evaluation note No assessment information availa [facility] Work Phone: Summary Purpose Family History No Family History Records FoundNo Family History Records FoundNo Family History Records FoundNo Family History Records FoundNo Family History Records Found Advance Directives No Advanced Directives Records Found Advance Directive Response Recorded Date/ Time Living Will Yes March 04, 5:11pm Power of Web Content Executive Yes March 04, 2022 5:11pm Name of Medical Power of Web Content Executive Marta Khan March 04, 2022 5:11pm Chief Complaint and Reason for Visit Chief Complaint CHEST PAIN Additional Source Comments (unrecognized sect ion and content) No Status Records FoundNo Status Records FoundNo Status Records FoundNo Status Records FoundNo Status Records Found INFORMATION SOURCE (unrecogn ized section and content) DATE CREATED AUTHOR 10/12/2017 [facility] DATE CREATED AUTHOR AUTHOR'S ORGANIZ ATION 10/12/2017 [facility] DATE CREATED AUTHOR AUTHOR'S ORGANIZ ATION 11/11/2018 [facility] DATE CREATED AUTHOR AUTHOR'S ORGANIZ ATION 06/08/2021 [facility] DATE CREATED AUTHOR AUTHOR'S ORGANIZ ATION 03/17/2022 [facility] Goals (unrecognized section and content) Goals may [...] BE BASED ON THE PRIMARY CLINICAL RECORDS. [employer] [facility]. provides no warranty or guarantee of the accuracy or completeness of information in this document.
--- OUTSIDE RECORDS SUMMARY | 2024-11-11 18:43 | XMS RPT_ITS | CCD ---
Author Organization [facility] Care Team Providers Care Float Operator Name Role Phone [facility] Unavailable Unavailable [...] ANDERSON Unavailable Unavailable ARLINE LOPEZ Unavailable Unavailable [facility], [place] Primary Care Unavailable Gorge Desai Attending Unavailable [...] W/Diff, Automatedon 02-17 PATH REV Reviewed Normal [facility] Comment on above: Result Comment: Poly cythemia Clinical correlation necessary. Timothy Larry M.D. 03/05/22 AMENDED REPORT 03/05/22 1416 PATH REV previously reported as: August Performed By: #### L 100.0100, L500.2500, L501.4020 #### [facility] [address] [place], [place], [id number] Absolute lymphocyte counton 03-04-2022 Lymphocytes Auto (Unsp spec) [#/Vol] 2.30 10*3/uL 0.83-4.51 [facility] Work Phone: Basic Metabolic Profile (BMP )on 03-04-2022 BUN/CRE 21.4 RATIO High 10-20 [facility] Comment on above: Order Comment: 'TROP ' Serial specimen #1, #2 or #3: 1 Performed By: #### L 100.0100, L500.2500, L501.4020 #### [facility] [address] [place], [place], [address] CA,Total 8.8 mg/dL Normal 8.5-10.1 [facility] Comment on above: Order Comment: 'TROP ' Serial specimen #1, #2 or #3: 1 Performed By: #### L 100.0100, L500.2500, L501.4020 #### [facility] [address] [place], [address] Chloride [Moles/Vol] 102 mmol/L Normal 98-107 [facility] Comment on above: Order Comment: 'TROP ' Serial specimen #1, #2 or #3: 1 Performed By: #### L 100.0100, L500.2500, L501.4020 #### [facility] [address] [place], [address] CO2 [Moles/Vol] 25.0 mmol/L Normal 21.0-32.0 [facility] Comment on above: Order Comment: 'TROP ' Serial specimen #1, #2 or #3: 1 Performed By: #### L 100.0100, L500.2500, L501.4020 #### [facility] [address] [place], [address] Creatinine [Mass/Vol] 2.06 mg/dL High 0.70-1.30 [facility] Comment on above: Order Comment: 'TROP ' Serial specimen #1, #2 or #3: 1 Result Comment: The validity of the calculated GFR GFRAA in patients over 70 years has not been determined. Clinical correlation is essential. Performed By: #### L 100.0100, L500.2500, L501.4020 #### [facility] [address] [place], [address] ECRCL 41.01 ml/min Normal [facility] Comment on above: Order Comment: 'TROP ' Serial specimen #1, #2 or #3: 1 Performed By: #### L 100.0100, L500.2500, L501.4020 #### [facility] [address] [place], [address] EST GFR - AA 42 mL/min Low >60 [facility] Comment on above: Order Comment: 'TROP ' Serial specimen #1, #2 or #3: 1 Result Comment: Afri can Rwandan GFR Calc Performed By: #### L 100.0100, L500.2500, L501.4020 #### [facility] [address] [place], [address] GAP 8 Normal 5-15 [facility] Comment on above: Order Comment: 'TROP ' Serial specimen #1, #2 or #3: 1 Performed By: #### L 100.0100, L500.2500, L501.4020 #### [facility] [address] [place], [address] GFR/1.73 sq M.predicted among non-blacks MDRD (S/P/Bld) [Vol rate/Area] 35 mL/min/{1.73_m2} Low >60 [facility] Comment on above: Order Comment: 'TROP ' Serial specimen #1, #2 or #3: 1 Result Comment: Non- GFR Calc Performed By: #### L 100.0100, L500.2500, L501.4020 #### [facility] [address] [place], [address] Glucose [Mass/Vol] 100 mg/dL Normal 74-106 [facility] Comment on above: Order Comment: 'TROP ' Serial specimen #1, #2 or #3: 1 Result Comment: Fast ing Glucose result from 100 to 125 mg/dL suggests IMPAIRED HOMEOSTASIS per A.D.A. criteria. Performed By: #### L 100.0100, L500.2500, L501.4020 #### [facility] [address] [place], [address] Potassium [Moles/Vol] 4.2 mmol/L Normal 3.5-5.1 [facility] Comment on above: Order Comment: 'TROP ' Serial specimen #1, #2 or #3: 1 Result Comment: Mode rate Hemolysis, Result may be falsely increased. Performed By: #### L 100.0100, L500.2500, L501.4020 #### [facility] [address] [place], [address] Sodium [Moles/Vol] 135 mmol/L Low 136-145 [facility] Comment on above: Order Comment: 'TROP ' Serial specimen #1, #2 or #3: 1 Performed By: #### L 100.0100, L500.2500, L501.4020 #### [facility] [address] [place], [address] Urea nitrogen [Mass/Vol] 44 mg/dL High 7-18 [facility] Comment on above: Order Comment: 'TROP ' Serial specimen #1, #2 or #3: 1 Performed By: #### L 100.0100, L500.2500, L501.4020 #### [facility] [address] [place], [address] Basophil percentageon 2021 Basophils/100 WBC (Bld) 1.5 % 0-1 [facility] Work Phone: Chloride [Moles/Vol] 102 mmol/L 98-107 [facility] Work Phone: Eosinophils/100 WBC (Bld) 1.9 % 0-5 [facility] Work Phone: Glucose [Mass/Vol] 100 mg/dL 74-106 [facility] Work Phone: Comment on above: Fasting Glucose resu lt from 100 to 125 mg/dL suggests IMPAIRED HOMEOSTASIS per A.D.A. criteria. Neutrophils (Bld) [#/Vol] 2.1 10*3/uL 2.0-7.7 [facility] Work Phone: Neutrophils/100 WBC (Bld) 40.7 % 47-70 [facility] Work Phone: Potassium [Moles/Vol] 4.2 mmol/L 3.5-5.1 [facility] Work Phone: Comment on above: Moderate Hemolysis, Result may be falsely increased. Sodium [Moles/Vol] 135 mmol/L 136-145 [facility] Work Phone: WBC (Bld) [#/Vol] 5.2 10*3/uL 4.4-11.0 [facility] Work Phone: Blood erythrocytes count (nu mber/volume)on 03-04-2022 RBC (Bld) [#/Vol] 5.64 10*6/uL 4.6-6.2 [facility] Work Phone: Blood hemoglobin measurement (mass/volume)on 03-04-2022 Hemoglobin (Bld) [Mass/Vol] 18.2 g/dL 13.0-16.5 [facility] Work Phone: Comment on above: CRITICAL VALUE VERIF IED. CALLED TO ZAIRA ORTEZ03/04/22 1750 Cait Linares.RESULTS READ BACK BY SAME. Blood lymphocytes/100 leukoc yteson 03-04-2022 Lymphocytes/100 WBC (Bld) 44.5 % 19-41 [facility] Work Phone: Blood manual differential co mment interpretation (narrative result)on 03-04-2022 Manual differential comment Arnoldo (Bld) [Interp] SCANNED [facility] Work Phone: Blood monocytes/100 leukocyt eson 03-04-2022 Monocytes/100 WBC (Bld) 11.2 % 0-10 [facility] Work Phone: [phone] Blood platelet mean volumeon 03-04-2022 Platelet mean volume (Bld) [Entitic vol] 10.8 fL 6.2-12.0 [facility] Work Phone: Chest 1 View (Portable)on Chest 1 View (Portable) [facility] Imaging Services [address] [place] [address] Chest 1 View (Portable) MR#: [id number] Acct: [id number] Name: ARLINE KHAN Rep #: [id number] : 1955 M 66 From: Medhat Schaffer MD PCP: [facility],[place] Status: PRE ER Study: Chest 1 View (Portable) Date of Exam: 03/04/22 Exam# [id number] Ordering Dr: Gorge Desai MD STUDY: X-RAY [...] 18:10 EST Reading Location ID and State: [facility] / [place] , Service support , CC: Dr. Gorge Desai MD; [facility] Licensed Midwife: Signed Normal [facility] Determination of erythrocyte mean corpuscular volume (MCV)on 03-04-2022 MCV (RBC) [Entitic vol] 93.6 fL 80-94 [facility] Work Phone: Emergency Department Summary on 03-04-2022 Emergency Department Summary [facility] Medical Records Department [address] [place] [address] Emergency Department Summary 03/04/22 MR#: [id number] Acct: [id number] Name: ARLINE KHAN J Rep #: [id number] : 1955 66 From: Gorge Desai MD PCP: [place] Status:REG ER Location: ED HPI History [...] history of atrial fibrillation and PE. [facility] Medical History Afib High cholesterol HTN (hypertension) [...] wheezing bu (more content not included)... Normal [facility] Hematocrit Auto (Bld) [Volum e fraction]on 03-04-2022 Hematocrit (Bld) [Volume fraction] 52.8 % 40-54 [facility] Work Phone: [id number] 03-04-2022 TROPONIN-I HS 6 pg/mL Normal 3.0-78.0 [facility] Comment on above: Order Comment: 'TROP ' Serial specimen #1, #2 or #3: 1 Result Comment: Plea se Note: New Test Units and Gender Specific Reference Ranges. For more information see Policy Stat Procedure [place] High Sensitivity Troponin (TNIH) and attachments. Performed By: #### L 100.0100, L500.2500, L501.4020 #### [facility] [address] [facility] [place], [place], [id number] Laboratory - Chemistry and C hemistry - challengeon 03-04-2022 CO2 [Moles/Vol] 25.0 mmol/L 21.0-32.0 [facility] Work Phone: Urea nitrogen/Creatinine [Mass ratio] 21.4 mg/mg 10-20 [facility] Work Phone: Laboratory - Hematology and Cell countson 03-04-2022 Erythrocyte distribution width (RBC) [Entitic vol] 46.3 fL 35.1-43.9 [facility] Work Phone: Erythrocyte distribution width (RBC) [Ratio] 13.4 % 11.6-14.6 [facility] Work Phone: Immature granulocytes/100 WBC (Bld) 0.200 % 0.0-0.9 [facility] Work Phone: Comment on above: IG% - Immature Granu locytes (promyelocytes, myelocytes and metamyelocytes) > 1% indicates that a LEFT SHIFT is Present. MCH (RBC) [Entitic mass] 32.3 pg 27.0-32.0 [facility] Work Phone: Nucleated RBC/100 WBC (Bld) [Ratio] 0 % 0-5 [facility] Work Phone: [id number] 03-04-2022 M101.0111 *Negative [...] for Influenza A/B Antigen (See Note) Normal [facility] Comment on above: Performed By: #### M 101.0111 #### [facility] [place], [address] MCHC Auto (RBC) [Mass/Vol]on 03-04-2022 MCHC (RBC) [Mass/Vol] 34.5 g/dL 32-36 [facility] Work Phone: No Panel Informationon 03-04 Estimated Creatinine Clearance Calc 41.01 ml/min [facility] Work Phone: Estimated GFR (MDRD) Amer 42 mL/min >60 [facility] Work Phone: Comment on above: GFR Calc Estimated GFR (MDRD) Non-Af Amer 35 mL/min >60 [facility] Work Phone: Comment on above: Non- GFR Calc Reactive Lymphocytes 1+ [facility] Work Phone: Troponin I High Sensitivity 6 pg/mL 3.0-78.0 [facility] Work Phone: Comment on above: Please Note: New Racheal t Units and Gender Specific Reference Ranges. For more information see Policy Stat Procedure [place] High Sensitivity Troponin (TNIH) and attachments. Platelets bldon 03-04-2022 Platelets (Bld) [#/Vol] 153 10*3/uL 150-450 [facility] Work Phone: Review by pathologiston 02-17 Pathologist review Arnoldo (Unsp spec) [Interp] May foll [facility] Work Phone: Serum or plasma calcium roby urement (mass/volume)on 03-04-2022 Calcium [Mass/Vol] 8.8 mg/dL 8.5-10.1 [facility] Work Phone: Serum or plasma creatinine m easurement (mass/volume)on 03-04-2022 Creatinine [Mass/Vol] 2.06 mg/dL 0.70-1.30 [facility] Work Phone: Comment on above: The validity of the calculated GFR & GFRAA in patients over 70 years has not been determined. Clinical correlation is essential. Serum or plasma urea nitroge n measurement (mass/volume)on 03-04-2022 Urea nitrogen [Mass/Vol] 44 mg/dL 7-18 [facility] Work Phone: Thin prep Papanicolaou smear with manual screeningon 03-04-2022 Thin prep Papanicolaou smear with manual screening 8 5-15 [facility] Work Phone: SURG TISSUEon 01-27-2021 SURG [...] ON HEPARIN DRIP Performed By: #### L 300.01880 #### [facility] [address] [place] [address] ANAER CULTUREon 01-26-2021 ANAER CULTURE RESULT NO GROWTH OF ANAEROBES Normal [facility] Comment on above: Order Comment: Rio s: M : PT ON HEPARIN DRIP Performed By: #### L 300.55296 #### [facility] [address] [place] [address] BLOOD CULTUREon 01-22-2021 Bacteria identified Cx Nom (Bld) NO GROWTH AFTER [address] [facility] Comment on above: Order Comment: Rio s: M Performed By: #### M 050.30357 #### [facility] [address] [place] [address] Performed By: #### M 050.39344 ####[facility] [id number] [place], [place] [id number]# [phone] BMPon 01-21-2021 Anion gap [Moles/Vol] 8 mmol/L Normal 5-16 [facility] Comment on above: Performed By: #### L 300.08546 #### [facility] [address] [place] [address] Calcium [Mass/Vol] 8.9 mg/dL Normal 8.5-10.5 [facility] Comment on above: Result Comment: NOTE NEW NORMAL RANGE DUE TO REAGENT CHANGE Performed By: #### L 300.88934 #### [facility] [address] [place] [address] Chloride [Moles/Vol] 103 mmol/L Normal 98-107 [facility] Comment on above: Performed By: #### L 300.92255 #### [facility] [address] [place] [address] CO2 [Moles/Vol] 26.0 mmol/L Normal 21-32 [facility] Comment on above: Performed By: #### L 300.79495 #### [facility] [place] [address] Creatinine [Mass/Vol] 1.20 mg/dL Normal 0.5-1.4 [facility] Comment on above: Result Comment: NOTE NEW NORMAL RANGE DUE TO REAGENT CHANGE Patients receiving either N-Acetylcysteine (NAC) or Metamizole prior to venipuncture, may have falsely depressed results. Performed By: #### L 300.85909 #### [facility] [place] [id number] Glucose [Mass/Vol] 77 mg/dL Normal 70-100 [facility] Comment on above: Result Comment: 70-1 00- Normal Fasting; 100-125 Impaired Fasting; greater than 126 on more than one result- Diabetes. ADA guidelines. Results may be falsely elevated after the administration of Sulfapyridine. Results may be falsely depressed after the administration of Sulfasalazine. Performed By: #### L 300.54734 #### [facility] [address] [place] [address] Potassium [Moles/Vol] 4.4 mmol/L Normal 3.5-5.1 [facility] Comment on above: Performed By: #### L 300.70112 #### [facility] [address] [place] [address] Sodium [Moles/Vol] 137 mmol/L Normal 136-145 [facility] Comment on above: Performed By: #### L 300.33591 #### [facility] [place] [address] Urea nitrogen [Mass/Vol] 17 mg/dL Normal 7-26 [facility] Comment on above: Performed By: #### L 300.01240 #### [facility] [address] [place] [address] Urea nitrogen/Creatinine [Mass ratio] 14 mg/mg Low 15-24 [facility] Comment on above: Performed By: #### L 300.47450 #### [facility] [address] [place] [address] EKGon 01-21-2021 Electrocardiogram Procedure Date and T [...] ENRIQUEZ M.D.FACC Nikky DDandT: 01/21/21 1200 TDandT: [facility] PATIENT NAME: ARLINE KHAN [facility] [address] MEDICAL REC #: [id number] [place] [address] ADMIT DATE: DISCHARGE DATE: ATTENDING PHY: Bee Isabel MD ELECTROCARDIOGRAM REPORT CLB cc: [facility] PATIENT NAME: ARLINE KHAN [facility] [address] MEDICAL REC #: [id number] [place] [address] ADMIT DATE: DISCHARGE DATE: ATTENDING PHY: Bee Isabel MD ELECTROCARDIOGRAM REPORT Normal [facility] GFR ESTon 01-21-2021 IF AMER Greater than 60 Normal [facility] Comment on above: Performed By: #### L 300.45851 #### [facility] [address] [place] [address] IF non-AFR AMER Greater than 60 Normal [facility] Comment on above: Performed By: #### L 300.70872 #### [facility] [address] [place] [address] PTon 01-21-2021 INR Coag (PPP) [Relative time] 1.03 {INR} Normal 0.9-1.1 [facility] Comment on above: Result Comment: Taz mmended PT INR therapeutic range for intermodal customer service and prophylactic therapy is 2.0 - 3.0. For heart valve and shunt patients the range is 2.5 - 3.5. Performed By: #### M 050.37651 #### [facility] [address] [place] [address] PTS 11.0 SECONDS Normal 9.5-12.0 [facility] Comment on above: Performed By: #### M 050.46668 #### [facility] [address] [place] [address] PTTon 01-21-2021 aPTT Coag (Bld) [Time] 30.8 [...] using the PTT. Performed By: #### M 050.95619 #### [facility] [place] [id number] Cierra 01-17-2021 EMERGENCY PHYSICIAN REPORT This is a preliminary report only, as the practitioner review and authentication has not occurred. Normal [facility] ER PHYSICIAN ASSESSMENT RECORDS : FlexChartData Event Time: 01/17/2021 13:15 [facility] Status: Signed [facility] Arline Khan [[id number]] Mid-Level Chart (V2b) 65 / M / 1955 Chart created at 01/17/2021 13:04 by Remington Hinton Chart closed at 01/17/2021 13:10 Entry in Emergency Department at 01/17/2021 11:36, departure at 01/17/2021 13:38 Patient Name: Arline Khan Record Number: [id number] Date: 01/17/2021 13:04 Entered Department at: 01/17/2021 [...] for this fall previously. He was told [facility] PATIENT NAME: ARLINE KHAN [address] [facility] [address] MEDICAL REC #: [id number] [place] [address] EMERGENCY DEPARTMENT REPORT EMERGENCY DEPARTMENT PHYSICIAN by [...] Dr. Bee Peres who is on-call for [facility] PATIENT NAME: ARLINE KHAN [address] [facility] [address] MEDICAL REC #: [id number] [place] [address] EMERGENCY DEPARTMENT REPORT EMERGENCY DEPARTMENT PHYSICIAN trauma/Ortho. [...] FlexChartData Event Time: 01/17/2021 14:10 Status: Signed [facility] Arline Khan [[id number]] Attending Physician 65 / M / 1955 Chart (V2b) Chart created at 01/17/2021 13:36 by aRfa Ta Chart closed at 01/17/2021 13:37 Entry in Emergency Depa (more content not included)... Normal [facility] ANAER CULTUREon 11-04-2020 ANAER CULTURE NO GROWTH OF ANAEROB ES AFTER [address] [facility] Comment on above: Order Comment: Rio s: Arely Minimal Draw: Y : [facility] Performed By: #### L 300.39903 #### [facility] [address] [place] [address] BLOOD CULTUREon 11-03-2020 Bacteria identified Cx Nom (Bld) NO GROWTH AFTER [address] [facility] Comment on above: Order Comment: Rio borjas: Arely Performed By: #### M 050.27431 #### [facility] [address] [place] [address] Order Comment: Rio s: Arely Minimal Draw: Y : [facility] Performed By: #### L 300.29253 #### [facility] [address] [place] [address] SURG TISSUEon 11-02-2020 SURG TISSUE GRAM STAIN [...] FOREARM AEROBIC CULTURE Performed By: #### M 100.68817 #### [facility] [address] [place] [address] BMPon 11-01-2020 Anion gap [Moles/Vol] 4 mmol/L Low 5-16 [facility] Comment on above: Order Comment: Rashawnu s: M : PT ON HEPARIN DRIP Performed By: #### L 300.88132 #### [facility] [address] [place] [address] Calcium [Mass/Vol] 8.7 mg/dL Normal 8.5-10.5 [facility] Comment on above: Order Comment: Rashawnu s: M : PT ON HEPARIN DRIP Result Comment: NOTE NEW NORMAL RANGE DUE TO REAGENT CHANGE Performed By: #### L 300.92022 #### [facility] [address] [place] [address] Chloride [Moles/Vol] 110 mmol/L High 98-107 [facility] Comment on above: Order Comment: Rashawnu s: M : PT ON HEPARIN DRIP Performed By: #### L 300.42732 #### [facility] [address] [place] [address] CO2 [Moles/Vol] 25.0 mmol/L Normal 21-32 [facility] Comment on above: Order Comment: Rio s: M : PT ON HEPARIN DRIP Performed By: #### L 300.05452 #### [facility] [address] [place] [address] Creatinine [Mass/Vol] 1.08 mg/dL Normal 0.5-1.4 [facility] Comment on above: Order Comment: Rashawnu s: M : PT ON HEPARIN DRIP Result Comment: NOTE NEW NORMAL RANGE DUE TO REAGENT CHANGE Patients receiving either N-Acetylcysteine (NAC) or Metamizole prior to venipuncture, may have falsely depressed results. Performed By: #### L 300.65141 #### [facility] [address] [place] [address] Glucose [Mass/Vol] 109 mg/dL High 70-100 St. [...] administration of Sulfasalazine. Performed By: #### L 300.11730 #### [facility] [address] [place] [address] Potassium [Moles/Vol] 4.3 mmol/L Normal 3.5-5.1 [facility] Comment on above: Order Comment: Campu s: M : PT ON HEPARIN DRIP Result Comment: Slig ht Hemolysis, Result may be affected. Performed By: #### L 300.11994 #### [facility] [address] [place] [address] Sodium [Moles/Vol] 139 mmol/L Normal 136-145 [facility] Comment on above: Order Comment: Campu s: M : PT ON HEPARIN DRIP Performed By: #### L 300.59856 #### [facility] [address] [place] [address] Urea nitrogen [Mass/Vol] 17 mg/dL Normal 7-26 [facility] Comment on above: Order Comment: Campu s: M : PT ON HEPARIN DRIP Performed By: #### L 300.95280 #### [facility] [address] [place] [address] Urea nitrogen/Creatinine [Mass ratio] 16 mg/mg Normal 15-24 [facility] Comment on above: Order Comment: Campu s: M : PT ON HEPARIN DRIP Performed By: #### L 300.93846 #### [facility] [address] [place] [address] CBCon 11-01-2020 Erythrocyte distribution width (RBC) [Ratio] 13.5 % Normal 11-14.5 [facility] Comment on above: Order Comment: Rashawnu s: M : PT ON HEPARIN DRIP Performed By: #### L 300.51059 #### [facility] [address] [place] [address] Hematocrit (Bld) [Volume fraction] 31.9 % Low 41.0-53.0 [facility] Comment on above: Order Comment: Rio s: M : PT ON HEPARIN DRIP Performed By: #### L 300.79254 #### [facility] [address] [place] [address] Hemoglobin (Bld) [Mass/Vol] 10.4 g/dL Low 13.5-17.5 [facility] Comment on above: Order Comment: Rio s: M : PT ON HEPARIN DRIP Performed By: #### L 300.07117 #### [facility] [address] [place] [address] MCHC (RBC) [Mass/Vol] 32.6 g/dL Normal 32.0-36.0 [facility] Comment on above: Order Comment: Rio s: M : PT ON HEPARIN DRIP Performed By: #### L 300.86132 #### [facility] [address] [place] [address] MCV (RBC) [Entitic vol] 104.6 fL High 80.0-99.0 [facility] Comment on above: Order Comment: Rio s: M : PT ON HEPARIN DRIP Performed By: #### L 300.41362 #### [facility] [address] [place] [address] Nucleated RBC/100 WBC (Bld) [Ratio] 0.0 % Normal Less than 1 [facility] Comment on above: Order Comment: Rio s: M : PT ON HEPARIN DRIP Performed By: #### L 300.25508 #### [facility] [address] [place] [address] Platelet mean volume (Bld) [Entitic vol] 9.4 fL Normal 9.4-12.4 [facility] Comment on above: Order Comment: Rio s: M : PT ON HEPARIN DRIP Performed By: #### L 300.40627 #### [facility] [address] [place] [address] 37989 PLT 323 K/CU MM Normal 150-450 [facility] Comment on above: Order Comment: Rio s: M : PT ON HEPARIN DRIP Performed By: #### L 300.38164 #### [facility] [address] [place] [address] 73940 RBC 3.05 M/CU MM Low 4.50-6.00 [facility] Comment on above: Order Comment: Rio s: M : PT ON HEPARIN DRIP Performed By: #### L 300.84302 #### [facility] [address] [place] [address] 14111 WBC 12.3 K/CUMM High 4.5-11.0 [facility] Comment on above: Order Comment: Rio s: M : PT ON HEPARIN DRIP Performed By: #### L 300.46171 #### [facility] [address] [place], [place] [id number] DISCH.SUMon 11-01-2020 DISCH.[facility] Patient Name: ARLINE KHAN [address] [place] [address] NW Date of : [address] [place] [address] Unit Number: [id number] Discharge Summary Patient Status: ADM IN Attending [...] 65-year-old male, [facility] [place] [facility], past medical history of chronic back pain, [...] Providers: Jeronimo Andujar DO [address] [place] [address] Condition: Improved, Stable Disposition Home Phys Discharge Time Incur(Min) 35 Disclaimer This dictation was created using voice recognition software. Phonetic and/or minor grammatical errors may exist. eSign Date and Time Zofia Zarco DO Verified/Reviewed by 11/01/20 1538 [facility] GFR ESTon 11-01-2020 IF AMER Greater than 60 [facility] Comment on above: Order Comment: Rio s: M : PT ON HEPARIN DRIP Performed By: #### L 300.73054 #### [facility] [address] [place] [address] IF non-AFR AMER Greater than 60 [facility] Comment on above: Order Comment: Rio s: M : PT ON HEPARIN DRIP Performed By: #### L 300.03095 #### [facility] [address] [place] [address] PROG.ORTHOon 11-01-2020 PROG.ORTHO [facility] Patient Name: ARLINE KHAN [address] Date of : [address] [place] [address] Unit Number: [id number] Progress Note-Ortho Patient Status: ADM IN Attending [...] full fist. Diagnostic Data Lab 24hr (CBC/BMP [facility]) 11/01/20 0524: [Embedded Image Not Available] APTT [...] Zaira Sharp PAC Verified/Reviewed by 11/01/20 0910 [facility] Progress Note-Ortho [facility] PTTon 11-01-2020 aPTT Coag (Bld) [...] using the PTT. Performed By: #### L 300.85802 ####[facility] [id number] [place], [place] [address]Cs# [phone] aPTT Coag (Bld) [Time] 60.4 s High [...] using the PTT. Performed By: #### L 300.29620 #### [facility] [address] [place] [address] CBCon 10-31-2020 Erythrocyte distribution width (RBC) [Ratio] 12.8 % Normal 11-14.5 [facility] Comment on above: Order Comment: Rio s: M : PT ON HEPARIN DRIP Performed By: #### L 300.22569 #### [facility] [place] [address] Hematocrit (Bld) [Volume fraction] 38.2 % Low 41.0-53.0 [facility] Comment on above: Order Comment: Rio s: M : PT ON HEPARIN DRIP Performed By: #### L 300.25625 #### [facility] [place] [address] Hemoglobin (Bld) [Mass/Vol] 12.8 g/dL Low 13.5-17.5 [facility] Comment on above: Order Comment: Rio s: M : PT ON HEPARIN DRIP Performed By: #### L 300.50052 #### [facility] [place] [address] MCHC (RBC) [Mass/Vol] 33.5 g/dL Normal 32.0-36.0 [facility] Comment on above: Order Comment: Rio s: M : PT ON HEPARIN DRIP Performed By: #### L 300.63222 #### [facility] [address] [place], [place] [phone] MCV (RBC) [Entitic vol] 101.3 fL High 80.0-99.0 [facility] Comment on above: Order Comment: Rio s: M : PT ON HEPARIN DRIP Performed By: #### L 300.34754 #### [facility] [address] [place] [address] Nucleated RBC/100 WBC (Bld) [Ratio] 0.0 % Normal Less than 1 [facility] Comment on above: Order Comment: Rio s: M : PT ON HEPARIN DRIP Performed By: #### L 300.62765 #### [facility] [address] [place] [address] Platelet mean volume (Bld) [Entitic vol] 9.6 fL Normal 9.4-12.4 [facility] Comment on above: Order Comment: Rio s: M : PT ON HEPARIN DRIP Performed By: #### L 300.23802 #### [facility] [address] [place] [address] PLT 318 K/CU MM Normal 150-450 [facility] Comment on above: Order Comment: Rio s: M : PT ON HEPARIN DRIP Performed By: #### L 300.10229 #### [facility] [address] [place] [address] 45594 RBC 3.77 M/CU MM Low 4.50-6.00 [facility] Comment on above: Order Comment: Rio s: M : PT ON HEPARIN DRIP Performed By: #### L 300.55254 #### [facility] [address] [place], [place] [address] WBC 15.0 K/CUMM High 4.5-11.0 [facility] Comment on above: Order Comment: Rio s: M : PT ON HEPARIN DRIP Performed By: #### L 300.64666 #### [facility] [address] [facility] [place] [address] PROG [facility] 10-31-2020 PROG [facility] Patient Name: ARLINE KHAN [address] [facility] [address] Date of : [address] [place], [place] [address] Unit Number: [id number] Progress Note-Hospitalist Patient Status: ADM IN Attending Doctor: rTang Hansen MD Service Date: 10/31/20 1348 Subjective [...] 65-year-old male, [facility], past medical history of chronic back pain, [...] Time Zofia Zarco DO Verified/Reviewed by 10/31/20 6306 [facility] Progress Note-Hospitalist [facility] PROG.ORTHOon 10-31-2020 PROG.[facility] Patient Name: ARLINE KHAN [address] [facility] Date of : [address] [place] [id number] Unit Number: [id number] Progress Note-Ortho Patient Status: ADM IN Attending [...] intact distally. Diagnostic Data Lab 24hr (CBC/BMP [facility]) 10/30/20 2224: APTT 62.1 H 10/30/20 1453: [...] Zaira Sharp PAC Verified/Reviewed by 10/31/20 0714 [facility] Progress Note-Ortho [facility] PTTon 10-31-2020 aPTT Coag (Bld) [Time] 71.2 s High 22.0-31.5 [facility] Comment on above: Order Comment: Rio borjas: Arley Result Comment: Ther apeutic Heparin Reference Range: [...] using the PTT. Performed By: #### M 050.30484 #### [facility] [address] [place] [address]# [phone] aPTT Coag (Bld) [Time] 82.9 s Critically [...] using the PTT. Performed By: #### L 300.82080 #### [facility] [address] [place] [address] aPTT Coag (Bld) [Time] 62.1 s High [...] using the PTT. Performed By: #### L 300.86320 #### [facility] [address] [place] [address] VANC TROUGHon 10-31-2020 VANC TROUGH 13.4 MCG/ML Low 15.0-20.0 [facility] Comment on above: Order Comment: Rio s: M : PT ON HEPARIN DRIP Performed By: #### L 300.91221 #### [facility] [address] [place] [address]60[address] BMPon 10-30-2020 Anion gap [Moles/Vol] 5 mmol/L Normal 5-16 [facility] Comment on above: Order Comment: Campu s: M Performed By: #### M 050.30257 #### [facility] [address] [place] [address] Calcium [Mass/Vol] 8.4 mg/dL Low 8.5-10.5 [facility] Comment on above: Order Comment: Campu s: M Result Comment: NOTE NEW NORMAL RANGE DUE TO REAGENT CHANGE Performed By: #### M 050.60456 #### [facility] [address] [place] [address] Chloride [Moles/Vol] 106 mmol/L Normal 98-107 [facility] Comment on above: Order Comment: Campu s: M Performed By: #### M 050.67462 #### [facility] [address] [place], [place] [address] CO2 [Moles/Vol] 27.0 mmol/L Normal 21-32 [facility] Comment on above: Order Comment: Campu s: M Performed By: #### M 050.73880 #### [facility] [place] [address] Creatinine [Mass/Vol] 0.96 mg/dL Normal 0.5-1.4 [facility] Comment on above: Order Comment: Campu s: M Result Comment: NOTE NEW NORMAL RANGE DUE TO REAGENT CHANGE Patients receiving either N-Acetylcysteine (NAC) or Metamizole prior to venipuncture, may have falsely depressed results. Performed By: #### M 050.37166 #### [facility] [place] [address] Glucose [Mass/Vol] 97 mg/dL Normal 70-100 St. [...] administration of Sulfasalazine. Performed By: #### M 050.95620 #### [facility] [address] [place] [address] Potassium [Moles/Vol] 4.5 mmol/L Normal 3.5-5.1 [facility] Comment on above: Order Comment: Campu s: M Result Comment: Slig ht Hemolysis, Result may be affected. Performed By: #### M 050.49789 #### [facility] [address] [place] [address] Sodium [Moles/Vol] 138 mmol/L Normal 136-145 [facility] Comment on above: Order Comment: Campu s: M Performed By: #### M 050.98404 #### [facility] [address] [place] [address] Urea nitrogen [Mass/Vol] 18 mg/dL Normal 7-26 [facility] Comment on above: Order Comment: Campu s: M Performed By: #### M 050.34986 #### [facility] [address] [place] [address] Urea nitrogen/Creatinine [Mass ratio] 19 mg/mg Normal 15-24 [facility] Comment on above: Order Comment: Campu s: M Performed By: #### M 050.52524 #### [facility] [address] [place], [place] [address] CBC W/DIFFon 10-30-2020 BASO ABS 0.00 K/CU MM Normal 0-0.2 [facility] Comment on above: Order Comment: Campu s: M : PT ON HEPARIN DRIP Performed By: #### L 300.56581 #### [facility] [address] [place] [address] Basophils/100 WBC (Bld) 0.5 % Normal 0-2 [facility] Comment on above: Order Comment: Rio s: M : PT ON HEPARIN DRIP Performed By: #### L 300.35525 #### [facility] [address] [place], [place] [address] EOS ABS 0.20 K/CU MM Normal 0-0.5 [facility] Comment on above: Order Comment: Rio s: M : PT ON HEPARIN DRIP Performed By: #### L 300.77159 #### [facility] [address] [place] [address] Eosinophils/100 WBC (Bld) 1.8 % Normal 0-5 [facility] Comment on above: Order Comment: Rio s: M : PT ON HEPARIN DRIP Performed By: #### L 300.43064 #### [facility] [address] [place] [address] Erythrocyte distribution width (RBC) [Ratio] 13.2 % Normal 11-14.5 [facility] Comment on above: Order Comment: Rio s: M : PT ON HEPARIN DRIP Performed By: #### L 300.87518 #### [facility] [address] [place] [address] Hematocrit (Bld) [Volume fraction] 32.7 % Low 41.0-53.0 [facility] Comment on above: Order Comment: Rio s: M : PT ON HEPARIN DRIP Performed By: #### L 300.36561 #### [facility] [address] [place], [place] [address] Hemoglobin (Bld) [Mass/Vol] 10.6 g/dL Low 13.5-17.5 [facility] Comment on above: Order Comment: Rio s: M : PT ON HEPARIN DRIP Performed By: #### L 300.49331 #### [facility] [address] [place] [address] IMMATR GRAN ABS 0.00 K/CU MM Normal Less than 2 [facility] Comment on above: Order Comment: Rio s: M : PT ON HEPARIN DRIP Performed By: #### L 300.23858 #### [facility] [place] [id number] IMMATURE GRAN % 0.2 % Normal Less than 2 [facility] Comment on above: Order Comment: Rio s: M : PT ON HEPARIN DRIP Performed By: #### L 300.03400 #### [facility] [address] [place] [address] LYMPH ABS 1.20 K/CU MM Normal 0.9-4.4 [facility] Comment on above: Order Comment: Rio s: M : PT ON HEPARIN DRIP Performed By: #### L 300.22320 #### [facility] [address] [place] [address] Lymphocytes/100 WBC (Bld) 14.0 % Low 20-40 [facility] Comment on above: Order Comment: Rio s: M : PT ON HEPARIN DRIP Performed By: #### L 300.68043 #### [facility] [address] [place] [address] MCHC (RBC) [Mass/Vol] 32.4 g/dL Normal 32.0-36.0 [facility] Comment on above: Order Comment: Rio s: M : PT ON HEPARIN DRIP Performed By: #### L 300.43257 #### [facility] [address] [place] [address] MCV (RBC) [Entitic vol] 104.5 fL High 80.0-99.0 [facility] Comment on above: Order Comment: Rio s: M : PT ON HEPARIN DRIP Performed By: #### L 300.11754 #### [facility] [address] [place] [address] MONO ABS 0.90 K/CU MM Normal 0.1-1.1 [facility] Comment on above: Order Comment: Rio s: M : PT ON HEPARIN DRIP Performed By: #### L 300.54352 #### [facility] [place] [address] Monocytes/100 WBC (Bld) 10.6 % High 2-10 [facility] Comment on above: Order Comment: Rio s: M : PT ON HEPARIN DRIP Performed By: #### L 300.95541 #### [facility] [address] [place] [address] NEUTROPHIL ABS 6.30 K/CU MM Normal 2.0-8.3 [facility] Comment on above: Order Comment: Rio s: M : PT ON HEPARIN DRIP Performed By: #### L 300.79458 #### [facility] [address] [place] [address] Neutrophils/100 WBC (Bld) 72.9 % Normal 45-75 [facility] Comment on above: Order Comment: Rio s: M : PT ON HEPARIN DRIP Performed By: #### L 300.79971 #### [facility] [address] [place], [place] [address] Nucleated RBC/100 WBC (Bld) [Ratio] 0.0 % Normal Less than 1 [facility] Comment on above: Order Comment: Rio s: M : PT ON HEPARIN DRIP Performed By: #### L 300.63476 #### [facility] [address] [place], [place] [address] Platelet mean volume (Bld) [Entitic vol] 9.5 fL Normal 9.4-12.4 [facility] Comment on above: Order Comment: Rio s: M : PT ON HEPARIN DRIP Performed By: #### L 300.77689 #### [facility] [address] [place] [address] 26071 PLT 244 K/CU MM Normal 150-450 [facility] Comment on above: Order Comment: Rashawnu s: M : PT ON HEPARIN DRIP Performed By: #### L 300.54925 #### [facility] [address] [place] [address] 62560 RBC 3.13 M/CU MM Low 4.50-6.00 [facility] Comment on above: Order Comment: Rashawnu s: M : PT ON HEPARIN DRIP Performed By: #### L 300.64955 #### [facility] [address] [place] [address] WBC 8.7 K/CUMM Normal 4.5-11.0 [facility] Comment on above: Order Comment: Rashawnu s: M : PT ON HEPARIN DRIP Performed By: #### L 300.19281 #### [facility] [address] [place] [address] CKon 10-30-2020 CK [Catalytic activity/Vol] 69 U/L Normal 26-192 [facility] Comment on above: Order Comment: Campu s: M Result Comment: NOTE NEW NORMAL RANGE DUE TO REAGENT CHANGE Performed By: #### M 050.48101 #### [facility] [address] [place] [address] CONS.ORTHOon 10-30-2020 CONS.ORTHO [facility] Patient Name: ARLINE KHAN [address] [place] [address] Date of : [address] [place] [address] Unit Number: [id number] CONSULTATION-ORTHO Patient Status: ADM IN Attending Doctor: [...] of swelling and he was transferred to [facility] for evaluation. Upon my evaluation today [...] both the left and right arm in [place] after prior traumatic injury Family History Noncontributory [...] ESTon 10-30-2020 IF AMER Greater than 60 [facility] Comment on above: Order Comment: Rio s: M Performed By: #### M 050.25562 #### [facility] [address] [place] [address] IF non-AFR AMER Greater than 60 [facility] Comment on above: Order Comment: Rio s: M Performed By: #### M 050.37061 #### [facility] [address] [place] [address] OR.OPRPTon 10-30-2020 Operative Report Normal [facility] Cecily OR.OPRPT [facility] Patient Name: ARLINE KHAN [address] Date of : [address] [place] [address] Unit Number: [id number] Operative Report Patient Status: ADM IN Attending [...] Blood Loss: 50 cc IV Fluids: Per chef & owner: Zaira Sharp PA-C, assisted with preoperative positioning, [...] his left forearm. Patient was seen at [facility] and there was concern for compartment syndrome so he was sent to [facility] emergency department. There were no signs [...] with 2 L of saline. A 10 Persian drain to Hemovac suction was placed in [...] Andujar DO Verified/Reviewed by 10/30/20 1435 Normal [facility] PHA.NOTEon 10-30-2020 PHA.NOTE [facility] Patient Name: ARLINE KHAN [employer] [address] Date of : [address] [place], [place] [address] Unit Number: [id number] Pharmacy Note Patient Status: ADM IN Attending [...] Time Elsie SantamariaD Verified/Reviewed by 10/30/20 09 [facility] Pharmacy Note [facility] PROG [facility] 10-30-2020 PROG [facility]: [facility] [employer] [facility] [place] Date of : [address] [place] [address] Unit Number: [id number] Progress Note-Hospitalist Patient Status: ADM IN Attending [...] oriented 3 Diagnostic Data: Lab 24hr (CBC/BMP [facility]) 10/30/20 1453: APTT 25.4 10/30/20 0809: [Embedded [...] 65-year-old male, [place], past medical history of chronic back pain, [...] using the PTT. Performed By: #### L 300.97371 #### [facility] [address] [place] [address] aPTT Coag (Bld) [Time] 51.5 s High [...] using the PTT. Performed By: #### L 300.90493 #### [facility] [address] [place] [address] BMPon 10-29-2020 Anion gap [Moles/Vol] 4 mmol/L Low 5-16 [facility] Comment on above: Order Comment: Rio borjas: Arely Performed By: #### L 550.02121, L500.29678, L500.15603 ####[facility] [id number] [place], [place] [address]Fp# [phone] Calcium [Mass/Vol] 9.2 mg/dL Normal 8.5-10.5 [facility] Comment on above: Order Comment: Campu s: M Result Comment: NOTE NEW NORMAL RANGE DUE TO REAGENT CHANGE Performed By: #### L 550.61323, L500.40256, L500.96071 ####[facility] [id number] [place], [place] [address]Vr# [phone] Chloride [Moles/Vol] 105 mmol/L Normal 98-107 [facility] Comment on above: Order Comment: Campu s: M Performed By: #### L 550.67253, L500.96374, L500.58425 ####[facility] [id number] [place], [place] [address]Sm# [phone] CO2 [Moles/Vol] 30.0 mmol/L Normal 21-32 [facility] Comment on above: Order Comment: Campu s: M Performed By: #### L 550.99969, L500.31251, L500.17976 ####[facility] [id number] [place] [address]Ys# [phone] Creatinine [Mass/Vol] 1.05 mg/dL Normal 0.5-1.4 [facility] Comment on above: Order Comment: Campu s: M Result Comment: NOTE NEW NORMAL RANGE DUE TO REAGENT CHANGE Patients receiving either N-Acetylcysteine (NAC) or Metamizole prior to venipuncture, may have falsely depressed results. Performed By: #### L 550.82268, L500.63792, L500.88046 ####[facility] [id number] [place] [address]Bv# [phone] Glucose [Mass/Vol] 91 mg/dL Normal 70-100 [facility] Comment on above: Order Comment: Campu s: M Result Comment: 70-1 00- Normal Fasting; 100-125 Impaired Fasting; greater than 126 on more than one result- Diabetes. ADA guidelines. Results may be falsely elevated after the administration of Sulfapyridine. Results may be falsely depressed after the administration of Sulfasalazine. Performed By: #### L 550.63035, L500.15485, L500.80794 ####[facility] [id number] [place], [place] [address]Ti# [phone] Potassium [Moles/Vol] 4.1 mmol/L Normal 3.5-5.1 [facility] Comment on above: Order Comment: Campu s: M Performed By: #### L 550.49941, L500.64269, L500.32891 ####[facility] [id number] [place], [place] [address]Cs# [phone] Sodium [Moles/Vol] 139 mmol/L Normal 136-145 [facility] Comment on above: Order Comment: Campu s: M Performed By: #### L 550.69079, L500.53804, L500.36643 ####[facility] [facility] [id number] [place], [place] [address]Gm# [phone] Urea nitrogen [Mass/Vol] 23 mg/dL Normal 7-26 [facility] Comment on above: Order Comment: Campu s: M Performed By: #### L 550.40645, L500.39000, L500.50594 ####[facility] [id number] [place], [place] [address]Re# [phone] Urea nitrogen/Creatinine [Mass ratio] 22 mg/mg Normal 15-24 [facility] Comment on above: Order Comment: Campu s: M Performed By: #### L 550.38132, L500.47584, L500.11450 ####[facility] [id number] [place], [place] [address]Vc# [phone] CBC W/DIFFon 10-29-2020 BASO ABS 0.00 K/CU MM Normal 0-0.2 [facility] Comment on above: Order Comment: Campu s: M Performed By: #### M 050.26975 #### [facility] [address] [place] [address] Basophils/100 WBC (Bld) 0.5 % Normal 0-2 [facility] Comment on above: Order Comment: Campu s: M Performed By: #### M 050.48341 #### [facility] [address] [place] [address] EOS ABS 0.20 K/CU MM Normal 0-0.5 [facility] Comment on above: Order Comment: Campu s: M Performed By: #### M 050.91570 #### [facility] [address] [place] [address] Eosinophils/100 WBC (Bld) 1.7 % Normal 0-5 [facility] Comment on above: Order Comment: Campu s: M Performed By: #### M 050.02169 #### [facility] [address] [place] [address] Erythrocyte distribution width (RBC) [Ratio] 13.4 % Normal 11-14.5 [facility] Comment on above: Order Comment: Campu s: M Performed By: #### M 050.08080 #### [facility] [address] [place] [address] Hematocrit (Bld) [Volume fraction] 35.6 % Low 41.0-53.0 [facility] Comment on above: Order Comment: Campu s: M Performed By: #### M 050.80346 #### [facility] [address] [place] [address] Hemoglobin (Bld) [Mass/Vol] 11.8 g/dL Low 13.5-17.5 [facility] Comment on above: Order Comment: Campu s: M Performed By: #### M 050.40544 #### [facility] [address] [place] [address] IMMATR GRAN ABS 0.00 K/CU MM Normal Less than 2 [facility] Comment on above: Order Comment: Campu s: M Performed By: #### M 050.65325 #### [facility] [address] [place] [address] IMMATURE GRAN % 0.5 % Normal Less than 2 [facility] Comment on above: Order Comment: Campu s: M Performed By: #### M 050.85007 #### [facility] [address] [place] [address] LYMPH ABS 1.50 K/CU MM Normal 0.9-4.4 [facility] Comment on above: Order Comment: Campu s: M Performed By: #### M 050.07143 #### [facility] [address] [place] [address] Lymphocytes/100 WBC (Bld) 16.9 % Low 20-40 [facility] Comment on above: Order Comment: Campu s: M Performed By: #### M 050.13150 #### [facility] [address] [place] [address] MCHC (RBC) [Mass/Vol] 33.1 g/dL Normal 32.0-36.0 [facility] Comment on above: Order Comment: Campu s: M Performed By: #### M 050.46389 #### [facility] [address] [place] [address] MCV (RBC) [Entitic vol] 103.2 fL High 80.0-99.0 [facility] Comment on above: Order Comment: Campu s: M Performed By: #### M 050.40229 #### [facility] [address] [place] [address] MONO ABS 0.70 K/CU MM Normal 0.1-1.1 [facility] Comment on above: Order Comment: Campu s: M Performed By: #### M 050.54937 #### [facility] [address] [place] [address] Monocytes/100 WBC (Bld) 8.0 % Normal 2-10 [facility] Comment on above: Order Comment: Campu s: M Performed By: #### M 050.67900 #### [facility] [address] [place] [address] NEUTROPHIL ABS 6.30 K/CU MM Normal 2.0-8.3 [facility] Comment on above: Order Comment: Campu s: M Performed By: #### M 050.22121 #### [facility] [address] [place] [address] Neutrophils/100 WBC (Bld) 72.4 % Normal 45-75 [facility] Comment on above: Order Comment: Campu s: M Performed By: #### M 050.32498 #### [facility] [address] [place] [address] Nucleated RBC/100 WBC (Bld) [Ratio] 0.0 % Normal Less than 1 [facility] Comment on above: Order Comment: Campu s: M Performed By: #### M 050.71596 #### [facility] [address] [place], [place] [id number] Platelet mean volume (Bld) [Entitic vol] 9.5 fL Normal 9.4-12.4 [facility] Comment on above: Order Comment: Campu s: M Performed By: #### M 050.43071 #### [facility] [address] [place], [place] [id number] PLT 275 K/CU MM Normal 150-450 [facility] Comment on above: Order Comment: Campu s: M Performed By: #### M 050.53348 #### [facility] [address] [place], [place] [id number] RBC 3.45 M/CU MM Low 4.50-6.00 [facility] Comment on above: Order Comment: Campu s: M Performed By: #### M 050.29609 #### [facility] [address] [place] [address] WBC 8.6 K/CUMM Normal 4.5-11.0 [facility] Comment on above: Order Comment: Campu s: M Performed By: #### M 050.95881 #### [facility] [address] [place] [address] CRPon 10-29-2020 CRP 6.22 MG/DL Normal LESS THAN 1 [facility] Comment on above: Order Comment: Campu s: M Performed By: #### L 550.74073, L500.21551, L500.65448 ####[facility] [id number] [place], [place] [address]Zm# [phone] CT UPPER EXTREMITY W/CON LTo n 10-29-2020 [...] The intramuscular and deep intermuscular fat planes Business Functional Analyst (topogram) images: No additional findings. IMPRESSION: 1. [...] MD Signed By: ANCELMO MICHAEL MD Normal [facility] Cecily EKChivo 10-29-2020 Electrocardiogram Procedure Date [...] ENRIQUEZ M.D.FACC Nikky DDandT: 10/30/20 1452 TDandT: [facility]: [facility] [address] MEDICAL REC #: [id number] [place] [address] ADMIT DATE: 10/29/20 DISCHARGE DATE: 11/01/20 ATTENDING PHY: Zofia Zarco DO ELECTROCARDIOGRAM REPORT CLB cc: [facility] PATIENT NAME: ARLINE KHAN [facility] [address] [address]bins MEDICAL REC #: [id number] [place] [address] ADMIT DATE: 10/29/20 DISCHARGE DATE: 11/01/20 ATTENDING PHY: Zofia Zarco DO ELECTROCARDIOGRAM REPORT [facility] 10-29-2020 EMERGENCY PHYSICIAN REPORT This is a preliminary report only, as the practitioner review and authentication has not occurred. Normal [facility] ER PHYSICIAN ASSESSMENT RECORDS : FlexChartData Event Time: 10/29/2020 19:40 Status: Signed [facility] Arline Khan [[id number]] Mid-Level Chart (V2b) 65 / M / 1955 Chart created at 10/29/2020 19:25 by Oumou Espitia Chart closed at 10/29/2020 19:44 Entry in Emergency Department at 10/29/2020 16:28, departure at 10/29/2020 21:55 Patient Name: Arline Khan Record Number: [id number] Date: 10/29/2020 19:25 Entered Department at: 10/29/2020 [...] Orthopedics was consulted at that time and [facility] PATIENT NAME: ARLINE KHAN [address] [facility] [address] MEDICAL REC #: [id number] [place] [address] EMERGENCY DEPARTMENT REPORT EMERGENCY DEPARTMENT PHYSICIAN felt he could be discharged home. Patients been having worsening left arm pain and feels as if it swollen somewhat more. He was again seen at [facility] and sent here given for further evaluation. [...] BASOPHIL %: 0.5 %; EOS ABS: 0.20 [facility] PATIENT NAME: ARLINE KHAN [address] [facility] [address] MEDICAL REC #: [id number] [place] [address] EMERGENCY DEPARTMENT REPORT EMERGENCY DEPARTMENT PHYSICIAN K/Cu [...] fracture. Remote fracture deformity of the distal [facility] PATIENT NAME: ARLINE KHAN [address] [facility] [address]bins MEDICAL REC #: [id number] [place] [address] EMERGENCY DEPARTMENT REPORT EMERGENCY DEPARTMENT PHYSICIAN radius [...] FORD MD Signed By: RASHMI FORD MD [facility] GFR ESTon 10-29-2020 IF AMER Greater than 60 [facility] Comment on above: Order Comment: Campu s: M Performed By: #### L 550.68036, L500.03182, L500.57696 ####[facility] [id number] [place], [place] [address]Dr# [phone] IF non-AFR AMER Greater than 60 [facility] Comment on above: Order Comment: Campu s: M Performed By: #### L 550.86281, L500.33682, L500.54180 ####[facility] [id number] [place], [place] [address]Ld# [phone] HP.IMS.ADM 10-29-2020 Admission-H&P [facility] HP.IMS.[facility] Patient Name: ARLINE KHAN [address] [facility] Date of : [address] [place] [address] Unit Number: [id number] Admission-HandP Patient Status: REG ER Attending Doctor: Kash Garcia,Emergency Physicians Service Date: 10/29/202127 See Addendum History of Present Illness Source of Information Patient, medical chart Chief Complaint/Present Illness: left arm pain Living Situation Home - Independent History of Present Illness The patient is a 65-year-old male, follows with primary care services from [facility], with a past medical history significant for [...] his left arm and did present to [facility] ED on that day for further evaluation. Patient was transferred to the [facility] ED on that day and orthopedics was [...] content not included)... Normal [facility] LACTATE BLOODon 10-29-2020 LACTATE BLOOD 1.55 MMOL/L Normal 0.40-2.00 [facility] Comment on above: Order Comment: Rio borjas: M Performed By: #### L 550.06207 #### [facility] [address] [place] [address] PTon 10-29-2020 INR Coag (PPP) [Relative time] 1.01 {INR} Normal 0.9-1.1 [facility] Comment on above: Order Comment: Rio s: M Result Comment: Taz mmended PT INR therapeutic range for custodial and prophylactic therapy is 2.0 - 3.0. For heart valve and shunt patients the range is 2.5 - 3.5. Performed By: #### M 050.50893 #### [facility] [address] [place] [address] PTS 10.8 SECONDS Normal 9.5-12.0 [facility] Comment on above: Order Comment: Rio s: M Performed By: #### M 050.72620 #### [facility] [address] [place] [address] PTTon 10-29-2020 aPTT Coag (Bld) [Time] 24.5 [...] using the PTT. Performed By: #### M 050.96526 #### [facility] [place] [address] [id number] 10-29-2020 SARS-CoV-2 (COVID-19) RNA ALFONSO+probe Ql (Unsp [...] performed by PCR. Performed By: #### L 770.88407 ####[facility] [id number] [place], [place] [address]Ml# [phone] WSR/MODon 10-29-2020 WSR/MOD 53 MM/HR High 0-20 [facility] Comment on above: Order Comment: Rio s: M Performed By: #### M 050.94264 #### [facility] [address] [place] [address] [facility] 10-24-[address] [facility] Cierra 10-24-2020 EMERGENCY PHYSICIAN REPORT This is a preliminary report only, as the practitioner review and authentication has not occurred. Normal [facility] ER PHYSICIAN ASSESSMENT RECORDS : FlexChartData Event Time: 10/24/2020 18:10 [facility] Status: Signed [facility] Arline Khan [[id number]] Mid-Level Chart (V2b) 65 / M / 1955 Chart created at 10/24/2020 18:02 by Remington Hinton Chart closed at 10/24/2020 18:25 Entry in Emergency Department at 10/24/2020 17:02, departure at 10/24/2020 18:58 Patient Name: Arline Khan Record Number: [id number] Date: 10/24/2020 18:02 Entered Department at: 10/24/2020 17:02 Patient Seen at: 10/24/2020 17:51 PCP: douglas Chief Complaint:PATIENT REPORTS FALL TODAY AT 0530 AND REPORTS TAKING BLOOD THINNERS GENERIC VERSION OF HEPARIN. PATIENT REPORTS INCREASED SWELLING AND MOTTLED SKIN. DENIES LOC, OR HEAD INJURIES. History of Present Illness: Patient sent from [place] emergency room for evaluation of a left forearm injury that occurred at 530 this morning. Patient suffered a mechanical fall from standing height onto his left forearm. Plain films at [place] demonstrated no fractures. Patient is on an injectable blood thinner for blood clots. He was sent to our facility because of concern for compartment syndrome. It was reported that he had discoloration to his hand. It was reported he had ulnar and radial pulse. He had decreased capillary refill. Orthopedics was consulted at [place] and preferred that the emergency room send the patient out. Patient states his tetanus was updated. Patient denies [facility] PATIENT NAME: ARLINE KHAN [address] [facility] [address] MEDICAL REC #: [id number] [place] [address] EMERGENCY DEPARTMENT REPORT EMERGENCY DEPARTMENT PHYSICIAN any [...] Making Patient was sent to us by [facility] for concern of compartment syndrome. I discussed the case and my examination findings with Dr. Anaya who evaluated the patient at bedside who did not recommend any emergent work-up. He did not feel this was compartment [facility] PATIENT NAME: ARLINE KHAN [address] [facility] [address] MEDICAL REC #: [id number] [place] [address] EMERGENCY DEPARTMENT REPORT EMERGENCY DEPARTMENT PHYSICIAN syndrome. [...] FlexChartData Event Time: 10/24/2020 19:20 Status: Signed [facility] Arline Khan [[id number]] Attending Physician 65 / M / 1955 Addendum (V2b) Chart created at 10/24/2020 18:40 by Dayana Desai Chart closed at 10/24/2020 18:45 Entry in Emergency Department at 10/24/2020 17:02, departur (more content not included)... [facility] EMERGENCY DEPARTMENTon 08-30 [place] [address] HEALTH INFORMATION MANAGEMENT EMERGENCY DEPARTMENT : Signed Patient: ARLINE KHAN Acct:[id number] MRUN: M [id number] : 1955 Sex: M Loc: ED ADM [...] Q6H PRN 3 Days #12 tablet 08/26/18 [[place] 5/325 mg Tablet] MDD 4 Naproxen [Naprosyn] [...] Relationship: No Hx Physical Abuse: No - [place]/Gender ID What is your current Gender Identity? [...] 2+, knee (L): 2+ Best Eye Response ([place]): (4) open spontaneously Best Motor Response (Jessica): (6) obeys commands Best Verbal Response (Jessica): (5) oriented - Psychiatric Psychiatric exam: Present: normal affect, normal mood - Skin Skin Color: Present: Normal, [place] Skin exam: Present: warm, dry - Expanded [...] PRN #20 tablet 08/26/18 [Rx] Hydrocodone Bit/Acetaminophen [[place] 5/325 mg Tablet] 1 tab PO Q6H [...] Q6H PRN 3 Days #12 tablet 08/26/18 [[place] 5/325 mg Tablet] MDD 4 Naproxen [Naprosyn] 500 mg PO BID PRN #20 tablet 08/26/18 Prednisone 1 - 3 tab PO DAILY #18 tablet 08/26/18 Home medications and allergies reviewed: Yes Time Seen by Provider: 08/26/18 15:59 Patient seen by Midlevel: Independently - Consultation I saw and examined the patient: Yes Nurses Notes Reviewed and Agreed With?: Yes - Dictation Amendments/Documentation: [employer] Software Document Only Electronically Generated By: TAMMY MANRIQUEZ PA-C Generated Date/Time: 08/26/18 1739 Electronically Signed By: TAMMY MANRIQUEZ PA-C Signed Date/Time 08/26/18 1753 Co Signed Electronically By: Co Signed Date/Time: 08/30/18 1549 08/30/18 1549 CC: MATHEW MOFFETT APRN, CNP Normal [facility] CT LUMBAR WOon 08-26-2018 CT [...] if continued symptomatology or clinical suspicion. Normal [facility] EMERGENCY DEPARTMENT SUMMARY on 04-28-2017 EMERGENCY DEPARTMENT SUMMARY [facility] EMERGENCY DEPARTMENT SUMMARY NAME NUMBER SEX AGE ADMIT DISC TYPE MED.RECORD# BETINA Chirinos [id number] M 61 04/21/17 04/21/17 [place] 016[address]IA ROOM:ER-A DATE OF :1955 PHYSICIAN NO.:[id number] PHYSICIAN NAME:FREDI Valladares M.D. PHYSICIAN: CHIEF COMPLAINT: [...] Yeyo Valladares MD TD: 12:56 JOB #: [id number] Electronically signed by: FREDI Valladares M.D. 04/28/17 07:00 Transcribed by: am 04/22/2017 10:48 DD: DT: JOB #: ELECTRONICALLY SIGNED BY: FREDI Valladares M.D. 04/28/17 07:00 Transcribed by: AM 04/22/17 10:48 Normal [facility] Critical Care Progress Notes on 03-15-2017 Critical Care Progress Notes Normal [facility] (MD) CBLon 02-21-2017 CBL . MICRO - MicrobiologyPROCEDURE: [...] days.Performing Locations*1: This test was performed at: [address], [address] [place] [address] (MD) Comment on above: Performed By: #### C BC, ADIFF, ANEU, GFR, CMP, TROPI ####[place] [address] CBL . MICRO - MicrobiologyPROCEDURE: Blood Culture [...] days.Performing Locations*1: This test was performed at: [address], [address] [place] [address] (MD) Comment on above: Performed By: #### C BC, ADIFF, ANEU, GFR, CMP, TROPI ####[place] [address] Discharge Summaryon 02-22-20 17 Discharge Summary Normal [facility] (MD) Discharge Summary Normal [facility] (MD) GLUCOSE BEDSIDEon 02-19-2017 GLU BEDSIDE 100 mg/dl Normal 60 - 100 [facility] Comment on above: Performed By: #### 2 20921 ####[facility],[address] [place] [address] Glucose mass conc Normal [facility] Comment on above: Result Comment: POIN T OF CARE GLUCOSE TEST Performed By: #### 2 06933 ####[facility],[address] [place] [address] .Auto Diffon 02-18-2017 Basophils Auto #/vol (Bld) 0.00 10 3/mcL Normal 0.00-0.27 [facility] (MD) Comment on above: Performed By: #### C BC, ADIFF, ANEU, GFR, CMP, TROPI ####[address] [address] Basophils/100 WBC Auto (Bld) 0.4 % Normal 0.0-2.5 [facility] ([place]) Comment on above: Performed By: #### C BC, ADIFF, ANEU, GFR, CMP, TROPI ####[address] [address] Eosinophils 0.20 10 3/mcL Normal 0.00-0.65 [facility] ([place]) Comment on above: Performed By: #### C BC, ADIFF, ANEU, GFR, CMP, TROPI ####[address] [address] Eosinophils/100 leukocytes 1.7 % Normal 0.0-6.0 [facility] ([place]) Comment on above: Performed By: #### C BC, ADIFF, ANEU, GFR, CMP, TROPI ####[address] [address] Lymphocytes 1.20 10 3/mcL Normal 0.90-4.32 [facility] ([place]) Comment on above: Performed By: #### C BC, ADIFF, ANEU, GFR, CMP, TROPI ####[place] [id number] [place] [address] Lymphocytes/100 leukocytes 13.4 % Low 20.0-40.0 [facility] ([place]) Comment on above: Performed By: #### C BC, ADIFF, ANEU, GFR, CMP, TROPI ####[address] [address] Monocytes 0.80 10 3/mcL Normal 0.09-1.40 [facility] ([place]) Comment on above: Performed By: #### C BC, ADIFF, ANEU, GFR, CMP, TROPI ####[address] [address] Monocytes/100 leukocytes 8.4 % Normal 2.0-13.0 [facility] ([place]) Comment on above: Performed By: #### C BC, ADIFF, ANEU, GFR, CMP, TROPI ####[address] [address] Neutrophils/100 WBC Auto (Bld) 76.1 % High 50.0-75.0 [facility] ([place]) Comment on above: Performed By: #### C BC, ADIFF, ANEU, GFR, CMP, TROPI ####[address] [address] .GFRon 02-18-2017 eGFR (non-black) 24 ml/min/1.73sqm Normal A [facility] ([place]) Comment on above: Result Comment: GFR [...] C BC, ADIFF, ANEU, GFR, CMP, TROPI ####[place] [address] eGFR (non-black) 30 ml/min/1.73sqm Normal A [facility] ([place]) Comment on above: Result Comment: GFR Population [...] C BC, ADIFF, ANEU, GFR, CMP, TROPI ####[place] [address] .NEUABSon 02-18-2017 Neutrophils 7.00 10 3/mcL Normal 2.25-8.10 [facility] ([place]) Comment on above: Performed By: #### C BC, ADIFF, ANEU, GFR, CMP, TROPI ####[place] [address] APTTon 02-18-2017 aPTT Heparin IV Normal [facility] ([place]) Comment on above: Performed By: #### C BC, ADIFF, ANEU, GFR, CMP, TROPI ####[place] [address] aPTT 69.0 s High 25.0-35.0 [facility] ([place]) Comment on above: Result Comment: For Heparin anticoagulation therapy, the recommendedtherapeutic range is: 54-77 seconds (APTT Correlationwith Anti-Xa therapeutic range of 0.3-0.7 units/ml).PLEASE REFERENCE THE PHARMACY PROTOCOL FOR DOSING. Performed By: #### C BC, ADIFF, ANEU, GFR, CMP, TROPI ####[place] [address] BMPon 02-18-2017 BUN/Creatinine Ratio 25.5 ratio High 10.0-22.0 [facility] ([place]) Comment on above: Performed By: #### C BC, ADIFF, ANEU, GFR, CMP, TROPI ####[place] [address] Calcium 8.4 mg/dL Normal 8.4-10.1 [facility] ([place]) Comment on above: Performed By: #### C BC, ADIFF, ANEU, GFR, CMP, TROPI ####[place] [address] Chloride 109 mmol/L Normal 98-110 [facility] ([place]) Comment on above: Performed By: #### C BC, ADIFF, ANEU, GFR, CMP, TROPI ####[place] [address] CO2 26 mmol/L Normal 22-32 [facility] ([place]) Comment on above: Performed By: #### C BC, ADIFF, ANEU, GFR, CMP, TROPI ####[place] [address] Creatinine 2.67 mg/dL High 0.60-1.40 [facility] ([place]) Comment on above: Performed By: #### C BC, ADIFF, ANEU, GFR, CMP, TROPI ####[place] [address] Electrolyte Balance 8.0 mEq/L Normal 4.0-15.0 [facility] ([place]) Comment on above: Performed By: #### C BC, ADIFF, ANEU, GFR, CMP, TROPI ####[place] [address] Glucose mass conc 102 mg/dL Normal 82-115 [facility] ([place]) Comment on above: Performed By: #### C BC, ADIFF, ANEU, GFR, CMP, TROPI ####[place] [address] Potassium molar conc 4.0 mmol/L Normal 3.5-5.0 [facility] ([place]) Comment on above: Performed By: #### C BC, ADIFF, ANEU, GFR, CMP, TROPI ####[place] [address] Sodium 143 mmol/L Normal 136-145 [facility] ([place]) Comment on above: Performed By: #### C BC, ADIFF, ANEU, GFR, CMP, TROPI ####[place] [address] Urea nitrogen 68.0 mg/dL High 8.0-22.0 [facility] ([place]) Comment on above: Performed By: #### C BC, ADIFF, ANEU, GFR, CMP, TROPI ####[place] [address] CAIONo 02-18-2017 Calcium Ionized 1.20 mmol/L Normal 1.12-1.32 [facility] ([place]) Comment on above: Performed By: #### C BC, ADIFF, ANEU, GFR, CMP, TROPI ####[place] [address] CBCon 02-18-2017 Erythrocyte distribution width Auto Ratio (RBC) 14.9 % Normal 11.5-15.5 [facility] ([place]) Comment on above: Performed By: #### C BC, ADIFF, ANEU, GFR, CMP, TROPI ####[place] [address] Erythrocytes (RBC) 4.37 10 6/mcL Low 4.50-6.00 [facility] ([place]) Comment on above: Performed By: #### C BC, ADIFF, ANEU, GFR, CMP, TROPI ####[place] [address] Hematocrit (HCT) 42.2 % Normal 40.0-52.0 [facility] ([place]) Comment on above: Performed By: #### C BC, ADIFF, ANEU, GFR, CMP, TROPI ####[place] [address] Hemoglobin mass conc (Bld) 14.0 G/dL Normal 13.0-17.5 [facility] ([place]) Comment on above: Performed By: #### C BC, ADIFF, ANEU, GFR, CMP, TROPI ####[place] [address] MCH 32.0 pg Normal 27.0-33.0 [facility] ([place]) Comment on above: Performed By: #### C BC, ADIFF, ANEU, GFR, CMP, TROPI ####[place] [address] MCHC mass conc (RBC) 33.2 G/dL Normal 32.0-36.0 [facility] ([place]) Comment on above: Performed By: #### C BC, ADIFF, ANEU, GFR, CMP, TROPI ####[place] [address] MCV 96.5 fL Normal 81.0-100.0 [facility] ([place]) Comment on above: Performed By: #### C BC, ADIFF, ANEU, GFR, CMP, TROPI ####[place] [address] Platelet mean volume (PMV) 8.7 fL Normal 6.4-10.5 [facility] ([place]) Comment on above: Performed By: #### C BC, ADIFF, ANEU, GFR, CMP, TROPI ####[place] [address] Platelets 243 10 3/mcL Normal 150-450 [facility] ([place]) Comment on above: Performed By: #### C BC, ADIFF, ANEU, GFR, CMP, TROPI ####[place] [address] WBC (Leukocytes) 9.20 10 3/mcL Normal 4.50-10.80 [facility] ([place]) Comment on above: Performed By: #### C BC, ADIFF, ANEU, GFR, CMP, TROPI ####[place] [address] CURon 02-18-2017 CUR . MICRO - MicrobiologyPROCEDURE: [...] SusceptibleSulfaPerforming Locations*1: This test was performed at: [address], [address] [place] [address] Normal [facility]) Comment on above: Performed By: #### C BC, ADIFF, ANEU, GFR, CMP, TROPI ####[place] [address] Depart Summaryon 02-18-2017 Depart Summary Normal [facility]) Inpatient Patient Summaryon 02-18-2017 Inpatient Patient Summary Normal [facility]) MGon 02-18-2017 Magnesium 2.8 mg/dL High 1.6-2.4 [facility]) Comment on above: Performed By: #### C BC, ADIFF, ANEU, GFR, CMP, TROPI ####[place] [address] Nephrology Progress Noteon 1 04-20-2016 Nephrology Progress Note Normal [facility]) PHOSon 02-18-2017 Phosphate 4.4 mg/dL Normal 2.5-4.5 [facility]) Comment on above: Performed By: #### C BC, ADIFF, ANEU, GFR, CMP, TROPI ####[place] [address] Progress Noteon 02-18-2017 Progress Note Normal [facility] ([place]) .Auto Diffon 02-17-2017 Basophils Auto #/vol (Bld) 0.00 10 3/mcL Normal 0.00-0.27 [facility] ([place]) Comment on above: Performed By: #### C BC, ADIFF, ANEU, GFR, CMP, TROPI ####[address] [address] Basophils/100 WBC Auto (Bld) 0.2 % Normal 0.0-2.5 [facility] ([place]) Comment on above: Performed By: #### C BC, ADIFF, ANEU, GFR, CMP, TROPI ####[address] [address] Eosinophils 0.00 10 3/mcL Normal 0.00-0.65 [facility] ([place]) Comment on above: Performed By: #### C BC, ADIFF, ANEU, GFR, CMP, TROPI ####[address] [address] Eosinophils/100 leukocytes 0.3 % Normal 0.0-6.0 [facility] ([place]) Comment on above: Performed By: #### C BC, ADIFF, ANEU, GFR, CMP, TROPI ####[address] [address] Lymphocytes 0.30 10 3/mcL Low 0.90-4.32 [facility] ([place]) Comment on above: Performed By: #### C BC, ADIFF, ANEU, GFR, CMP, TROPI ####[address] [address] Lymphocytes/100 leukocytes 2.9 % Low 20.0-40.0 [facility] ([place]) Comment on above: Performed By: #### C BC, ADIFF, ANEU, GFR, CMP, TROPI ####[address] [address] Monocytes 0.60 10 3/mcL Normal 0.09-1.40 [facility] ([place]) Comment on above: Performed By: #### C BC, ADIFF, ANEU, GFR, CMP, TROPI ####[address] [address] Monocytes/100 leukocytes 4.9 % Normal 2.0-13.0 [facility] ([place]) Comment on above: Performed By: #### C BC, ADIFF, ANEU, GFR, CMP, TROPI ####[address] [address] Neutrophils/100 WBC Auto (Bld) 91.7 % High 50.0-75.0 [facility] ([place]) Comment on above: Performed By: #### C BC, ADIFF, ANEU, GFR, CMP, TROPI ####[address] [address] .GFRon 02-17-2017 eGFR (non-black) 16 ml/min/1.73sqm Normal A [facility] ([place]) Comment on above: Result Comment: GFR [...] C BC, ADIFF, ANEU, GFR, CMP, TROPI ####[address] [address] eGFR (non-black) 19 ml/min/1.73sqm Normal A [facility] ([place]) Comment on above: Result Comment: GFR [...] C BC, ADIFF, ANEU, GFR, CMP, TROPI ####[place] [address] .NEUABSon 02-17-2017 Neutrophils 10.40 10 3/mcL High 2.25-8.10 [facility] ([place]) Comment on above: Performed By: #### C BC, ADIFF, ANEU, GFR, CMP, TROPI ####[place] [address] APTTon 02-17-2017 aPTT 63.1 s High 25.0-35.0 [facility] ([place]) Comment on above: Result Comment: For Heparin anticoagulation therapy, the recommendedtherapeutic range is: 54-77 seconds (APTT Correlationwith Anti-Xa therapeutic range of 0.3-0.7 units/ml).PLEASE REFERENCE THE PHARMACY PROTOCOL FOR DOSING. Performed By: #### C BC, ADIFF, ANEU, GFR, CMP, TROPI ####[place] [address] aPTT Heparin IV Normal [facility] ([place]) Comment on above: Performed By: #### C BC, ADIFF, ANEU, GFR, CMP, TROPI ####[place] [address] aPTT Heparin IV Normal [facility] ([place]) Comment on above: Performed By: #### C BC, ADIFF, ANEU, GFR, CMP, TROPI ####[place] [address] aPTT 61.7 s High 25.0-35.0 [facility] ([place]) Comment on above: Result Comment: For Heparin anticoagulation therapy, the recommendedtherapeutic range is: 54-77 seconds (APTT Correlationwith Anti-Xa therapeutic range of 0.3-0.7 units/ml).PLEASE REFERENCE THE PHARMACY PROTOCOL FOR DOSING. Performed By: #### C BC, ADIFF, ANEU, GFR, CMP, TROPI ####[place] [address] aPTT Heparin IV Normal [facility] ([place]) Comment on above: Performed By: #### C BC, ADIFF, ANEU, GFR, CMP, TROPI ####[place] [address] aPTT 64.2 s High 25.0-35.0 [facility] ([place]) Comment on above: Result Comment: For Heparin anticoagulation therapy, the recommendedtherapeutic range is: 54-77 seconds (APTT Correlationwith Anti-Xa therapeutic range of 0.3-0.7 units/ml).PLEASE REFERENCE THE PHARMACY PROTOCOL FOR DOSING. Performed By: #### C BC, ADIFF, ANEU, GFR, CMP, TROPI ####[place] [address] BMPon 02-17-2017 CO2 22 mmol/L Normal 22-32 [facility] ([place]) Comment on above: Performed By: #### C BC, ADIFF, ANEU, GFR, CMP, TROPI ####[place] [address] Electrolyte Balance 13.0 mEq/L Normal 4.0-15.0 [facility] ([place]) Comment on above: Performed By: #### C BC, ADIFF, ANEU, GFR, CMP, TROPI ####[place] [address] BUN/Creatinine Ratio 25.6 ratio High 10.0-22.0 [facility] ([place]) Comment on above: Performed By: #### C BC, ADIFF, ANEU, GFR, CMP, TROPI ####[place] [address] Creatinine 3.91 mg/dL High 0.60-1.40 [facility] ([place]) Comment on above: Performed By: #### C BC, ADIFF, ANEU, GFR, CMP, TROPI ####[place] [address] Calcium 7.7 mg/dL Low 8.4-10.1 [facility] ([place]) Comment on above: Performed By: #### C BC, ADIFF, ANEU, GFR, CMP, TROPI ####[place] [address] Chloride 103 mmol/L Normal 98-110 [facility] ([place]) Comment on above: Performed By: #### C BC, ADIFF, ANEU, GFR, CMP, TROPI ####[place] [address] Glucose mass conc 156 mg/dL High 82-115 [facility] ([place]) Comment on above: Performed By: #### C BC, ADIFF, ANEU, GFR, CMP, TROPI ####[place] [address] Potassium molar conc 3.7 mmol/L Normal 3.5-5.0 [facility] ([place]) Comment on above: Performed By: #### C BC, ADIFF, ANEU, GFR, CMP, TROPI ####[place] [address] Sodium 138 mmol/L Normal 136-145 [facility] ([place]) Comment on above: Performed By: #### C BC, ADIFF, ANEU, GFR, CMP, TROPI ####[place] [address] Urea nitrogen 100.0 mg/dL High 8.0-22.0 [facility] ([place]) Comment on above: Performed By: #### C BC, ADIFF, ANEU, GFR, CMP, TROPI ####[place] [address] CBCon 02-17-2017 Erythrocyte distribution width Auto Ratio (RBC) 14.9 % Normal 11.5-15.5 [facility] ([place]) Comment on above: Performed By: #### C BC, ADIFF, ANEU, GFR, CMP, TROPI ####[place] [address] Erythrocytes (RBC) 4.37 10 6/mcL Low 4.50-6.00 [facility] ([place]) Comment on above: Performed By: #### C BC, ADIFF, ANEU, GFR, CMP, TROPI ####[place] [address] Hematocrit (HCT) 42.3 % Normal 40.0-52.0 [facility] ([place]) Comment on above: Performed By: #### C BC, ADIFF, ANEU, GFR, CMP, TROPI ####[place] [address] Hemoglobin mass conc (Bld) 13.8 G/dL Normal 13.0-17.5 [facility] ([place]) Comment on above: Performed By: #### C BC, ADIFF, ANEU, GFR, CMP, TROPI ####[place] [address] MCH 31.7 pg Normal 27.0-33.0 [facility] ([place]) Comment on above: Performed By: #### C BC, ADIFF, ANEU, GFR, CMP, TROPI ####[place] [address] MCHC mass conc (RBC) 32.7 G/dL Normal 32.0-36.0 [facility] ([place]) Comment on above: Performed By: #### C BC, ADIFF, ANEU, GFR, CMP, TROPI ####[place] [address] MCV 96.8 fL Normal 81.0-100.0 [facility] ([place]) Comment on above: Performed By: #### C BC, ADIFF, ANEU, GFR, CMP, TROPI ####[place] [address] Platelet mean volume (PMV) 8.7 fL Normal 6.4-10.5 [facility] ([place]) Comment on above: Performed By: #### C BC, ADIFF, ANEU, GFR, CMP, TROPI ####[place] [address] Platelets 212 10 3/mcL Normal 150-450 [facility] ([place]) Comment on above: Performed By: #### C BC, ADIFF, ANEU, GFR, CMP, TROPI ####[address] [place], [place] [address] WBC (Leukocytes) 11.30 10 3/mcL High 4.50-10.80 [facility] ([place]) Comment on above: Performed By: #### C BC, ADIFF, ANEU, GFR, CMP, TROPI ####[address] [address] Nephrology Progress Noteon 1 04-19-2016 Nephrology Progress Note Normal [facility] ([place]) Progress Noteon 02-17-2017 Progress Note Normal [facility]) .Auto Diffon 02-16-2017 Basophils Auto #/vol (Bld) 0.00 10 3/mcL Normal 0.00-0.27 [facility] ([place]) Comment on above: Performed By: #### C BC, ADIFF, ANEU, AMM, BMP, TSH, CK, GFR, DRUGS, B12 ####[address] [address] Basophils/100 WBC Auto (Bld) 0.3 % Normal 0.0-2.5 [facility] ([place]) Comment on above: Performed By: #### C BC, ADIFF, ANEU, AMM, BMP, TSH, CK, GFR, DRUGS, B12 ####[address] [address] Eosinophils 0.00 10 3/mcL Normal 0.00-0.65 [facility] ([place]) Comment on above: Performed By: #### C BC, ADIFF, ANEU, AMM, BMP, TSH, CK, GFR, DRUGS, B12 ####[address] [address] Eosinophils/100 leukocytes 0.1 % Normal 0.0-6.0 [facility] ([place]) Comment on above: Performed By: #### C BC, ADIFF, ANEU, AMM, BMP, TSH, CK, GFR, DRUGS, B12 ####[address] [address] Lymphocytes 0.70 10 3/mcL Low 0.90-4.32 [facility] ([place]) Comment on above: Performed By: #### C BC, ADIFF, ANEU, AMM, BMP, TSH, CK, GFR, DRUGS, B12 ####[address] [address] Lymphocytes/100 leukocytes 4.6 % Low 20.0-40.0 [facility] ([place]) Comment on above: Performed By: #### C BC, ADIFF, ANEU, AMM, BMP, TSH, CK, GFR, DRUGS, B12 ####[address] [address] Monocytes 0.60 10 3/mcL Normal 0.09-1.40 [facility] ([place]) Comment on above: Performed By: #### C BC, ADIFF, ANEU, AMM, BMP, TSH, CK, GFR, DRUGS, B12 ####[address] [address] Monocytes/100 leukocytes 4.1 % Normal 2.0-13.0 [facility] ([place]) Comment on above: Performed By: #### C BC, ADIFF, ANEU, AMM, BMP, TSH, CK, GFR, DRUGS, B12 ####[address] [address] Neutrophils/100 WBC Auto (Bld) 90.9 % High 50.0-75.0 [facility] ([place]) Comment on above: Performed By: #### C BC, ADIFF, ANEU, AMM, BMP, TSH, CK, GFR, DRUGS, B12 ####[address] [address] Basophils Auto #/vol (Bld) 0.00 10 3/mcL Normal 0.00-0.27 [facility] ([place]) Comment on above: Performed By: #### C BC, ADIFF, ANEU, GFR, CMP, TROPI ####[address] [address] Basophils/100 WBC Auto (Bld) 0.2 % Normal 0.0-2.5 [facility] ([place]) Comment on above: Performed By: #### C BC, ADIFF, ANEU, GFR, CMP, TROPI ####[address] [address] Eosinophils 0.00 10 3/mcL Normal 0.00-0.65 [facility] ([place]) Comment on above: Performed By: #### C BC, ADIFF, ANEU, GFR, CMP, TROPI ####[address] [address] Eosinophils/100 leukocytes 0.0 % Normal 0.0-6.0 [facility] ([place]) Comment on above: Performed By: #### C BC, ADIFF, ANEU, GFR, CMP, TROPI ####[address] [address] Lymphocytes 0.50 10 3/mcL Low 0.90-4.32 [facility] ([place]) Comment on above: Performed By: #### C BC, ADIFF, ANEU, GFR, CMP, TROPI ####[address] [address] Lymphocytes/100 leukocytes 3.2 % Low 20.0-40.0 [facility] ([place]) Comment on above: Performed By: #### C BC, ADIFF, ANEU, GFR, CMP, TROPI ####[address] [address] Monocytes 0.50 10 3/mcL Normal 0.09-1.40 [facility] ([place]) Comment on above: Performed By: #### C BC, ADIFF, ANEU, GFR, CMP, TROPI ####[address] [address] Monocytes/100 leukocytes 2.9 % Normal 2.0-13.0 [facility] ([place]) Comment on above: Performed By: #### C BC, ADIFF, ANEU, GFR, CMP, TROPI ####[address] [address] Neutrophils/100 WBC Auto (Bld) 93.7 % High 50.0-75.0 [facility] ([place]) Comment on above: Performed By: #### C BC, ADIFF, ANEU, GFR, CMP, TROPI ####[address] [address] .GFRon 02-16-2017 eGFR (non-black) 13 ml/min/1.73sqm Normal A [facility] ([place]) Comment on above: Result Comment: GFR [...] C BC, ADIFF, ANEU, GFR, CMP, TROPI ####[address] [address] eGFR (non-black) 15 ml/min/1.73sqm Normal A [facility] ([place]) Comment on above: Result Comment: GFR Population [...] C BC, ADIFF, ANEU, GFR, CMP, TROPI ####[address] [address] eGFR (non-black) 9 ml/min/1.73sqm Normal [facility] ([place]) Comment on above: Result Comment: GFR Population [...] C BC, ADIFF, ANEU, GFR, CMP, TROPI ####[address] [address] eGFR (non-black) 11 ml/min/1.73sqm Normal [facility] ([place]) Comment on above: Result Comment: GFR Population [...] C BC, ADIFF, ANEU, GFR, CMP, TROPI ####[address] [address] eGFR (non-black) 9 ml/min/1.73sqm Normal [facility] ([place]) Comment on above: Result Comment: GFR Population [...] C BC, ADIFF, ANEU, GFR, CMP, TROPI ####[place] [address] eGFR (non-black) 11 ml/min/1.73sqm Normal A [facility] ([place]) Comment on above: Result Comment: GFR Population [...] C BC, ADIFF, ANEU, GFR, CMP, TROPI ####[place] [address] .NEUABSon 02-16-2017 Neutrophils 13.60 10 3/mcL High 2.25-8.10 [facility] ([place]) Comment on above: Performed By: #### C BC, ADIFF, ANEU, AMM, BMP, TSH, CK, GFR, DRUGS, B12 ####[place] [address] Neutrophils 15.60 10 3/mcL High 2.25-8.10 [facility] ([place]) Comment on above: Performed By: #### C BC, ADIFF, ANEU, GFR, CMP, TROPI ####[place] [address] ALCOHOL-BLOOD MEDICALon 01-19 Ethanol mg/dL Normal 0 - 50 [facility] Comment on above: Performed By: #### 2 [id number] ####[facility],[address] [place] [id number] Ericka 02-16-2017 Ammonia ug/dL Low 25-35 [facility] ([place]) Comment on above: Performed By: #### C BC, ADIFF, ANEU, AMM, BMP, TSH, CK, GFR, DRUGS, B12 ####[place] [address] APTTon 02-16-2017 aPTT Heparin IV Normal [facility] ([place]) Comment on above: Performed By: #### C BC, ADIFF, ANEU, GFR, CMP, TROPI ####[place] [address] aPTT 97.5 s High 25.0-35.0 [facility] ([place]) Comment on above: Result Comment: For Heparin anticoagulation therapy, the recommendedtherapeutic range is: 54-77 seconds (APTT Correlationwith Anti-Xa therapeutic range of 0.3-0.7 units/ml).PLEASE REFERENCE THE PHARMACY PROTOCOL FOR DOSING. Performed By: #### C BC, ADIFF, ANEU, GFR, CMP, TROPI ####[place] [address] aPTT Heparin IV Normal [facility] ([place]) Comment on above: Performed By: #### C BC, ADIFF, ANEU, GFR, CMP, TROPI ####[place] [address] aPTT 42.9 s High 25.0-35.0 [facility] ([place]) Comment on above: Result Comment: For Heparin anticoagulation therapy, the recommendedtherapeutic range is: 54-77 seconds (APTT Correlationwith Anti-Xa therapeutic range of 0.3-0.7 units/ml).PLEASE REFERENCE THE PHARMACY PROTOCOL FOR DOSING. Performed By: #### C BC, ADIFF, ANEU, GFR, CMP, TROPI ####[place] [address] aPTT 28.8 s Normal 25.0-35.0 [facility] ([place]) Comment on above: Result Comment: For Heparin anticoagulation therapy, the recommendedtherapeutic range is: 54-77 seconds (APTT Correlationwith Anti-Xa therapeutic range of 0.3-0.7 units/ml).PLEASE REFERENCE THE PHARMACY PROTOCOL FOR DOSING. Performed By: #### A PTT ####[place] [address] aPTT None Normal [facility] ([place]) Comment on above: Performed By: #### A PTT ####[place] [address] Admission Note-Physicianon 1 Admission Note-Physician Normal [facility] ([place]) B12on 02-16-2017 Cobalamins (Vitamin B12) 730 pg/mL Normal 211-911 [facility] ([place]) Comment on above: Performed By: #### C BC, ADIFF, ANEU, GFR, CMP, TROPI ####[place] [address] BGon 02-16-2017 Barometric Pressure 729 mmHg Normal [facility] ([place]) Comment on above: Performed By: #### B G ####[place] [address] Base excess -9.0 mmol/L Normal [facility] ([place]) Comment on above: Performed By: #### B G ####[place] [address] Bicarbonate (HCO3) 16.6 mmol/L Low 21.0-29.0 [facility] ([place]) Comment on above: Performed By: #### B G ####[place] [address] CO2 17.7 mmol/L Low 22.0-30.0 [facility] ([place]) Comment on above: Performed By: #### B G ####[place] [address] CO2 35.3 mmHg Normal 32.0-46.0 [facility] ([place]) Comment on above: Performed By: #### B G ####[place] [address] O2 saturation 97.2 % High 92.0-96.0 [facility] ([place]) Comment on above: Performed By: #### B G ####[id number] [place], [place] [address] Oxygen in arterial blood 105.6 mm[Hg] Normal 74.0-108.0 [facility] ([place]) Comment on above: Performed By: #### B G ####[place] [address] pH of blood 7.290 [pH] Low 7.380-7.460 [facility] ([place]) Comment on above: Performed By: #### B G ####[place] [address] BMPon 02-16-2017 BUN/Creatinine Ratio 22.3 ratio High 10.0-22.0 [facility] ([place]) Comment on above: Performed By: #### C BC, ADIFF, ANEU, GFR, CMP, TROPI ####[place] [address] Urea nitrogen 105.0 mg/dL Critically abnormal 8.0-22.0 [facility] ([place]) Comment on above: Performed By: #### C BC, ADIFF, ANEU, GFR, CMP, TROPI ####[place] [address] Calcium 7.3 mg/dL Low 8.4-10.1 [facility] ([place]) Comment on above: Performed By: #### C BC, ADIFF, ANEU, GFR, CMP, TROPI ####[place] [address] CO2 14 mmol/L Low 22-32 [facility] ([place]) Comment on above: Performed By: #### C BC, ADIFF, ANEU, GFR, CMP, TROPI ####[place] [address] Creatinine 4.70 mg/dL High 0.60-1.40 [facility] ([place]) Comment on above: Performed By: #### C BC, ADIFF, ANEU, GFR, CMP, TROPI ####[place] [address] Electrolyte Balance 14.0 mEq/L Normal 4.0-15.0 [facility] ([place]) Comment on above: Performed By: #### C BC, ADIFF, ANEU, GFR, CMP, TROPI ####[place] [address] Glucose mass conc 83 mg/dL Normal 82-115 [facility] ([place]) Comment on above: Performed By: #### C BC, ADIFF, ANEU, GFR, CMP, TROPI ####[place] [address] Potassium molar conc 4.4 mmol/L Normal 3.5-5.0 [facility] ([place]) Comment on above: Result Comment: Spec imen slightly hemolyzed. Result may be falsely elevated. Performed By: #### C BC, ADIFF, ANEU, GFR, CMP, TROPI ####[place] [address] Chloride 103 mmol/L Normal 98-110 [facility] ([place]) Comment on above: Performed By: #### C BC, ADIFF, ANEU, GFR, CMP, TROPI ####[place] [address] Sodium 131 mmol/L Low 136-145 [facility] ([place]) Comment on above: Performed By: #### C BC, ADIFF, ANEU, GFR, CMP, TROPI ####[place] [address] BUN/Creatinine Ratio 17.4 ratio Normal 10.0-22.0 [facility] ([place]) Comment on above: Performed By: #### C BC, ADIFF, ANEU, GFR, CMP, TROPI ####[place] [address] Creatinine 6.20 mg/dL High 0.60-1.40 [facility] ([place]) Comment on above: Performed By: #### C BC, ADIFF, ANEU, GFR, CMP, TROPI ####[place] [address] Urea nitrogen 108.0 mg/dL Critically abnormal 8.0-22.0 [facility] ([place]) Comment on above: Performed By: #### C BC, ADIFF, ANEU, GFR, CMP, TROPI ####[place] [address] Calcium 7.4 mg/dL Low 8.4-10.1 [facility] ([place]) Comment on above: Performed By: #### C BC, ADIFF, ANEU, GFR, CMP, TROPI ####[place] [address] Chloride 99 mmol/L Normal 98-110 [facility] ([place]) Comment on above: Performed By: #### C BC, ADIFF, ANEU, GFR, CMP, TROPI ####[place] [address] CO2 20 mmol/L Low 22-32 [facility] ([place]) Comment on above: Performed By: #### C BC, ADIFF, ANEU, GFR, CMP, TROPI ####[place] [address] Electrolyte Balance 16.0 mEq/L High 4.0-15.0 [facility] ([place]) Comment on above: Performed By: #### C BC, ADIFF, ANEU, GFR, CMP, TROPI ####[place] [address] Glucose mass conc 88 mg/dL Normal 82-115 [facility] ([place]) Comment on above: Performed By: #### C BC, ADIFF, ANEU, GFR, CMP, TROPI ####[place] [address] Potassium molar conc 4.0 mmol/L Normal 3.5-5.0 [facility] ([place]) Comment on above: Performed By: #### C BC, ADIFF, ANEU, GFR, CMP, TROPI ####[place] [address] Sodium 135 mmol/L Low 136-145 [facility] ([place]) Comment on above: Performed By: #### C BC, ADIFF, ANEU, GFR, CMP, TROPI ####[place] [address] CBCon 02-16-2017 Erythrocyte distribution width Auto Ratio (RBC) 14.4 % Normal 11.5-15.5 [facility] ([place]) Comment on above: Performed By: #### C BC, ADIFF, ANEU, AMM, BMP, TSH, CK, GFR, DRUGS, B12 ####[place] [address] Erythrocytes (RBC) 4.47 10 6/mcL Low 4.50-6.00 [facility] ([place]) Comment on above: Performed By: #### C BC, ADIFF, ANEU, AMM, BMP, TSH, CK, GFR, DRUGS, B12 ####[place] [address] Hematocrit (HCT) 42.9 % Normal 40.0-52.0 [facility] ([place]) Comment on above: Performed By: #### C BC, ADIFF, ANEU, AMM, BMP, TSH, CK, GFR, DRUGS, B12 ####[place] [address] Hemoglobin mass conc (Bld) 14.2 G/dL Normal 13.0-17.5 [facility] ([place]) Comment on above: Performed By: #### C BC, ADIFF, ANEU, AMM, BMP, TSH, CK, GFR, DRUGS, B12 ####[place] [address] MCH 31.8 pg Normal 27.0-33.0 [facility] ([place]) Comment on above: Performed By: #### C BC, ADIFF, ANEU, AMM, BMP, TSH, CK, GFR, DRUGS, B12 ####[place] [address] MCHC mass conc (RBC) 33.1 G/dL Normal 32.0-36.0 [facility] ([place]) Comment on above: Performed By: #### C BC, ADIFF, ANEU, AMM, BMP, TSH, CK, GFR, DRUGS, B12 ####[place] [address] MCV 96.1 fL Normal 81.0-100.0 [facility] ([place]) Comment on above: Performed By: #### C BC, ADIFF, ANEU, AMM, BMP, TSH, CK, GFR, DRUGS, B12 ####[place] [address] Platelet mean volume (PMV) 8.7 fL Normal 6.4-10.5 [facility] ([place]) Comment on above: Performed By: #### C BC, ADIFF, ANEU, AMM, BMP, TSH, CK, GFR, DRUGS, B12 ####[place] [address] Platelets 191 10 3/mcL Normal 150-450 [facility] ([place]) Comment on above: Performed By: #### C BC, ADIFF, ANEU, AMM, BMP, TSH, CK, GFR, DRUGS, B12 ####[place] [address] WBC (Leukocytes) 15.00 10 3/mcL High 4.50-10.80 [facility] ([place]) Comment on above: Performed By: #### C BC, ADIFF, ANEU, AMM, BMP, TSH, CK, GFR, DRUGS, B12 ####[place] [address] Erythrocyte distribution width Auto Ratio (RBC) 14.1 % Normal 11.5-15.5 [facility] ([place]) Comment on above: Performed By: #### C BC, ADIFF, ANEU, GFR, CMP, TROPI ####[place] [address] Erythrocytes (RBC) 4.50 10 6/mcL Normal 4.50-6.00 [facility] ([place]) Comment on above: Performed By: #### C BC, ADIFF, ANEU, GFR, CMP, TROPI ####[place] [address] Hematocrit (HCT) 43.2 % Normal 40.0-52.0 [facility] ([place]) Comment on above: Performed By: #### C BC, ADIFF, ANEU, GFR, CMP, TROPI ####[place] [address] Hemoglobin mass conc (Bld) 14.5 G/dL Normal 13.0-17.5 [facility] ([place]) Comment on above: Performed By: #### C BC, ADIFF, ANEU, GFR, CMP, TROPI ####[place] [address] MCH 32.1 pg Normal 27.0-33.0 [facility] ([place]) Comment on above: Performed By: #### C BC, ADIFF, ANEU, GFR, CMP, TROPI ####[place] [address] MCHC mass conc (RBC) 33.5 G/dL Normal 32.0-36.0 [facility] ([place]) Comment on above: Performed By: #### C BC, ADIFF, ANEU, GFR, CMP, TROPI ####[place] [address] MCV 95.9 fL Normal 81.0-100.0 [facility] ([place]) Comment on above: Performed By: #### C BC, ADIFF, ANEU, GFR, CMP, TROPI ####[place] [address] Platelet mean volume (PMV) 8.7 fL Normal 6.4-10.5 [facility] ([place]) Comment on above: Performed By: #### C BC, ADIFF, ANEU, GFR, CMP, TROPI ####[place] [address] Platelets 200 10 3/mcL Normal 150-450 [facility] ([place]) Comment on above: Performed By: #### C BC, ADIFF, ANEU, GFR, CMP, TROPI ####[place] [address] WBC (Leukocytes) 16.60 10 3/mcL High 4.50-10.80 [facility] ([place]) Comment on above: Performed By: #### C BC, ADIFF, ANEU, GFR, CMP, TROPI ####[place] [address] CKon 02-16-2017 Creatine kinase (CK) 392 U/L High 7-185 [facility] ([place]) Comment on above: Performed By: #### C BC, ADIFF, ANEU, GFR, CMP, TROPI ####[place] [address] CMPon 02-16-2017 BUN/Creatinine Ratio 16.8 ratio Normal 10.0-22.0 [facility] ([place]) Comment on above: Performed By: #### C BC, ADIFF, ANEU, GFR, CMP, TROPI ####[address] [address] Urea nitrogen 105.0 mg/dL Critically abnormal 8.0-22.0 [facility] ([place]) Comment on above: Performed By: #### C BC, ADIFF, ANEU, GFR, CMP, TROPI ####[address] [address] Albumin/Globulin Ratio 0.6 {ratio} Low 0.9-1.6 [facility] ([place]) Comment on above: Performed By: #### C BC, ADIFF, ANEU, GFR, CMP, TROPI ####[address] [address] Alk Phos 64 U/L Normal 38-126 [facility] ([place]) Comment on above: Performed By: #### C BC, ADIFF, ANEU, GFR, CMP, TROPI ####[address] [address] Bili Total 0.6 mg/dL Normal 0.2-1.2 [facility] ([place]) Comment on above: Performed By: #### C BC, ADIFF, ANEU, GFR, CMP, TROPI ####[address] [address] Globulin 4.3 G/dL High 1.5-3.8 [facility] ([place]) Comment on above: Performed By: #### C BC, ADIFF, ANEU, GFR, CMP, TROPI ####[address] [address] Protein 6.7 G/dL Normal 6.0-8.5 [facility] ([place]) Comment on above: Performed By: #### C BC, ADIFF, ANEU, GFR, CMP, TROPI ####[address] [address] Alanine aminotransferase (ALT) 24 U/L Normal 12-55 [facility] ([place]) Comment on above: Performed By: #### C BC, ADIFF, ANEU, GFR, CMP, TROPI ####[place] [address] Albumin 2.4 G/dL Low 3.2-4.8 [facility] ([place]) Comment on above: Performed By: #### C BC, ADIFF, ANEU, GFR, CMP, TROPI ####[place] [address] Aspartate aminotransferase (AST) 38 U/L High 8-34 [facility] ([place]) Comment on above: Performed By: #### C BC, ADIFF, ANEU, GFR, CMP, TROPI ####[place] [address] Calcium 7.8 mg/dL Low 8.4-10.1 [facility] ([place]) Comment on above: Performed By: #### C BC, ADIFF, ANEU, GFR, CMP, TROPI ####[place] [address] Chloride 99 mmol/L Normal 98-110 [facility] ([place]) Comment on above: Performed By: #### C BC, ADIFF, ANEU, GFR, CMP, TROPI ####[place] [address] CO2 19 mmol/L Low 22-32 [facility] ([place]) Comment on above: Performed By: #### C BC, ADIFF, ANEU, GFR, CMP, TROPI ####[place] [address] Creatinine 6.26 mg/dL High 0.60-1.40 [facility] ([place]) Comment on above: Performed By: #### C BC, ADIFF, ANEU, GFR, CMP, TROPI ####[place] [address] Electrolyte Balance 16.0 mEq/L High 4.0-15.0 [facility] ([place]) Comment on above: Performed By: #### C BC, ADIFF, ANEU, GFR, CMP, TROPI ####[place] [address] Glucose mass conc 96 mg/dL Normal 82-115 [facility] ([place]) Comment on above: Performed By: #### C BC, ADIFF, ANEU, GFR, CMP, TROPI ####[place] [address] Potassium molar conc 4.0 mmol/L Normal 3.5-5.0 [facility] ([place]) Comment on above: Performed By: #### C BC, ADIFF, ANEU, GFR, CMP, TROPI ####[place] [address] Sodium 134 mmol/L Low 136-145 [facility] ([place]) Comment on above: Performed By: #### C BC, ADIFF, ANEU, GFR, CMP, TROPI ####[place] [address] CRURon 02-16-2017 Creatinine 88.0 mg/dL Normal [facility] ([place]) Comment on above: Performed By: #### N AURUBALDO ####[place] [address] Consultation Noteon 02-17-20 17 Consultation Note Normal [facility] ([place]) DRUGSon 02-16-2017 Drug Screen (s) Positive Abnormal Negative [facility] ([place]) Comment on above: Performed By: #### C BC, ADIFF, ANEU, GFR, CMP, TROPI ####[place] [address] Drug Screen Interp The serum shows evid ence of: _ Invalid Interpretation Code [facility] ([place]) Comment on above: Performed By: #### C BC, ADIFF, ANEU, GFR, CMP, TROPI ####[place] [address] Ethanol Level <10.0 Normal [facility] ([place]) Comment on above: Performed By: #### C BC, ADIFF, ANEU, GFR, CMP, TROPI ####[place] [address] TCA (s) Negative Normal [facility] ([place]) Comment on above: Performed By: #### C BC, ADIFF, ANEU, GFR, CMP, TROPI ####[place] [address] Acetaminophen mass conc 3.2 mcg/mL Low 10.0-30.0 [facility] ([place]) Comment on above: Performed By: #### C BC, ADIFF, ANEU, GFR, CMP, TROPI ####[place] [address] Salicylate Lvl (ds) 2.5 mg/dL Low 10.0-25.0 [facility] ([place]) Comment on above: Performed By: #### C BC, ADIFF, ANEU, GFR, CMP, TROPI ####[place] [address] Serum Drugs screened: See Below Normal [facility] ([place]) Comment on above: Result Comment: This drug screen is a presumptive screening only. No confirmation will be performed unless requested.Drugs included in the ER serum drug screen are: ThresholdEthanol 10.0 mg/dLSalicylate 2.0 mg/dlAcetaminophen 2.0 mcg/mLTricyclic Antidepressants 300 ng/mLTesting has been performed FOR MEDICAL PURPOSES ONLY. Performed By: #### C BC, ADIFF, ANEU, GFR, CMP, TROPI ####[place] [address] DRUGUon 02-16-2017 Drug Screen Urine Positive Abnormal [facility] ([place]) Comment on above: Performed By: #### C BC, ADIFF, ANEU, GFR, CMP, TROPI ####[place] [address] Drug Screen Urine Interp Positive Invalid Interpretation Code [facility] ([place]) Comment on above: Performed By: #### C BC, ADIFF, ANEU, GFR, CMP, TROPI ####[address] [address] U Comment See Below Normal [facility] ([place]) Comment on above: Performed By: #### C BC, ADIFF, ANEU, GFR, CMP, TROPI ####[place] [id number] U pH Drug Scrn 5.5 Normal 5.0-8.0 [facility] ([place]) Comment on above: Performed By: #### C BC, ADIFF, ANEU, GFR, CMP, TROPI ####[place] [address] [place] [address] U Specific [place] [address]g Scrn 1.010 Normal 1.005-1.030 [facility] ([place]) Comment on above: Performed By: #### C BC, ADIFF, ANEU, GFR, CMP, TROPI ####[place] [address] [place] [address] Urine Drugs screened: See Below Normal [facility] ([place]) Comment on above: Result Comment: This drug screen is a presumptive screening only.No confirmation will be performed unless requested.Drugs screened include: ThresholdAmphetamines/Methamphetamines 1,000 ng/mLBarbiturates 200 ng/mLBenzodiazepine metabolites 200 ng/mLCannabinoids (THC metabolites) 50 ng/mLBenzoylecognine (Cocaine metab) 300 ng/mLOpiates 300 ng/mLPhencyclidine (PCP) 25 ng/mLMethadone 300 ng/mLPropoxyphene 300 ng/mLTesting has been performed FOR MEDICAL PURPOSES ONLY. Performed By: #### C BC, ADIFF, ANEU, GFR, CMP, TROPI ####[place] [address] [place] [address] EMERGENCY REPORTon 7 EMERGENCY REPORT [facility] EM ERGENCY ROOM REPORT NAME NUMBER SEX AGE ADMIT DISC TYPE MED.RECORD# ARLINE KHAN [id number] M [id number] 02/15/2017 02/15/2017 [place] [id number] ROOM:ER DATE OF :1955 PHYSICIAN NO.:[id number] PHYSICIAN NAME: PHYSICIAN:SALLY HESTER CHIEF COMPLAINT: The [...] sepsis. PLAN/DISPOSITION: He will be transferred to [place]. Critical care time: 45 minutes excluding billable procedures. D: SALLY HESTER TD: 02/16/2017 07:49:25 JOB #: [id number] FREDI Hester D.O. Emergency Department 02/16/17 20:03 EMERGENCY ROOM REPORT ARLINE KHAN [address] [place] [address] EMERGENCY ROOM REPORT NAME NUMBER SEX AGE ADMIT DISC TYPE MED.RECORD# ARLINE KHAN [id number] 02/15/2017 02/15/2017 E.R. [id number] ROOM:ER DATE OF :1955 PHYSICIAN NO.:[id number] PHYSICIAN NAME: PHYSICIAN:SALLY HESTER Transcribed by: EMMIE 02/16/2017 07:49:25 Copy for: KACIE Mejias III Copy for: JACQUELYN Bowen Copy for: [facility] EM[facility]GENCY ROOM REPORT ARLINE KHAN 2 Normal [facility] EOSon 02-16-2017 Eos Smear 0 Normal [facility] ([place]) Comment on above: Result Comment: The units for an eosinophil smear depend upon specimen type:Stool, sputum, nasal specimens: number of cells/hp fieldUrine, bronchial lavage: number of cells/100 cells (%) Performed By: #### C BC, ADIFF, ANEU, GFR, CMP, TROPI ####[place] [address] [place] [address] Eosinophils Urine Normal [facility] ([place]) Comment on above: Performed By: #### C BC, ADIFF, ANEU, GFR, CMP, TROPI ####[facility] [place] [address] History and Physicalon 02-16 History and Physical Normal [facility] ([place]) MRPCRon 02-16-2017 MRPCR . MICRO - MicrobiologyPROCEDURE: [...] bereproducible.Performing Locations*1: This test was performed at: [facility], [address] [place] [address], [phone] , [facility] Normal [facility] ([place]) Comment on above: Performed By: #### C BC, ADIFF, ANEU, GFR, CMP, TROPI ####[address] [address] NAURon 02-16-2017 Sodium 57.0 mmol/L Normal [facility] ([place]) Comment on above: Performed By: #### N AUR, CRUR ####[address] [address] Progress Noteon 02-16-2017 Progress Note Normal [facility] ([place]) TROPIon 02-16-2017 Troponin I.cardiac mass conc ng/mL Normal 0.000-0.040 [facility] ([place]) Comment on above: Result Comment: Trop onin I reference ranges (12/25/13): 0.00- 0.040 ng/mL Negative and non-diagnostic. >0.040 ng/mL Consistent with cardiac damage, increased clinical risk and possibility of myocardial infarction. Serial measurements, a rise & fall in test results, clinical history, appropriate symptoms and/or ECG changes may help assess possibility of DC. *Other non-acute coronary syndrome conditions such as CHF, myocarditis, pulmonary emboli, sepsis and cardiac surgery could result in myocardial damage and increased troponin levels. Performed By: #### C BC, ADIFF, ANEU, GFR, CMP, TROPI ####[place] [address] TSHon 02-16-2017 Thyroid stimulating hormone (TSH) 0.670 mcIU/mL Normal 0.360-3.740 [facility] ([place]) Comment on above: Result Comment: Plea se note ? as of 10/31/16 new pediatric reference intervals were added for this test. Performed By: #### C BC, ADIFF, ANEU, GFR, CMP, TROPI ####[address] [address] UAon 02-16-2017 UA Appear Turbid Abnormal Clear [facility] ([place]) Comment on above: Performed By: #### U A, UAMIC ####[place] [address] UA Blood Moderate Abnormal Neg-Trace [facility] ([place]) Comment on above: Performed By: #### U A, UAMIC ####[place] [address] UA Leuk Est Large Abnormal Negative [facility] ([place]) Comment on above: Performed By: #### U A, UAMIC ####[place] [address] UA Nitrite Negative Normal Negative [facility] ([place]) Comment on above: Performed By: #### U A, UAMIC ####[place] [address] UA pH 5.0 Normal 5.0 - 8.0 [facility] ([place]) Comment on above: Performed By: #### U A, UAMIC ####[place] [address] UA Protein 30 mg/dL Normal Negative [facility] ([place]) Comment on above: Performed By: #### U A, UAMIC ####[place] [address] UA Spec Grav 1.010 Normal 1.006-1.029 [facility] ([place]) Comment on above: Performed By: #### U A, UAMIC ####[place] [address] UA Specimen Type Clean Catch Normal [facility] ([place]) Comment on above: Performed By: #### U A, UAMIC ####[place] [address] UA Urobilinogen 0.2 E.U./dL Normal 0.2-1.0 [facility] ([place]) Comment on above: Performed By: #### U A, UAMIC ####[place] [address] Urine, color Yellow Normal [facility] ([place]) Comment on above: Performed By: #### U A, UAMIC ####[place] [address] Urine, glucose Negative Normal Negative [facility] ([place]) Comment on above: Performed By: #### U A, UAMIC ####[place] [address] Urine, ketones presence Negative Normal Neg-Trace [facility] ([place]) Comment on above: Performed By: #### U A, UAMIC ####[place] [address] Urine, urobilinogen Negative Normal Neg-Trace [facility] ([place]) Comment on above: Performed By: #### U A, UAMIC ####[place] [address] UAMICon 02-16-2017 UA Bacteria 3+ /hpf Abnormal Negative [facility] ([place]) Comment on above: Performed By: #### U A, UAMIC ####[place] [address] UA Squam Epithelial Rare Normal 0-20 [facility] ([place]) Comment on above: Performed By: #### U A, UAMIC ####[place] [address] UA WBC LOADED Abnormal 0-5 [facility] ([place]) Comment on above: Performed By: #### U A, UAMIC ####[place] [address] Urine, erythrocytes 0-2 Normal 0-2 [facility] ([place]) Comment on above: Performed By: #### U A, UAMIC ####[place] [address] URICon 02-16-2017 Uric Acid Lvl 14.2 mg/dL High 4.4-7.6 [facility] ([place]) Comment on above: Performed By: #### C BC, ADIFF, ANEU, GFR, CMP, TROPI ####[place] [address] US RENALon 02-16-2017 US RENAL ORIGINALUS RENAL [...] AM Sign Date: 02/16/2017 3:52:16 AM Normal [facility] ([place]) XR CHEST 1 VIEWon 02-16-2017 XR CHEST [...] AM Sign Date: 02/16/2017 12:21:25 AM Normal [facility] ([place]) CBCon 02-15-2017 Basophils Auto #/vol (Bld) 0.10 x10EE3/UL Normal 0.00 - 0.10 [facility] Comment on above: Performed By: #### 2 72833 ####[facility],[address] [place] [address] Basophils/100 WBC Auto (Bld) 0.3 % Normal 0.0 - 2.0 [facility] Comment on above: Performed By: #### 2 54753 ####[facility],[address] [place] [address] Blood morphology N/A Normal [facility] Comment on above: Result Comment: {CD] Performed By: #### 2 66023 ####[facility],[address] [place] [address] CBC Normal [facility] Comment on above: Result Comment: CBC- COMPLETE BLOOD COUNT Performed By: #### 2 16799 ####[facility],[address] [place] [address] Eosinophils 0.00 x10EE3/UL Normal 0.00 - 0.50 [facility] Comment on above: Performed By: #### 2 34620 ####[facility],[address] [place] [address] Eosinophils/100 leukocytes 0.1 % Normal 0.0 - 7.0 [facility] Comment on above: Performed By: #### 2 95726 ####[facility],[address] [place] [address] Erythrocyte distribution width Auto Ratio (RBC) 14.1 % Normal 12.0 - 15.6 [facility] Comment on above: Performed By: #### 2 94824 ####[facility],[address] [place] [address] Erythrocytes (RBC) 4.61 x 10EE6/UL Normal 4.50 - 6.00 [facility] Comment on above: Performed By: #### 2 40492 ####[facility],[address] [place] [address] Hematocrit (HCT) 43.0 % Normal 40.0 - 52.0 [facility] Comment on above: Performed By: #### 2 13595 ####[facility],[address] [place] [address] Hemoglobin mass conc (Bld) 14.9 g/dL Normal 13.0 - 17.5 [facility] Comment on above: Performed By: #### 2 80886 ####[facility],[address] [place] [address] Lymphocytes 0.40 x10EE3/UL Low 0.80 - 2.80 [facility] Comment on above: Performed By: #### 2 83891 ####[facility],[address] [place] [address] Lymphocytes/100 leukocytes 2.3 % Low 20.0 - 45.0 [facility] Comment on above: Performed By: #### 2 54526 ####[facility],[address] [place] [address] MANUAL DIFF N/A Normal [facility] Comment on above: Performed By: #### 2 68322 ####[facility],[address] [place], [place] [address] MCH 32 pg Normal 27 - 33 [facility] Comment on above: Performed By: #### 2 46827 ####[facility],[address] [place] [address] MCHC mass conc (RBC) 35 X10 3 Normal 32 - 36 [facility] Comment on above: Performed By: #### 2 42392 ####[facility],[address] [place] [address] MCV 93 fL Normal 81 - 98 [facility] Comment on above: Performed By: #### 2 43386 ####[facility],[address] [place] [address] Monocytes 0.50 x10EE3/UL Normal 0.20 - 1.00 [facility] Comment on above: Performed By: #### 2 91444 ####[facility],[address] [place] [address] MONOS % 2.8 % Normal 0.0 - 10.0 [facility] Comment on above: Performed By: #### 2 33027 ####[facility],[address] [place] [address] Neutrophils 17.60 x10EE3/UL High 1.50 - 7.10 [facility] Comment on above: Performed By: #### 2 60419 ####[facility],[address] [place] [address] Neutrophils/100 WBC Auto (Bld) 94.5 % High 46.0 - 76.0 [facility] Comment on above: Performed By: #### 2 92968 ####[facility],[address] [place] [address] Platelet mean volume (PMV) 8.7 fL Normal 6.4 - 10.5 [facility] Comment on above: Result Comment: AUTO MATED DIFFERENTIAL Performed By: #### 2 05948 ####[facility],[address] [place] [address] Platelets 207 x10EE3/UL Normal 150 - 450 [facility] Comment on above: Performed By: #### 2 12660 ####[facility],[address] [place] [address] WBC (Leukocytes) 18.6 x 10EE3/UL High 4.5 - 10.8 [facility] Comment on above: Performed By: #### 2 38750 ####[facility],[address] [place] [address] CHEST APon 02-15-2017 CHEST AP [place] [address] Patient: ARLINE KHAN Phone#: : 1955 Age: 61 Gender: M Pt. Type: ER Account: [id number] Location: [facility] Ordering: SALLY HESTER Exam Date: 02/15/2017/18:45 Family Phys: [facility] Charge Code: [id number] Physician: [place] [facility] Order #: [id number] [id number] Dose#: PROCEDURE: X-RAY CHEST AP 1 [...] Gregory MD on 02/16/2017 at 8:10 Normal [facility] CMP with eGFRon 02-15-2017 Age 61 years Normal [facility] Comment on above: Performed By: #### 2 44844 ####[facility],[address] [place] [address] Albumin 3.2 g/dL Low 3.4 - 4.8 [facility] Comment on above: Performed By: #### 2 60954 ####[facility],[address] [place] [address] Albumin/Globulin Ratio 0.9 {ratio} Normal 0.9 - 1.6 [facility] Comment on above: Performed By: #### 2 52896 ####[facility],[address] [place] [address] ALK PHOS 50 U/L Normal 38 - 126 [facility] Comment on above: Performed By: #### 2 85491 ####[facility],[address] [place] [address] ALT/SGPT 15 U/L Normal 10 - 40 [facility] Comment on above: Performed By: #### 2 93980 ####[facility],[address] [place] [address] Anion gap 20 mmol/L Normal 10 - 20 [facility] Comment on above: Performed By: #### 2 78869 ####[facility],[address] [place] [address]177 AST/SGOT 24 U/L Normal 13 - 39 [facility] Comment on above: Performed By: #### 2 44985 ####[facility],[address] [place] [address] B/C RATIO 16 ratio Normal 0 - 30 [facility] Comment on above: Performed By: #### 2 06485 ####[facility],[address] [place] [address] Bilirubin (total) 1.0 mg/dL Normal 0.0 - 1.5 [facility] Comment on above: Performed By: #### 2 65743 ####[facility],[address] [place], [place] [address] Calcium 8.4 mg/dL Low 8.6 - 10.2 [facility] Comment on above: Performed By: #### 2 35143 ####[facility],[address] [place] [address] Chloride 92 mmol/L Low 98 - 107 [facility] Comment on above: Performed By: #### 2 33540 ####[facility],[address] [place] [address] CO2 19.4 mmol/L Low 21.0 - 31.0 [facility] Comment on above: Performed By: #### 2 81348 ####[facility],[address] [place], [place] [address] Creatinine 6.5 mg/dL High 0.7 - 1.3 [facility] Comment on above: Performed By: #### 2 07742 ####[facility],[address] [place], [place] [address] eGFR (non-black) Normal [facility] Comment on above: Result Comment: COMP REHENSIVE METABOLIC PANEL Performed By: #### 2 74686 ####[facility],[address] [place], [place] [address] eGFR (non-black) 9 ML/MINUTE Low 60 - 999 [facility] Comment on above: Performed By: #### 2 53229 ####[facility],[address] [place] [address]609 eGFR (non-black) 11 ML/MINUTE Low 60 - 999 [facility] Comment on above: Result Comment: ACCO RDING TO THE NATIONAL KIDNEY DISEASE EDUCATION PROGRAM(NKDE), A NORMAL eGFRIS A VALUE GREATER THAN OR EQUAL TO 60 ML/MIN/1.73 SQ METERS.CHRONIC KIDNEY DISEASE: <60mL/MIN/1.73 SQ METERSKIDNEY FAILURE: <15mL/MIN/1.73 SQ METERSTHIS TEST SHOULD ONLY BE USED FOR PATIENTS 18 YEARS OF AGE AND OLDER. Performed By: #### 2 29015 ####[facility],[address] [place] [address] Globulin 3.7 g/dL Normal 1.5 - 3.8 [facility] Comment on above: Performed By: #### 2 10076 ####[facility],[address] [place] [address]5615 Glucose mass conc 102 mg/dL Normal 74 - 106 [facility] Comment on above: Performed By: #### 2 [id number] ####[facility],[address] [place] [address] 56395 Potassium molar conc 3.7 mmol/L Normal 3.5 - 5.1 [facility] Comment on above: Performed By: #### 2 43921 ####[facility],[address] [place] [address] 73338 Protein 6.9 g/dL Normal 6.4 - 8.3 [facility] Comment on above: Performed By: #### 2 55984 ####[facility],[address] [place] [address] 43118 Sodium 128 mmol/L Low 136 - 145 [facility] Comment on above: Performed By: #### 2 93826 ####[facility],[address] [place] [address] 70955 Urea nitrogen 103 mg/dL High 6 - 20 [facility] Comment on above: Performed By: #### 2 09907 ####[facility],[address] [place] [address] 92903 CPKon 02-15-2017 CPK 247 U/L High 37 - 174 [facility] Comment on above: Performed By: #### 2 15476 ####[facility],[address] [place] [address] CT BRAIN W/O CONTRASTon 01-19 CT BRAIN W/O CONTRAST [place] [address] Patient: ARLINE KHAN Phone#: : 1955 Age: 61 Gender: M Pt. Type: ER Account: [id number] Location: 052 Ordering: [facility] Exam Date: 02/15/2017/18:40 [facility] Phys: [facility] Charge Code: 079352 Physician: [facility] Order #: [id number] DLP Dose#: PROCEDURE: CT BRAIN WITHOUT CONTRAST [...] 61 Gender: M Pt. Type: ER Account: [id number] Location: 052 [facility]ing: [facility] Exam Date: 02/15/2017/18:40 Family Phys: [facility] Charge Code: 392797 Physician: [facility] Order #: [id number] DLP Dose#: Dictated by: Sonja Gregory MD on 02/16/2017 at 8:20 Approved by: Sonja Gregory MD on 02/16/2017 at 8:20 Normal [facility] CULTURE BLOODon 02-15-2017 CULTURE BLOOD CULTURE BLOOD _BLOOD CULTURE_ORDER #[id number]:2 of 2 24 HOUR REPORT _NO_GROWTH 02/16/17.1934.LMM. 48 HOUR REPORT _NO_GROWTH 02/18/17.0034.LMM. 72 HOUR REPORT _NO_GROWTH 02/18/17.2113.LMM. GRAM STAIN: M I C R O B I O L O G Y R E P O R T FINAL ------- Antimicrobial Susceptibility and Organism Identification Report ------ Specimen Number : [id number] Requested : 02/15/17 Specimen Source : BLOOD Collected : 02/15/17 19:50 [place] [facility] : Emergency Room Received : 02/15/17 19:50 Requesting Physician : KIMMY ANN Patient/Specimen Tests and Comments Specimen Comments ------ ------ FINAL REPORT: No Growth at 5 Days Tech : Source : BLOOD ID # : [id number] FINAL Report Date : / / : Collected : 02/15/17 19:50 02/21/17.JLN. 02/21/17.JLN.COMPLETE Normal [facility] Comment on above: Performed By: #### 2 57229 ####[facility],[address] [place] [address] CULTURE BLOOD CULTURE BLOOD _BLOOD CULTURE_ORDER #[id number]:1 of 2 24 HOUR REPORT _POSITIVE 02/16/17.MDS. 48 HOUR REPORT 72 HOUR REPORT GRAM STAIN: _Gram_pos_cocci_in_chains___ 02/16/17.MDS.Called to KIMMY/sabiha/068108/1000a/MDS M I C R O B I O L O G Y R E P O R T FINAL ------- Antimicrobial Susceptibility and Organism Identification Report ------ Specimen Number : [id number] Requested : 02/15/17 Specimen Source : BLOOD Collected : 02/15/17 19:02 [place] [facility] : Emergency Room Received : 02/15/17 19:02 Requesting Physician : KIMMY ANN Patient/Specimen Tests and Comments Specimen Comments ------ ------ FINAL REPORT: STREPTOCOCCUS VIRID[employer] Ashlyn h : Source : BLOOD ID # : [id number] FINAL CALLED TO/AIDEN/SESAR [id number] Date : / / : Collected : 02/15/17 19:02 02/18/17.0710.DESTINYN. 02/18/17.SESAR.COMPLETE Normal [facility] Comment on above: Performed By: #### 2 82976 ####[facility],[address] [place] [address] 37560 GLUCOSE BEDSIDEon 02-15-2017 GLU BEDSIDE 97 mg/dl Normal 60 - 100 [facility] Comment on above: Performed By: #### 2 54782 ####[facility],[address] [place] [address] 04879 Glucose mass conc Normal [facility] Comment on above: Result Comment: POIN T OF CARE GLUCOSE TEST Performed By: #### 2 44619 ####[facility],[address] [place] [address] 83261 LACTATEon 02-15-2017 Lactate 15.9 mg/dL Normal 4.5 - 18.0 [facility] Comment on above: Performed By: #### 2 89096 ####[facility],[address] [place] [address] 42671 TROPONINon 02-15-2017 Troponin I.cardiac mass conc 0.04 ng/mL Normal 0.00 - 0.05 [facility] Comment on above: Result [...] as heterophile antibodies). Performed By: #### 2 54809 ####[facility],[address] [place] [address] 57702 No Panel Information SARS-CoV-2 & FLU Antigen (Rapid) [facility] Work Phone: Vital Signs Date Time Vital Sign Value Performing Clinician Destiny frost 03-04-2022 21:42-0500 Heart rate 104 /min [facility] Work Phone: 03-04-2022 21:42-0500 Respiratory rate 18 /min [facility] Work Phone: 03-04-2022 21:42-0500 SaO2% (BldA) [Mass fraction] 98 % [facility] Work Phone: 03-04-2022 19:27-0500 Diastolic blood pressure 83 mm[Hg] [facility] Work Phone: 03-04-2022 19:27-0500 Systolic blood pressure 130 mm[Hg] [facility] Work Phone: 03-04-2022 16:57-0500 Body height 187.96 cm [facility] Work Phone: 03-04-2022 16:57-0500 Body mass index (BMI) [Ratio] 32.1 kg/m2 [facility] Work Phone: 03-04-2022 16:57-0500 Body temperature 96.6 [degF] [facility] Work Phone: 03-04-2022 16:57-0500 Body weight 113.39 kg [facility] Work Phone: Encounters Encounter Date Encounter Type Care Provider Facility Start: 03-04-2022 End: 03-04-2022 Emergency department patient visit [facility] Facility:[facility] Start: 03-04-2022 End: 03-04-2022 Emergency department patient visit [facility]Emergency Department Start: 04-21-2017 End: 04-21-2017 Emergency department patient visit YEYO [facility]ADAR[facility] Start: 02-16-2017 End: 02-18-2017 Evaluation and management of inpatient NOT RECORDED PHYSICIAN Facility:A Start: 02-15-2017 End: 02-16-2017 Emergency department patient visit [facility] Procedures Date Procedure Procedure Detail Performing Clinician Start: 03-04-2022 Plain chest X-ray Start: 01-21-2021 Ecg routine ecg w/le ast 12 lds i&r only Start: 10-29-2020 Ecg routine ecg w/le ast 12 lds i&r only SARS-CoV-2 & FLU Ant igen (Rapid) Plan of Treatment Date Care Activity Detail Author Patient Education Dehydration [facility] Work Phone: Patient referral [facility] Work Phone: Immunizations Immunization Date Immunization Notes Care Provider Kaylen frost 10-24-2020 tetanus toxoid, redu javi diphtheria toxoid, and acellular pertussis vaccine, adsorbed [facility] Work Phone: Payers Date Payer Category Payer Medicare [id number] 2022 Self-pay [id number] 2017 Medicare [id number] Unknown [id number] Unknown COMMERCIAL OTHER [id number] Unknown [id number] Social History Date Type Detail Facility Start: 03-04-2022 Tobacco smoking stat [facility] Unknown if ever smoked [facility] Work Phone: Start: 12-17-2019 Heavy [facility] Work Phone: Start: 12-17-2019 None [facility] Work Phone: Start: 12-17-2019 With Family [facility] Work Phone: Start: 1955 Sex Assigned At Male W [facility] Work Phone: Mental Status Date Assessment Result Facility 03-04-2022 Cognitive function Level Of Cons ciousness Awake;Alert;Appropriate;Follow s Commands [facility] Work Phone: Discharge summary note 11-01-2020 Note Date & Type Note Facility 11-01-2020 Note [facility] Ce bijan Ruvalcaba Clinical Note 10-24-2020 [...] left arm. He was subsequently transferred to [facility] for evaluation without having seen any orthopedic surgeon. This injury occurred approximately 13 hours prior to being seen here at [facility], and the patient states that he is reasonably comfortable. Mechanism of injury was a slip off of his deck down maybe 4 steps, landing directly on his left nondominant arm. He was able to get up and walk and had mild pain, but over the course of the next several hours noticed increasing swelling for which he sought care at [facility]. After being evaluated, he was subsequently transferred as a concern was raised for compartment syndrome, and the orthopedic surgeon territory sales professional did not feel that that was within his area of expertise to manage. Once in the emergency room here, the patient was evaluated and was again [facility] PATIENT NAME: ARLINE KHAN [address] [facility] [address] MEDICAL REC #: [id number] [place] [address] ADMIT DATE: DISCHARGE DATE: 10/24/20 CONSULTATION REPORT [...] he does have edema and now this [facility] PATIENT NAME: ARLINE KHAN [address] [facility] [address] MEDICAL REC #: [id number] [place] [address] ADMIT DATE: DISCHARGE DATE: 10/24/20 CONSULTATION REPORT [...] to the patient's satisfaction, and I did [facility] PATIENT NAME: ARLINE KHAN [address] [facility] [address] MEDICAL REC #: [id number] [place] [address] ADMIT DATE: DISCHARGE DATE: 10/24/20 CONSULTATION REPORT ATTENDING PHY: Dayana Desai MD discuss with him that any change in his status would warrant repeat evaluation. I can see him in office in the next week or two or he can follow up in the [place] hospital system. Wes Anaya MD [id number] SSI File#: [id number] END OF DOCUMENT / CHANGE LOG FOLLOWS Last Edited By Elec. Signed By Wes Anaya MD #Wes Oh MD #JUSTIN on 10/25/2020 18:44 ET on 10/25/2020 18:44 ET Revision Number - 2 Verified/Reviewed by (more content not included)... [facility] Evaluation note Note Date & Type Note Facility Evaluation note No assessment information availa [facility] Work Phone: Summary Purpose Family History No Family History Records FoundNo Family History Records FoundNo Family History Records FoundNo Family History Records FoundNo Family History Records Found Advance Directives No Advanced Directives Records Found Advance Directive Response Recorded Date/ Time Living Will Yes March 04, 5:11pm Power of Snow Fence Erector Yes March 04, 2022 5:11pm Name of Medical Power of Snow Fence Erector Marta Khan March 04, 2022 5:11pm Chief Complaint and Reason for Visit Chief Complaint CHEST PAIN Additional Source Comments (unrecognized sect ion and content) No Status Records FoundNo Status Records FoundNo Status Records FoundNo Status Records FoundNo Status Records Found INFORMATION SOURCE (unrecogn ized section and content) DATE CREATED AUTHOR 10/12/2017 [facility] DATE CREATED AUTHOR AUTHOR'S ORGANIZ ATION 10/12/2017 [facility] DATE CREATED AUTHOR AUTHOR'S ORGANIZ ATION 11/11/2018 [facility] DATE CREATED AUTHOR AUTHOR'S ORGANIZ ATION 06/08/2021 [facility] DATE CREATED AUTHOR AUTHOR'S ORGANIZ ATION 03/17/2022 [facility] Goals (unrecognized section and content) Goals [...] BE BASED ON THE PRIMARY CLINICAL RECORDS. [facility]. provides no warranty or guarantee of the accuracy or completeness of information in this document.
[2024-11-11] MEDS: Thiamine Hydrochloride 100 MG in 0.9% Normal Saline (50mL Bag) 50 ML 200 MG IV (18:59)
[2024-11-11] MEDS: Vancomycin HCl 1,750 MG in 0.9% Normal Saline (500mL Bag) 500 ML 250 MG IV (19:16)
--- NOTE | 2024-11-11 19:28 | ED.RN ---
Report called to [place] in ICU
--- NOTE | 2024-11-11 19:39 | ECHOCS_ITS ---
Reason For Study Reason For Study: DYSPNEA Procedure This was a 2D Doppler, Color Flow transthoracic echocardiogram. Contrast injection was performed. The study was technically difficult. Exam performed portable in patient room. Left Ventricle Normal LV size. Mild concentric left ventricular hypertrophy. The left ventricular ejection fraction is 55 %. No regional wall motion abnormalities noted. Right Ventricle Normal RV size. Normal systolic function. Atria The left atrium is moderately enlarged. The right atrium is mildly enlarged. Mitral Valve Normal mitral valve. Tricuspid Valve Normal tricuspid valve. Moderate (2+) tricuspid valve insufficiency. Pulmonary artery systolic pressure is 66 mmHg. Moderate pulmonary hypertension. Aortic Valve Trisinus/trileaflet aortic valve. Mild focal aortic valve calcification. Pulmonic Valve Normal pulmonic valve. Great Vessels Normal aortic root. Pericardium/Pleural No pericardial effusion. Medication Diluted definity 3ml given slow IV push to enhance endocardial definition. MMode/2D Measurements & Calculations LVIDd: 4.4 cm IVSd: 1.2 cm LVOT diam: 2.1 cm LVIDs: 2.5 cm LVPWd: 1.3 cm RVDd: 4.3 cm FS: 43.8 % LVOT area: 3.3 cm2 asc Aorta Diam: 3.4 cm LAV(MOD-bp): 85.7 ml LVAd ap4: 32.7 cm2 LAV(MOD-bp) Indexed: 36.4 ml/m2 LVLd ap4: 8.2 cm LAV(MOD-sp2): 69.8 ml EDV(MOD-sp4): 104.4 ml LAV(MOD-sp4): 87.8 ml EDV(sp4-el): 110.6 ml LVAs ap4: 21.0 cm2 LVLs ap4: 6.9 cm ESV(MOD-sp4): 53.6 ml ESV(sp4-el): 54.0 ml EF(MOD-sp4): 48.6 % EF(sp4-el): 51.2 % LVAd ap2: 27.4 cm2 SV(MOD-sp4): 50.8 ml SV(MOD-sp2): 35.6 ml LVLd ap2: 8.2 cm SI(MOD-sp4): 21.5 ml/m2 SI(MOD-sp2): 15.1 ml/m2 EDV(MOD-sp2): 75.3 ml EDV(sp2-el): 78.0 ml LVAs ap2: 18.8 cm2 LVLs ap2: 7.7 cm ESV(MOD-sp2): 39.6 ml ESV(sp2-el): 38.9 ml EF(MOD-sp2): 47.3 % SV(sp4-el): 56.6 ml Ao sinus diam: 3.[address] Junction: 2.5 cm LA dimension(2D): 5.2 cm LA A4 area: 28.9 cm2 RA A4 area: 21.0 cm2 TAPSE: 1.6 cm Time Measurements MV dec time: 0.17 sec Doppler Measurements & Calculations MV E max naomy: 84.4 cm/sec Ao V2 max: 141.1 cm/sec LV V1 max: 101.9 cm/sec Ao max P.1 mmHg LV V1 max P.2 mmHg Ao V2 mean: 99.3 cm/sec LV V1 mean P.2 mmHg Ao mean P.6 mmHg LV V1 mean: 68.6 cm/sec Ao V2 VTI: 24.2 cm LV V1 VTI: 19.5 cm AV (velocity ratio): 0.80 JONO(I,D): 2.7 cm2 JONO(V,D): 2.4 cm2 SV(LVOT): 64.4 ml PA V2 max: 81.9 cm/sec TR max naomy: 389.7 cm/sec TR max P.8 mmHg ECHO/Echo Complete W/ Contrast Interpretation Summary Normal LV size. The left ventricular ejection fraction is 55 %. Mild concentric left ventricular hypertrophy. The left atrium is moderately enlarged. Moderate pulmonary hypertension. Pulmonary artery systolic pressure is 66 mmHg. Contrast injection was performed. Ordering Physician: Charline Bergman Performed By: Jazz Mcdowell RDCS
[2024-11-11 19:52] LABS: Reflex Lactate? Y
[2024-11-11] MEDS: Albuterol 2.5 MG/3 ML VIAL.NEB. INHALATION (20:48)
--- NOTE | 2024-11-11 21:21 | PCM.RX.CS ---
Consult Antibiotic Management Pharmacy has been consulted to manage selected antibiotic: Vancomycin Type of Intervention Type of Consult: Follow-up Suspected Infection Suspected Infection: Sepsis Prior Doses of Antibiotics Prior Doses of Antibiotics Received/Current Regimen: Vancomycin 1750 mg IV x1 given 11/11/24 @ 1916 Labs Labs: Sodium 131 mmol/L (133-145) L 11/11/24 12:50 Potassium 4.3 mmol/L (3.3-5.1) 11/11/24 12:50 Chloride 95 mmol/L (98-108) L 11/11/24 12:50 Carbon Dioxide 16.8 mmol/L (21.0-32.0) L 11/11/24 12:50 Anion Gap 19 (5-15) H 11/11/24 12:50 BUN 13 mg/dL (4-19) 11/11/24 12:50 Creatinine 1.40 mg/dL (0.70-1.20) H 11/11/24 12:50 Est GFR (MDRD) Non-Af 54 (>60) L 11/11/24 12:50 BUN/Creatinine Ratio 9.6 RATIO (10-20) L 11/11/24 12:50 Glucose 128 mg/dL (70-99) H 11/11/24 12:50 Microbiology Microbiology: Microbiology 11/11/24 19:58 Mucosa - Nasopharyngeal Coronavirus COVID-19 PCR - Final Dosing Weight Weight used for dosin kg Estimated Creatinine Clearance Estimated Creatinine Clearance: ~ 66 Goal Trough Goal Trough: 15-20 mcg/mL Pharmacy Plan for Drug Dosing Pharmacy Plan for Drug Dosing: Vancomycin 1750 mg IV x 1 followed by 1500 mg Q12H Pharmacy Service will continue to monitor and adjust dosing as required. Follow-Up Labs Follow-Up Labs: Trough: Vancomycin Date/Time Labs Ordered Labs to be done on [date and time ordered]: 11/13/24 @ [id number]
[2024-11-11] MEDS: THIAMINE 100 MG IV (21:57)
[2024-11-11] MEDS: [UNRECOGNIZED DRUG - OTHER] IV (21:57)
[2024-11-11] MEDS: Folic Acid 1 MG in 0.9% Normal Saline (50mL Bag) 50 ML 200 MG IV (21:57)
[2024-11-11] MEDS: 0.9% Saline Lock 10 ML Syringe IV (22:44)
[2024-11-12] VITALS (19 sets, daily range): BP systolic 131–160; BP diastolic 71–103; PULSE 78–119; RESP 15–25; TEMP 35.9–36.7; O2SAT 92–98; BMI 33.3
[2024-11-12] MEDS: 0.9% Saline Lock 10 ML Syringe IV ×3 (02:32→19:49)
[2024-11-12 04:02] LABS: Hematocrit 48.5 % (40-54); Hemoglobin 16.9 g/dL (13.0-16.5); Immature Granulocytes Count 0.030 X10^3/uL (0.0-0.0); Mean Corp Hgb Conc 34.8 g/dL (32-36); Mean Corpuscular Volume 104.1 fL (80-94); Mean Platelet Vol. 8.4 fl (6.2-12.0); NRBC Flagged by Analyzer 0 % (0-5); POSITIVE DIFFERENTIAL YES; Platelet Count 290 K/mm3 (150-450); RBC Distribution Width CV 14.6 % (11.6-14.6); RBC Distribution Width SD 56.3 fl (35.1-43.9); Red Blood Count 4.66 M/mm3 (4.6-6.2); White Blood Count 10.8 K/mm3 (4.4-11.0)
[2024-11-12 04:27] LABS: AST(SGOT) 16 U/L (<=37); Alanine Aminotransfer ALT/SGPT 6 U/L (<=46); Albumin, Serum 3.6 g/dL (3.4-4.8); Alkaline Phosphatase 71 U/L (40-129); Anion Gap 12 (5-15); BUN 15 mg/dL (4-19); BUN/Creat Ratio 13.0 RATIO (10-20); Calcium,Total 8.4 mg/dL (7.6-11.0); Carbon Dioxide 21.5 mmol/L (21.0-32.0); Chloride 102 mmol/L (98-108); Estimated Creatinine Clearance 79.42 ml/min (50-250); Globulin 4.1 g/dL (2.2-4.2); Glucose 144 mg/dL (70-99); Potassium 4.6 mmol/L (3.3-5.1)
[2024-11-12] MEDS: Piperacil/Tazobactam 3.375 GM in 0.9% Normal Saline (50mL MB+) 50 ML IV ×3 (05:26→23:46)
[2024-11-12] MEDS: [UNRECOGNIZED DRUG - OTHER] IV ×3 (05:27→22:35)
[2024-11-12] MEDS: THIAMINE 100 MG IV ×3 (05:27→22:35)
[2024-11-12] MEDS: Vancomycin HCl 1,500 MG in 0.9% Normal Saline (500mL Bag) 500 ML 250 MG IV ×2 (06:08→18:39)
[2024-11-12] MEDS: Albuterol 2.5 MG/3 ML VIAL.NEB. INHALATION ×3 (06:56→19:26)
[2024-11-12] MEDS: Folic Acid 1 MG in 0.9% Normal Saline (50mL Bag) 50 ML 200 MG IV (08:42)
[2024-11-12] MEDS: FONDAPARINUX SODIUM SC (08:43)
[2024-11-12] MEDS: Lidocaine 5% Patch 1 PATCH TOPICAL (08:44)
--- NOTE | 2024-11-12 11:23 | PN_ITS ---
Subjective Subjective Patient seen and examined. He was admitted with a complaint of shortness of breath. He states he feels better now his shortness of breath has improved.Review of systems is otherwise negative. Objective Data Objective Data Vital Signs: Vital Signs Temp Pulse Resp BP Pulse Ox O2 Del Method 98.0 F 119 H 24 H 135/71 H 95 Room Air 11/12/24 08:30 11/12/24 08:45 11/12/24 08:30 11/12/24 08:45 11/12/24 08:30 11/12/24 08:30 Oxygen Delivery Method Room Air Weight: 246 lb 5 oz Body Mass Index (BMI) 33.3 Intake & Output: Intake and Output for Last 24 Hours 11/10/24 11/11/24 11/12/24 23:59 23:59 23:59 Intake Total 3837.2 / 3837.2 461 / 461 Output Total 300 / 300 1650 / 1650 Balance 3537.2 / 3537.2 -1189 / -1189 Lab / Micro Data 11/12/24 03:40 11/12/24 03:40 Labs: Laboratory Results - last 24 hr 11/11/24 12:50: WBC Cancelled, Corrected WBC Cancelled, RBC Cancelled, Hgb Cancelled, Hct Cancelled, MCV Cancelled, MCH Cancelled, MCHC Cancelled, RDW Std Deviation Cancelled, RDW Coeff of Cara Cancelled, Plt Count Cancelled, MPV Cancelled, Immature Gran % (Auto) Cancelled, Neut % (Auto) Cancelled, Lymph % (Auto) Cancelled, [place] % (Auto) Cancelled, Eos % (Auto) Cancelled, Baso % (Auto) Cancelled, Absolute Neuts (auto) Cancelled, Absolute Lymphs (auto) Cancelled, Total Counted Cancelled, Neutrophils % (Manual) Cancelled, Band Neutrophils % Cancelled, Lymphocytes % (Manual) Cancelled, Monocytes % (Manual) Cancelled, Eosinophils % (Manual) Cancelled, Basophils % (Manual) Cancelled, Metamyelocytes % Cancelled, Myelocytes % Cancelled, Promyelocytes % Cancelled, Blast Cells % Cancelled, Plasma Cell % (Manual) Cancelled, Other Cells % Cancelled, Nucleated RBC % Cancelled, Nucleated RBCs/100 WBC Cancelled, Differential Comment Cancelled, Diff Path Review Cancelled, Hypersegmented Neuts Cancelled, Atypical Lymphocytes Cancelled, Reactive Lymphocytes Cancelled, Smudge Cells Cancelled, Toxic Granulation Cancelled, Toxic Vacuolation Cancelled, Dohle Bodies Cancelled, Bradley Rods Cancelled, Platelet Estimate Cancelled, Plt Morphology Comment Cancelled, RBC Morphology Cancelled 11/11/24 12:50: RBC Morphology Cancelled, Polychromasia Cancelled, Hypochromasia Cancelled, Basophilic Stippling Cancelled, Anisocytosis Cancelled, Microcytosis Cancelled, Macrocytosis Cancelled, Spherocytes Cancelled, Sickle Cells Cancelled, Target Cells Cancelled, Tear Drop Cells Cancelled, Ovalocytes Cancelled, Stomatocytes Cancelled, Aguilar-Stevinson Bodies Cancelled, Yoko Cells Cancelled, Bite Cells Cancelled, Crenated Cell Cancelled, Acanthocytes (Spur) Cancelled, Rouleaux Cancelled, Schistocytes Cancelled, Sodium 131 L, Potassium 4.3, Chloride 95 L, Carbon Dioxide 16.8 L, Anion Gap 19 H, BUN 13, Creatinine 1.40 H, Estim Creat Clear Calc 65.68, Est GFR (MDRD) Non-Af 54 L, BUN/Creatinine Ratio 9.6 L, Glucose 128 H, Calcium 10.0, Troponin T High Sens 7, NT pro BNP II 1846 H 11/11/24 13:05: WBC 11.2 H, RBC 4.88, Hgb 17.8 H, Hct 49.9, MCV 102.3 H, MCH 36.5 H, MCHC 35.7, RDW Std Deviation 53.6 H, RDW Coeff of Cara 14.2, Plt Count 335, MPV 8.4, Immature Gran % (Auto) 0.400, Neut % (Auto) 78.7 H, Lymph % (Auto) 13.0 L, [place] % (Auto) 7.1, Eos % (Auto) 0.2, Baso % (Auto) 0.6, Absolute Neuts (auto) 8.8 H, Absolute Lymphs (auto) 1.46, Nucleated RBC % 0 11/11/24 13:15: Urine Color Rosi, Urine Clarity Cloudy, Urine pH 7.0, Ur Specific [place] 1.010, Urine Protein 100 H, Urine Glucose (UA) Normal, Urine Ketones 5 H, Urine Occult Blood 25 H, Urine Nitrite Negative, Urine Bilirubin 1 H, Urine Urobilinogen 1 H, Ur Leukocyte Esterase 500 H, Urine RBC 0-5 SEEN, Urine WBC 50-100 SEEN, Ur Squamous Epith Cells 0-5 SEEN, Ur Transition Epith Cell 0-5 SEEN, Ur Renal Epithelial Cell 0-5 SEEN, Urine Bacteria 4+, Coarse Granular Casts 0-5 SEEN, Urine Mucus 1+, Urine Opiates Screen NEGATIVE, U Buprenorphine Qual NEGATIVE, Ur Oxycodone Screen NEGATIVE, Urine Methadone Screen NEGATIVE, Urine Fentanyl Screen NEGATIVE, Ur Barbiturates Screen NEGATIVE, Ur Phencyclidine Scrn NEGATIVE, Ur Amphetamines Screen NEGATIVE, U Benzodiazepines Scrn NEGATIVE, Urine Cocaine Screen NEGATIVE, U Cannabinoids Screen PRESUMPTIVE POSITIVE 11/11/24 14:35: Troponin T Hi Sens 2 Hr 8 11/11/24 15:45: Lactic Acid 4.2 H* 11/11/24 17:10: Total Bilirubin 1.71 H, Direct Bilirubin 0.71 H, AST 26, ALT 8, Alkaline Phosphatase 88, Troponin T Hi Sens 4Hr 11, Total Protein 8.3, Albumin 3.9, Globulin 4.4 H, b-Hydroxybutyric mmol/L 0.7 H, TSH 3.020, Ethyl Alcohol < 10.1 11/11/24 21:33: Lactic Acid 4.3 H* 11/12/24 03:40: WBC 10.8, RBC 4.66, Hgb 16.9 H, Hct 48.5, MCV 104.1 H, MCH 36.3 H, MCHC 34.8, RDW Std Deviation 56.3 H, RDW Coeff of Cara 14.6, Plt Count 290, MPV 8.4, Immature Gran % (Auto) 0.300, Neut % (Auto) 92.1 H, Lymph % (Auto) 5.5 L, [place] % (Auto) 2.0, Eos % (Auto) 0.0, Baso % (Auto) 0.1, Absolute Neuts (auto) 10.0 H, Absolute Lymphs (auto) 0.60 L, Nucleated RBC % 0, Sodium 135, Potassium 4.6, Chloride 102, Carbon Dioxide 21.5, Anion Gap 12, BUN 15, Creatinine 1.13, Estim Creat Clear Calc 79.42, Est GFR (MDRD) Non-Af 70, BUN/Creatinine Ratio 13.0, Glucose 144 H, Calcium 8.4, Total Bilirubin 0.82, AST 16, ALT 6, Alkaline Phosphatase 71, Total Protein 7.6, Albumin 3.6, Globulin 4.1, Albumin/Globulin Ratio 0.9 Micro: Microbiology 11/11/24 19:58 Mucosa - Nasopharyngeal Respiratory Panel (PCR) - Preliminary 11/11/24 19:58 Mucosa - Nasopharyngeal Coronavirus COVID-19 PCR - Final ABG Data ABG results: ABG 11/11/24 15:58 Specimen Type LAUREN Sample Site Not entered VBG pH 7.64 H* VBG pO2 33 VBG HCO3 28 H VBG Total CO2 29 VBG O2 Sat (Calc) 78 H VBG Base Excess 7 H POC Mix VBG pCO2 Pt Tmp 26.3 L O2 Delivery Device Not entered Crit Call To/Read Back Yes Blood Gas Notified Whom wilma Blood Gas Notified Time 15:59:32 Radiography Diagnostic Testing: Radiology Impression Chest CTA 11/11/24 12:42 IMPRESSION: No acute abnormality Reading Location: [facility] Lumbar Spine CT 11/11/24 12:42 IMPRESSION: Chronic compression deformities. Spinal stenosis has discussed above. At L5- S1, incidentally seen is elaboration of nitrogen degenerative gas from the L5-S1 interspace into the epidural region. This does not necessarily indicate nerve root impingement or even protrusion. Reading Location: [facility] Abdomen/Pelvis CT 11/11/24 17:28 IMPRESSION: No acute abnormality Reading Location: [facility] Physical Exam Const alert, oriented x3 and no apparent distress General Appearance: cooperative HEENT normocephalic, head/scalp atraumatic, moist oral mucous membranes and oropharynx normal Eyes PERRL and EOMs intact bilaterally Neck no lymphadenopathy and supple Lymph Lymphatic: no lymphedema noted Resp normal respiratory effort, normal air movement and clear to auscultation bilaterally Resp Narrative: on room air. Cardio regular rate, regular rhythm, S1 normal heart sound, S2 normal heart sound and no murmurs GI normal to inspection, nondistended, normoactive bowel sounds, soft to palpation, non-tender and non-distended Extremity normal capillary refill, no clubbing, cyanosis or edema and no calf tenderness General Extremity: no tenderness to palpation of joints or extremities Neuro CN's II-XII intact bilaterally and no focal motor deficits Motor Exam: general weakness Psych thought process normal and cooperative Appearance: appropriate Assessment & Plan Assessment/Plan (1) Sepsis: PLAN: Plan #SIRS criteria thought ot be due to UTI * Patient was admitted with a complaint of shortness of breath and also stated he had been out in the sun 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 He felt he had also not been drinking enough. * He was tachypneic and tachycardic and also had elevated leukocytes and bicarb was low with anion gap of 19 as well as lactic acid of 4.2 on admission. * CT of the chest and abdomen showed no acute pathology. Urinalysis showed elevated WBC with leukocyte esterase and bacteria. On IV Zosyn and vancomycin. Blood and urine cultures pending. Being hydrated with IV fluids. * wbc is down to 10. * #Dyspnea * Patient admitted with complaint of shortness of breath. He was tachypneic but was on room air. CT of the chest showed no acute pathology. BNP was elevated at 1800. * 2D echo ordered and pending. He does not appear to be fluid overloaded. Respiratory panel was negative. * I will start patient on Lasix tomorrow due to elevated BNP CT of the chest was negative for any evidence of PE. #Elevated anion gap: Likely due to elevated lactic acid. Resolved. #History of chronic lumbar back pain: * Lumbar spine CT showed chronic compression deformities and spinal stenosis. * On p.o. Tylenol and oxycodone as well as IV morphine as needed for pain to follow-up with pain management on outpatient basis. * PT OT on board. Fall precautions. #History of A-fib and PE: On fondaparinux #History of alcohol use disorder: States he drinks rum and ron ashok every night. On alcohol withdrawal protocol via CIWA protocol. On thiamine, folic acid and Multi-More. #History of BPH: On Flomax #Hypertension: On amlodipine and metoprolol. Also on hydrochlorothiazide and lisinopril which were held on admission DVT prophylaxis: Already on fondaparinux Charges/Coding Visit Charges Inpatient E&M: 84745 Subs Hosp L2
--- NOTE | 2024-11-12 16:48 | NURSING ---
Patient questioned this RN about letting him have his chewing tobacco. This RN stated he can not use while in hospital. The patient states he does not like the nicotine gum and that it sticks to his dentures. This RN suggested the nicotine patch. Patient continued to ask for the chewing tobacco and asked if he could go outside to use. This RN notified patient he can not do that either. Against hospital policy. This RN again suggested the nicotine patch. Patient reluctantly agreed to the patch.
--- NOTE | 2024-11-12 17:30 | NURSING ---
Patient being prepared to transfer to PCU when this RN walked into the room. Patient was upset that he could not have his chewing tobacco. This RN again explained to patient that he can not have it, [facility] is a tobacco free hospital. The patient again told this RN to take him outside to use it. This RN told patient no, that can not happen. This RN assured patient that the nicotine patch was ordered and he will get it. Patient then asked if he can sign himself out (AMA) so he can have his chewing tobacco. This RN said he can but suggested he try the patch first as he needs antibiotics to get better. Patient then started to argue with this RN that there is no tobacco in his chewing tobacco, that there is no smoke. This RN read the container to patient that it says smokeless tobacco. Patient then taken to PCU. This RN spoke with return checker Flower and staff air defense officer Kayla about situation.
[2024-11-12] MEDS: MELATONIN 10 MG TABLET PO (23:50)
[2024-11-13] VITALS (10 sets, daily range): BP systolic 124–155; BP diastolic 85–97; PULSE 62–100; RESP 12–18; TEMP 36.1–36.9; O2SAT 94–100; BMI 33.8
[2024-11-13] MEDS: THIAMINE 100 MG IV ×3 (05:00→22:31)
[2024-11-13] MEDS: [UNRECOGNIZED DRUG - OTHER] IV ×3 (05:00→22:31)
[2024-11-13] MEDS: Piperacil/Tazobactam 3.375 GM in 0.9% Normal Saline (50mL MB+) 50 ML IV ×3 (05:02→22:31)
[2024-11-13] MEDS: Albuterol 2.5 MG/3 ML VIAL.NEB. INHALATION ×3 (07:12→19:02)
[2024-11-13 07:31] LABS: Vancomycin, Trough Level 18.3 ug/mL (5.0-15.0)
[2024-11-13 07:32] LABS: Hematocrit 47.8 % (40-54); Hemoglobin 17.0 g/dL (13.0-16.5); Immature Granulocytes Count 0.060 X10^3/uL (0.0-0.0); Mean Corp Hgb Conc 35.6 g/dL (32-36); Mean Corpuscular Volume 107.4 fL (80-94); Mean Platelet Vol. 8.4 fl (6.2-12.0); NRBC Flagged by Analyzer 0 % (0-5); Platelet Count 297 K/mm3 (150-450); RBC Distribution Width CV 14.7 % (11.6-14.6); RBC Distribution Width SD 59.4 fl (35.1-43.9); Red Blood Count 4.45 M/mm3 (4.6-6.2); White Blood Count 15.2 K/mm3 (4.4-11.0)
[2024-11-13 07:33] LABS: Anion Gap 10 (5-15); BUN 15 mg/dL (4-19); BUN/Creat Ratio 13.8 RATIO (10-20); Calcium,Total 8.7 mg/dL (7.6-11.0); Carbon Dioxide 24.5 mmol/L (21.0-32.0); Chloride 102 mmol/L (98-108); Estimated Creatinine Clearance 82.40 ml/min (50-250); Glucose 77 mg/dL (70-99); Potassium 3.9 mmol/L (3.3-5.1)
[2024-11-13] MEDS: Vancomycin Trough/Random Due 1 LAB MC (08:17)
--- NOTE | 2024-11-13 08:48 | PCM.RX.CS ---
Consult Antibiotic Management Pharmacy has been consulted to manage selected antibiotic: Vancomycin Type of Intervention Type of Consult: Follow-up Labs Labs: Sodium 136 mmol/L (133-145) 11/13/24 06:30 Potassium 3.9 mmol/L (3.3-5.1) 11/13/24 06:30 Chloride 102 mmol/L (98-108) 11/13/24 06:30 Carbon Dioxide 24.5 mmol/L (21.0-32.0) 11/13/24 06:30 Anion Gap 10 (5-15) 11/13/24 06:30 BUN 15 mg/dL (4-19) 11/13/24 06:30 Creatinine 1.10 mg/dL (0.70-1.20) 11/13/24 06:30 Est GFR (MDRD) Non-Af 73 (>60) 11/13/24 06:30 BUN/Creatinine Ratio 13.8 RATIO (10-20) 11/13/24 06:30 Glucose 77 mg/dL (70-99) 11/13/24 06:30 Vancomycin Trough 18.3 ug/mL (5.0-15.0) H 11/13/24 06:30 Microbiology Microbiology: Microbiology 11/11/24 19:58 Mucosa - Nasopharyngeal Respiratory Panel (PCR) - Preliminary 11/11/24 19:58 Mucosa - Nasopharyngeal Coronavirus COVID-19 PCR - Final Goal Trough Goal Trough: 15-20 mcg/mL Pharmacy Plan for Drug Dosing Pharmacy Plan for Drug Dosing: VANCOMYCIN LEVEL RECEIVED Current Vancomycin Dose: 1500mg IV Q12hr Number of Doses Received: 3 (ED dose + 2 scheduled) Vancomycin Level: 18.3 Hours Since Last Dose: ~12hr Renal Function: SCr 1.1/ CrCl 82 mL/min Renal Function Trend: stable Lab/Micro: pending Vancomycin Plan/Comments: Patient had a trough drawn which resulted in a value of 18.3 (goal 15-20). Trough is within goal range. Will continue current regimen and recheck a trough in 2 days to assess dosing at that time. Pending Level: 11/15/24 @0630 Pharmacy Service will continue to monitor and adjust dosing as required.
[2024-11-13] MEDS: Lidocaine 5% Patch 1 PATCH TOPICAL (09:06)
[2024-11-13] MEDS: 0.9% Saline Lock 10 ML Syringe IV ×4 (09:08→22:31)
[2024-11-13] MEDS: Vancomycin HCl 1,500 MG in 0.9% Normal Saline (500mL Bag) 500 ML 250 MG IV ×2 (09:15→19:33)
[2024-11-13] MEDS: Folic Acid 1 MG in 0.9% Normal Saline (50mL Bag) 50 ML 200 MG IV (09:21)
--- NOTE | 2024-11-13 10:11 | PN_ITS ---
Subjective Subjective Patient seen and examined. He is complaining of back pain which is chronic and radiating down the back of his legs. He denies any shortness of breath or any other symptoms. HE says he was referred to pain management years ago but did not go as it was in [place] and he could not afford to travel there for his appointments. He has been using alcohol to control his pain. Review of systems is otherwise negative. Objective Data Objective Data Vital Signs: Vital Signs Temp Pulse Resp BP Pulse Ox O2 Del Method 98.3 F 100 18 144/97 H 98 Room Air 11/13/24 09:03 11/13/24 09:07 11/13/24 09:03 11/13/24 09:07 11/13/24 09:03 11/13/24 09:03 Oxygen Delivery Method Room Air Weight: 250 lb 0.067 oz Body Mass Index (BMI) 33.8 Intake & Output: Intake and Output for Last 24 Hours 11/11/24 11/12/24 11/13/24 23:59 23:59 23:59 Intake Total 3837.2 / 3837.2 1993.2 / 1993.2 371.2 / 371.2 Output Total 300 / 300 2395 / 2395 1250 / 1250 Balance 3537.2 / 3537.2 -401.8 / -401.8 -878.8 / -878.8 Lab / Micro Data 11/13/24 06:30 11/13/24 06:30 Labs: Laboratory Results - last 24 hr 11/13/24 06:30: WBC 15.2 H, RBC 4.45 L, Hgb 17.0 H, Hct 47.8, MCV 107.4 H, MCH 38.2 H, MCHC 35.6, RDW Std Deviation 59.4 H, RDW Coeff of Cara 14.7 H, Plt Count 297, MPV 8.4, Immature Gran % (Auto) 0.400, Neut % (Auto) 84.6 H, Lymph % (Auto) 10.7 L, [place] % (Auto) 3.7, Eos % (Auto) 0.2, Baso % (Auto) 0.4, Absolute Neuts (auto) 12.9 H, Absolute Lymphs (auto) 1.63, Nucleated RBC % 0, Sodium 136, Potassium 3.9, Chloride 102, Carbon Dioxide 24.5, Anion Gap 10, BUN 15, Creatinine 1.10, Estim Creat Clear Calc 82.40, Est GFR (MDRD) Non-Af 73, BUN/Creatinine Ratio 13.8, Glucose 77, Calcium 8.7, Vancomycin Trough 18.3 H Micro: Microbiology 11/11/24 13:15 Urine, Clean Catch Urine Culture - Preliminary Staphylococcus aureus Mixed Gram Pos & Gram Neg Org 11/11/24 19:58 Mucosa - Nasopharyngeal Respiratory Panel (PCR) - Preliminary 11/11/24 19:58 Mucosa - Nasopharyngeal Coronavirus COVID-19 PCR - Final Physical Exam Const alert, oriented x3 and no apparent distress General Appearance: cooperative HEENT normocephalic, head/scalp atraumatic, moist oral mucous membranes and oropharynx normal Eyes PERRL and EOMs intact bilaterally Neck no lymphadenopathy and supple Lymph Lymphatic: no lymphedema noted Resp normal respiratory effort, normal air movement and clear to auscultation bilaterally Resp Narrative: on room air. Cardio regular rate, regular rhythm, S1 normal heart sound, S2 normal heart sound and no murmurs GI normal to inspection, nondistended, normoactive bowel sounds, soft to palpation, non-tender and non-distended Extremity normal capillary refill, no clubbing, cyanosis or edema and no calf tenderness General Extremity: no tenderness to palpation of joints or extremities Neuro CN's II-XII intact bilaterally Neuro Narrative: straight leg raising test positive in both LEs. Motor Exam: general weakness Psych thought process normal and cooperative Psych Narrative: uncomfortable due to pain. 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 He felt he had also not been drinking enough. * He was tachypneic and tachycardic and also had elevated leukocytes and bicarb was low with anion gap of 19 as well as lactic acid of 4.2 on admission. * CT of the chest and abdomen showed no acute pathology. Urinalysis showed elevated WBC with leukocyte esterase and bacteria. On IV Zosyn and vancomycin. Blood and urine cultures pending. Being hydrated with IV fluids. * wbc is up to 15.2 today. * urine cultures growing Staph aureus and mixed gram positive and gram negative organisms. * #Dyspnea * Patient admitted with complaint of shortness of breath. He was tachypneic but was on room air. CT of the chest showed no acute pathology. BNP was elevated at 1800. * 2D echo ordered and pending. He does not appear to be fluid overloaded. Respiratory panel was negative. * on PO lasix. Shortness of breah has resolved. * #Elevated anion gap: Likely due to elevated lactic acid. Resolved. #History of chronic lumbar back pain: * Lumbar spine CT showed chronic compression deformities and spinal stenosis. * On p.o. Tylenol and oxycodone as well as IV morphine as needed for pain to follow-up with pain management on outpatient basis. * PT OT on board. Fall precautions. * complaining of severe pain today. PT/OT On board. Will add on tizanidine * He has not followed up with pain management on outpatient basis as he said he could not go back up for decanted. He had been drinking alcohol at home to help with pain. #History of A-fib and PE: On fondaparinux #History of alcohol use disorder: States he drinks rum and ron ashok every night. On alcohol withdrawal protocol via CIWA protocol. On thiamine, folic acid and Multi-More. #History of BPH: On Flomax #Hypertension: On amlodipine and metoprolol. Also on hydrochlorothiazide and lisinopril which were held on admission DVT prophylaxis: Already on fondaparinux Charges/Coding Visit Charges Inpatient E&M: 33096 Subs Hosp L2
[2024-11-13] MEDS: FONDAPARINUX SODIUM SC (10:47)
--- NOTE | 2024-11-13 12:28 | CASEMGMT ---
RN YUN Assessment Face to Face with patient for initial transition planning/care coordination assessment. RN CM introduced self and role at [facility], pt voices understanding. Pt is A&Ox4 and is resting comfortably in bed and is calm. Care providers, pharmacy, and demographics verified. Admitting dx: Concern for sepsis LACE Strata: 1 PCP: [facility] Specialists: Cardiology through the [facility] Preferred Pharmacy: [facility] Insurance: [facility], [place] Prescription Benefit: Yes LNOK: Geremias (son), George (Son) Living Arrangements: Pt lives alone in a 2 story home with a FFSU and 3 steps to enter ADLs/IADLs: Pt states that he is indep but has back pain. See PT notes. This RN CM reviewed how the pt has done with therapy. Pt denies the need for HH or OP Tx. 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 Denies concerns DME: FWW, Cane, BP Machine, shower chair HHC/SNF: denies hx or needs Substance abuse: Pt reports that he drinks whiskey with ron ashok daily. Pt states that he smokes TCH daily. Pt states that he chews tobacco daily. This RN CM offered cessation resources and SW f/u (two separate times). However pt declines. Pt?s goal: Home Plan: [facility] Pt states that he also recently hired a pvt still cleaner to assist with cleaning his home. Pt states that his sons & neighbor are able to provide him with support at home if needed. Pt denies further questions, concerns, or needs at this time. Report given to [employer] CM. Pieter Chavarria RN, CM
[2024-11-14] VITALS (11 sets, daily range): BP systolic 146–167; BP diastolic 84–103; PULSE 78–96; RESP 16–20; TEMP 36.6–37.1; O2SAT 96–100; BMI 33.3
[2024-11-14] MEDS: Piperacil/Tazobactam 3.375 GM in 0.9% Normal Saline (50mL MB+) 50 ML IV (05:52)
[2024-11-14] MEDS: [UNRECOGNIZED DRUG - OTHER] IV ×3 (05:55→21:37)
[2024-11-14] MEDS: THIAMINE 100 MG IV ×3 (05:55→21:37)
[2024-11-14] MEDS: Vancomycin HCl 1,500 MG in 0.9% Normal Saline (500mL Bag) 500 ML 250 MG IV (06:52)
[2024-11-14 07:30] LABS: Hematocrit 46.5 % (40-54); Hemoglobin 16.1 g/dL (13.0-16.5); Immature Granulocytes Count 0.040 X10^3/uL (0.0-0.0); Mean Corp Hgb Conc 34.6 g/dL (32-36); Mean Corpuscular Volume 104.7 fL (80-94); Mean Platelet Vol. 8.8 fl (6.2-12.0); NRBC Flagged by Analyzer 0 % (0-5); Platelet Count 242 K/mm3 (150-450); RBC Distribution Width CV 14.5 % (11.6-14.6); RBC Distribution Width SD 56.5 fl (35.1-43.9); Red Blood Count 4.44 M/mm3 (4.6-6.2); White Blood Count 8.6 K/mm3 (4.4-11.0)
[2024-11-14] MEDS: Albuterol 2.5 MG/3 ML VIAL.NEB. INHALATION ×3 (07:32→19:25)
[2024-11-14 08:00] LABS: Anion Gap 11 (5-15); BUN 13 mg/dL (4-19); BUN/Creat Ratio 12.4 RATIO (10-20); Calcium,Total 8.6 mg/dL (7.6-11.0); Carbon Dioxide 23.1 mmol/L (21.0-32.0); Chloride 101 mmol/L (98-108); Estimated Creatinine Clearance 87.24 ml/min (50-250); Glucose 88 mg/dL (70-99); Potassium 4.3 mmol/L (3.3-5.1)
[2024-11-14] MEDS: FONDAPARINUX SODIUM SC (08:22)
[2024-11-14] MEDS: Folic Acid 1 MG in 0.9% Normal Saline (50mL Bag) 50 ML 200 MG IV (10:56)
--- NOTE | 2024-11-14 12:50 | PN_ITS ---
Subjective Subjective Patient seen and examined. He had no active complaints. However according to his nurse his heart rate has been elevated especially with movement and he goes as high as the 170s. He denies any chest pain or lightheadedness or dizziness. Review of sytems is otherwise negative. Objective Data Objective Data Vital Signs: Vital Signs Temp Pulse Resp BP Pulse Ox O2 Del Method 98.0 F 86 16 155/92 H 97 Room Air 11/14/24 10:00 11/14/24 10:00 11/14/24 10:00 11/14/24 10:00 11/14/24 10:00 11/14/24 10:00 Oxygen Delivery Method Room Air Weight: 245 lb 9.519 oz Body Mass Index (BMI) 33.3 Intake & Output: Intake and Output for Last 24 Hours 11/12/24 11/13/24 11/14/24 23:59 23:59 23:59 Intake Total 1992.2 / 1992.2 1683.2 / 1982.2 1231 / 1231 Output Total 2395 / 2395 1250 / 2350 3350 / 3350 Balance -401.8 / -401.8 433.2 / -366.8 -2119 / -2119 Lab / Micro Data 11/14/24 07:18 11/14/24 07:18 Labs: Laboratory Results - last 24 hr 11/14/24 07:18: WBC 8.6, RBC 4.44 L, Hgb 16.1, Hct 46.5, MCV 104.7 H, MCH 36.3 H , MCHC 34.6, RDW Std Deviation 56.5 H, RDW Coeff of Cara 14.5, Plt Count 242, MPV 8.8, Immature Gran % (Auto) 0.500, Neut % (Auto) 74.7 H, Lymph % (Auto) 16.4 L, Calhoun % (Auto) 6.4, Eos % (Auto) 1.4, Baso % (Auto) 0.6, Absolute Neuts (auto) 6.4, Absolute Lymphs (auto) 1.41, Nucleated RBC % 0, Sodium 135, Potassium 4.3, Chloride 101, Carbon Dioxide 23.1, Anion Gap 11, BUN 13, Creatinine 1.03, Estim Creat Clear Calc 87.24, Est GFR (MDRD) Non-Af 79, BUN/Creatinine Ratio 12.4, Glucose 88, Calcium 8.6 Micro: Microbiology 11/11/24 13:15 Urine, Clean Catch Urine Culture - Final Staphylococcus aureus Mixed Gram Pos & Gram Neg Org 11/11/24 17:40 Blood Culture (Wb) - Anticubital Left Blood Culture - Preliminary No growth in 48 hours. 11/11/24 17:15 Blood Culture (Wb) - Anticubital Left Blood Culture - Preliminary No growth in 48 hours. 11/11/24 19:58 Mucosa - Nasopharyngeal Respiratory Panel (PCR) - Final 11/11/24 19:58 Mucosa - Nasopharyngeal Coronavirus COVID-19 PCR - Final Radiography Diagnostic Testing: Radiology Impression Echocardiogram 11/11/24 19:39 Interpretation Summary Normal LV size. The left ventricular ejection fraction is 55 %. Mild concentric left ventricular hypertrophy. The left atrium is moderately enlarged. Moderate pulmonary hypertension. Pulmonary artery systolic pressure is 66 mmHg. Contrast injection was performed. Ordering Physician: Charline Bergman Performed By: Jazz Mcdowell RDCS Physical Exam Const alert, oriented x3 and no apparent distress General Appearance: cooperative HEENT normocephalic, head/scalp atraumatic, moist oral mucous membranes and oropharynx normal Eyes PERRL and EOMs intact bilaterally Neck no lymphadenopathy and supple Lymph Lymphatic: no lymphedema noted Resp normal respiratory effort, normal air movement and clear to auscultation bilaterally Resp Narrative: on room air. Cardio regular rate, regular rhythm, S1 normal heart sound, S2 normal heart sound and no murmurs GI normal to inspection, nondistended, normoactive bowel sounds, soft to palpation, non-tender and non-distended Extremity normal capillary refill, no clubbing, cyanosis or edema and no calf tenderness General Extremity: no tenderness to palpation of joints or extremities Neuro CN's II-XII intact bilaterally and no focal motor deficits Motor Exam: general weakness Psych thought process normal and cooperative Appearance: appropriate Assessment & Plan Assessment/Plan (1) Sepsis: PLAN: Plan #SIRS criteria thought ot be due to UTI * Patient was admitted with a complaint of shortness of breath and also stated he had been out in the sun 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 He felt he had also not been drinking enough. * He was tachypneic and tachycardic and also had elevated leukocytes and bicarb was low with anion gap of 19 as well as lactic acid of 4.2 on admission. * CT of the chest and abdomen showed no acute pathology. Urinalysis showed elevated WBC with leukocyte esterase and bacteria. On IV Zosyn and vancomycin. Blood and urine cultures pending. Being hydrated with IV fluids. * wbc is down to 8.6 today * urine cultures growing Staph aureus and mixed gram positive and gram negative organisms. * #Dyspnea * Patient admitted with complaint of shortness of breath. He was tachypneic but was on room air. CT of the chest showed no acute pathology. BNP was elevated at 1800. * 2D echo ordered and pending. He does not appear to be fluid overloaded. Respiratory panel was negative. * resolved. On PO lasix. #Afib with intermittent RVR * Patient noted to have his heart rate going up to the 160s with ambulation but at rest it is fine. CT of the chest on 11/11/2025 was negative for any evidence of PE. * 2D echo showed EF of 55% with mild concentric left ventricular hypertrophy and pulmonary systolic pressure of 6 6 mmHg indicating moderate pulmonary hypertension. * metoprolol increased to 50mg bid. IF tachycardia persists, will consult cardiology * on fondaparinux * #Elevated anion gap: Likely due to elevated lactic acid. Resolved. #History of chronic lumbar back pain: * Lumbar spine CT showed chronic compression deformities and spinal stenosis. * On p.o. Tylenol and oxycodone as well as IV morphine as needed for pain to follow-up with pain management on outpatient basis. * PT OT on board. Fall precautions. * pain is better today. * He has not followed up with pain management on outpatient basis as he said he could not go back and forth from [place]. He had been drinking alcohol at home to help with pain. #History of PE: On fondaparinux #History of alcohol use disorder: States he drinks rum and ron ashok every night. On alcohol withdrawal protocol via CIWA protocol. On thiamine, folic acid and Multi-More. #History of BPH: On Flomax #Hypertension: On amlodipine and metoprolol. Also on hydrochlorothiazide and lisinopril which were held on admission DVT prophylaxis: Already on fondaparinux Charges/Coding Visit Charges Inpatient E&M: 50112 Subs Hosp L2
[2024-11-15 01:05] VITALS: PULSE 78; RESP 18
[2024-11-15] MEDS: Albuterol 2.5 MG/3 ML VIAL.NEB. INHALATION ×2 (01:05→07:08)
[2024-11-15 04:00] VITALS: BP 146/93; PULSE 68; RESP 16; TEMP 36.4; O2SAT 97
[2024-11-15 04:19] VITALS: BMI 32.8
[2024-11-15] MEDS: THIAMINE 100 MG IV (05:26)
[2024-11-15] MEDS: [UNRECOGNIZED DRUG - OTHER] IV (05:26)
[2024-11-15] MEDS: 0.9% Normal Saline (250mL Bag) 250 ML 15 ML IV (05:30)
[2024-11-15 06:29] LABS: Hematocrit 45.3 % (40-54); Hemoglobin 16.1 g/dL (13.0-16.5); Immature Granulocytes Count 0.010 X10^3/uL (0.0-0.0); Mean Corp Hgb Conc 35.5 g/dL (32-36); Mean Corpuscular Volume 103.2 fL (80-94); Mean Platelet Vol. 8.4 fl (6.2-12.0); NRBC Flagged by Analyzer 0 % (0-5); Platelet Count 245 K/mm3 (150-450); RBC Distribution Width CV 14.3 % (11.6-14.6); RBC Distribution Width SD 54.8 fl (35.1-43.9); Red Blood Count 4.39 M/mm3 (4.6-6.2); White Blood Count 7.2 K/mm3 (4.4-11.0)
[2024-11-15 07:05] LABS: Anion Gap 11 (5-15); BUN 16 mg/dL (4-19); BUN/Creat Ratio 15.7 RATIO (10-20); Calcium,Total 8.7 mg/dL (7.6-11.0); Carbon Dioxide 22.3 mmol/L (21.0-32.0); Chloride 102 mmol/L (98-108); Estimated Creatinine Clearance 90.16 ml/min (50-250); Glucose 93 mg/dL (70-99); Potassium 3.9 mmol/L (3.3-5.1); Vancomycin, Trough Level 13.5 ug/mL (5.0-15.0)
[2024-11-15 07:09] VITALS: PULSE 91; RESP 18; O2SAT 98
[2024-11-15 07:52] VITALS: BP 145/90; PULSE 90; RESP 14; TEMP 36.7; O2SAT 99
[2024-11-15 07:57] VITALS: PULSE 90
[2024-11-15] MEDS: FONDAPARINUX SODIUM SC (08:02)
[2024-11-15] MEDS: Folic Acid 1 MG in 0.9% Normal Saline (50mL Bag) 50 ML 200 MG IV (09:40)
--- NOTE | 2024-11-15 10:40 | DCINST_ITS ---
Discharge Instructions DC O2, CPAP, BIPAP needs Home O2 Discharge instructions: No Dressing / Incision Discharge Activity: Return to Normal Activity Weight Bearing Status: Weight bearing as tolerated Dressing / Incision Call your doctor if you observe: Fever of 101 or Higher, Shortness of breath, Dizziness, Chest pain and Uncontrolled pain Follow Up Care Test Results: Test results from this visit will be discussed in further detail at your follow- up appointment, if applicable. Discharge Plan Admission Admit Date/Time: 11/11/24 18:37 Primary Reason for Your Visit: UTI, afib with RVR Attending Provider: Lena Parrish Primary Care Provider: [place], [place] Consulting Providers: Charline Bergman Instructions Patient Instructions: AFib Dc, ED Urinary Tract Infections in Men Additional Instructions / Restrictions: counseled to stop using alcohol for pain management. Discharge Orders/Prescriptions Prescriptions: New doxycycline monohydrate 100 mg Capsule 100 mg PO Q12 Qty: 7 0RF metoprolol tartrate 50 mg Tablet 50 mg PO BID Qty: 60 2RF oxycodone 5 mg Tablet 10 mg PO Q4H PRN PRN (Reason: Pain Score 4-10 Or Pre Pt/Ot) 3 Days Qty: 18 0RF Continued cyanocobalamin (vitamin B-12) 500 MCG tablet 1,000 mcg PO DAILY@0800 amlodipine 10 MG tablet 10 mg PO DAILY fondaparinux [Arixtra] 10 MG/0.8 ML syringe 10 mg SQ DAILY gabapentin 600 MG tablet 600 mg PO TIDCM hydrochlorothiazide 12.5 mg capsule 12.5 mg PO DAILY lisinopril 40 mg tablet 40 mg PO DAILY ezetimibe 10 mg tablet 10 mg PO DAILY cholecalciferol (vitamin D3) 25 mcg (1,000 unit) capsule 25 mcg PO DAILY tizanidine 4 mg capsule 4 mg PO BID PRN (Reason: muscle spasticity) albuterol sulfate [Ventolin HFA] 90 mcg/actuation HFA aerosol inhaler 1 inh inhalation Q6H Discontinued metoprolol tartrate 25 MG tablet 25 mg PO BID Referrals / Follow Up: Beverley Guallpa MD [Med Staff - Active Staff] - Within 2 Weeks (see to establish care for chronic back pain) [facility] [Primary Care Provider] - Within 1 Week Disposition Disposition (needs filled in before D/C Order can be placed): Home, Self Care
--- NOTE | 2024-11-15 10:41 | DS.PCM_ITS ---
Providers Date of Admission: 11/11/24 Date of Discharge: 11/15/24 Primary Care Physician: [facility] Reason For Visit: CONCERN FOR SEPSIS Diagnosis Discharge Diagnosis (1) Sepsis: Status: Acute Code(s): A41.9 - Sepsis, unspecified organism Plan #SIRS criteria thought ot be due to UTI * Patient was admitted with a complaint of shortness of breath and also stated he had been out in the sun 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 He felt he had also not been drinking enough. * He was tachypneic and tachycardic and also had elevated leukocytes and bicarb was low with anion gap of 19 as well as lactic acid of 4.2 on admission. * CT of the chest and abdomen showed no acute pathology. Urinalysis showed elevated WBC with leukocyte esterase and bacteria. On IV Zosyn and vancomycin. Blood and urine cultures pending. Being hydrated with IV fluids. * wbc is down to 8.6 today * urine cultures growing Staph aureus and mixed gram positive and gram negative organisms. * #Dyspnea * Patient admitted with complaint of shortness of breath. He was tachypneic but was on room air. CT of the chest showed no acute pathology. BNP was elevated at 1800. * 2D echo ordered and pending. He does not appear to be fluid overloaded. Respiratory panel was negative. * resolved. On PO lasix. #Afib with intermittent RVR * Patient noted to have his heart rate going up to the 160s with ambulation but at rest it is fine. CT of the chest on 11/11/2025 was negative for any evidence of PE. * 2D echo showed EF of 55% with mild concentric left ventricular hypertrophy and pulmonary systolic pressure of 6 6 mmHg indicating moderate pulmonary hypertension. * metoprolol increased to 50mg bid. IF tachycardia persists, will consult cardiology * on fondaparinux * #Elevated anion gap: Likely due to elevated lactic acid. Resolved. #History of chronic lumbar back pain: * Lumbar spine CT showed chronic compression deformities and spinal stenosis. * On p.o. Tylenol and oxycodone as well as IV morphine as needed for pain to follow-up with pain management on outpatient basis. * PT OT on board. Fall precautions. * pain is better today. * He has not followed up with pain management on outpatient basis as he said he could not go back and forth from [place]. He had been drinking alcohol at home to help with pain. #History of PE: On fondaparinux #History of alcohol use disorder: States he drinks rum and ron ashok every night. On alcohol withdrawal protocol via CIWA protocol. On thiamine, folic acid and Multi-More. #History of BPH: On Flomax #Hypertension: On amlodipine and metoprolol. Also on hydrochlorothiazide and lisinopril which were held on admission DVT prophylaxis: Already on fondaparinux Medications at Discharge Home Medications amlodipine 10 mg tablet 10 mg PO DAILY blood pressure 05/02/17 cyanocobalamin (vitamin B-12) 500 mcg tablet 1,000 mcg PO DAILY@0800 vitamin 05/02/17 fondaparinux 10 mg/0.8 mL subcutaneous solution syringe (Arixtra) 10 mg SQ DAILY blood thinner 05/02/17 gabapentin 600 mg tablet 600 mg PO TIDCM 07/25/18 albuterol sulfate 90 mcg/actuation aerosol inhaler (Ventolin HFA) 1 inh inhalation Q6H breathing 11/11/24 cholecalciferol (vitamin D3) 25 mcg (1,000 unit) capsule 25 mcg PO DAILY vitamin 11/11/24 ezetimibe 10 mg tablet 10 mg PO DAILY cholesterol 11/11/24 hydrochlorothiazide 12.5 mg capsule 12.5 mg PO DAILY diuretic 11/11/24 lisinopril 40 mg tablet 40 mg PO DAILY blood pressure 11/11/24 tizanidine 4 mg capsule 4 mg PO BID PRN muscle spasticity 11/11/24 doxycycline monohydrate 100 mg capsule 100 mg PO Q12 #7 caps 11/15/24 metoprolol tartrate 50 mg tablet 50 mg PO BID #60 tabs 11/15/24 oxycodone 5 mg tablet 10 mg (2 x 5 mg) PO Q4H PRN PRN Pain Score 4-10 Or Pre Pt/Ot 3 days #18 tabs 11/15/24 Hospital Course Operations None Procedures 2-D Echocardiogram Summary of Care Provided Minutes Spent on Discharge: 45 Hospital Course: Patient is a 69-year-old male with past medical history as outlined including history of A-fib, PE, hypertension and BPH was admitted to the ED on 11/11/2024 with a complaint of shortness of breath was started the day before admission. His shortness of breath worsened so he came to the ED. Labs were significant for WBC of 11.2 and sodium of 131. Anion gap was mildly elevated at 19 with bicarb of 16.8. Creatinine was 1.4 which was lower than it had been previously. proBNP was 1800 and initial troponin was 7 and repeat was 8. Urine drug screen was negative. CTA of the chest showed no evidence of PE and lumbar spine CT showed chronic compression deformities and spinal stenosis. Patient was ambulated in the ED but became short of breath and was hyperventilating. He was therefore admitted to be worked up for his shortness of breath. CT of the abdomen and pelvis showed no acute intra-abdominal pathology. Urinalysis does show leukocyte esterase and bacteria as well as elevated WBC. He was admitted and managed for suspected sepsis due to UTI. He was started on IV antibiotics and urine cultures and blood cultures were sent. As stated CTA of the chest was negative for PE. COVID and respiratory panels were also negative. TSH was within normal limits. He was hydrated with IV fluids. 2D echo done showed EF of 55% with no regional wall motion abnormalities and mild concentric left ventricular hypertrophy. Hospital course was complicated by poorly controlled heart rate with his heart rate intermittently going up to the 160s and 170s. However once his metoprolol was increased to 50 mg twice daily this tachycardia resolved and he felt much better. Patient was discharged on 11/15/2024. His urine cultures grew Staph aureus. He was therefore switched to p.o. doxycycline for 5-day course. He is to follow-up with his primary care doctor and was also referred to pain management to follow-up with him for management of his chronic back pain. Of note patient was counseled to stop using alcohol as substitute for pain medication for his back pain. Labs and vitals reviewed. Home medication reviewed and reconciled. Of note he was given a prescription for p.o. oxycodone 5 mg every 4 hours as needed for total of 18 tablets for 3 days. OARRS score was checked and no red flags were seen. Patient seen and examined prior to discharge. He had no active complaints. Review of symptoms otherwise negative. Labs and vitals reviewed. Medication reviewed and reconciled. Physical Exam Const alert, oriented x3 and no apparent distress General Appearance: cooperative and comfortable HEENT normocephalic, head/scalp atraumatic, hearing grossly normal bilaterally, moist oral mucous membranes and oropharynx normal Mouth: oral and palatal mucosa normal Eyes PERRL and EOMs intact bilaterally Neck no lymphadenopathy and supple Lymph Lymphatic: no lymphedema noted Resp normal respiratory effort, normal air movement, no retractions, no use of accessory muscles and clear to auscultation bilaterally Resp Narrative: on room air. Cardio regular rate, regular rhythm, S1 normal heart sound, S2 normal heart sound and no murmurs GI normal to inspection, nondistended, normoactive bowel sounds, soft to palpation, non-tender and non-distended Extremity normal to inspection, full ROM, normal capillary refill, no clubbing, cyanosis or edema and no calf tenderness General Extremity: no tenderness to palpation of joints or extremities Skin no rashes or lesions noted Neuro oriented x3, CN's II-XII intact bilaterally, moves all extremities and no focal motor deficits Sensorium / Orientation: awake and alert Motor Exam: general weakness Psych thought process normal, cooperative and affect normal Appearance: appropriate Weight / BMI Weight Weight: 242 lb 4.608 oz Body Mass Index (BMI) 32.8 ABG / Lab / Microbiology Data 11/15/24 06:15 11/15/24 06:15 Laboratory: Laboratory Results - last 24 hr 11/15/24 06:15: WBC 7.2, RBC 4.39 L, Hgb 16.1, Hct 45.3, MCV 103.2 H, MCH 36.7 H , MCHC 35.5, RDW Std Deviation 54.8 H, RDW Coeff of Cara 14.3, Plt Count 245, MPV 8.4, Immature Gran % (Auto) 0.100, Neut % (Auto) 71.4 H, Lymph % (Auto) 17.2 L, Stanton % (Auto) 8.0, Eos % (Auto) 2.5, Baso % (Auto) 0.8, Absolute Neuts (auto) 5.1, Absolute Lymphs (auto) 1.23, Nucleated RBC % 0, Sodium 135, Potassium 3.9, Chloride 102, Carbon Dioxide 22.3, Anion Gap 11, BUN 16, Creatinine 0.99, Estim Creat Clear Calc 90.16, Est GFR (MDRD) Non-Af 83, BUN/Creatinine Ratio 15.7, Glucose 93, Calcium 8.7, Vancomycin Trough 13.5 Microbiology: Microbiology 11/11/24 13:15 Urine, Clean Catch Urine Culture - Final Staphylococcus aureus Mixed Gram Pos & Gram Neg Org 11/11/24 17:40 Blood Culture (Wb) - Anticubital Left Blood Culture - Preliminary No growth in 48 hours. 11/11/24 17:15 Blood Culture (Wb) - Anticubital Left Blood Culture - Preliminary No growth in 48 hours. 11/11/24 19:58 Mucosa - Nasopharyngeal Respiratory Panel (PCR) - Final 11/11/24 19:58 Mucosa - Nasopharyngeal Coronavirus COVID-19 PCR - Final D/C Instructions Discharge Activity: Return to Normal Activity Weight Bearing Status: Weight bearing as tolerated Call your doctor if you observe: Fever of 101 or Higher, Shortness of breath, Dizziness, Chest pain and Uncontrolled pain DC O2, CPAP, BIPAP Needs Home O2 Discharge instructions: No DC home with Oxygen: No Meaningful Use Info Meaningful Use Meaningful Use Diagnoses (Choose all that apply): None applicable Discharge Plan Admission Admit Date/Time: 11/11/24 18:37 Primary Reason for Your Visit: UTI, afib with RVR Attending Provider: Lena Parrish Primary Care Provider: [facility] Consulting Providers: Charline Bergman Instructions Patient Instructions: AFib Dc, ED Urinary Tract Infections in Men Additional Instructions / Restrictions: counseled to stop using alcohol for pain management. Discharge Orders/Prescriptions Prescriptions: New doxycycline monohydrate 100 mg Capsule 100 mg PO Q12 Qty: 7 0RF metoprolol tartrate 50 mg Tablet 50 mg PO BID Qty: 60 2RF oxycodone 5 mg Tablet 10 mg PO Q4H PRN PRN (Reason: Pain Score 4-10 Or Pre Pt/Ot) 3 Days Qty: 18 0RF Continued cyanocobalamin (vitamin B-12) 500 MCG tablet 1,000 mcg PO DAILY@0800 amlodipine 10 MG tablet 10 mg PO DAILY fondaparinux [Arixtra] 10 MG/0.8 ML syringe 10 mg SQ DAILY gabapentin 600 MG tablet 600 mg PO TIDCM hydrochlorothiazide 12.5 mg capsule 12.5 mg PO DAILY lisinopril 40 mg tablet 40 mg PO DAILY ezetimibe 10 mg tablet 10 mg PO DAILY cholecalciferol (vitamin D3) 25 mcg (1,000 unit) capsule 25 mcg PO DAILY tizanidine 4 mg capsule 4 mg PO BID PRN (Reason: muscle spasticity) albuterol sulfate [Ventolin HFA] 90 mcg/actuation HFA aerosol inhaler 1 inh inhalation Q6H Discontinued metoprolol tartrate 25 MG tablet 25 mg PO BID Referrals / Follow Up: Beverley Guallpa MD [Med Staff - Active Staff] - Within 2 Weeks (see to establish care for chronic back pain) [place], [place] [Primary Care Provider] - Within 1 Week Disposition Disposition (needs filled in before D/C Order can be placed): Home, Self Care Charges/Coding Visit Charges Inpatient E&M: 05801 Disch Hosp >30min
--- NOTE | 2024-11-15 11:09 | CASEMGMT ---
Patient has order for discharge. RN CM in to discuss needs at discharge. Patient denies needs or help at discharge. Patient had no further questions or concerns.
--- NOTE | 2024-11-15 11:13 | PHA.DC.MC.R ---
Pharmacy [facility] has performed discharge medication reconciliation and counseling for this patient. 1. DOXYCYCLINE 100MG PO BID X 7 DOSES 2. OXYCODONE 10MG PO Q4H PRN PAIN 3. METOPROLOL INCREASED TO 50MG The patient's discharge medication list was reviewed for discrepancies and discrepancies were resolved. The patient was counseled on the following discharge medications and changes in medications for homegoing were reviewed. The Reason for Use, instructions for use, and potential side effects were reviewed for all new medications. The patient's questions regarding all of their medications were answered. The patient was able to verbally demonstrate an understanding of their discharge medications. Medications at Discharge Home Medications amlodipine 10 mg tablet 10 mg PO DAILY 05/02/17 cyanocobalamin (vitamin B-12) 500 mcg tablet 1,000 mcg PO DAILY@0800 05/02/17 fondaparinux 10 mg/0.8 mL subcutaneous solution syringe (Arixtra) 10 mg SQ DAILY 05/02/17 gabapentin 600 mg tablet 600 mg PO TIDCM 07/25/18 albuterol sulfate 90 mcg/actuation aerosol inhaler (Ventolin HFA) 1 inh inhalation Q6H 11/11/24 cholecalciferol (vitamin D3) 25 mcg (1,000 unit) capsule 25 mcg PO DAILY 11/11/24 ezetimibe 10 mg tablet 10 mg PO DAILY 11/11/24 hydrochlorothiazide 12.5 mg capsule 12.5 mg PO DAILY 11/11/24 lisinopril 40 mg tablet 40 mg PO DAILY 11/11/24 tizanidine 4 mg capsule 4 mg PO BID PRN muscle spasticity 11/11/24 doxycycline monohydrate 100 mg capsule 100 mg PO Q12 #7 caps 11/15/24 metoprolol tartrate 50 mg tablet 50 mg PO BID #60 tabs 11/15/24 oxycodone 5 mg tablet 10 mg (2 x 5 mg) PO Q4H PRN PRN Pain Score 4-10 Or Pre Pt/Ot 3 days #18 tabs 11/15/24
== END 2024-11-15 12:03 | disposition home or self-care (01) | DRG 872 ==
LOC: ED 17:38 → ICU 18:40 → PCU 11-12 17:33
PROVIDERS: Admitting Provider Internal Medicine; Emergency Provider Emergency Medicine; Visit Provider Student in an Organized Health Care Education/Training Program
DX: A41.9 Sepsis, unspecified organism (principal); E87.20 Acidosis, unspecified; N39.0 Urinary tract infection, site not specified; N13.8 Other obstructive and reflux uropathy; I11.0 Hypertensive heart disease with heart failure; I27.20 Pulmonary hypertension, unspecified; I48.91 Unspecified atrial fibrillation; E78.00 Pure hypercholesterolemia, unspecified; M48.00 Spinal stenosis, site unspecified; M54.50 Low back pain, unspecified; F10.90 Alcohol use, unspecified, uncomplicated; Z87.891 Personal history of nicotine dependence; Z86.711 Personal history of pulmonary embolism; Z79.899 Other long term (current) drug therapy; G89.29 Other chronic pain; B95.61 Methicillin susceptible Staphylococcus aureus infection as the cause of diseases classified elsewhere; N40.1 Benign prostatic hyperplasia with lower urinary tract symptoms
CPT/HCPCS: 36415; 71275; 72131; 74176; 80048; 80053; 80076; 80202; 80307; 81001; 82010; 82077; 82803; 83605; 83880; 84443; 84484; 85025; 87040; 87077; 87086; 87088; 87186; 87633; 87635; 93005; 93306; 94640; 97161; 97165; 97530; 97535; 99285; Q9957; Q9967; A4216; C8929